=== PATIENT | female | born 1975 | race African-American/Black ===

== ENCOUNTER 2017-02-05 20:48 | Inpatient (IN) ==
[2017-02-05] MEDS ORDERED: ASPIRIN 325 MG TABLET PO STA (22:35)
[2017-02-05] MEDS ORDERED: FUROSEMIDE 100 MG/10 ML VIAL IV STA (22:35)
[2017-02-05] MEDS ORDERED: MORPHINE 2 MG/1 ML SYRINGE IV STA (22:35)
[2017-02-05] MEDS ORDERED: FUROSEMIDE 100 MG/10 ML VIAL ONE (22:40)
[2017-02-05] MEDS ORDERED: MORPHINE 2 MG/1 ML SYRINGE ONE (22:40)
[2017-02-05] MEDS ORDERED: ASPIRIN 325 MG TABLET ONE (22:40)
[2017-02-05 22:44] LABS: Basophils % 0.1 % (0.0-0.8); Eosinophils # 0.3 10*3/uL (0.0-0.87); Hematocrit 25.8 VOL% (35.7-47.0); Hemoglobin 8.4 GM/DL (12.0-16.0); Immature Granulocytes % 1.9 %; Immature Granulocytes Absolute 0.53 #; Lymphocytes # 1.1 10*3/uL (1.4-4.0); Lymphocytes % 4.1 % (21.3-54.2); Mean Corpuscular HGB Conc 32.6 GM/DL (32-36); Mean Corpuscular Hemoglobin 29 PG (27-34); Mean Corpuscular Volume 89.3 FL (87-102); Mean Platelet Volume 9.6 FL (9.6-12.0); Monocytes # 0.9 10*3/uL (0.11-0.8); Monocytes % 3.2 % (1.7-12.7); Neutrophils % 89.7 % (38.7-73.9); Platelet Count 296 T/CUMM (130-400); Red Blood Count 2.89 MC/CUMM (3.8-5.5); Red Cell Distribution Width 14.4 % (9.3-17.3); White Blood Count 27.9 T/CUMM (4-12)
[2017-02-05] MEDS ORDERED: VANCOMYCIN INJ 1,000 MG in SODIUM CHLORIDE 0.9% 250 ML IV STA (22:57)
--- NOTE | 2017-02-05 22:57 | Emergency Department Note ---
IKallie Gwan, am scribing for, and in the presence of, Sajan Duke MD 22 :35. Srikanth Ruiz Charles R, MD, personally performed the services described in this documentation, ascribed by Karishma Arreguin in my presence, and it is both accurate and complete . Arrival - Arrival Chief Complaint: Extremity Problem Stated Complaint: lower extremity problem ED Nursing Triage Note: TO ER PER WHEELCHAIR WITH COMPLAINT OF PAIN TO BLE, MOTHER STATES PATIENT HAS KNOTS TO THE BACK OF THIGHS AND LEGS AND HAS EDEMA TO BLE THAT IS GETTING WORSE. REPORTS IS A DIALYSIS PATIENT AND WAS IN ED LAST WEEK DUE TO BLOOD SUGAR DROPPING BELOW 30. CBG IN TRIAGE 394. Mode of Arrival: Wheelchair Limitations: No Limitations Source: Patient, Family, Old Records Reviewed, RN Notes Reviewed Time Seen by Provider: 02/05/17 21:49 - History of Present Illness HPI Narrative: Patient is a 41 y/o female, with a hx of renal failure and peritoneal dialysis, who presents to the ED with a c/o pain and edema to bilateral lower extremities with an onset 2 weeks ago. Patient is accompanied by family. Family stated that patient became immobile 2 weeks ago due to edema in bilateral LE. Since then, patients sxs have worsened and now includes several "knots" to inner thighs and lower legs. Patient confirmed that she has been on dialysis since 03/2017, that she does make some urine daily and that she has been stationary in a chair for long periods of time. During exam, patient displayed signs of distress and discomfort when transferring patient to bed and during physical exam. Onset (ago): week(s) Consistency: constant Severity: moderate Date of Last Menstrual Period: HYST Allergies/Adverse Reactions: Allergies Allergy/AdvReac Type Severity Reaction Status Date / Time iron dextran complex Allergy Intermediate Chest Pain Verified 02/05/17 21:12 [From Infed] Penicillins Allergy Intermediate Rash/Vomiti Verified 02/05/17 21:12 ng nitroglycerin AdvReac Blood Verified 02/05/17 21:12 Pressure Drops too Low/Headache/Vomiting Shrimp AdvReac Nausea/Vomi Verified 02/05/17 21:12 ting Home Medications: Home Medications Medication Instructions Recorded Confirmed Type Amlodipine Besylate 10 mg PO QPM 08/03/15 01/31/17 History Labetalol HCl 200 mg PO BID 08/03/15 01/31/17 History glipiZIDE [Glipizide Xl] 10 mg PO BID 08/03/15 01/31/17 History Cyanocobalamin Inj [Vitamin B12 1,000 mcg IM Q30D 09/19/15 01/31/17 History Inj] Calcitriol 0.5 mcg PO BID 01/31/17 01/31/17 History Cinacalcet HCl [Sensipar] 180 mg PO DAILY W/LUNCH 01/31/17 01/31/17 History Gabapentin [Gabapentin] 100 mg PO QPM 01/31/17 01/31/17 History Sodium Bicarb Tab 1,300 mg PO BID 01/31/17 01/31/17 History sitaGLIPtin [Januvia] 100 mg PO QAM 01/31/17 01/31/17 History Review of System - Review of System 12 point system: reviewed and no additional remarkable complaints except as stated - Review of System Constitutional: Absent: chills, fever Eyes: Absent: discharge, pain Cardiovascular: Absent: chest pain, palpitations Gastrointestinal: Absent: abdominal pain, nausea, vomiting, diarrhea Musculoskeletal: Present: as per HPI, leg pain (both legs hurt and have "knots" on them ). Absent: arm pain, back pain, lower back pain Medical,Surgical,& Family Hx - Medical History Cardio: History of: Hypertension Neurology: No history of: Seizures HEENT: History of: Eye Problem (Glasses), HEENT Problems (sinus) No history of: Ear Problem Endocrine: History of: Diabetes Mellitus (NIDDM) No history of: Diabetes Mellitus (IDDM) Respiratory: No history of: Pneumonia (Pneum Vac 2012), Respiratory Problems (Flu Vac Current [id number]) Renal: History of: Dialysis (MARITZA PERITONEAL), Renal Failure, Renal Problems Gastrointestinal: History of: GERD No history of: Polyps Musculoskeletal: No history of: Amputation Hematology: History of: Anemia, Bleeding Problems (Hx Transfusions) No history of: Blood Transfusion Reaction Other: No history of: Anesthesia Reactions, Cancer - Surgical History Cardiac Surgeries: Sugical HX of: Vascular Access Devices (11/14/15 Sched for Rt AV Fistula & Dialysis Cath Exchange) Abdominal Surgeries: Surgical HX of: Cholecystectomy, Colonoscopy, EGD Reproductive Surgeries: Surgical HX of;: Hysterectomy (Partial) - Family History Family History: Reports;: Family Diabetes (mother), Family Hypertension (mother) Denies;: Family Anesthesia Reaction, Family Cancer, Family Heart Disease, Family Psychiatric Problems, Family Stroke - Social History Smoking Status: Never smoker Frequency of Alcohol Use: None Type of Drug Use: None Exam Vital Signs: Vital Signs Temperature 98.4 F 02/05/17 21:02 Pulse Rate 104 H 02/05/17 21:02 Respiratory Rate 20 02/05/17 21:02 Blood Pressure 182/97 02/05/17 21:02 O2 Sat by Pulse Oximetry 100 02/05/17 22:37 - General General appearance: alert, in distress, obese - Head Head exam: Present: atraumatic, normocephalic - Eye Eye exam: Present: PERRL, EOMI - ENT ENT exam: Present: normal oropharynx, mucous membranes moist, TM's normal bilaterally, normal external ear exam - Neck Neck exam: Present: full ROM, trachea midline. Absent: tenderness - Chest Chest inspection: Present: symmetric chest wall rise. Absent: tenderness - Respiratory Respiratory exam: Present: rales (bilateral ) - Cardiovascular Cardiovascular exam: Present: regular rate, normal rhythm - Abdominal Exam Abdominal exam: Present: distention (protuberant belly ), ascites - Extremities Exam Extremities exam: Present: tenderness, normal capillary refill, calf tenderness , other (Patient has obvious signs of peau d'orange to bilaterla LE; painful pitting +3 or more edema bilaterally; Patient has venous cord behind popliteal of bilateral LE, neurovascularly intact). Absent: full ROM - Back Exam Back exam: Present: full ROM. Absent: tenderness - Neurological Exam Neurological exam: Present: alert, oriented X3, CN II-XII intact. Absent: motor sensory deficit - Skin Skin exam: Present: other (Patient has obvious signs of peau d'orange to bilaterla LE; painful pitting +3 or more edema bilaterally; Patient has venous cord behind popliteal of bilateral LE) Course - Consultations Consultation #1: Hospitalist will admit patient Time: 23:55 Results - Labs CBC & BMP: 02/05/17 22:10 02/05/17 22:10 Lab Results: I have reviewed the patients labs Labs: Laboratory Tests 02/05/17 21:07 POC Glucose 394 H Laboratory Tests 02/05/17 02/05/17 02/05/17 22:10 22:10 22:10 WBC 27.9 H RBC 2.89 L Hgb 8.4 L Hct 25.8 L Plt Count 296 Neut % (Auto) 89.7 H Lymph % (Auto) 4.1 L Neut # (Auto) 25.0 H Lymph # (Auto) 1.1 L Ida # (Auto) 0.9 H INR 1.0 PT Patient/Control Mix 11.0 Sodium 126 L Potassium 5.2 H Chloride 95 L Carbon Dioxide 11 L Anion Gap 25.2 H BUN 149 H Creatinine 17.60 H Glucose 387 H Calculated Osmolality 317.4 H Calcium 8.1 L Alkaline Phosphatase 157 H Total Protein 6.1 L Albumin 2.6 L Albumin/Globulin Ratio 0.7 L Laboratory Tests 02/05/17 22:10 B-Natriuretic Peptide 129 H - Diagnostic Findings Procedure: Ultrasound: image reviewed by me, report reviewed by me (Negative DVT bilateral lower extremity) Critical Care Time Critical Care Time: Yes Total Critical Care Time: 60 Disposition Clinical Impression: Chronic kidney disease, CKD stage 5 secondary to hypertension, Obesity, Peritoneal dialysis catheter in place, Anasarca associated with disorder of kidney, Leukocytosis, Sepsis affecting skin, Metabolic acidosis, Hyponatremia, Hyperkalemia Case discussed with: patient, patient's family Disposition: Still a Patient Condition: Guarded Time of Disposition: 00:00
[2017-02-05 23:00] LABS: Albumin 2.6 G/DL (3.4-5.0); Bilirubin,Total 0.5 MG/DL (0.2-1.0); Calcium 8.1 MG/DL (8.5-10.1); Magnesium 1.9 MG/DL (1.8-2.4); Osmolality,Calculated 317.4 MOS/KG (273-304); Potassium 5.2 MMOL/L (3.5-5.1); Total Protein 6.1 G/DL (6.4-8.3); Troponin I Only 0.022 NG/ML (0.00-0.045)
[2017-02-05] MEDS ORDERED: VANCOMYCIN 1,000 MG VIAL ONE (23:16)
[2017-02-05] MEDS ORDERED: SODIUM CHLORIDE 0.9% 250 ML IV ONE (23:16)
[2017-02-06] MEDS ORDERED: SODIUM BICARBONATE 50 MEQ/50 ML VIAL IV STA (00:23)
[2017-02-06] MEDS ORDERED: SODIUM BICARBONATE 50 MEQ/50 ML SYRINGE IV ONE (00:51)
[2017-02-06] MEDS ORDERED: INSULIN REGULAR 100 UNIT/ML IV STA (01:06)
[2017-02-06] MEDS ORDERED: INSULIN REGULAR 100 UNIT/ML ONE ×2 (01:15→06:56)
--- NOTE | 2017-02-06 01:24 | Hospitalist History & Physical ---
Assessment and Plan (1) Disorder of acid-base balance Status: Acute Current Visit: Yes (2) Hyponatremia Status: Acute Current Visit: Yes (3) End stage renal disease Status: Chronic Current Visit: No (4) Hypertension Status: Chronic Current Visit: No Qualifiers: Hypertension type: essential hypertension Qualified Code(s): I10 - Essential (primary) hypertension (5) Diabetes Status: Chronic Current Visit: No Qualifiers: Diabetes mellitus type: type 2 Diabetes mellitus complication status: with kidney complications Diabetes mellitus complication detail: with chronic kidney disease Chronic kidney disease stage: on chronic dialysis (6) Leukocytosis Status: Acute Current Visit: Yes (7) Sepsis Status: Acute Current Visit: Yes (8) Cellulitis Status: Acute Assessment and plan: 1. Sepsis/Cellulitis/Leukocytosis.NEHA lower extermety edema. Admit to ICU for critical care monitoring. Sepsis related to Cellulitis in bilateral lower extremeties, Continue Vancomycin, consult pharmacy to manage vancomycin. Gently IV hydration, elevate lower extremities, negative for DVT. Heparin for DVT px. Lactate is not elevated. Patient states peritoneal fluid is clear. PRN pain medication. 2. Acid base disturbance Secondary to ESRD, uncontrolled diabetes, and Sepsis. Resume po bicarbonate. Continue antibiotics, Insulin sliding scale for improved glucose control. Continue peritoneal HD. 3. ESRD: Acidotic and uremic on labs. Consult nephrology. Peritoneal dialysis q 6 hours. Repeat labs in am. Continue Sodium bicarbonate. 4. HTN: Resume antihypertensives. Monitor vital signs q 1 hours. Will add vasopressor support if the patient becomes hypotensive however she remains hypertensive. Improves with pain medication. 5. Hyponatremia NS, reassess labs in am. 6. GERD: Protonix 6. DM type II: Accu cks and Insulin sliding scale. Resume po antidiabetic medication. Current Visit: Yes History of Present Illness History of present illness: Ms. Quinn is a 41 year old female with PMH significant for morbid obesity, ESRD on peritoneal dialysis, hypertension, GERD, anemia, that presented to the ED today complaining of bilateral leg pain and edema. Patient states the onset of her leg pain and swelling started approximately 2-3 weeks ago but over the last 3 days has progressively gotten worse to the point where she cannot ambulate more than 5-10 feet without excruciating pain. Pain rating 10 out of 10 with barely touching her legs. Associated symptoms included nausea, pain, polyuria, on nocturia. She denies fever, chills, vomiting, injury to legs, and cough. There are no modifying factors. PCP is Dr. Maged Garduno and Him Specialist is Dr. Bazzi. She lives by herself and performs peritoneal dialysis herself. Upon presentation to the ER she was hypertensive with SBP greater than 170/107, and tachycardic with HR [address] noted on hospital monitor. Bedside venous doppler studies completed and were reported negative. Labs revealed hyperglycemia, hyponatremia, elevated ANION gap of 25, Stable anemia, leukocytosis of 27.9 with neutrophils of 25. Labs EKG revealed hyperglycemia and in the 300s with a high ion gap of 25, mildly elevated ALK phos of 151, bicarb of 11, BNP of 129 with a negative troponin. Chest xray with no indication of infiltrates, positive for cardiomegaly, no acute CHF exacerbation. Patient was recently in the ED with Hypoglycemia on January 31. She states she is compliant with her medications and peritoneal dialysis however she was hypertensive upon her last admission. She meets sepsis criteria based on her HR, RR, Leukocytosis and Cellulites of bilateral lower extremities. She will be admitted to ICU for critical care management and Sepsis to the Hospitalist service. Home Medications Medication Instructions Recorded Confirmed Type Amlodipine Besylate 10 mg PO QPM 08/03/15 01/31/17 History Labetalol HCl 200 mg PO BID 08/03/15 01/31/17 History glipiZIDE [Glipizide Xl] 10 mg PO BID 08/03/15 01/31/17 History Cyanocobalamin Inj [Vitamin B12 1,000 mcg IM Q30D 09/19/15 01/31/17 History Inj] Calcitriol 0.5 mcg PO BID 01/31/17 01/31/17 History Cinacalcet HCl [Sensipar] 180 mg PO DAILY W/LUNCH 01/31/17 01/31/17 History Gabapentin [Gabapentin] 100 mg PO QPM 01/31/17 01/31/17 History Sodium Bicarb Tab 1,300 mg PO BID 01/31/17 01/31/17 History sitaGLIPtin [Januvia] 100 mg PO QAM 01/31/17 01/31/17 History Allergies Allergy/AdvReac Type Severity Reaction Status Date / Time iron dextran complex Allergy Intermediate Chest Pain Verified 02/05/17 21:12 [From Infed] Penicillins Allergy Intermediate Rash/Vomiti Verified 02/05/17 21:12 ng nitroglycerin AdvReac Blood Verified 02/05/17 21:12 Pressure Drops too Low/Headache/Vomiting Shrimp AdvReac Nausea/Vomi Verified 02/05/17 21:12 ting Medical,Surgical,& Family Hx - Medical History Medical History: noncontributory Cardio: History of: Hypertension Neurology: No history of: Seizures HEENT: History of: Eye Problem (Glasses), HEENT Problems (sinus) No history of: Ear Problem Endocrine: History of: Diabetes Mellitus (NIDDM) No history of: Diabetes Mellitus (IDDM) Respiratory: No history of: Pneumonia (Pneum Vac 2012), Respiratory Problems (Flu Vac Current [id number]) Renal: History of: Dialysis (MARITZA PERITONEAL), Renal Failure, Renal Problems Gastrointestinal: History of: GERD No history of: Polyps Musculoskeletal: History of: Musculoskeletal Problems (Difficulty ambulating. ) No history of: Amputation Hematology: History of: Anemia, Bleeding Problems (Hx Transfusions) No history of: Blood Transfusion Reaction Other: No history of: Anesthesia Reactions, Cancer - Surgical History Cardiac Surgeries: Sugical HX of: Vascular Access Devices (previous AV fistula 2016) Abdominal Surgeries: Surgical HX of: Abdominal Surgery (Periotineal catheter ), Cholecystectomy, Colonoscopy, EGD Reproductive Surgeries: Surgical HX of;: Hysterectomy (Partial) - Family History Family History: Reports;: Family Diabetes (mother), Family Hypertension (mother) Denies;: Family Anesthesia Reaction, Family Cancer, Family Heart Disease, Family Psychiatric Problems, Family Stroke - Social History Smoking Status: Never smoker Have you smoked in the last 12 months: No Frequency of Alcohol Use: None Type of Drug Use: None Marital Status: Single Lives With:: Alone Functional capacity: independent ambulation (normally no problem ambulating but can only walk approximately 10 feet due to severe bilateral leg pain and edema.) - Constitutional Constitutional: Present: fatigue, weakness, other - EENT Eyes: Present: as per HPI. Absent: blurry vision, diplopia, loss of vision Ears: Absent: decreased hearing, ear discharge Nose, mouth and throat: Absent: dysphagia, headache(s), hoarseness, lip swelling , nasal congestion, neck pain, throat swelling, tongue swelling - Cardiovascular Cardiovascular: Present: dyspnea. Absent: chest pain at rest, chest pain with activity, diaphoresis, orthopnea, palpitations - Respiratory Respiratory: Present: dyspnea, dyspnea on exertion. Absent: cough, hemoptysis - Gastrointestinal Gastrointestinal: Present: heartburn. Absent: constipation, diarrhea, fecal incontinence, loose stools - Genitourinary Genitourinary: Present: other (voids an aveerage of 8 times in a 24 hour period. ). Absent: abnormal vaginal bleeding, difficulty urinating, dysuria - Musculoskeletal Musculoskeletal: Present: other (bilateral leg pain and edema) - Neurological Neurological: Present: dizziness, frequent falls, numbness, syncope. Absent: confusion - Psychiatric Psychiatric: Absent: auditory hallucinations, confusion, depression, homicidal ideation, panic attacks, suicidal ideation, visual hallucinations - Endocrine Endocrine: Present: fatigue, polyuria - Hematologic/Lymphatic Hematologic/Lymphatic: Present: other (hx of anemia and blood transfusion. Allergy to INFED. ) Exam - Constitutional Vitals: Period Temp Pulse Resp BP Sys/Moura Pulse Ox Last 24 Hr 98.4 F-98.4 F 104-104 20-20 182-182/97-97 100-100 General appearance: mild distress, morbidly obese - Head Head exam: Present: normal inspection, normocephalic, atraumatic - Eye Eye exam: Present: EOMI Pupils: Present: EMERITA - ENT ENT exam: Present: normal exam, normal oropharynx - Neck Neck exam: Present: normal inspection - Respiratory Respiratory exam: Present: clear to auscultation bilaterally - Cardiovascular Cardiovascular exam: Present: tachycardia, other (ST on monitor no ectopy. ) - GI/Abdominal GI/Abdominal exam: Present: normal bowel sounds, other (peritoneal catheter no redness, no tenderness, no drainage. softobese) - Extremities Exam Extremities exam: Present: normal capillary refill, edema, other (erythema in bilateral lower extremeties with 3+ pitting edema. calf tenderness and tibial tenderness, orange peel skin) Results - Labs CBC & BMP: 02/05/17 22:10 02/05/17 22:10 - EKG EKG shows: tachycardia (Sinus tachycardia) - Diagnostic Findings Procedure: Chest x-ray: image reviewed by me, Ultrasound: image reviewed by me ( negative venous doppler studies)
[2017-02-06] MEDS ORDERED: GLUCAGON 1 MG VIAL IM PRN (01:31)
[2017-02-06] MEDS ORDERED: ALBUTEROL 2.5 MG/3 ML NEB RESP TX PRN (01:31)
[2017-02-06] MEDS ORDERED: DEXTROSE 50% 25 GM/50 ML VIAL IV PRN ×2 (01:31)
[2017-02-06] MEDS ORDERED: SODIUM CHLORIDE 0.9% 1,000 ML IV SCH (02:00)
[2017-02-06] MEDS ORDERED: ENOXAPARIN 30 MG/0.3 ML SYRINGE SUBCUT SCH (02:00)
[2017-02-06 02:37] LABS: Band Neutrophils 1 % (0-10); Eosinophils 2 % (0-10); Lymphocytes 5 % (20-55); Segmented Neutrophils 91 % (50-85)
[2017-02-06 02:38] LABS: Platelet Estimate Normal; Total Cells Counted 100
[2017-02-06] MEDS ORDERED: ENOXAPARIN 30 MG/0.3 ML SYRINGE ONE (03:57)
[2017-02-06 04:00] LABS: Apearance,Urine Clear (Clear); Bacteria,Urine Moderate /HPF (Few); Bilirubin,Urine Negative (Negative); Blood, Urine Trace mg/dL (Negative); Glucose,Urine (UA) 50 mg/dL (Negative); Ketones,Urine Negative (Negative); Nitrite,Urine Negative (Negative); Protein,Urine >=500 MG/DL; RBC,Urine 14 /HPF (0-4); Squamous Epithelial Cell,Urine Occasional /HPF (0-10); Urine Color Yellow (Yellow); Urine Specific Gravity 1.005 (1.001-1.035); Urine Urobilinogen < 2.0 EU/DL (0.2-1.0)
[2017-02-06] MEDS: HEPARIN 5,000 UNIT/1 ML VIAL SUBCUT SCH ×2 (04:00→11:12)
--- NOTE | 2017-02-06 06:26 | Ultrasound Report ---
Exam: Bilateral lower extremity venous Doppler ultrasound Comparison: None Clinical history: Bilateral leg swelling Technique: Duplex scan of the lower extremity veins using B-mode/grayscale scaled imaging and Doppler spectral analysis and color flow. Findings: Major venous structures of the lower extremities demonstrate a normal course and caliber. Normal color-flow study and spectral analysis. There is normal compression and augmentation of bilateral common femoral, superficial femoral and popliteal veins. The proximal bilateral greater saphenous veins appear to be patent. Impression: No evidence to suggest deep venous thrombosis within either lower extremity. Ultrasound images were captured and stored. PROCEDURE INTERPRETED AT [facility] [place] DEPARTMENT OF RADIOLOGY Final Report Signed by: Dr. Christine Wise
[2017-02-06] MEDS: INSULIN REGULAR 100 UNIT/ML SUBCUT SCH ×3 (06:55→12:54)
--- NOTE | 2017-02-06 07:05 | XRay Report ---
Portable chest Date: 02/05/2017 Clinical history: Shortness of breath Comparison: 11/21/2015 Technique: Portable AP sitting chest Findings: Persistent cardiomegaly with interval removal of the left IJ venous dialysis catheter. Minimal chronic scarring in the lungs with no acute findings in the mediastinum or osseous structures. Impression: No acute cardiopulmonary pathology identified. PROCEDURE INTERPRETED AT [facility] DEPARTMENT OF RADIOLOGY Final Report Signed by: Dr. Christine Wise
[2017-02-06 08:23] LABS: Basophils % 0.1 % (0.0-0.8); Eosinophils # 0.4 10*3/uL (0.0-0.87); Eosinophils % 1.3 % (0.00-10.9); Hematocrit 22.8 VOL% (35.7-47.0); Hemoglobin 7.5 GM/DL (12.0-16.0); Immature Granulocytes Absolute 0.27 #; Lymphocytes # 1.7 10*3/uL (1.4-4.0); Lymphocytes % 6.3 % (21.3-54.2); Mean Corpuscular HGB Conc 32.9 GM/DL (32-36); Mean Corpuscular Hemoglobin 29 PG (27-34); Mean Corpuscular Volume 89.4 FL (87-102); Mean Platelet Volume 9.5 FL (9.6-12.0); Monocytes % 3.6 % (1.7-12.7); Neutrophils # 23.1 10*3/uL (1.4-7.4); Neutrophils % 87.7 % (38.7-73.9); Platelet Count 251 T/CUMM (130-400); Red Blood Count 2.55 MC/CUMM (3.8-5.5); Red Cell Distribution Width 14.5 % (9.3-17.3); White Blood Count 26.4 T/CUMM (4-12)
[2017-02-06 08:38] LABS: Calcium 7.8 MG/DL (8.5-10.1); Osmolality,Calculated 315.8 MOS/KG (273-304); Potassium 4.6 MMOL/L (3.5-5.1)
[2017-02-06 08:48] LABS: Lymphocytes 7 % (20-55); Segmented Neutrophils 88 % (50-85); Total Cells Counted 100
[2017-02-06 08:49] LABS: Hypochromasia 1+; Microcytosis 1+; Platelet Estimate Normal
[2017-02-06] MEDS ORDERED: SODIUM CHLORIDE 0.9% 250 ML IV PRN (08:53)
[2017-02-06] MEDS ORDERED: SODIUM CHLORIDE 0.9% 500 ML IV ONE (09:03)
--- NOTE | 2017-02-06 09:03 | Hospitalist Progress Note ---
Assessment and Plan (1) Sepsis Status: Acute Assessment and plan: Most likely due to bilateral lower extremity cellulitis., Blood cultures pending, will send fluid from peritoneal down for culture and cell count. Continue vancomycin dosing per pharmacy. consulted Dr. Arreguin Current Visit: Yes (2) Cellulitis Status: Acute Assessment and plan: Bilateral lower extremity cellulitis. Continue vancomycin. Current Visit: Yes (3) CHIDI (obstructive sleep apnea) Status: Acute Assessment and plan: consult dr Payan, abg Current Visit: Yes (4) Anemia Status: Acute Assessment and plan: probably due to renal failure, 2 units of PRBC Current Visit: Yes (5) Diabetes Status: Chronic Assessment and plan: hgb a1c, ISC. Current Visit: No Qualifiers: Diabetes mellitus type: type 2 Diabetes mellitus complication status: with kidney complications Diabetes mellitus complication detail: with chronic kidney disease Chronic kidney disease stage: on chronic dialysis (6) Hypertension Status: Chronic Assessment and plan: cont to monitor for now Current Visit: No Qualifiers: Hypertension type: essential hypertension Qualified Code(s): I10 - Essential (primary) hypertension (7) End stage renal disease Status: Chronic Assessment and plan: peritoneal dialysis last session on friday, consult Dr Bazzi Current Visit: No (8) Obesity Status: Chronic Current Visit: Yes Qualifiers: Obesity type: due to excess calories (9) Metabolic acidosis Status: Acute Assessment and plan: due to renal failure but will check abg suspect resp acidosis. Current Visit: Yes (10) Hyponatremia Status: Acute Assessment and plan: NS bolus and IVF gentle, Dr Bazzi to manage. Current Visit: Yes Hospitalist: Subjective Interval history: I agree with Dr. Martin for evaluation of sepsis. She seems relatively stable and does not require ICU care at this time. She is a peritoneal dialysis patient and she has not dialyzed since Friday. She is apparently very noncompliant. She also seems rather lethargic and probably has an elevated CO2. She looks at high risk for sleep apnea. Exam - Constitutional Vitals: Period Temp Pulse Resp BP Sys/Moura Pulse Ox Last 24 Hr 98.4 F-98.4 F 104-104 20-20 182-182/97-97 100-100 Exam: Heart Rate-[tachy] Lungs-[CTAB] GI-[+bs soft, NT] Ext-[bilateral LE edema and erythema] Neuro [Motor 4/5], [alert and oriented times 2, lethargic] psych [depressed mood and flat affect] General [no acute distress] Results - Labs CBC & BMP: 02/06/17 07:50 02/06/17 07:50 Lab Results: I have reviewed the past 24 hour labs Labs: Blood cultures pending - Diagnostic Findings Procedure: Chest x-ray: report reviewed by me (No evidence of infiltrate.), Ultrasound: report reviewed by me (No evidence of DVT)
[2017-02-06] MEDS: SODIUM BICARBONATE 650 MG TABLET PO SCH ×4 (09:38→22:33)
[2017-02-06 09:41] LABS: Allen Test Positive
[2017-02-06 09:42] LABS: ABG Base Excess -15.8 MMOL/L (-2.5-2.5); ABG HCO3 12.2 MMOL/L (20-26); ABG Oxygen Saturation 98.3 % (95-100); ABG PCO2 22.6 MM HG (35-48); ABG PH 7.261 (7.35-7.45); ABG TCO2 9.7 MMOL/L (23-27)
[2017-02-06] MEDS: SODIUM BICARB INJ 100 MEQ in DEXTROSE 5% 1,000 ML IV SCH (10:22)
[2017-02-06] MEDS ORDERED: HEPARIN 5,000 UNIT/1 ML VIAL ONE (11:06)
[2017-02-06] MEDS ORDERED: ACETAMINOPHEN 325 MG TABLET PO PRN (12:35)
--- NOTE | 2017-02-06 12:42 | Nephrology Consult Note ---
History of Present Illness Chief complaint: End-stage renal disease History of present illness: Ms. Quinn is a 41 year old femalelady with history of end-stage renal disease due to hypertension and diabetes is followed by me in my end-stage renal disease clinic. She performs peritoneal dialysis daily. She presented with a 1 -2 week history of increased lower extremity pain and swelling and has been admitted for cellulitis. According to the patient, she had symptoms that dates back a couple months ago that resolved on its own on the lower extremities. However, in the last week the symptoms comes swelling and lower extremity pain have increased. She mentions that over the last 2 weeks the pain is been so severe that she has not been able to walk. Patient found to have an elevated white blood cell count. Lower extremity Dopplers have been negative. Nephrology is been consulted for renal issues. Patient continues to do her dialysis as prescribed. No shortness of breath or chest pain. Home Medications Medication Instructions Recorded Confirmed Type Amlodipine Besylate 10 mg PO QPM 08/03/15 01/31/17 History Labetalol HCl 200 mg PO BID 08/03/15 01/31/17 History glipiZIDE [Glipizide Xl] 10 mg PO BID 08/03/15 01/31/17 History Cyanocobalamin Inj [Vitamin B12 1,000 mcg IM Q30D 09/19/15 01/31/17 History Inj] Calcitriol 0.5 mcg PO BID 01/31/17 01/31/17 History Cinacalcet HCl [Sensipar] 180 mg PO DAILY W/LUNCH 01/31/17 01/31/17 History Gabapentin [Gabapentin] 100 mg PO QPM 01/31/17 01/31/17 History Sodium Bicarb Tab 1,300 mg PO BID 01/31/17 01/31/17 History sitaGLIPtin [Januvia] 100 mg PO QAM 01/31/17 01/31/17 History Allergies Allergy/AdvReac Type Severity Reaction Status Date / Time iron dextran complex Allergy Intermediate Chest Pain Verified 02/05/17 21:12 [From Infed] Penicillins Allergy Intermediate Rash/Vomiti Verified 02/05/17 21:12 ng nitroglycerin AdvReac Blood Verified 02/05/17 21:12 Pressure Drops too Low/Headache/Vomiting Shrimp AdvReac Nausea/Vomi Verified 02/05/17 21:12 ting Medical,Surgical,& Family Hx - Medical History Cardio: History of: Hypertension Neurology: No history of: Seizures HEENT: History of: Eye Problem (Glasses), HEENT Problems (sinus) No history of: Ear Problem Endocrine: History of: Diabetes Mellitus (NIDDM) No history of: Diabetes Mellitus (IDDM) Respiratory: No history of: Pneumonia (Pneum Vac 2012), Respiratory Problems (Flu Vac Current [id number]) Renal: History of: Dialysis (MARITZA PERITONEAL), Renal Failure, Renal Problems Gastrointestinal: History of: GERD No history of: Polyps Musculoskeletal: History of: Musculoskeletal Problems (Difficulty ambulating. ) No history of: Amputation Hematology: History of: Anemia, Bleeding Problems (Hx Transfusions) No history of: Blood Transfusion Reaction Other: No history of: Anesthesia Reactions, Cancer - Surgical History Cardiac Surgeries: Sugical HX of: Vascular Access Devices (previous AV fistula 2015) Abdominal Surgeries: Surgical HX of: Abdominal Surgery (Periotineal catheter ), Cholecystectomy, Colonoscopy, EGD Reproductive Surgeries: Surgical HX of;: Hysterectomy (Partial) - Family History Family History: Reports;: Family Diabetes (mother), Family Hypertension (mother) Denies;: Family Anesthesia Reaction, Family Cancer, Family Heart Disease, Family Psychiatric Problems, Family Stroke - Social History Smoking Status: Never smoker Frequency of Alcohol Use: None Type of Drug Use: None Review of Systems Constitutional: fatigue, lethargy Cardiovascular: dyspnea Gastrointestinal: no abdominal pain Genitourinary: no dysuria Exam - Vital Signs Vital signs: Period Temp Pulse Resp BP Sys/[place] Pulse Ox Last 24 Hr 98.4 F-98.4 F 104-104 20-20 182-182/97-97 100-100 - General Appearance General appearance: well-developed, well-nourished EENT: ATNC Neck: supple Respiratory: clear Cardiology: edema, regular rate, regular rhythm Gastrointestinal: normoactive bowel sounds Integumentary: rash (Cellulitis noted bilateral lower extremity, tenderness to touch lower extremity) Neurologic: alert and oriented x3, CN 3-12 intact Musculoskeletal: no clubbing Psychiatric: mood/affect appropriate, cooperative Results - Labs CBC & BMP: 02/06/17 07:50 02/06/17 07:50 Assessment and Plan (1) End stage renal disease Status: Chronic Assessment and plan: Continue with scheduled PD exchanges Current Visit: Yes (2) Anemia Status: Chronic Current Visit: No Qualifiers: Other causes of anemia: chronic disease, kidney (3) Hypertension Status: Chronic Current Visit: No Qualifiers: Hypertension type: essential hypertension Qualified Code(s): I10 - Essential (primary) hypertension (4) Obesity Status: Chronic Current Visit: Yes Qualifiers: Obesity type: due to excess calories (5) Sepsis Status: Acute Current Visit: Yes (6) Cellulitis Status: Acute Current Visit: Yes (7) Diabetes Status: Chronic Current Visit: No Qualifiers: Diabetes mellitus type: type 2 Diabetes mellitus complication status: with kidney complications Diabetes mellitus complication detail: with chronic kidney disease Chronic kidney disease stage: on chronic dialysis
[2017-02-06] MEDS ORDERED: VANCOMYCIN INJ 1,500 MG in SODIUM CHLORIDE 0.9% 500 ML IV PRN (13:01)
[2017-02-06] MEDS ORDERED: INSULIN REGULAR 100 UNIT/ML SUBCUT SCH (16:00)
--- NOTE | 2017-02-06 16:48 | Infectious Disease Consult ---
Assessment and Plan (1) Cellulitis Status: Acute Assessment and plan: Cellulitis of both lower extremities. Possibly staph versus strep. This is only obvious cause of sepsis. Recommendations: Agree with empiric vancomycin. Goal trough level around 15-20. Thank you very much for the consult. Will follow. Current Visit: Yes (2) End stage renal disease Status: Acute Current Visit: Yes (3) Leukocytosis Status: Acute Assessment and plan: Most likely due to cellulitis. Need to make sure there is no associated bloodstream infection. Blood cultures pending. Continue to monitor. Current Visit: Yes (4) Peritoneal dialysis catheter in place Status: Acute Assessment and plan: Peritoneal fluid cell count negative for infection. Current Visit: Yes (5) Obesity Status: Chronic Current Visit: Yes Qualifiers: Obesity type: due to excess calories (6) Diabetes Status: Chronic Assessment and plan: Controlled with A1c less than 6%. Current Visit: No Qualifiers: Diabetes mellitus type: type 2 Diabetes mellitus complication status: with kidney complications Diabetes mellitus complication detail: with chronic kidney disease Chronic kidney disease stage: on chronic dialysis (7) Hypertension Status: Chronic Current Visit: No Qualifiers: Hypertension type: essential hypertension Qualified Code(s): I10 - Essential (primary) hypertension History of Present Illness Chief complaint: Sepsis History of present illness: Patient was extremely drowsy and therefore not able to give reliable history. She kept falling asleep while trying to talk to me. Ms. Quinn is a 41 year old female with multiple comorbidities including diabetes and end-stage renal disease on peritoneal dialysis. She came to the hospital yesterday because of new onset pain and swelling of both legs. When she came in she had severe leukocytosis. She has not had fever. Redness noted of both legs and she was started on vancomycin. I am asked to assist with management. Home Medications Medication Instructions Recorded Confirmed Type Amlodipine Besylate 10 mg PO QPM 08/03/15 01/31/17 History Labetalol HCl 200 mg PO BID 08/03/15 01/31/17 History glipiZIDE [Glipizide Xl] 10 mg PO BID 08/03/15 01/31/17 History Cyanocobalamin Inj [Vitamin B12 1,000 mcg IM Q30D 09/19/15 01/31/17 History Inj] Calcitriol 0.5 mcg PO BID 01/31/17 01/31/17 History Cinacalcet HCl [Sensipar] 180 mg PO DAILY W/LUNCH 01/31/17 01/31/17 History Gabapentin [Gabapentin] 100 mg PO QPM 01/31/17 01/31/17 History Sodium Bicarb Tab 1,300 mg PO BID 01/31/17 01/31/17 History sitaGLIPtin [Januvia] 100 mg PO QAM 01/31/17 01/31/17 History Allergies Allergy/AdvReac Type Severity Reaction Status Date / Time iron dextran complex Allergy Intermediate Chest Pain Verified 02/05/17 21:12 [From Infed] Penicillins Allergy Intermediate Rash/Vomiti Verified 02/05/17 21:12 ng nitroglycerin AdvReac Blood Verified 02/05/17 21:12 Pressure Drops too Low/Headache/Vomiting Shrimp AdvReac Nausea/Vomi Verified 02/05/17 21:12 ting ROS unobtainable: due to mental status (To drowsy to reliably give history) Medical,Surgical,& Family Hx - Medical History Cardio: History of: Hypertension Neurology: No history of: Seizures HEENT: History of: Eye Problem (Glasses), HEENT Problems (sinus) No history of: Ear Problem Endocrine: History of: Diabetes Mellitus (NIDDM) No history of: Diabetes Mellitus (IDDM) Respiratory: No history of: Pneumonia, Respiratory Problems Renal: History of: Dialysis (MARITZA PERITONEAL), Renal Failure, Renal Problems Gastrointestinal: History of: GERD No history of: Polyps Musculoskeletal: History of: Musculoskeletal Problems (Difficulty ambulating. ) No history of: Amputation Hematology: History of: Anemia, Bleeding Problems (Hx Transfusions) No history of: Blood Transfusion Reaction Other: No history of: Anesthesia Reactions, Cancer - Surgical History Cardiac Surgeries: Sugical HX of: Vascular Access Devices (previous AV fistula 2016) Abdominal Surgeries: Surgical HX of: Abdominal Surgery (Periotineal catheter ), Cholecystectomy, Colonoscopy, EGD Reproductive Surgeries: Surgical HX of;: Hysterectomy (Partial) - Family History Family History: Reports;: Family Diabetes (mother), Family Hypertension (mother) Denies;: Family Anesthesia Reaction, Family Cancer, Family Heart Disease, Family Psychiatric Problems, Family Stroke - Social History Smoking Status: Never smoker Frequency of Alcohol Use: None Type of Drug Use: None Infectious Disease Exam H&P - Constitutional Vitals: Vital Signs Temp Pulse Resp BP Pulse Ox 98.9 F 110 H 20 160/85 100 02/06/17 13:55 02/06/17 13:55 02/06/17 13:55 02/06/17 13:55 02/06/17 13:55 Intake and Output 02/06/17 02/06/17 02/06/17 07:59 15:59 23:59 Intake Total 1500 / 1500 Balance 1500 / 1500 Intake: IV 1500 / 1500 Ns 1,000 ml @ 50 mls/hr 1500 / 1500 IV .Q20H RONY Rx#: [id number] Other: # Voids 0 Weight 94.801 kg Patient Weight 02/06/17 23:59 Weight 94.801 kg Exam: General: Patient chronically ill looking, very drowsy, cushingoid facies HEENT: Mucous membranes pink and moist, anicteric acyanotic, EMERITA, no oral exudates Neck: Supple, no thyroid gland enlargement Respiratory system: Breath sounds vesicular, no crepitations or wheezes Cardiovascular: Normal S1 and S2, no murmurs appreciated Abdomen: PD catheter noted to right lower quadrant without drainage or surrounding induration, normal bowel sounds, soft nontender throughout, no organomegaly or mass appreciated Genitourinary: No suprapubic pain or bladder distention, significant amount of clear urine from [place] catheter Extremities: Moderate bilateral lower extremity edema, very tender to touch with mild to moderate erythema and hyperemia. No open wounds to feet or legs. Of note the erythema extends to posterior medial aspect of both thighs, right more than left Skin: No rash Reports - Labs CBC & BMP: 02/06/17 07:50 02/06/17 07:50 Labs: Laboratory Results - last 24 hr 02/05/17 02/05/17 02/05/17 00:39 21:07 22:10 WBC 27.9 H RBC 2.89 L Hgb 8.4 L Hct 25.8 L MCV 89.3 MCH 29 MCHC 32.6 RDW 14.4 Plt Count 296 MPV 9.6 Neut % (Auto) 89.7 H Lymph % (Auto) 4.1 L [place] % (Auto) 3.2 Eos % (Auto) 1.0 Baso % (Auto) 0.1 Neut # (Auto) 25.0 H Lymph # (Auto) 1.1 L [place] # (Auto) 0.9 H Eos # (Auto) 0.3 Baso # (Auto) 0.0 Total Counted 100 Immature Gran % 1.9 Nucleated RBC % 0.0 Immature Gran # 0.53 Segmented Neutrophils 91 H Band Neutrophils 1 Lymphocytes 5 L Monocytes 1 L Eosinophils 2 Nucleated RBCs # 0.00 Platelet Estimate Normal Immature Plt Fraction 0.0 Hypochromasia Microcytosis INR PT Patient/Control Mix ABG pH ABG pCO2 ABG pO2 ABG HCO3 ABG Total CO2 ABG O2 Saturation ABG Base Excess FiO2 Sodium Potassium Chloride Carbon Dioxide Anion Gap BUN Creatinine GFR Calculation BUN/Creatinine Ratio Glucose POC Glucose 394 H Hemoglobin A1c Calculated Osmolality Lactic Acid Calcium Magnesium Total Bilirubin AST ALT Alkaline Phosphatase Troponin I B-Natriuretic Peptide Total Protein Albumin Globulin Albumin/Globulin Ratio b-Hydroxybutyric mmol/L 0.1 Urine Color Urine Appearance Urine pH Ur Specific [place] Urine Protein Urine Glucose (UA) Urine Ketones Urine Blood Urine Nitrate Urine Bilirubin Urine Urobilinogen Urine Leukocytes Urine RBC Ur Squamous Epith Cells Urine Bacteria Ur Culture Indicated? Fluid Tot Cell Count Fluid Lymphocytes Dialysate WBC Dialysate RBC Blood Type Antibody Screen Antibody Identification Crossmatch 02/05/17 02/05/17 02/05/17 22:10 22:10 22:10 WBC RBC Hgb Hct MCV MCH MCHC RDW Plt Count MPV Neut % (Auto) Lymph % (Auto) [place] % (Auto) Eos % (Auto) Baso % (Auto) Neut # (Auto) Lymph # (Auto) [place] # (Auto) Eos # (Auto) Baso # (Auto) Total Counted Immature Gran % Nucleated RBC % Immature Gran # Segmented Neutrophils Band Neutrophils Lymphocytes Monocytes Eosinophils Nucleated RBCs # Platelet Estimate Immature Plt Fraction Hypochromasia Microcytosis INR 1.0 PT Patient/Control Mix 11.0 ABG pH ABG pCO2 ABG pO2 ABG HCO3 ABG Total CO2 ABG O2 Saturation ABG Base Excess FiO2 Sodium 126 L Potassium 5.2 H Chloride 95 L Carbon Dioxide 11 L Anion Gap 25.2 H BUN 149 H Creatinine 17.60 H GFR Calculation 3 BUN/Creatinine Ratio 8.00 Glucose 387 H POC Glucose Hemoglobin A1c Calculated Osmolality 317.4 H Lactic Acid Calcium 8.1 L Magnesium 1.9 Total Bilirubin 0.50 AST 7 ALT 13 Alkaline Phosphatase 157 H Troponin I 0.022 B-Natriuretic Peptide 129 H Total Protein 6.1 L Albumin 2.6 L Globulin 3.5 Albumin/Globulin Ratio 0.7 L b-Hydroxybutyric mmol/L Urine Color Urine Appearance Urine pH Ur Specific [place] Urine Protein Urine Glucose (UA) Urine Ketones Urine Blood Urine Nitrate Urine Bilirubin Urine Urobilinogen Urine Leukocytes Urine RBC Ur Squamous Epith Cells Urine Bacteria Ur Culture Indicated? Fluid Tot Cell Count Fluid Lymphocytes Dialysate WBC Dialysate RBC Blood Type Antibody Screen Antibody Identification Crossmatch 02/05/17 02/06/17 02/06/17 22:10 00:00 02:21 WBC RBC Hgb Hct MCV MCH MCHC RDW Plt Count MPV Neut % (Auto) Lymph % (Auto) [place] % (Auto) Eos % (Auto) Baso % (Auto) Neut # (Auto) Lymph # (Auto) [place] # (Auto) Eos # (Auto) Baso # (Auto) Total Counted Immature Gran % Nucleated RBC % Immature Gran # Segmented Neutrophils Band Neutrophils Lymphocytes Monocytes Eosinophils Nucleated RBCs # Platelet Estimate Immature Plt Fraction Hypochromasia Microcytosis INR PT Patient/Control Mix ABG pH ABG pCO2 ABG pO2 ABG HCO3 ABG Total CO2 ABG O2 Saturation ABG Base Excess FiO2 Sodium Potassium Chloride Carbon Dioxide Anion Gap BUN Creatinine GFR Calculation BUN/Creatinine Ratio Glucose POC Glucose 224 H Hemoglobin A1c Calculated Osmolality Lactic Acid 1.0 Calcium Magnesium Total Bilirubin AST ALT Alkaline Phosphatase Troponin I B-Natriuretic Peptide Total Protein Albumin Globulin Albumin/Globulin Ratio b-Hydroxybutyric mmol/L Urine Color Yellow Urine Appearance Clear Urine pH 6.0 Ur Specific [place] 1.005 Urine Protein >=500 Urine Glucose (UA) 50 Urine Ketones Negative Urine Blood Trace Urine Nitrate Negative Urine Bilirubin Negative Urine Urobilinogen < 2.0 H Urine Leukocytes Negative Urine RBC 14 Ur Squamous Epith Cells Occasional Urine Bacteria Moderate Ur Culture Indicated? Not indicated Fluid Tot Cell Count Fluid Lymphocytes Dialysate WBC Dialysate RBC Blood Type Antibody Screen Antibody Identification Crossmatch 02/06/17 02/06/17 02/06/17 06:54 07:50 07:50 WBC 26.4 H RBC 2.55 L Hgb 7.5 L Hct 22.8 L MCV 89.4 MCH 29 MCHC 32.9 RDW 14.5 Plt Count 251 MPV 9.5 L Neut % (Auto) 87.7 H Lymph % (Auto) 6.3 L [place] % (Auto) 3.6 Eos % (Auto) 1.3 Baso % (Auto) 0.1 Neut # (Auto) 23.1 H Lymph # (Auto) 1.7 [place] # (Auto) 1.0 H Eos # (Auto) 0.4 Baso # (Auto) 0.0 Total Counted 100 Immature Gran % 1.0 Nucleated RBC % 0.0 Immature Gran # 0.27 Segmented Neutrophils 88 H Band Neutrophils Lymphocytes 7 L Monocytes 5 Eosinophils Nucleated RBCs # 0.00 Platelet Estimate Normal Immature Plt Fraction 0.0 Hypochromasia 1+ Microcytosis 1+ INR PT Patient/Control Mix ABG pH ABG pCO2 ABG pO2 ABG HCO3 ABG Total CO2 ABG O2 Saturation ABG Base Excess FiO2 Sodium 130 L Potassium 4.6 Chloride 99 Carbon Dioxide 11 L Anion Gap 24.6 H BUN 149 H Creatinine 17.40 H GFR Calculation 3 BUN/Creatinine Ratio 8.00 Glucose 230 H POC Glucose 242 H Hemoglobin A1c Calculated Osmolality 315.8 H Lactic Acid Calcium 7.8 L Magnesium Total Bilirubin AST ALT Alkaline Phosphatase Troponin I B-Natriuretic Peptide Total Protein Albumin Globulin Albumin/Globulin Ratio b-Hydroxybutyric mmol/L Urine Color Urine Appearance Urine pH Ur Specific [place] Urine Protein Urine Glucose (UA) Urine Ketones Urine Blood Urine Nitrate Urine Bilirubin Urine Urobilinogen Urine Leukocytes Urine RBC Ur Squamous Epith Cells Urine Bacteria Ur Culture Indicated? Fluid Tot Cell Count Fluid Lymphocytes Dialysate WBC Dialysate RBC Blood Type Antibody Screen Antibody Identification Crossmatch 02/06/17 02/06/17 02/06/17 07:50 07:50 09:19 WBC RBC Hgb Hct MCV MCH MCHC RDW Plt Count MPV Neut % (Auto) Lymph % (Auto) [place] % (Auto) Eos % (Auto) Baso % (Auto) Neut # (Auto) Lymph # (Auto) [place] # (Auto) Eos # (Auto) Baso # (Auto) Total Counted Immature Gran % Nucleated RBC % Immature Gran # Segmented Neutrophils Band Neutrophils Lymphocytes Monocytes Eosinophils Nucleated RBCs # Platelet Estimate Immature Plt Fraction Hypochromasia Microcytosis INR PT Patient/Control Mix ABG pH ABG pCO2 ABG pO2 ABG HCO3 ABG Total CO2 ABG O2 Saturation ABG Base Excess FiO2 Sodium Potassium Chloride Carbon Dioxide Anion Gap BUN Creatinine GFR Calculation BUN/Creatinine Ratio Glucose POC Glucose Hemoglobin A1c 5.5 Calculated Osmolality Lactic Acid Calcium Magnesium Total Bilirubin AST ALT Alkaline Phosphatase Troponin I B-Natriuretic Peptide Total Protein Albumin Globulin Albumin/Globulin Ratio b-Hydroxybutyric mmol/L Urine Color Urine Appearance Urine pH Ur Specific [place] Urine Protein Urine Glucose (UA) Urine Ketones Urine Blood Urine Nitrate Urine Bilirubin Urine Urobilinogen Urine Leukocytes Urine RBC Ur Squamous Epith Cells Urine Bacteria Ur Culture Indicated? Fluid Tot Cell Count 1 Fluid Lymphocytes 100 Dialysate WBC < 1 Dialysate RBC < 1 Blood Type O POSITIVE Antibody Screen Positive Antibody Identification Anti-E Crossmatch See Detail 02/06/17 02/06/17 09:33 09:41 WBC RBC Hgb Hct MCV MCH MCHC RDW Plt Count MPV Neut % (Auto) Lymph % (Auto) [place] % (Auto) Eos % (Auto) Baso % (Auto) Neut # (Auto) Lymph # (Auto) [place] # (Auto) Eos # (Auto) Baso # (Auto) Total Counted Immature Gran % Nucleated RBC % Immature Gran # Segmented Neutrophils Band Neutrophils Lymphocytes Monocytes Eosinophils Nucleated RBCs # Platelet Estimate Immature Plt Fraction Hypochromasia Microcytosis INR PT Patient/Control Mix ABG pH 7.261 L ABG pCO2 22.6 L ABG pO2 121.0 H ABG HCO3 12.2 L ABG Total CO2 9.7 L ABG O2 Saturation 98.3 ABG Base Excess -15.8 L FiO2 28.00 Sodium Potassium Chloride Carbon Dioxide Anion Gap BUN Creatinine GFR Calculation BUN/Creatinine Ratio Glucose POC Glucose 228 H Hemoglobin A1c Calculated Osmolality Lactic Acid Calcium Magnesium Total Bilirubin AST ALT Alkaline Phosphatase Troponin I B-Natriuretic Peptide Total Protein Albumin Globulin Albumin/Globulin Ratio b-Hydroxybutyric mmol/L Urine Color Urine Appearance Urine pH Ur Specific [place] Urine Protein Urine Glucose (UA) Urine Ketones Urine Blood Urine Nitrate Urine Bilirubin Urine Urobilinogen Urine Leukocytes Urine RBC Ur Squamous Epith Cells Urine Bacteria Ur Culture Indicated? Fluid Tot Cell Count Fluid Lymphocytes Dialysate WBC Dialysate RBC Blood Type Antibody Screen Antibody Identification Crossmatch - Reports Microbiology: Microbiology 02/06/17 09:19 Gram Stain - Final Peritoneal Fluid - Drainage No organisms seen - Diagnostic Findings Procedure: Chest x-ray: image reviewed by me, report reviewed by me (No infiltrate or effusions)
--- NOTE | 2017-02-06 17:52 | Sleep Medicine Consult ---
Assessment and Plan (1) CHIDI (obstructive sleep apnea) Status: Acute Assessment and plan: Her upper airway features certainly would predispose her to a very likely having significant sleep apnea. We will go ahead and do home sleep testing on her tonight since she is on room air. We will follow-up these results in the morning. Thank you for this consult. Current Visit: Yes (2) Hypertension Status: Chronic Assessment and plan: The prevalence rate for obstructive sleep apnea patients with hypertension is 35 %. That rate can be as high as 80% in patients who require 4 or more medications for blood pressure control. Current Visit: No Qualifiers: Hypertension type: essential hypertension Qualified Code(s): I10 - Essential (primary) hypertension (3) Diabetes Status: Chronic Assessment and plan: The prevalence rate for obstructive sleep apnea in patients with type 2 diabetes can be as high as 86%. Those patients with moderate to severe obstructive sleep apnea are at a greater risk for diabetic nephropathy and neuropathy. Compliance with CPAP therapy for these patients can lead to improvement in glycemic control and improvement in insulin sensitivity. Current Visit: No Qualifiers: Diabetes mellitus type: type 2 Diabetes mellitus complication status: with kidney complications Diabetes mellitus complication detail: with chronic kidney disease Chronic kidney disease stage: on chronic dialysis History of Present Illness Chief complaint: Sleep apnea History of present illness: Ms. Quinn is a 41 year old female who has end-stage renal disease and is on peritoneal dialysis. She is followed by Dr. Mcnamara. She developed lower extremity pain, swelling, and redness. She has been diagnosed with sepsis from cellulitis. She has been noted to be somnolent and sleep medicine was consulted. She is somnolent but arousable and will answer questions with prodding. She does have a history of snoring and awakening from sleep short of breath. She has no history of prior sleep evaluation and is never been told that she stops breathing during her sleep. Home Medications Medication Instructions Recorded Confirmed Type Amlodipine Besylate 10 mg PO QPM 08/03/15 01/31/17 History Labetalol HCl 200 mg PO BID 08/03/15 01/31/17 History glipiZIDE [Glipizide Xl] 10 mg PO BID 08/03/15 01/31/17 History Cyanocobalamin Inj [Vitamin B12 1,000 mcg IM Q30D 09/19/15 01/31/17 History Inj] Calcitriol 0.5 mcg PO BID 01/31/17 01/31/17 History Cinacalcet HCl [Sensipar] 180 mg PO DAILY W/LUNCH 01/31/17 01/31/17 History Gabapentin [Gabapentin] 100 mg PO QPM 01/31/17 01/31/17 History Sodium Bicarb Tab 1,300 mg PO BID 01/31/17 01/31/17 History sitaGLIPtin [Januvia] 100 mg PO QAM 01/31/17 01/31/17 History Allergies Allergy/AdvReac Type Severity Reaction Status Date / Time iron dextran complex Allergy Intermediate Chest Pain Verified 02/05/17 21:12 [From Infed] Penicillins Allergy Intermediate Rash/Vomiti Verified 02/05/17 21:12 ng nitroglycerin AdvReac Blood Verified 02/05/17 21:12 Pressure Drops too Low/Headache/Vomiting Shrimp AdvReac Nausea/Vomi Verified 02/05/17 21:12 ting Review of systems: Difficult to obtain due to her current condition. Exam (Pulmonay) H&P - Constitutional Vitals: Period Temp Pulse Resp BP Sys/Moura Pulse Ox Last 24 Hr 98.4 F-98.9 F 99-110 20-20 160-191/84-97 98-100 Exam: She is alert and responsive in no acute distress. Pupils equal round reactive to light and accommodation. Extraocular movements intact. Oropharynx with a class IV Mallampati exam with micrognathia. Her neck is supple without adenopathy or thyromegaly. No supraclavicular adenopathy is noted. Chest with symmetrical breath sounds without focal wheeze, rhonchi, or rales. Cardiac exam reveals a regular rhythm without murmur or gallop. Abdomen soft nontender without palpable hepatosplenomegaly or mass. Extremities reveal tight calves bilaterally with redness and tenderness. Neurologically, she is lethargic but arousable and will follow commands. Medical,Surgical,& Family Hx - Medical History Cardio: History of: Hypertension Neurology: No history of: Seizures HEENT: History of: Eye Problem (Glasses), HEENT Problems (sinus) No history of: Ear Problem Endocrine: History of: Diabetes Mellitus (NIDDM) No history of: Diabetes Mellitus (IDDM) Respiratory: No history of: Pneumonia, Respiratory Problems Renal: History of: Dialysis (MARITZA PERITONEAL), Renal Failure, Renal Problems Gastrointestinal: History of: GERD No history of: Polyps Musculoskeletal: History of: Musculoskeletal Problems (Difficulty ambulating. ) No history of: Amputation Hematology: History of: Anemia, Bleeding Problems (Hx Transfusions) No history of: Blood Transfusion Reaction Other: No history of: Anesthesia Reactions, Cancer - Surgical History Cardiac Surgeries: Sugical HX of: Vascular Access Devices (previous AV fistula 2016) Abdominal Surgeries: Surgical HX of: Abdominal Surgery (Periotineal catheter ), Cholecystectomy, Colonoscopy, EGD Reproductive Surgeries: Surgical HX of;: Hysterectomy (Partial) - Family History Family History: Reports;: Family Diabetes (mother), Family Hypertension (mother) Denies;: Family Anesthesia Reaction, Family Cancer, Family Heart Disease, Family Psychiatric Problems, Family Stroke - Social History Smoking Status: Never smoker Frequency of Alcohol Use: None Type of Drug Use: None Results - Labs CBC & BMP: 02/06/17 07:50 02/06/17 07:50 Lab Results: I have reviewed the past 24 hour labs Labs: ABG showed metabolic acidosis with no CO2 retention. She does have a very elevated BUN and creatinine. This may be accounting for some of her hypersomnolence if she has not been doing peritoneal dialysis in the last few days. Of course sepsis could also be contributing to this. Quality Measures - Stroke Symptom Onset Unknown: No
[2017-02-06] MEDS: ENOXAPARIN 30 MG/0.3 ML SYRINGE SUBCUT SCH (22:31)
[2017-02-06] MEDS: amLODIPine 10 MG TABLET PO SCH (22:31)
[2017-02-06] MEDS: CARVEDILOL 6.25 MG TABLET PO SCH (22:32)
[2017-02-06] MEDS: GABAPENTIN 100 MG CAPSULE PO SCH (22:32)
[2017-02-06] MEDS: CALCITRIOL 0.5 MCG CAPSULE PO SCH (22:32)
[2017-02-07] MEDS: LABETALOL 20 MG/4 ML SYRINGE IV PRN ×3 (00:38→16:34)
[2017-02-07 05:19] LABS: Basophils % 0.2 % (0.0-0.8); Eosinophils # 0.5 10*3/uL (0.0-0.87); Eosinophils % 2.2 % (0.00-10.9); Hematocrit 24.4 VOL% (35.7-47.0); Hemoglobin 8.1 GM/DL (12.0-16.0); Immature Granulocytes % 1.1 %; Immature Granulocytes Absolute 0.22 #; Lymphocytes # 1.5 10*3/uL (1.4-4.0); Lymphocytes % 7.1 % (21.3-54.2); Mean Corpuscular HGB Conc 33.2 GM/DL (32-36); Mean Corpuscular Hemoglobin 29 PG (27-34); Mean Corpuscular Volume 86.2 FL (87-102); Mean Platelet Volume 9.8 FL (9.6-12.0); Monocytes # 0.9 10*3/uL (0.11-0.8); Monocytes % 4.4 % (1.7-12.7); Neutrophils # 17.5 10*3/uL (1.4-7.4); Platelet Count 261 T/CUMM (130-400); Red Blood Count 2.83 MC/CUMM (3.8-5.5); Red Cell Distribution Width 14.6 % (9.3-17.3); White Blood Count 20.6 T/CUMM (4-12)
[2017-02-07 05:42] LABS: Calcium 7.4 MG/DL (8.5-10.1); Osmolality,Calculated 311.5 MOS/KG (273-304); Potassium 3.7 MMOL/L (3.5-5.1)
[2017-02-07 05:47] LABS: Burr Cells Slight; Eosinophils 1 % (0-10); Giant Platelets Few; Hypochromasia Slight; Lymphocytes 4 % (20-55); Platelet Estimate Adequate; Segmented Neutrophils 89 % (50-85); Total Cells Counted 100
[2017-02-07 05:48] LABS: Microcytosis Slight
[2017-02-07] MEDS ORDERED: hydrALAZINE 20 MG/1 ML VIAL IV ONE (05:56)
[2017-02-07] MEDS: SODIUM BICARB INJ 100 MEQ in DEXTROSE 5% 1,000 ML IV SCH (06:36)
[2017-02-07] MEDS: LABETALOL 200 MG TABLET PO SCH ×2 (08:31→20:59)
[2017-02-07] MEDS: CARVEDILOL 6.25 MG TABLET PO SCH ×2 (08:31→16:34)
[2017-02-07] MEDS: CALCITRIOL 0.5 MCG CAPSULE PO SCH ×2 (08:31→20:59)
[2017-02-07] MEDS: SODIUM BICARBONATE 650 MG TABLET PO SCH ×5 (08:31→20:59)
[2017-02-07] MEDS: sitaGLIPtin 100 MG TABLET PO SCH (08:31)
--- NOTE | 2017-02-07 11:07 | Infectious Disease Progress ---
Assessment and Plan (1) Cellulitis Status: Acute Assessment and plan: Cellulitis of both lower extremities. Possibly staph versus strep. Improved today with resolved erythema although there is still edema and tenderness on palpation. Recommendations: Continue vancomycin and follow-up finalized cultures. I will check back on the patient next Friday. Call if there are any questions before then. Current Visit: Yes (2) End stage renal disease Status: Chronic Current Visit: Yes (3) Leukocytosis Status: Acute Assessment and plan: Most likely due to cellulitis, improved today. Current Visit: Yes (4) Peritoneal dialysis catheter in place Status: Acute Assessment and plan: Peritoneal fluid cell count negative for infection; cultures negative to date. Current Visit: Yes (5) Obesity Status: Chronic Current Visit: Yes Qualifiers: Obesity type: due to excess calories (6) Diabetes Status: Chronic Assessment and plan: Controlled with A1c less than 6%. Current Visit: No Qualifiers: Diabetes mellitus type: type 2 Diabetes mellitus complication status: with kidney complications Diabetes mellitus complication detail: with chronic kidney disease Chronic kidney disease stage: on chronic dialysis (7) Hypertension Status: Chronic Current Visit: No Qualifiers: Hypertension type: essential hypertension Qualified Code(s): I10 - Essential (primary) hypertension Infectious Disease - PN: Subj Interval history: Patient has not had any fever since admission. Today she feels a little better but says she is still having severe pains to both legs. No nausea vomiting or diarrhea. No cough shortness of breath. Infectious Disease Exam (PN) - Constitutional Vitals: Temp Pulse Resp BP Pulse Ox 97.1 F L 90 18 168/93 99 02/07/17 08:00 02/07/17 08:00 02/07/17 08:00 02/07/17 08:00 02/07/17 08:00 General appearance: mild distress, morbidly obese Exam: General appearance: More alert and interactive today - Eye Eye exam: Present: EOMI. no icterus Pupils: Present: EMERITA - ENT ENT exam: no oral exudates - Respiratory Respiratory exam: vesicular BS, no crepitations or wheezes - Cardiovascular Cardiovascular exam: regular rate and rhythm, no murmurs - GI/Abdominal GI/Abdominal exam: normal bowel sounds, soft, non-tender, no organomegaly or mass - Extremities Exam Extremities exam: Still significant edema both legs extending to posterior aspect of thighs however today the erythema that was present yesterday is almost completely resolved. Still severe tenderness on very light touch to both legs, out of keeping with the clinical findings. - Skin Skin exam: no rash Results - Labs CBC & BMP: 02/07/17 04:49 02/07/17 04:49 Lab Results: I have reviewed the past 24 hour labs Quality Measures - Stroke Symptom Onset Unknown: No
--- NOTE | 2017-02-07 12:13 | Sleep Medicine Progress Note ---
Assessment and Plan (1) CHIDI (obstructive sleep apnea) Status: Acute Assessment and plan: Home sleep testing was technically insufficient. We will need to reevaluate her next week or as an outpatient with polysomnography. Current Visit: Yes (2) Hypertension Status: Chronic Current Visit: No Qualifiers: Hypertension type: essential hypertension Qualified Code(s): I10 - Essential (primary) hypertension (3) Diabetes Status: Chronic Current Visit: No Qualifiers: Diabetes mellitus type: type 2 Diabetes mellitus complication status: with kidney complications Diabetes mellitus complication detail: with chronic kidney disease Chronic kidney disease stage: on chronic dialysis Sleep Medicine Subjective Interval history: Patient does look better today. She did not have a good result with HST evaluation. She had difficulty tolerating it and the straps had to be loosened for her comfort and we just technically did not get a good reading on it. This was therefore an invalid study and will have to be repeated. Given the weekend is here, we will wait till next week when she has improved clinically prior to initiating testing. If she is discharged, she will be set up for outpatient polysomnography. Exam (Progress Note) - Constitutional Vitals: Period Temp Pulse Resp BP Sys/Moura Pulse Ox Last 24 Hr 97.1 F-98.9 F 90-116 18-20 160-191/84-104 97-100 Exam: She certainly is less lethargic today. She is much more alert and looks better. HEENT still notable for class IV Mallampati exam with micrognathia. Chest with symmetrical breath sounds without wheeze or rhonchi. Cardiac exam reveals a regular rhythm without murmur or gallop. Abdomen soft nontender without palpable hepatosplenomegaly or mass. Extremities are process tank tender below the knees and still tight. However her legs look less erythematous. Neurologically, she is more alert. Results - Labs CBC & BMP: 02/07/17 04:49 02/07/17 04:49 Lab Results: I have reviewed the past 24 hour labs
[2017-02-07] MEDS ORDERED: VANCOMYCIN INJ 1,500 MG in SODIUM CHLORIDE 0.9% 500 ML IV ONE (14:00)
--- NOTE | 2017-02-07 14:23 | Nephrology Progress Note ---
Nephrology - PN: Subj Interval history: The patient mentions still some lower leg pain. No fevers or chills. PD exchanges are going well. Exam (PN)-Nephrology - Vital Signs Vital signs: Period Temp Pulse Resp BP Sys/Moura Pulse Ox Last 24 Hr 97.1 F-98.8 F 90-116 18-20 162-191/84-104 97-100 - General Appearance General appearance: well-developed, well-nourished EENT: ATNC Neck: supple Respiratory: clear Cardiology: no edema, regular rate, regular rhythm Gastrointestinal: normoactive bowel sounds, no tenderness Integumentary: no rash Neurologic: alert and oriented x3 Musculoskeletal: no clubbing Psychiatric: mood/affect appropriate, cooperative - Lab 02/07/17 04:49 02/07/17 04:49 Most recent lab results ABG pH 7.261 (7.35-7.45) L 02/06/17 09:33 ABG pCO2 22.6 MM HG (35-48) L 02/06/17 09:33 ABG pO2 121.0 MM HG (80-95) H 02/06/17 09:33 ABG HCO3 12.2 MMOL/L (20-26) L 02/06/17 09:33 ABG O2 Saturation 98.3 % (95-100) 02/06/17 09:33 Calcium 7.4 MG/DL (8.5-10.1) L 02/07/17 04:49 Magnesium 1.9 MG/DL (1.8-2.4) 02/05/17 22:10 Assessment and Plan (1) End stage renal disease Status: Chronic Assessment and plan: Continue with scheduled PD exchanges Current Visit: Yes (2) Anemia Status: Chronic Current Visit: No Qualifiers: Other causes of anemia: chronic disease, kidney (3) Hypertension Status: Chronic Current Visit: No Qualifiers: Hypertension type: essential hypertension Qualified Code(s): I10 - Essential (primary) hypertension (4) Obesity Status: Chronic Current Visit: Yes Qualifiers: Obesity type: due to excess calories (5) Sepsis Status: Acute Current Visit: Yes (6) Cellulitis Status: Acute Current Visit: Yes (7) Diabetes Status: Chronic Current Visit: No Qualifiers: Diabetes mellitus type: type 2 Diabetes mellitus complication status: with kidney complications Diabetes mellitus complication detail: with chronic kidney disease Chronic kidney disease stage: on chronic dialysis
--- NOTE | 2017-02-07 15:09 | Hospitalist Progress Note ---
Hospitalist: Subjective Interval history: 41-year-old -Irish female with history of essential renal disease on dialysis and lower extremity cellulitis. Patient complaining of lower extremity pain Exam - Constitutional Vitals: Period Temp Pulse Resp BP Sys/Moura Pulse Ox Last 24 Hr 97.1 F-98.8 F 90-116 18-20 162-191/84-104 97-100 Exam: General: [No Acute Distress] HEENT: [Normocephalic, atraumatic, Extra ocular movements intact] Neck: [Supple, No JVD] Chest: [Clear to auscultation B/L] CV: [S1 + S2 audible without murmur, gallop or rub] Abd: [soft, NT, Non-distended, BS +] Ext: [+ edema] Skin: [No purpura, bruising or rash] Rheumatologic: [No Joint deformities] Neurologic: [Strength 5/5 all extremities, no gross sensory deficits] Results - Labs CBC & BMP: 02/07/17 04:49 02/07/17 04:49 - Impressions Assessment and Plan: Cellulitis/sepsis Status: Acute Assessment and plan: Bilateral lower extremity cellulitis. Continue vancomycin. Leukocytosis continues to improve Current Visit: Yes CHIDI (obstructive sleep apnea) Status: Acute Assessment and plan: Dr. Payan following Current Visit: Yes Anemia of chronic renal disease Status: Acute Assessment and plan: Transfuse as needed Current Visit: Yes Diabetes Status: Chronic Assessment and plan: Controlled Current Visit: No Essential hypertension Status: Chronic Assessment and plan: cont to monitor for now Current Visit: No End stage renal disease on PD Status: Chronic Assessment and plan: Continue scheduled peritoneal exchanges Current Visit: No Obesity Status: Chronic Current Visit: Yes Qualifiers: Obesity type: due to excess calories Hyponatremia Status: Acute Assessment and plan: This is improving Current Visit: Yes Quality Measures - Stroke Symptom Onset Unknown: No
[2017-02-07] MEDS: ONDANSETRON 4 MG/2 ML VIAL IV PRN ×2 (16:42→20:55)
[2017-02-07] MEDS: ENOXAPARIN 30 MG/0.3 ML SYRINGE SUBCUT SCH (20:58)
[2017-02-07] MEDS: GABAPENTIN 100 MG CAPSULE PO SCH (20:59)
[2017-02-07] MEDS: amLODIPine 10 MG TABLET PO SCH (20:59)
[2017-02-07] MEDS: DOCUSATE SODIUM 100 MG CAPSULE PO SCH (20:59)
[2017-02-08 04:43] LABS: Basophils % 0.2 % (0.0-0.8); Eosinophils # 0.4 10*3/uL (0.0-0.87); Eosinophils % 2.3 % (0.00-10.9); Hematocrit 23.8 VOL% (35.7-47.0); Hemoglobin 8.1 GM/DL (12.0-16.0); Immature Granulocytes % 1.1 %; Immature Granulocytes Absolute 0.22 #; Lymphocytes # 1.4 10*3/uL (1.4-4.0); Lymphocytes % 7.3 % (21.3-54.2); Mean Corpuscular Hemoglobin 29 PG (27-34); Mean Platelet Volume 9.8 FL (9.6-12.0); Monocytes # 0.9 10*3/uL (0.11-0.8); Monocytes % 4.6 % (1.7-12.7); Neutrophils # 16.3 10*3/uL (1.4-7.4); Neutrophils % 84.5 % (38.7-73.9); Platelet Count 300 T/CUMM (130-400); Red Cell Distribution Width 14.9 % (9.3-17.3); White Blood Count 19.3 T/CUMM (4-12)
[2017-02-08] MEDS: DEXTROSE 50% 25 GM/50 ML SYRINGE IV PRN ×3 (05:08→23:52)
[2017-02-08 05:13] LABS: Calcium 7.7 MG/DL (8.5-10.1); Osmolality,Calculated 303.2 MOS/KG (273-304); Potassium 3.7 MMOL/L (3.5-5.1)
[2017-02-08] MEDS: DOCUSATE SODIUM 100 MG CAPSULE PO SCH ×2 (09:02→20:17)
[2017-02-08] MEDS: CALCITRIOL 0.5 MCG CAPSULE PO SCH ×2 (09:02→20:16)
[2017-02-08] MEDS: LABETALOL 200 MG TABLET PO SCH ×2 (09:02→20:16)
[2017-02-08] MEDS: SODIUM BICARBONATE 650 MG TABLET PO SCH ×5 (09:02→20:16)
[2017-02-08] MEDS: CARVEDILOL 6.25 MG TABLET PO SCH ×2 (09:02→17:05)
[2017-02-08] MEDS: BISACODYL 5 MG TABLET PO PRN (09:02)
[2017-02-08] MEDS: sitaGLIPtin 100 MG TABLET PO SCH (09:02)
[2017-02-08] MEDS: LABETALOL 20 MG/4 ML SYRINGE IV PRN (10:43)
--- NOTE | 2017-02-08 12:21 | EKG Report ---
Stationary ECG Study [facility] Test Date: 02/08/2017 12:21:51 PM Pat Name: EDUAR WADSWORTH Department: Room: 528 Gender: F Supervisor Pumping: : 1975 Requested by: Rhonda Yancey Order Number: [id number] Reading MD: JOSELIN MARY Intervals [place] Rate: 85 P: 67 [place]: 193 QRS: 69 QRSD: 94 T: 74 QT: 392 QTc: 434 Interpretive Statements SINUS RHYTHM Electronically Signed On 02-08-17 14:06:40 CDT by JOSELIN MARY [email or web address]
--- NOTE | 2017-02-08 12:31 | Nephrology Progress Note ---
Nephrology - PN: Subj Interval history: No shortness of breath. Intermittent abdominal pain. No vomiting or diarrhea. PD fluid remains clear Exam (PN)-Nephrology - Vital Signs Vital signs: Period Temp Pulse Resp BP Sys/Moura Pulse Ox Last 24 Hr 97.9 F-98.4 F 88-106 18-20 156-184/86-119 96-99 Exam: Gen.: Alert and oriented x3. ENT: Pupils equal round reactive to light. EOMs intact. Mucous membranes moist. Neck: Supple. No JVD or bruit. Cardiovascular: Regular rate and rhythm. No murmur rub or gallop Lungs: Clear Abdomen: Soft. Nontender. Positive bowel sounds. PD fluid is clear Extremities: 1+ edema - Lab 02/08/17 02:23 02/08/17 02:23 Most recent lab results ABG pH 7.261 (7.35-7.45) L 02/06/17 09:33 ABG pCO2 22.6 MM HG (35-48) L 02/06/17 09:33 ABG pO2 121.0 MM HG (80-95) H 02/06/17 09:33 ABG HCO3 12.2 MMOL/L (20-26) L 02/06/17 09:33 ABG O2 Saturation 98.3 % (95-100) 02/06/17 09:33 Calcium 7.7 MG/DL (8.5-10.1) L 02/08/17 02:23 Magnesium 1.9 MG/DL (1.8-2.4) 02/05/17 22:10 Assessment and Plan (1) End stage renal disease Status: Chronic Assessment and plan: 41-year-old woman with: * ESRD. Continue PD exchanges with 2.5% solution. Volume status acceptable. PD fluid clear on exam * Cellulitis, lower extremities. Continue vancomycin * Diabetes mellitus * Hypertension Current Visit: Yes (2) Cellulitis Status: Acute Current Visit: Yes (3) CHIDI (obstructive sleep apnea) Status: Acute Current Visit: Yes (4) Diabetes Status: Chronic Current Visit: No Qualifiers: Diabetes mellitus type: type 2 Diabetes mellitus complication status: with kidney complications Diabetes mellitus complication detail: with chronic kidney disease Chronic kidney disease stage: on chronic dialysis (5) Hypertension Status: Chronic Current Visit: No Qualifiers: Hypertension type: essential hypertension Qualified Code(s): I10 - Essential (primary) hypertension
--- NOTE | 2017-02-08 13:09 | Hospitalist Progress Note ---
Hospitalist: Subjective Interval history: 41-year-old -Marshallese female with history of essential renal disease on dialysis and lower extremity cellulitis. Patient complaining of lower extremity pain. Had some atypical chest discomfort today that resolved spontaneously and EKG was unremarkable. Exam - Constitutional Vitals: Period Temp Pulse Resp BP Sys/Moura Pulse Ox Last 24 Hr 97.9 F-98.4 F 88-106 18-20 156-184/86-119 96-99 Exam: General: [No Acute Distress] HEENT: [Normocephalic, atraumatic, Extra ocular movements intact] Neck: [Supple, No JVD] Chest: [Clear to auscultation B/L] CV: [S1 + S2 audible without murmur, gallop or rub] Abd: [soft, NT, Non-distended, BS +] Ext: [+ edema] Skin: [No purpura, bruising or rash] Rheumatologic: [No Joint deformities] Neurologic: [Strength 5/5 all extremities, no gross sensory deficits] Results - Labs CBC & BMP: 02/08/17 02:23 02/08/17 02:23 - Impressions Assessment and Plan: Cellulitis/sepsis Status: Acute Assessment and plan: Bilateral lower extremity cellulitis. Continue vancomycin. Leukocytosis continues to improve Current Visit: Yes CHIDI (obstructive sleep apnea) Status: Acute Assessment and plan: Dr. Payan following Current Visit: Yes Anemia of chronic renal disease Status: Acute Assessment and plan: Transfuse as needed Current Visit: Yes Diabetes Status: Chronic Assessment and plan: Controlled Current Visit: No Essential hypertension Status: Chronic Assessment and plan: Controlled Current Visit: No End stage renal disease on PD Status: Chronic Assessment and plan: Continue scheduled peritoneal exchanges Current Visit: No Obesity Status: Chronic Current Visit: Yes Qualifiers: Obesity type: due to excess calories Hyponatremia Status: Acute Assessment and plan: This is improving Current Visit: Yes Quality Measures - Stroke Symptom Onset Unknown: No
[2017-02-08] MEDS: GABAPENTIN 100 MG CAPSULE PO SCH (20:17)
[2017-02-08] MEDS: ENOXAPARIN 30 MG/0.3 ML SYRINGE SUBCUT SCH (20:17)
[2017-02-08] MEDS: amLODIPine 10 MG TABLET PO SCH (20:17)
[2017-02-09 04:25] LABS: Basophils % 0.2 % (0.0-0.8); Eosinophils # 0.4 10*3/uL (0.0-0.87); Eosinophils % 2.3 % (0.00-10.9); Hematocrit 23.2 VOL% (35.7-47.0); Immature Granulocytes % 1.3 %; Immature Granulocytes Absolute 0.21 #; Lymphocytes # 1.5 10*3/uL (1.4-4.0); Mean Corpuscular HGB Conc 34.5 GM/DL (32-36); Mean Corpuscular Hemoglobin 29 PG (27-34); Mean Corpuscular Volume 84.7 FL (87-102); Mean Platelet Volume 9.4 FL (9.6-12.0); Monocytes # 0.9 10*3/uL (0.11-0.8); Monocytes % 5.4 % (1.7-12.7); Neutrophils # 13.5 10*3/uL (1.4-7.4); Neutrophils % 81.8 % (38.7-73.9); Platelet Count 295 T/CUMM (130-400); Red Blood Count 2.74 MC/CUMM (3.8-5.5); Red Cell Distribution Width 14.8 % (9.3-17.3); White Blood Count 16.5 T/CUMM (4-12)
[2017-02-09 04:54] LABS: Osmolality,Calculated 289.8 MOS/KG (273-304); Potassium 3.4 MMOL/L (3.5-5.1)
[2017-02-09] MEDS: GLUCAGON 1 MG VIAL IM PRN ×2 (06:33→06:41)
[2017-02-09] MEDS: SODIUM BICARBONATE 650 MG TABLET PO SCH ×5 (09:01→20:35)
[2017-02-09] MEDS: DOCUSATE SODIUM 100 MG CAPSULE PO SCH ×2 (09:01→20:35)
[2017-02-09] MEDS: CARVEDILOL 6.25 MG TABLET PO SCH ×2 (09:01→16:23)
[2017-02-09] MEDS: CALCITRIOL 0.5 MCG CAPSULE PO SCH ×2 (09:01→20:35)
[2017-02-09] MEDS: LABETALOL 200 MG TABLET PO SCH ×2 (09:02→20:35)
[2017-02-09] MEDS: sitaGLIPtin 100 MG TABLET PO SCH (09:02)
--- NOTE | 2017-02-09 14:08 | Nephrology Progress Note ---
Nephrology - PN: Subj Interval history: No shortness of breath. She has had nausea. No abdominal pain Exam (PN)-Nephrology - Vital Signs Vital signs: Period Temp Pulse Resp BP Sys/Moura Pulse Ox Last 24 Hr 96.6 F-98.0 F 91-99 18-22 132-155/73-96 95-100 Exam: Gen.: Alert and oriented x3. ENT: Pupils equal round reactive to light. EOMs intact. Mucous membranes moist. Neck: Supple. No JVD or bruit. Cardiovascular: Regular rate and rhythm. No murmur rub or gallop Lungs: Clear Abdomen: Soft. Nontender. Positive bowel sounds. PD fluid is clear Extremities: 1+ edema - Lab 02/09/17 03:55 02/09/17 03:55 Most recent lab results ABG pH 7.261 (7.35-7.45) L 02/06/17 09:33 ABG pCO2 22.6 MM HG (35-48) L 02/06/17 09:33 ABG pO2 121.0 MM HG (80-95) H 02/06/17 09:33 ABG HCO3 12.2 MMOL/L (20-26) L 02/06/17 09:33 ABG O2 Saturation 98.3 % (95-100) 02/06/17 09:33 Calcium 7.0 MG/DL (8.5-10.1) L 02/09/17 03:55 Magnesium 1.9 MG/DL (1.8-2.4) 02/05/17 22:10 Assessment and Plan (1) End stage renal disease Status: Chronic Assessment and plan: 41-year-old woman with: * ESRD. Continue PD exchanges alternating 1.5 and 2.5% solution. PD fluid remains clear * Cellulitis, lower extremities. Continue vancomycin * Diabetes mellitus * Hypertension Current Visit: Yes (2) Cellulitis Status: Acute Current Visit: Yes (3) CHIDI (obstructive sleep apnea) Status: Acute Current Visit: Yes (4) Diabetes Status: Chronic Current Visit: No Qualifiers: Diabetes mellitus type: type 2 Diabetes mellitus complication status: with kidney complications Diabetes mellitus complication detail: with chronic kidney disease Chronic kidney disease stage: on chronic dialysis (5) Hypertension Status: Chronic Current Visit: No Qualifiers: Hypertension type: essential hypertension Qualified Code(s): I10 - Essential (primary) hypertension
--- NOTE | 2017-02-09 16:19 | Hospitalist Progress Note ---
Hospitalist: Subjective Interval history: 41-year-old -Russian female with history of essential renal disease on dialysis and lower extremity cellulitis. Patient complaining of lower extremity pain. She had some nausea and some dysphagia as well, not eating much , diabetes medications were held due to relatively low glucose Exam - Constitutional Vitals: Period Temp Pulse Resp BP Sys/Moura Pulse Ox Last 24 Hr 96.6 F-98.0 F 92-99 18-22 132-155/73-96 95-100 Exam: General: [No Acute Distress] HEENT: [Normocephalic, atraumatic, Extra ocular movements intact] Neck: [Supple, No JVD] Chest: [Clear to auscultation B/L] CV: [S1 + S2 audible without murmur, gallop or rub] Abd: [soft, NT, Non-distended, BS +] Ext: [+ edema] Skin: [No purpura, bruising or rash] Rheumatologic: [No Joint deformities] Neurologic: [Strength 5/5 all extremities, no gross sensory deficits] Results - Labs CBC & BMP: 02/09/17 03:55 02/09/17 03:55 - Impressions Assessment and Plan: Cellulitis/sepsis Status: Acute Assessment and plan: Bilateral lower extremity cellulitis. Continue vancomycin. Leukocytosis continues to improve Current Visit: Yes Dysphagia Status: Acute Assessment and plan: We will check an esophagogram and consult GI Current Visit: Yes CHIDI (obstructive sleep apnea) Status: Acute Assessment and plan: Dr. Payan following Current Visit: Yes Anemia of chronic renal disease Status: Acute Assessment and plan: Transfuse as needed Current Visit: Yes Diabetes Status: Chronic Assessment and plan: Holding diabetes medications Current Visit: No Essential hypertension Status: Chronic Assessment and plan: Controlled Current Visit: No End stage renal disease on PD Status: Chronic Assessment and plan: Continue scheduled peritoneal exchanges Current Visit: No Obesity Status: Chronic Current Visit: Yes Qualifiers: Obesity type: due to excess calories Hyponatremia Status: Acute Assessment and plan: This is improving Current Visit: Yes Quality Measures - Stroke Symptom Onset Unknown: No
--- NOTE | 2017-02-09 16:44 | Fluoroscopy Report ---
Indication: Difficulty swallowing Comparison: Not available Technique: A frontal channel marketing specialist view of the chest was obtained. Barium contrast was administered orally under fluoroscopic observation. Fluoroscopy time recorded 21.0 seconds. Findings: Frontal channel marketing specialist view of the chest demonstrates the cardiomediastinal silhouette to be within normal limits. The lungs demonstrate no focal consolidation, pleural effusion, or pneumothorax. The visualized osseous and soft tissue structures demonstrate no acute abnormality. Ingestion of barium contrast under fluoroscopic observation demonstrates primary peristaltic waves of the esophagus clearing the barium contrast into the stomach. Mucosal pattern and morphology of the esophagus is grossly unremarkable. No masses or filling defects are identified. No gastroesophageal reflux was elicited during the time of examination. IMPRESSION: Normal esophagram PROCEDURE INTERPRETED AT [facility] DEPARTMENT OF RADIOLOGY Final Report Signed by: Koffi Mcconnell
--- NOTE | 2017-02-09 17:48 | Gastrointestinal Consult Note ---
Assessment and Plan - Time spent with patient Time spent with patient: Greater than 30 minutes (1) Dysphagia Status: Acute Assessment and plan: PLEASE NOTE -- automatic citation of patient information is unavoidable in this electronic note. I have made a reasonable effort to review the information cited , but it is not a part of my evaluation, impression, or recommendation unless specifically discussed in the dictated text that follows. As well, voice recognition software was used in the creation of this clinical note. Reasonable effort was made to identify and correct gross errors. Despite proofreading, errors in sole seamer may be present, including nonsense verbiage at times. If you encounter such an error, please contact me at for discussion and correction. -- Dr. Benoit Chief complaint/Consult Question: Dysphagia to pills Consult requested by: Naye History of present illness: This is a new patient, a 41-year-old - [place] woman with end-stage renal disease on peritoneal dialysis admitted for lower extremity cellulitis. Patient noted to have difficulty swallowing pills, with regurgitation of pills, as well as emesis after taking pills on an empty stomach with gastric contents. Mother is present and helps provide history. Patient states that she has pill and solid food dysphagia, no dysphagia to liquids. She has had this for years, unchanged. No significant weight loss. Has never been evaluated by GI. Barium fluoroscopy study done today normal. Patient states that she has regular heartburn, does not take anything for this. GI review of systems included: regurgitation, early satiety, dysphagia, odynophagia, abdominal pain, nausea, vomiting, hematemesis, weight loss, weight gain, fever, chills, fatigue, decreased appetite, diarrhea, constipation, hematochezia, melena, bloating, malodorous flatus, anal pain, or NSAID use, and was negative except as noted above. REVIEW OF SYSTEMS: Complete other review of systems negative except as noted in the HPI: severe bl leg pain Outpatient medications: Personally reviewed Inpatient medications: Personally reviewed Tylenol, albuterol, amlodipine, Dulcolax, calcitriol, Coreg, Colace, Lovenox prophylaxis, Neurontin, glucagon, Torrey 7.5/325, labetalol, Zofran as needed, sodium bicarb, vancomycin Past Medical History: Personally reviewed Significant for chronic kidney disease secondary to hypertension on peritoneal dialysis, anemia, diabetes, hypertension, obstructive sleep apnea, prior acute admissions for acid-base disturbance and electrolyte disturbance allergies: reviewed PHYSICAL EXAMINATION: CONSTITUTIONAL: Vital signs reviewed as documented above. In no acute distress. Nontoxic-appearing. EYES: Anicteric conjunctiva. Extra-ocular movements are intact but asymmetric EARS: Able to hear speech at conversational volume level, no external trauma/ masses. MOUTH: No oral/mouth lesions or ulcers. NECK: No masses or crepitus. Thyroid is of normal size and symmetric. Short obese neck HEART: Regular rate, regular rhythm LUNGS:. No increased work of breathing or accessory muscle use. GI/ABDOMEN: Obese abdomen, soft, nontender to palpation, no rebound tenderness, nondistended, no rigidity. No palpable mass. No appreciable hepatosplenomegaly. SKIN: No rash on face, arms, or hands. No palpable lesions. Cellulitis on legs is minimal, significant pain to touch PSYCH: Slightly withdrawn affect. Alert and oriented to person, place, and time. Prior diagnosis of mild MR Laboratory: Personally reviewed CBCwhite blood cell count significantly improved over the last few days from 28 down to 16.5, neutrophilic predominant, hemoglobin stable at 8, platelets 295 INR 1.0 Chemistry sodium 130, potassium 3.4, chloride 94, bicarb 22, BUN 105, creatinine 12, glucose 53, glucose 108 since then, calcium 7.0 Liver associated enzymes AST 7, ALT 13, alk phos mildly elevated 157, total bilirubin 0.5 CK 364 Total protein 6.1, albumin 2.6 A1c 5.5 Radiology: Personally reviewed reports and images Cervical esophagram done 02/09/17 for difficulty swallowing Primary peristaltic waves of the esophagus clearing the barium contrast into the stomach. Mucosal pattern and morphology of the esophagus is grossly unremarkable. No masses or filling defects are identified. No gastroesophageal reflux was elicited during the time of examination. Impression : Normal esophagram Assessments: #Esophageal dysphagiato pills and solids. With normal cervical barium esophagram. Patient with significant associated heartburn and reflux symptoms, could indicate very mild esophagitis, secondary motility disorder, primary motility disorder that was not seen on barium esophagram as it is not sensitive for this. No other red flag features. #Other specified counseling -- The patient was seen for greater than 30 minutes. The patient was counseled for greater than 50% of this time regarding differential diagnosis, likely diagnosis, diagnostic and therapeutic alternatives, risks/benefits/alternatives of medications and procedures, and plan of care generally. The patient expressed understanding and wishes to proceed. Recommendations: -Start dissolvable Prevacid 30 mg daily, patient needs to take on an empty stomach and eat 30-60 minutes later for medication to be effective. Will likely require this long-term. -Recommend outpatient GI consult for consideration of outpatient EGD versus esophageal manometry -Primary team can consider speech evaluation to see if patient has additional oral pharyngeal dysphagia -Patient counseled on additional techniques to help improve the dysphagia to pills including modifying to liquids, crushing tablets, avoiding capsules. Recommend patient sit up very straight or stand when taking pills, take small amounts of liquid before pills to moisturize mouth and esophagus, take medicine , followed by large volume liquids. GI will sign off at this time. Please call with any further questions or issues. Bridgett Benoit MD, MPH STAFF [employer] Current Visit: Yes History of Present Illness History of present illness: Ms. Quinn is a 41 year old female Home Medications Medication Instructions Recorded Confirmed Type Amlodipine Besylate 10 mg PO QPM 08/03/15 02/07/17 History Labetalol HCl 200 mg PO BID 08/03/15 02/07/17 History glipiZIDE [Glipizide Xl] 10 mg PO BID 08/03/15 02/07/17 History Cyanocobalamin Inj [Vitamin B12 1,000 mcg IM Q30D 09/19/15 02/07/17 History Inj] Calcitriol 0.5 mcg PO BID 01/31/17 02/07/17 History Cinacalcet HCl [Sensipar] 180 mg PO DAILY W/LUNCH 01/31/17 02/07/17 History Gabapentin [Gabapentin] 100 mg PO QPM 01/31/17 02/07/17 History Sodium Bicarb Tab 1,300 mg PO BID 01/31/17 02/07/17 History sitaGLIPtin [Januvia] 100 mg PO QAM 01/31/17 02/07/17 History Allergies Allergy/AdvReac Type Severity Reaction Status Date / Time iron dextran complex Allergy Intermediate Chest Pain Verified 02/05/17 21:12 [From Infed] Penicillins Allergy Intermediate Rash/Vomiti Verified 02/05/17 21:12 ng nitroglycerin AdvReac Blood Verified 02/05/17 21:12 Pressure Drops too Low/Headache/Vomiting Shrimp AdvReac Nausea/Vomi Verified 02/05/17 21:12 ting Medical,Surgical,& Family Hx - Medical History Cardio: History of: Hypertension Neurology: No history of: Seizures HEENT: History of: Eye Problem (Glasses), HEENT Problems (sinus) No history of: Ear Problem Endocrine: History of: Diabetes Mellitus (NIDDM) No history of: Diabetes Mellitus (IDDM) Respiratory: No history of: Pneumonia (Pneum Vac 2012), Respiratory Problems (Flu Vac Current [id number]) Renal: History of: Dialysis (MARITZA PERITONEAL), Renal Failure, Renal Problems Gastrointestinal: History of: GERD No history of: Polyps Musculoskeletal: History of: Musculoskeletal Problems (Difficulty ambulating. ) No history of: Amputation Hematology: History of: Anemia, Bleeding Problems (Hx Transfusions) No history of: Blood Transfusion Reaction Other: No history of: Anesthesia Reactions, Cancer - Surgical History Cardiac Surgeries: Sugical HX of: Vascular Access Devices (previous AV fistula 2015) Abdominal Surgeries: Surgical HX of: Abdominal Surgery (Periotineal catheter ), Cholecystectomy, Colonoscopy, EGD Reproductive Surgeries: Surgical HX of;: Hysterectomy (Partial) - Family History Family History: Reports;: Family Diabetes (mother), Family Hypertension (mother) Denies;: Family Anesthesia Reaction, Family Cancer, Family Heart Disease, Family Psychiatric Problems, Family Stroke - Social History Smoking Status: Never smoker Frequency of Alcohol Use: None Type of Drug Use: None Exam - Constitutional Vitals: Period Temp Pulse Resp BP Sys/Moura Pulse Ox Last 24 Hr 96.6 F-98.0 F 92-99 18-22 132-155/73-96 95-100 Results - Labs CBC & BMP: 02/09/17 03:55 02/09/17 03:55 Quality Measures - Stroke Symptom Onset Unknown: No
[2017-02-09] MEDS: ENOXAPARIN 30 MG/0.3 ML SYRINGE SUBCUT SCH (20:35)
[2017-02-09] MEDS: GABAPENTIN 100 MG CAPSULE PO SCH (20:35)
[2017-02-09] MEDS: amLODIPine 10 MG TABLET PO SCH (20:45)
[2017-02-10 03:40] LABS: Basophils % 0.1 % (0.0-0.8); Eosinophils # 0.4 10*3/uL (0.0-0.87); Eosinophils % 2.6 % (0.00-10.9); Hematocrit 25.2 VOL% (35.7-47.0); Hemoglobin 8.5 GM/DL (12.0-16.0); Immature Granulocytes % 1.8 %; Lymphocytes # 1.8 10*3/uL (1.4-4.0); Lymphocytes % 10.7 % (21.3-54.2); Mean Corpuscular HGB Conc 33.7 GM/DL (32-36); Mean Corpuscular Hemoglobin 29 PG (27-34); Mean Corpuscular Volume 85.1 FL (87-102); Mean Platelet Volume 9.7 FL (9.6-12.0); Monocytes % 5.8 % (1.7-12.7); NRBC # 0.02 10*3/uL; Neutrophils # 13.3 10*3/uL (1.4-7.4); Platelet Count 333 T/CUMM (130-400); Red Blood Count 2.96 MC/CUMM (3.8-5.5); Red Cell Distribution Width 14.8 % (9.3-17.3); White Blood Count 16.9 T/CUMM (4-12)
[2017-02-10] MEDS: SODIUM BICARBONATE 650 MG TABLET PO SCH ×5 (09:37→22:27)
[2017-02-10] MEDS: DOCUSATE SODIUM 100 MG CAPSULE PO SCH ×2 (09:38→22:27)
[2017-02-10] MEDS: LANSOPRAZOLE ODT 30 MG TABLET PO SCH (09:38)
[2017-02-10] MEDS: CARVEDILOL 6.25 MG TABLET PO SCH ×2 (09:38→16:28)
[2017-02-10] MEDS: LABETALOL 200 MG TABLET PO SCH ×2 (09:38→22:26)
[2017-02-10] MEDS: CALCITRIOL 0.5 MCG CAPSULE PO SCH ×2 (09:38→22:26)
--- NOTE | 2017-02-10 15:14 | Nephrology Progress Note ---
Nephrology - PN: Subj Interval history: No shortness of breath. No abdominal pain. PD fluid remains clear Exam (PN)-Nephrology - Vital Signs Vital signs: Period Temp Pulse Resp BP Sys/Moura Pulse Ox Last 24 Hr 97.2 F-98.5 F 89-114 18-20 129-149/72-92 95-99 Exam: Gen.: Alert and oriented x3. ENT: Pupils equal round reactive to light. EOMs intact. Mucous membranes moist. Neck: Supple. No JVD or bruit. Cardiovascular: Regular rate and rhythm. No murmur rub or gallop Lungs: Clear Abdomen: Soft. Nontender. Positive bowel sounds. PD fluid is clear Extremities: Trace edema - Lab 02/10/17 02:31 02/09/17 03:55 Most recent lab results ABG pH 7.261 (7.35-7.45) L 02/06/17 09:33 ABG pCO2 22.6 MM HG (35-48) L 02/06/17 09:33 ABG pO2 121.0 MM HG (80-95) H 02/06/17 09:33 ABG HCO3 12.2 MMOL/L (20-26) L 02/06/17 09:33 ABG O2 Saturation 98.3 % (95-100) 02/06/17 09:33 Calcium 7.0 MG/DL (8.5-10.1) L 02/09/17 03:55 Magnesium 1.9 MG/DL (1.8-2.4) 02/05/17 22:10 Assessment and Plan (1) End stage renal disease Status: Chronic Assessment and plan: 41-year-old woman with: * ESRD. Continue PD exchanges alternating 1.5 and 2.5% solution. PD fluid remains clear * Cellulitis, lower extremities. Continue vancomycin * Diabetes mellitus * Hypertension Current Visit: Yes (2) Cellulitis Status: Acute Current Visit: Yes (3) CHIDI (obstructive sleep apnea) Status: Acute Current Visit: Yes (4) Diabetes Status: Chronic Current Visit: No Qualifiers: Diabetes mellitus type: type 2 Diabetes mellitus complication status: with kidney complications Diabetes mellitus complication detail: with chronic kidney disease Chronic kidney disease stage: on chronic dialysis (5) Hypertension Status: Chronic Current Visit: No Qualifiers: Hypertension type: essential hypertension Qualified Code(s): I10 - Essential (primary) hypertension
--- NOTE | 2017-02-10 16:21 | Hospitalist Progress Note ---
Hospitalist: Subjective Interval history: 41-year-old -[place] female with history of essential renal disease on dialysis and lower extremity cellulitis. She reports improved pain control and lower extremity, nausea is better, not eating much Exam - Constitutional Vitals: Period Temp Pulse Resp BP Sys/Moura Pulse Ox Last 24 Hr 97.8 F-98.5 F 95-114 18-20 129-149/72-92 95-99 Exam: General: [No Acute Distress] HEENT: [Normocephalic, atraumatic, Extra ocular movements intact] Neck: [Supple, No JVD] Chest: [Clear to auscultation B/L] CV: [S1 + S2 audible without murmur, gallop or rub] Abd: [soft, NT, Non-distended, BS +] Ext: [+ edema] Skin: [No purpura, bruising or rash] Rheumatologic: [No Joint deformities] Neurologic: [Strength 5/5 all extremities, no gross sensory deficits] Results - Labs CBC & BMP: 02/10/17 02:31 02/09/17 03:55 - Impressions Assessment and Plan: Cellulitis/sepsis Status: Acute Assessment and plan: Bilateral lower extremity cellulitis. Continue vancomycin. Leukocytosis continues to improve Current Visit: Yes Dysphagia Status: Acute Assessment and plan: Esophagogram was unremarkable. Continue Prevacid Solutab for GERD. Current Visit: Yes CHIDI (obstructive sleep apnea) Status: Acute Assessment and plan: Dr. Payan following Current Visit: Yes Anemia of chronic renal disease Status: Acute Assessment and plan: Transfuse as needed Current Visit: Yes Diabetes Status: Chronic Assessment and plan: Holding diabetes medications Current Visit: No Essential hypertension Status: Chronic Assessment and plan: Controlled Current Visit: No End stage renal disease on PD Status: Chronic Assessment and plan: Continue scheduled peritoneal exchanges Current Visit: No Obesity Status: Chronic Current Visit: Yes Qualifiers: Obesity type: due to excess calories Hyponatremia Status: Acute Assessment and plan: This is improving Current Visit: Yes Quality Measures - Stroke Symptom Onset Unknown: No
[2017-02-10] MEDS: GABAPENTIN 100 MG CAPSULE PO SCH (22:26)
[2017-02-10] MEDS: amLODIPine 10 MG TABLET PO SCH (22:26)
[2017-02-10] MEDS: ENOXAPARIN 30 MG/0.3 ML SYRINGE SUBCUT SCH (22:26)
[2017-02-11] MEDS: CALCITRIOL 0.5 MCG CAPSULE PO SCH ×2 (09:52→23:18)
[2017-02-11] MEDS: DOCUSATE SODIUM 100 MG CAPSULE PO SCH ×2 (09:52→23:18)
[2017-02-11] MEDS: SODIUM BICARBONATE 650 MG TABLET PO SCH ×5 (09:52→23:19)
[2017-02-11] MEDS: CARVEDILOL 6.25 MG TABLET PO SCH ×2 (09:52→16:01)
[2017-02-11] MEDS: LANSOPRAZOLE ODT 30 MG TABLET PO SCH (09:53)
[2017-02-11] MEDS: LABETALOL 200 MG TABLET PO SCH ×2 (09:53→23:18)
--- NOTE | 2017-02-11 10:09 | Hospitalist Progress Note ---
Assessment and Plan - Time spent with patient Time spent with patient: Less than 30 minutes (1) Chronic kidney disease Status: Chronic Assessment and plan: 41-year-old -[place] female with history of morbid obesity, end-stage renal disease on PD, hypertension, GERD, anemia who is admitted by the hospitalist service on 02/06/2017 with sepsis due to bilateral lower extremity cellulitis and acid-base disturbance. Sepsis/cellulitis/leukocytosis--today her cellulitis has completely resolved though she is sensitive to touch to bilateral lower extremities. There are no signs of any induration or area in need of surgical intervention. No labs were done this morning so stat labs were ordered and they are pending at this time. She has no recorded fevers. End-stage renal disease on PD--she is currently undergoing her peritoneal dialysis. Renal is following. Her last recorded creatinine was 12.3 which was down from her admission of 15.5. CHIDI--patient was evaluated by Dr. Payan and he felt her sleep testing was insufficient. He will need to reevaluate her as an outpatient. Diabetes--patient's home medicines have been restarted and she is under sliding scale. Her blood sugars are currently running between 200 and 300 Dysphagia--patient is currently undergoing swallow test by speech therapy. Diet recommendations to follow. GI did see the patient over the weekend and signed off. They recommended outpatient EGD versus esophageal manometry. I have discussed this with [facility] [employer] and she will talk with physician to see which route is the most appropriate. Current Visit: Yes Qualifiers: Chronic kidney disease stage: stage 5 Qualified Code(s): N18.5 - Chronic kidney disease, stage 5 (2) Diabetes Status: Chronic Current Visit: No Qualifiers: Diabetes mellitus type: type 2 Diabetes mellitus complication status: with kidney complications Diabetes mellitus complication detail: with chronic kidney disease Chronic kidney disease stage: on chronic dialysis (3) Hypertension Status: Chronic Current Visit: No Qualifiers: Hypertension type: essential hypertension Qualified Code(s): I10 - Essential (primary) hypertension (4) Obesity Status: Chronic Current Visit: Yes Qualifiers: Obesity type: due to excess calories (5) Peritoneal dialysis catheter in place Status: Acute Current Visit: Yes (6) Leukocytosis Status: Acute Current Visit: Yes (7) Sepsis Status: Acute Current Visit: Yes (8) Cellulitis Status: Acute Current Visit: Yes (9) Dysphagia Status: Acute Current Visit: Yes Hospitalist: Subjective Interval history: Ms. humphrey has no complaints this morning other than bilateral lower extremity sensitivity to touch. She is undergoing swallow study by speech therapy at this time. Exam - Constitutional Vitals: Period Temp Pulse Resp BP Sys/Moura Pulse Ox Last 24 Hr 97.8 F-98.7 F 88-101 18-20 136-168/73-84 95-99 Exam: Constitutional System: No distress. No tremulousness. Head: Normocephalic, atraumatic. Ears, Nose and Throat System: No evidence of Otitis or Mastoiditis. No epistaxis or discharge Eyes System: Pupils equal, round, and reactive. Extraocular muscles intact. Neck: Supple, without adenopathy, No jugular venous distention. No thyromegaly, neck mass, or prior surgery apparent. Respiratory System: Chest clear to auscultation. Cardiovascular System: Heart with regular rate and rhythm. No murmur. GI System: Abdomen soft, nontender. Normo active bowel sounds present. Musculoskeletal System: limbs with +2 pedal edema. No distal pulses. Feet are warm Neurological System: No discernable sensory deficit. No aphasia Psychiatric System: Conversation is rational Results - Labs CBC & BMP: 02/10/17 02:31 02/09/17 03:55 Lab Results: I have reviewed the past 24 hour labs Quality Measures - Stroke Symptom Onset Unknown: No
[2017-02-11 10:33] LABS: Basophils % 0.1 % (0.0-0.8); Eosinophils # 0.4 10*3/uL (0.0-0.87); Hematocrit 21.8 VOL% (35.7-47.0); Hemoglobin 7.4 GM/DL (12.0-16.0); Immature Granulocytes % 1.3 %; Immature Granulocytes Absolute 0.18 #; Lymphocytes # 1.5 10*3/uL (1.4-4.0); Lymphocytes % 11.1 % (21.3-54.2); Mean Corpuscular HGB Conc 33.9 GM/DL (32-36); Mean Corpuscular Hemoglobin 29 PG (27-34); Mean Corpuscular Volume 86.2 FL (87-102); Mean Platelet Volume 9.5 FL (9.6-12.0); Monocytes # 0.9 10*3/uL (0.11-0.8); Monocytes % 6.9 % (1.7-12.7); Neutrophils # 10.5 10*3/uL (1.4-7.4); Neutrophils % 77.6 % (38.7-73.9); Platelet Count 314 T/CUMM (130-400); Red Blood Count 2.53 MC/CUMM (3.8-5.5); Red Cell Distribution Width 14.3 % (9.3-17.3); White Blood Count 13.5 T/CUMM (4-12)
[2017-02-11 10:41] LABS: Magnesium 1.4 MG/DL (1.8-2.4); Osmolality,Calculated 283.2 MOS/KG (273-304); Potassium 3.2 MMOL/L (3.5-5.1)
[2017-02-11] MEDS ORDERED: VANCOMYCIN INJ 1,500 MG in SODIUM CHLORIDE 0.9% 500 ML IV ONE (12:00)
--- NOTE | 2017-02-11 16:44 | Infectious Disease Progress ---
Assessment and Plan (1) Cellulitis Status: Acute Assessment and plan: Cellulitis of both lower extremities, improved since last week. Possibly staph versus strep. She has chronic edema both legs likely related to fluid overload with her end-stage renal disease. Recommendations: Continue vancomycin while here. When discharge she can go on Bactrim double strength 1 tablet daily for 1 week. Current Visit: Yes (2) End stage renal disease Status: Chronic Current Visit: Yes (3) Leukocytosis Status: Acute Assessment and plan: Most likely due to cellulitis, improved since admission. Current Visit: Yes (4) Peritoneal dialysis catheter in place Status: Acute Assessment and plan: Peritoneal fluid cell count negative for infection; cultures negative. Current Visit: Yes (5) Obesity Status: Chronic Current Visit: Yes Qualifiers: Obesity type: due to excess calories (6) Diabetes Status: Chronic Assessment and plan: Controlled with A1c less than 6%. Current Visit: No Qualifiers: Diabetes mellitus type: type 2 Diabetes mellitus complication status: with kidney complications Diabetes mellitus complication detail: with chronic kidney disease Chronic kidney disease stage: on chronic dialysis (7) Hypertension Status: Chronic Current Visit: No Qualifiers: Hypertension type: essential hypertension Qualified Code(s): I10 - Essential (primary) hypertension Infectious Disease - PN: Subj Interval history: Patient had an uneventful weekend. She says she is feeling much better and is wondering if she can go home today. She has not had any fever at all. Infectious Disease Exam (PN) - Constitutional Vitals: Temp Pulse Resp BP Pulse Ox 97.7 F 88 20 140/74 99 02/11/17 12:45 02/11/17 12:45 02/11/17 12:45 02/11/17 12:45 02/11/17 12:45 General appearance: mild distress, morbidly obese Exam: General appearance: alert and interactive today - Eye Eye exam: Present: EOMI. no icterus Pupils: Present: EMERITA - ENT ENT exam: no oral exudates - Respiratory Respiratory exam: vesicular BS, no crepitations or wheezes - Cardiovascular Cardiovascular exam: regular rate and rhythm, no murmurs - GI/Abdominal GI/Abdominal exam: normal bowel sounds, soft, non-tender, no organomegaly or mass - Extremities Exam Extremities exam: Some decrease in edema to both legs since last week and the erythema has resolved. There is still quite significant tenderness on even light palpation of both legs and posterior thighs. - Skin Skin exam: no rash Results - Labs CBC & BMP: 02/11/17 08:23 02/11/17 08:23 Lab Results: I have reviewed the past 24 hour labs (Blood cultures negative) Quality Measures - Stroke Symptom Onset Unknown: No
--- NOTE | 2017-02-11 18:57 | Sleep Medicine Progress Note ---
Assessment and Plan (1) CHIDI (obstructive sleep apnea) Status: Acute Assessment and plan: Given her improvement, we will attempt reevaluation with HST tomorrow night. If discharge tomorrow, she will need to be set up for outpatient polysomnography. Current Visit: Yes (2) Hypertension Status: Chronic Current Visit: No Qualifiers: Hypertension type: essential hypertension Qualified Code(s): I10 - Essential (primary) hypertension (3) Diabetes Status: Chronic Current Visit: No Qualifiers: Diabetes mellitus type: type 2 Diabetes mellitus complication status: with kidney complications Diabetes mellitus complication detail: with chronic kidney disease Chronic kidney disease stage: on chronic dialysis Sleep Medicine Subjective Interval history: Patient does seem to be improved though she continues to complain of weakness and difficulty walking. She is continuing to receive IV antibiotics for cellulitis. We can attempt reevaluation with home sleep testing tomorrow night if she remains hospitalized. Exam (Progress Note) - Constitutional Vitals: Period Temp Pulse Resp BP Sys/Moura Pulse Ox Last 24 Hr 97.7 F-98.7 F 88-101 18-20 136-155/71-81 95-100 Exam: She certainly is less lethargic today. She is much more alert and looks better. HEENT still notable for class IV Mallampati exam with micrognathia. Chest with symmetrical breath sounds without wheeze or rhonchi. Cardiac exam reveals a regular rhythm without murmur or gallop. Abdomen soft nontender without palpable hepatosplenomegaly or mass. Extremities look less erythematous. Neurologically, she is more alert. Results - Labs CBC & BMP: 02/11/17 08:23 02/11/17 08:23 Lab Results: I have reviewed the past 24 hour labs
[2017-02-11] MEDS ORDERED: SODIUM CHLORIDE 0.9% 250 ML IV PRN (19:21)
--- NOTE | 2017-02-11 19:41 | Nephrology Progress Note ---
Nephrology - PN: Subj Interval history: The patient mentions still some lower leg pain. No fevers or chills. PD exchanges are going well. 02/11/2017. The patient's blood count was noted to be trending down. Hemoglobin noted be 7.4. She denies any shortness of breath. PD exchanges are going acceptable we will plan to transfuse 2 units packed red blood cells today. We will also supplement potassium today. And also will give a magnesium bolus. Exam (PN)-Nephrology - Vital Signs Vital signs: Period Temp Pulse Resp BP Sys/Moura Pulse Ox Last 24 Hr 97.7 F-98.7 F 88-101 18-20 136-155/71-81 95-100 - General Appearance General appearance: well-developed, well-nourished EENT: ATNC Neck: supple Respiratory: clear Cardiology: no edema, regular rate, regular rhythm Gastrointestinal: normoactive bowel sounds, no tenderness, no guarding Neurologic: alert and oriented x3 Musculoskeletal: no cyanosis, no clubbing Psychiatric: mood/affect appropriate, cooperative - Lab 02/11/17 08:23 02/11/17 08:23 Most recent lab results ABG pH 7.261 (7.35-7.45) L 02/06/17 09:33 ABG pCO2 22.6 MM HG (35-48) L 02/06/17 09:33 ABG pO2 121.0 MM HG (80-95) H 02/06/17 09:33 ABG HCO3 12.2 MMOL/L (20-26) L 02/06/17 09:33 ABG O2 Saturation 98.3 % (95-100) 02/06/17 09:33 Calcium 7.0 MG/DL (8.5-10.1) L 02/11/17 08:23 Magnesium 1.4 MG/DL (1.8-2.4) L 02/11/17 08:23 Assessment and Plan (1) End stage renal disease Status: Chronic Assessment and plan: Continue with scheduled PD exchanges Current Visit: Yes (2) Anemia Status: Chronic Assessment and plan: We will transfuse 2 units packed red blood cells. Current Visit: No Qualifiers: Other causes of anemia: chronic disease, kidney (3) Hypertension Status: Chronic Current Visit: No Qualifiers: Hypertension type: essential hypertension Qualified Code(s): I10 - Essential (primary) hypertension (4) Obesity Status: Chronic Current Visit: Yes Qualifiers: Obesity type: due to excess calories (5) Sepsis Status: Acute Current Visit: Yes (6) Cellulitis Status: Acute Current Visit: Yes (7) Diabetes Status: Chronic Current Visit: No Qualifiers: Diabetes mellitus type: type 2 Diabetes mellitus complication status: with kidney complications Diabetes mellitus complication detail: with chronic kidney disease Chronic kidney disease stage: on chronic dialysis
[2017-02-11] MEDS ORDERED: CALCIUM GLUCONATE 1,000 MG in SODIUM CHLORIDE 0.9% 100 ML IV ONE (21:00)
[2017-02-11] MEDS ORDERED: MAGNESIUM SULF RIDER 2 GM in PREMIX 1 EACH IV ONE (21:00)
[2017-02-11] MEDS: amLODIPine 10 MG TABLET PO SCH (23:18)
[2017-02-11] MEDS: POTASSIUM CHLORIDE 20 MEQ TABLET PO SCH (23:19)
[2017-02-11] MEDS: ENOXAPARIN 30 MG/0.3 ML SYRINGE SUBCUT SCH (23:21)
[2017-02-11] MEDS: GABAPENTIN 100 MG CAPSULE PO SCH (23:22)
[2017-02-12 06:14] LABS: Calcium 7.2 MG/DL (8.5-10.1); Magnesium 1.8 MG/DL (1.8-2.4); Osmolality,Calculated 281.1 MOS/KG (273-304); Potassium 3.5 MMOL/L (3.5-5.1)
[2017-02-12 07:35] LABS: Basophils % 0.2 % (0.0-0.8); Eosinophils # 0.3 10*3/uL (0.0-0.87); Eosinophils % 2.2 % (0.00-10.9); Hematocrit 21.8 VOL% (35.7-47.0); Hemoglobin 7.4 GM/DL (12.0-16.0); Immature Granulocytes % 1.3 %; Immature Granulocytes Absolute 0.17 #; Lymphocytes # 1.1 10*3/uL (1.4-4.0); Lymphocytes % 8.4 % (21.3-54.2); Mean Corpuscular HGB Conc 33.9 GM/DL (32-36); Mean Corpuscular Hemoglobin 29 PG (27-34); Mean Corpuscular Volume 85.5 FL (87-102); Mean Platelet Volume 9.8 FL (9.6-12.0); Monocytes # 0.8 10*3/uL (0.11-0.8); Monocytes % 5.7 % (1.7-12.7); Neutrophils # 10.9 10*3/uL (1.4-7.4); Neutrophils % 82.2 % (38.7-73.9); Platelet Count 335 T/CUMM (130-400); Red Blood Count 2.55 MC/CUMM (3.8-5.5); Red Cell Distribution Width 14.2 % (9.3-17.3); White Blood Count 13.3 T/CUMM (4-12)
[2017-02-12] MEDS: CALCITRIOL 0.5 MCG CAPSULE PO SCH (08:58)
[2017-02-12] MEDS: LANSOPRAZOLE ODT 30 MG TABLET PO SCH (08:58)
[2017-02-12] MEDS: BISACODYL 5 MG TABLET PO PRN (08:58)
[2017-02-12] MEDS: POTASSIUM CHLORIDE 20 MEQ TABLET PO SCH (08:58)
[2017-02-12] MEDS: SODIUM BICARBONATE 650 MG TABLET PO SCH ×2 (08:59→15:04)
[2017-02-12] MEDS: CARVEDILOL 6.25 MG TABLET PO SCH (08:59)
[2017-02-12] MEDS: LABETALOL 200 MG TABLET PO SCH (08:59)
[2017-02-12] MEDS: DOCUSATE SODIUM 100 MG CAPSULE PO SCH (08:59)
--- NOTE | 2017-02-12 09:38 | Discharge Summary ---
Hospital Course - Hospital Course Hospital Course: 41-year-old -Vietnamese female with history of morbid obesity, end-stage renal disease on PD, hypertension, GERD, anemia admitted by the hospitalist service on 02/06/2017 with sepsis due to bilateral lower extremity cellulitis and acid-base disturbances. Her cellulitis has completely resolved though she still has a little bit of edema and sensitivity to touch. Her white count is down to 13. There are no signs of any induration or area in need of surgical intervention. Dr. Iglesias from infectious diseases has been following and recommends Bactrim for 1 week on discharge. Patient is currently undergoing peritoneal dialysis and renal was following and her creatinine has decreased to 9.2 today. Patient also received 2 units of blood which should help with her overall state. GI did see the patient and she underwent a swallow test. They are recommending outpatient EGD versus esophageal manometry. Patient did not want to undergo any endoscopy at this time so she can follow-up with Dr. Simmons as needed. Dr. Payan also follow the patient and felt that her sleep testing was insufficient and he would like to evaluate her with outpatient polysomnography. Patient will be discharged home today after she receives her second unit of blood. She will get a prescription for Bactrim, [place], Prevacid Solutab and new blood pressure medication and she will need to follow-up with Dr. Garduno her family physician and Dr. Payan for sleep study. Complete discharge instructions were given. Care coordination , chart review, and completed discharge paperwork took approximately 44 minutes. - Time spent with patient Time with patient DS: Greater than 30 minutes Diagnosis - Discharge Diagnosis (1) Chronic kidney disease Status: Chronic (2) Diabetes Status: Chronic (3) Hypertension Status: Chronic (4) Obesity Status: Chronic (5) Peritoneal dialysis catheter in place Status: Chronic (6) Leukocytosis Status: Resolved (7) Sepsis Status: Resolved (8) Cellulitis Status: Resolved (9) Dysphagia Status: Chronic Specialty Discharge - Follow Up or Referrals Follow up with: Mercedes Payan MD [Physician] - Discharge Plan - Discharge Data Disposition: Disch To Home/Self Care Condition at Discharge: Stable Discharge Diet: heart healthy Activity: resume usual activities as tolerated Hygiene: may shower Contact your physician if you experience:: fever over 101, Redness or swelling - Discharge Medications New Carvedilol [Coreg] 6.25 mg PO BID W/MEALS #60 tablet Lansoprazole Odt Tab [Prevacid Solutab] 30 mg PO AC BREAKFAST #30 tablet Sulfameth/Trimeth 800-160 Tab [Bactrim DS Tab] 1 tablet PO BID #14 tablet HYDROcodone/ACETAMIN 7.5-325 [[place] 7.5-325] 1 tablet PO Q4H PRN #20 tablet PRN Reason: Pain Moderate (4-7) Continue glipiZIDE [Glipizide Xl] 10 mg PO BID Amlodipine Besylate 10 mg PO QPM Labetalol HCl 200 mg PO BID Cyanocobalamin Inj [Vitamin B12 Inj] 1,000 mcg IM Q30D Sodium Bicarb Tab 1,300 mg PO BID Cinacalcet HCl [Sensipar] 180 mg PO DAILY W/LUNCH sitaGLIPtin [Januvia] 100 mg PO QAM Calcitriol 0.5 mcg PO BID Gabapentin 100 mg PO QPM - Follow Up or Referral Follow Up: Mercedes Payan MD [Physician] - (for OP sleep study ) Maged Garduno MD [Physician] - 2 Weeks - Forms/Instructions Exam - Constitutional Vitals: Period Temp Pulse Resp BP Sys/M[place]ra Pulse Ox Last 24 Hr 97.6 F-98.9 F 88-96 18-20 130-149/70-88 93-100 Exam: 41-year-old -Vietnamese female, no acute distress, alert and oriented Chest clear CV regular rate and rhythm Abdomen obese, nontender Extremities with no cellulitis, mild pedal edema Discharge Results Procedures and tests throughout hospitalization: Pending Orders 02/06/17 07:50 Antibody Identification Stat Red Blood Cells Leuko Red Stat Type and Screen Stat 02/11/17 20:36 Antibody Identification Stat Red Blood Cells Leuko Red Stat Type and Screen Stat Labs on day of discharge: Labs from last 24 hours 02/12/17 02/12/17 02/12/17 05:53 05:14 05:14 WBC 13.3 H RBC 2.55 L Hgb 7.4 L Hct 21.8 L MCV 85.5 L MCH 29 MCHC 33.9 RDW 14.2 Plt Count 335 MPV 9.8 Neut % (Auto) 82.2 H Lymph % (Auto) 8.4 L [place] % (Auto) 5.7 Eos % (Auto) 2.2 Baso % (Auto) 0.2 Neut # (Auto) 10.9 H Lymph # (Auto) 1.1 L [place] # (Auto) 0.8 Eos # (Auto) 0.3 Baso # (Auto) 0.0 Immature Gran % 1.3 Nucleated RBC % 0.0 Immature Gran # 0.17 Nucleated RBCs # 0.00 Immature Plt Fraction 0.0 Sodium 128 L Potassium 3.5 Chloride 91 L Carbon Dioxide 24 Anion Gap 16.5 H BUN 67 H D Creatinine 9.20 H GFR Calculation 6 BUN/Creatinine Ratio 7.00 Glucose 199 H POC Glucose 216 H Calculated Osmolality 281.1 Calcium 7.2 L Magnesium 1.8 Blood Type Antibody Screen Antibody Identification Crossmatch Blood Bank Comment 02/12/17 02/11/17 02/11/17 01:27 23:01 20:36 WBC RBC Hgb Hct MCV MCH MCHC RDW Plt Count MPV Neut % (Auto) Lymph % (Auto) [place] % (Auto) Eos % (Auto) Baso % (Auto) Neut # (Auto) Lymph # (Auto) [place] # (Auto) Eos # (Auto) Baso # (Auto) Immature Gran % Nucleated RBC % Immature Gran # Nucleated RBCs # Immature Plt Fraction Sodium Potassium Chloride Carbon Dioxide Anion Gap BUN Creatinine GFR Calculation BUN/Creatinine Ratio Glucose POC Glucose 282 H 242 H Calculated Osmolality Calcium Magnesium Blood Type O POSITIVE Antibody Screen Positive Antibody Identification Anti-E Crossmatch See Detail Blood Bank Comment 02/11/17 02/11/17 02/11/17 19:26 16:25 11:30 WBC RBC Hgb Hct MCV MCH MCHC RDW Plt Count MPV Neut % (Auto) Lymph % (Auto) [place] % (Auto) Eos % (Auto) Baso % (Auto) Neut # (Auto) Lymph # (Auto) [place] # (Auto) Eos # (Auto) Baso # (Auto) Immature Gran % Nucleated RBC % Immature Gran # Nucleated RBCs # Immature Plt Fraction Sodium Potassium Chloride Carbon Dioxide Anion Gap BUN Creatinine GFR Calculation BUN/Creatinine Ratio Glucose POC Glucose 265 H 309 H 229 H Calculated Osmolality Calcium Magnesium Blood Type Antibody Screen Antibody Identification Crossmatch Blood Bank Comment 02/11/17 02/11/17 02/06/17 08:23 08:23 07:50 WBC 13.5 H RBC 2.53 L Hgb 7.4 L Hct 21.8 L MCV 86.2 L MCH 29 MCHC 33.9 RDW 14.3 Plt Count 314 MPV 9.5 L Neut % (Auto) 77.6 H Lymph % (Auto) 11.1 L [place] % (Auto) 6.9 Eos % (Auto) 3.0 Baso % (Auto) 0.1 Neut # (Auto) 10.5 H Lymph # (Auto) 1.5 [place] # (Auto) 0.9 H Eos # (Auto) 0.4 Baso # (Auto) 0.0 Immature Gran % 1.3 Nucleated RBC % 0.0 Immature Gran # 0.18 Nucleated RBCs # 0.00 Immature Plt Fraction 0.0 Sodium 127 L Potassium 3.2 L Chloride 90 L Carbon Dioxide 23 Anion Gap 17.2 H BUN 77 H Creatinine 9.60 H GFR Calculation 6 BUN/Creatinine Ratio 8.00 Glucose 211 H POC Glucose Calculated Osmolality 283.2 Calcium 7.0 L Magnesium 1.4 L Blood Type Antibody Screen Antibody Identification Crossmatch See Detail Blood Bank Comment DS: Provider Date of admission: 02/06/17 01:31 Primary care physician: . No PCP Attending physician on admission: Soham Thacker MD Consults: 02/06/17 01:36 Consult to Physician [CONS] Routine Comment: Consulting Provider: Consult to Specialist Group: Nephrology When should Consulting Provider be notified: In am Date Notified: 02/06/17 Time Notified: 13:58 Consult Notification Comment: left message to call me back 02/06/17 01:42 Consult to Pharmacy [CONS] Routine Reason for Pharmacy Consult: Dose/Manage Vancomycin 02/06/17 08:53 Consult to Physician [CONS] Routine Comment: dialysis Consulting Provider: Jason Bazzi Jr. When should Consulting Provider be notified: Mae Person Notified: MACY Date Notified: 02/06/17 Time Notified: 14:08 02/06/17 09:01 Consult to Sleep Center [CONS] Routine Reason for Sleep Center: Sleep Center Physician Consult Comment: sheridan 02/06/17 09:08 Consult to Physician [CONS] Routine Comment: sepsis Consulting Provider: Blaire Iglesias Person Notified: Anna Date Notified: 02/06/17 Time Notified: 14:05 02/09/17 11:14 Consult to Physician [CONS] Routine Comment: Please evaluate for trouble swallowing Consulting Provider: Bridgett Benoit When should Consulting Provider be notified: Now When should Consulting Provider be notified: Now Person Notified: md aware Date Notified: 02/09/17 02/11/17 07:56 Consult to Speech Therapy [CONS] Routine Reason for Speech Therapy: Bedside Swallow Eval Discharging clinician: VERONIKA Flores Expected date of discharge: 02/12/17
[2017-02-12] MEDS ORDERED: SENSIPAR 90 MG PO SCH (12:00)
--- NOTE | 2017-02-12 12:52 | Infectious Disease Progress ---
Assessment and Plan (1) Cellulitis Status: Resolved Assessment and plan: Cellulitis of both lower extremities, much improved. She has chronic edema both legs likely related to fluid overload with her end-stage renal disease. Recommendations: I am ok with her going home on Bactrim double strength 1 tablet daily for 1 week. Current Visit: Yes (2) End stage renal disease Status: Chronic Current Visit: Yes (3) Leukocytosis Status: Resolved Assessment and plan: Most likely due to cellulitis, improved since admission. Current Visit: Yes (4) Peritoneal dialysis catheter in place Status: Chronic Assessment and plan: Peritoneal fluid cell count negative for infection; cultures negative. Current Visit: Yes (5) Obesity Status: Chronic Current Visit: Yes Qualifiers: Obesity type: due to excess calories (6) Diabetes Status: Chronic Assessment and plan: Controlled with A1c less than 6%. Current Visit: No Qualifiers: Diabetes mellitus type: type 2 Diabetes mellitus complication status: with kidney complications Diabetes mellitus complication detail: with chronic kidney disease Chronic kidney disease stage: on chronic dialysis (7) Hypertension Status: Chronic Current Visit: No Qualifiers: Hypertension type: essential hypertension Qualified Code(s): I10 - Essential (primary) hypertension Infectious Disease - PN: Subj Interval history: Doing well, says she is ready to go home. No fever. Less leg pain but they are always swollen. Infectious Disease Exam (PN) - Constitutional Vitals: Temp Pulse Resp BP Pulse Ox 97.9 F 83 16 150/89 96 02/12/17 11:56 02/12/17 11:56 02/12/17 11:56 02/12/17 11:56 02/12/17 11:56 General appearance: mild distress, morbidly obese Exam: General appearance: comfortable - Eye Eye exam: Present: EOMI. no icterus Pupils: Present: EMERITA - ENT ENT exam: no oral exudates - Extremities Exam Extremities exam: Seemingly chronic edema to both legs with no more erythema. 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
[2017-02-12 14:25] VITALS: BP 156/81
== END 2017-02-12 17:00 | disposition home health service (06) | DRG 871 ==
LOC: N.ED 20:48 → N.EDINP 02-06 01:31 → SUATTDRO 02-06 01:31 → N.5E 02-06 12:54
PROVIDERS: ADMIT Internal Medicine; ATTEND Hospitalist

== ENCOUNTER 2017-02-23 17:14 | Inpatient (IN) ==
[2017-02-23] MEDS ORDERED: DEXTROSE 50% 25 GM/50 ML VIAL IV STA (17:52)
[2017-02-23] MEDS ORDERED: DEXTROSE 50% 25 GM/50 ML SYRINGE IV ONE (17:54)
--- NOTE | 2017-02-23 18:00 | Emergency Department Note ---
Arrival - Arrival Chief Complaint: Altered Mental Status Stated Complaint: HYPOGLYCEMIA ED Nursing Triage Note: PT TRANSFERRED FROM [facility] FOR EVALUATION OF DECREASED GLUCOSE AND INABILITY TO KEEP AT NORMAL LEVEL. PT FOUND UNRESPONSIVE THIS AM PER EMS WITH GLUCOSE OF 34MG/DL. AFTER MULTIPLE AMPS OF D50 AND A MEAL, GLUCOSE CONTINUED TO BOTTOM OUT. PT ON D5 INFUSION. LAST GLUCOSE PRIOR TO ARRIVAL 77MG/ DL PER EMS. PT IS AA0X3. PT HAS NOT HAD PERITONEAL DIALYSIS TODAY AT ALL. Mode of Arrival: Stretcher Time Seen by Provider: 02/23/17 17:54 - History of Present Illness HPI Narrative: This 41-year-old black female presents with a history of being found unresponsive late this morning with EMS finding her blood glucose to be 34 in the field She was given D50 in the field with some response and taken to [facility] where she received more D50 W as well as a meal. At that institution she continued to have hypoglycemia despite all efforts was transferred here for further evaluation. The patient is currently alert and oriented 3 but with an Accu-Chek of 46. The patient states that in recent weeks she has had problems with hypoglycemia since using Januvia and frequently runs below normal blood sugars. While at [facility] she was found to have an elevated white blood cell count and on chest x-ray an ambiguous reading for possibility of pneumonia. The patient denies any chills, fever, chest pain, or shortness of breath. The patient is on home peritoneal dialysis daily and has not dialyzed at all today because of circumstances. Laboratory at [facility] was notable in this regard for a creatinine of 15 and a BUN of 101 consistent with an efficient dialysis. Currently, although hypoglycemic she is in no acute medical distress. Onset (ago): hour(s) (Patient presents approximately 6 hours since incident) Allergies/Adverse Reactions: Allergies Allergy/AdvReac Type Severity Reaction Status Date / Time iron dextran complex Allergy Intermediate Chest Pain Verified 02/23/17 17:28 [From Infed] Penicillins Allergy Intermediate Rash/Vomiti Verified 02/23/17 17:28 ng nitroglycerin AdvReac Blood Verified 02/23/17 17:28 Pressure Drops too Low/Headache/Vomiting Shrimp AdvReac Nausea/Vomi Verified 02/23/17 17:28 ting Home Medications: Home Medications Medication Instructions Recorded Confirmed Type Amlodipine Besylate 10 mg PO BEDTIME 08/03/15 02/23/17 History Labetalol HCl 200 mg PO BID 08/03/15 02/23/17 History glipiZIDE [Glipizide Xl] 10 mg PO BID 08/03/15 02/23/17 History Cyanocobalamin Inj [Vitamin B12 1,000 mcg IM Q30D 09/19/15 02/23/17 History Inj] Calcitriol 0.5 mcg PO BID 01/31/17 02/23/17 History Cinacalcet HCl [Sensipar] 180 mg PO DAILY W/LUNCH 01/31/17 02/23/17 History Gabapentin 100 mg PO BEDTIME 01/31/17 02/23/17 History Sodium Bicarb Tab 1,300 mg PO BID 01/31/17 02/23/17 History sitaGLIPtin [Januvia] 100 mg PO QAM 01/31/17 02/23/17 History Carvedilol [Coreg] 6.25 mg PO BID W/MEALS #60 tablet 02/12/17 02/23/17 Rx HYDROcodone/ACETAMIN 7.5-325 1 tablet PO Q4H PRN #20 tablet 02/12/17 02/23/17 Rx [[place] 7.5-325] Review of System - Review of System 12 point system: reviewed and no additional remarkable complaints except as stated - Review of System Constitutional: Present: as per HPI Respiratory: Present: as per HPI Cardiovascular: Present: as per HPI Gastrointestinal: Present: as per HPI Genitourinary female: Present: as per HPI Neurological: Present: as per HPI Endocrine: Present: as per HPI Medical,Surgical,& Family Hx - Medical History Cardio: History of: Hypertension Neurology: No history of: Seizures HEENT: History of: Eye Problem (Glasses), HEENT Problems (sinus) No history of: Ear Problem Endocrine: History of: Diabetes Mellitus (NIDDM) No history of: Diabetes Mellitus (IDDM) Respiratory: Comment Only: Pneumonia (Pneum Vac 2012), Respiratory Problems (Flu Vac Current [id number]) Renal: History of: Dialysis (PERITONEAL), Renal Failure, Renal Problems Gastrointestinal: History of: GERD No history of: Polyps Musculoskeletal: History of: Musculoskeletal Problems (Difficulty ambulating. ) No history of: Amputation Hematology: History of: Anemia, Bleeding Problems (Hx Transfusions) No history of: Blood Transfusion Reaction Other: No history of: Anesthesia Reactions, Cancer - Surgical History Cardiac Surgeries: Sugical HX of: Vascular Access Devices (previous AV fistula 2016) Abdominal Surgeries: Surgical HX of: Abdominal Surgery (Periotineal catheter ), Cholecystectomy, Colonoscopy, EGD Reproductive Surgeries: Surgical HX of;: Hysterectomy (Partial) - Family History Family History: Reports;: Family Diabetes (mother), Family Hypertension (mother) Denies;: Family Anesthesia Reaction, Family Cancer, Family Heart Disease, Family Psychiatric Problems, Family Stroke - Social History Smoking Status: Never smoker Frequency of Alcohol Use: None Type of Drug Use: None Exam Physical Examination: GENERAL: Obese black female in no acute distress. HEENT: Normocephalic. No trauma. Moist mucous membranes. EOMI. PERRLA. ENT NML NECK: Supple. No adenopathy. CARDIAC: Regular. No murmurs. Heart rate 99 CHEST: Scattered occasional expiratory rhonchi and wheezes. No respiratory distress. O2 sat 97% ABDOMEN: Soft. Nontender. Active bowel sounds. Clean PD site EXTREMITIES: No trauma. Normal ROM. No pedal edema. SKIN: No diaphoresis. No rash. NEURO: Alert. Oriented 3. Motor, sensory, vibratory intact. No focal deficits. Vital Signs: Vital Signs Temperature 98.6 F 02/23/17 17:14 Pulse Rate 100 H 02/23/17 18:40 Respiratory Rate 20 02/23/17 18:40 Blood Pressure 200/104 02/23/17 17:14 O2 Sat by Pulse Oximetry 99 02/23/17 18:40 Course - Reevaluation(s) Reevaluation #1: Zenobia with family the need for hospitalization given her diffuse problems and the development of a pneumonia. - Consultations Consultation #1: Discussed with the hospitalist service who will admit for further evaluation treatment. Results - Labs Labs: Lab per Marry revealed a hematocrit 29, white blood cell count 13,000 potassium 4.4 creatinine 15 BUN 101 - Diagnostic Findings Procedure: Chest x-ray: image reviewed by me, report reviewed by me ( Cardiomegaly, right lower lobe infiltrate) Disposition Clinical Impression: Persistent hypoglycemia, Right lower lobe pneumonia, Insufficient dialysis Case discussed with: patient, patient's family Disposition: Still a Patient Condition: Guarded Time of Disposition: 18:43
--- NOTE | 2017-02-23 18:22 | XRay Report ---
Portable chest. Indication: Pneumonia. Comparison: Exam from earlier today. From an outside hospital. The heart is enlarged. The pulmonary vasculature is normal. Since the exam from earlier today, patchy infiltrate is developing in the right lung base. No pneumothorax. No pleural effusion. Impression: Stable cardiomegaly. Developing right basilar infiltrate. PROCEDURE INTERPRETED AT [facility] DEPARTMENT OF RADIOLOGY Final Report Signed by: Dr. Brittney Booker
[2017-02-23] MEDS ORDERED: methylPREDNISolone SOD SUC 125 MG/2 ML VIAL IV STA (18:28)
[2017-02-23] MEDS ORDERED: LEVOFLOXACIN INJ 750 MG in PREMIX 1 EACH IV STA (18:28)
[2017-02-23] MEDS ORDERED: ALBUTEROL/IPRATROPIUM 3 ML NEB RESP TX STA (18:28)
[2017-02-23 19:14] LABS: Basophils % 0.3 % (0.0-0.8); Eosinophils # 0.3 10*3/uL (0.0-0.87); Eosinophils % 2.6 % (0.00-10.9); Hematocrit 26.4 VOL% (35.7-47.0); Hemoglobin 8.8 GM/DL (12.0-16.0); Immature Granulocytes % 0.8 %; Lymphocytes # 1.1 10*3/uL (1.4-4.0); Lymphocytes % 8.8 % (21.3-54.2); Mean Corpuscular HGB Conc 33.3 GM/DL (32-36); Mean Corpuscular Hemoglobin 28 PG (27-34); Mean Corpuscular Volume 84.9 FL (87-102); Mean Platelet Volume 8.8 FL (9.6-12.0); Monocytes # 0.5 10*3/uL (0.11-0.8); Monocytes % 4.3 % (1.7-12.7); Neutrophils # 10.5 10*3/uL (1.4-7.4); Neutrophils % 83.2 % (38.7-73.9); Platelet Count 266 T/CUMM (130-400); Red Blood Count 3.11 MC/CUMM (3.8-5.5); Red Cell Distribution Width 14.6 % (9.3-17.3); White Blood Count 12.6 T/CUMM (4-12)
[2017-02-23] MEDS ORDERED: DEXT IV ONE (19:14)
[2017-02-23] MEDS ORDERED: KCL IV ONE (19:14)
[2017-02-23] MEDS ORDERED: methylPREDNISolone SOD SUC 125 MG/2 ML VIAL ONE (19:14)
[2017-02-23] MEDS ORDERED: NACL IV ONE (19:14)
[2017-02-23] MEDS ORDERED: LEVOFLOXACIN INJ 150 ML IV ONE (19:14)
[2017-02-23 19:51] LABS: Albumin 2.4 G/DL (3.4-5.0); Calcium 8.5 MG/DL (8.5-10.1); Osmolality,Calculated 299.2 MOS/KG (273-304); Potassium 4.2 MMOL/L (3.5-5.1); Total Protein 6.5 G/DL (6.4-8.3)
[2017-02-23] MEDS ORDERED: ACETAMINOPHEN 325 MG TABLET PO PRN (19:51)
[2017-02-23] MEDS ORDERED: ONDANSETRON 4 MG/2 ML VIAL IV PRN (19:51)
[2017-02-23] MEDS ORDERED: GLUCAGON 1 MG VIAL IM PRN (19:51)
[2017-02-23] MEDS ORDERED: DEXTROSE 50% 25 GM/50 ML SYRINGE IV PRN (19:51)
--- NOTE | 2017-02-23 20:36 | Hospitalist History & Physical ---
<Stephanie Mcarthur Ramón - Last Filed: 02/23/17 20:26> Assessment and Plan - Time spent with patient Time spent with patient: Greater than 30 minutes (1) Hypoglycemia Status: Acute Assessment and plan: BG in ED was 46. D5NS given in ED. Hold oral DM medications. Continue hydration with D5W. Accuchecks and SSI ACHS. Diabetic diet. Recheck CMP in am. Current Visit: Yes (2) Pneumonia Status: Acute Assessment and plan: CXR shows RLL infiltrate. Levaquin given in ED. Continue Levaquin, pharmacy to dose. Recheck CBC in am. Current Visit: Yes (3) Chronic kidney disease Status: Chronic Assessment and plan: Does home peritoneal dialysis. Renally dose antibiotics; pharmacy to dose. Continue related home medications. Consult Nephrology. Current Visit: No Qualifiers: Chronic kidney disease stage: stage 5 Qualified Code(s): N18.5 - Chronic kidney disease, stage 5 (4) Diabetes Status: Chronic Assessment and plan: As above for Hypoglycemia. Last recorded A1c done in January. Current Visit: No Qualifiers: Diabetes mellitus type: type 2 Diabetes mellitus complication status: with kidney complications Diabetes mellitus complication detail: with chronic kidney disease Chronic kidney disease stage: on chronic dialysis (5) Hypertension Status: Chronic Assessment and plan: Continue home medications. Monitor. Current Visit: Yes Qualifiers: Hypertension type: essential hypertension Qualified Code(s): I10 - Essential (primary) hypertension (6) Anemia Status: Chronic Assessment and plan: Chronic problem. Recheck CBC in am. Current Visit: Yes Qualifiers: Other causes of anemia: chronic disease, kidney (7) DVT prophylaxis Status: Acute Assessment and plan: Heparin 5000 units SQ BID. Current Visit: Yes History of Present Illness Chief complaint: Clammy, sweaty, Altered mental status History of present illness: Ms. Quinn is a 41 year old female with a past medical history of chronic renal failure with peritoneal dialysis, hypertension, [id number] diabetes mellitus, and anemia who presented to the emergency department tonight with complaints of clamminess, sweatiness, and altered mental status. Ms. Quinn's mother states that she spoke with the patient around 07:00 today, and she seemed confused and was saying strange things. When she checked on the patient, she called EMS who found Ms. Quinn's BG to be 37. She was taken to [facility] and then transfered to [facility]. ED work up here was significant for WBC 12.6, Hemoglobing 8.8, Hematocrit 26.4, Na 134, Creatinine 15.6, and bedside glucose of 46. Ms. Quinn reports that she last dialyzed yesterday. CXR showed stable cardiomegaly and a developing RLL infiltrate. Currently, Ms. Quinn's only complaints are low back pain, bilateral leg swelling and pain, and thirst. Hospitalist services were consulted, and the patient will be admitted for further evaluation and treatment. Home medications were reviewed and reconciled. This patient is a full code. Home Medications Medication Instructions Recorded Confirmed Type Amlodipine Besylate 10 mg PO BEDTIME 08/03/15 02/23/17 History Labetalol HCl 200 mg PO BID 08/03/15 02/23/17 History glipiZIDE [Glipizide Xl] 10 mg PO BID 08/03/15 02/23/17 History Cyanocobalamin Inj [Vitamin B12 1,000 mcg IM Q30D 09/19/15 02/23/17 History Inj] Calcitriol 0.5 mcg PO BID 01/31/17 02/23/17 History Cinacalcet HCl [Sensipar] 180 mg PO DAILY W/LUNCH 01/31/17 02/23/17 History Gabapentin 100 mg PO BEDTIME 01/31/17 02/23/17 History Sodium Bicarb Tab 1,300 mg PO BID 01/31/17 02/23/17 History sitaGLIPtin [Januvia] 100 mg PO QAM 01/31/17 02/23/17 History Carvedilol [Coreg] 6.25 mg PO BID W/MEALS #60 tablet 02/12/17 02/23/17 Rx HYDROcodone/ACETAMIN 7.5-325 1 tablet PO Q4H PRN #20 tablet 02/12/17 02/23/17 Rx [[place] 7.5-325] Allergies Allergy/AdvReac Type Severity Reaction Status Date / Time iron dextran complex Allergy Intermediate Chest Pain Verified 02/23/17 17:28 [From Infed] Penicillins Allergy Intermediate Rash/Vomiti Verified 02/23/17 17:28 ng nitroglycerin AdvReac Blood Verified 02/23/17 17:28 Pressure Drops too Low/Headache/Vomiting Shrimp AdvReac Nausea/Vomi Verified 02/23/17 17:28 ting Medical,Surgical,& Family Hx - Medical History Cardio: History of: Hypertension HEENT: History of: Eye Problem (Glasses), HEENT Problems (sinus) Endocrine: History of: Diabetes Mellitus (NIDDM) Respiratory: Comment Only: Pneumonia (Pneum Vac 2012), Respiratory Problems (Flu Vac Current [id number]) Renal: History of: Dialysis (PERITONEAL), Renal Failure, Renal Problems Gastrointestinal: History of: GERD Musculoskeletal: History of: Musculoskeletal Problems (Difficulty ambulating. ) Hematology: History of: Anemia, Bleeding Problems (Hx Transfusions) - Surgical History Cardiac Surgeries: Sugical HX of: Vascular Access Devices (previous AV fistula 2016) Abdominal Surgeries: Surgical HX of: Abdominal Surgery (Periotineal catheter ), Cholecystectomy, Colonoscopy, EGD Reproductive Surgeries: Surgical HX of;: Hysterectomy (Partial) - Family History Family History: Reports;: Family Diabetes (mother), Family Hypertension (mother) , Family Stroke - Social History Smoking Status: Never smoker Have you smoked in the last 12 months: No Frequency of Alcohol Use: None Type of Drug Use: None Marital Status: Single Lives With:: Alone Functional capacity: independent ambulation 12 point system: reviewed and no additional remarkable complaints except as stated - Constitutional Constitutional: Present: weakness. Absent: chills, fever(s) - EENT Eyes: Absent: blurry vision, diplopia, loss of vision Ears: Absent: decreased hearing, ear discharge, ear pain Nose, mouth and throat: Absent: headache(s), nasal congestion, sore throat - Cardiovascular Cardiovascular: Present: edema. Absent: chest pain at rest, dyspnea, orthopnea , palpitations - Respiratory Respiratory: Absent: cough, dyspnea, wheezing - Gastrointestinal Gastrointestinal: Absent: abdominal pain, diarrhea, nausea, vomiting - Genitourinary Genitourinary: Absent: dysuria, flank pain - Musculoskeletal Musculoskeletal: Present: back pain. Absent: muscle weakness, myalgias - Neurological Neurological: Present: confusion. Absent: numbness, paresthesias, syncope - Psychiatric Psychiatric: Absent: anxiety, depression - Endocrine Endocrine: Present: polydipsia. Absent: cold intolerance, polyphagia, polyuria - Hematologic/Lymphatic Hematologic/Lymphatic: Absent: easy bleeding, easy bruising Exam - Constitutional Vitals: Period Temp Pulse Resp BP Sys/Moura Pulse Ox Last 24 Hr 98.6 F-98.6 F 93-101 18-20 200-200/104-104 97-99 Exam: Constitutional System: Afebrile. Awake, alert and oriented x 3. Mild distress. No tremulousness. Head: Normocephalic, atraumatic. Ears, Nose and Throat System: No pain or tenderness. No epistaxis or discharge Eyes System: Pupils equal, round, and reactive. Extraocular muscles intact. Neck: Supple, without adenopathy, No jugular venous distention. No thyromegaly, neck mass, or prior surgery apparent. Respiratory System: Chest clear to auscultation. Cardiovascular System: Heart with regular rate and rhythm. No murmur. GI System: Abdomen soft, nontender. Normo active bowel sounds present. Musculoskeletal System: Limbs with 4+ pedal edema and tenderness. Full distal pulses. Normal capillary refill. Neurological System: No discernable sensory deficit. No aphasia Psychiatric System: Conversation is rational Results - Labs CBC & BMP: 02/23/17 18:58 02/23/17 18:58 Lab Results: I have reviewed the past 24 hour labs - Diagnostic Findings Procedure: Chest x-ray: report reviewed by me (Report reviewed by me. ) <Young Tavarez - Last Filed: 02/23/17 21:22> History of Present Illness History of present illness: Ms. Quinn is a 41 year old female who is being admitted to the hospital with hypoglycemia, probably secondary to Januvia, AMS, pneumonia, and ESRD on PD. I have interviewed and examined the npatient and reviewed all available laboratory and radiographic test results. I agree with the assessment and plans of Stephanie Mcarthur NP. She has been begun on Levaquin and D5W IV infusion and SSI coverage. Her PD will be self continued. Exam - Constitutional Vitals: Period Temp Pulse Resp BP Sys/Moura Pulse Ox Last 24 Hr 98.6 F-98.6 F 93-101 18-20 200-200/104-104 97-99 Results - Labs CBC & BMP: 02/23/17 18:58 02/23/17 18:58
[2017-02-23] MEDS: DEXTROSE 5% 1,000 ML IV SCH (21:15)
[2017-02-23] MEDS: DEXT 5% NACL 0.45% KCL 20 MEQ 20 MEQ/1,000 ML BAG IV SCH (21:24)
[2017-02-23] MEDS: SODIUM BICARBONATE 650 MG TABLET PO SCH (22:41)
[2017-02-23] MEDS: amLODIPine 10 MG TABLET PO SCH (22:41)
[2017-02-23] MEDS: CALCITRIOL 0.5 MCG CAPSULE PO SCH (22:41)
[2017-02-23] MEDS: LABETALOL 200 MG TABLET PO SCH (22:42)
[2017-02-23] MEDS: GABAPENTIN 100 MG CAPSULE PO SCH (22:42)
[2017-02-23] MEDS: HEPARIN 5,000 UNIT/1 ML VIAL SUBCUT SCH (22:42)
[2017-02-23] MEDS: INSULIN LISPRO 100 UNIT/ML SUBCUT SCH (22:42)
[2017-02-23] MEDS: ALBUTEROL/IPRATROPIUM 3 ML NEB RESP TX SCH (23:50)
[2017-02-24] MEDS: DEXT 5% NACL 0.45% KCL 20 MEQ 20 MEQ/1,000 ML BAG IV SCH (02:28)
[2017-02-24] MEDS: ALBUTEROL/IPRATROPIUM 3 ML NEB RESP TX SCH ×6 (03:09→22:58)
[2017-02-24] MEDS ORDERED: LORazepam 2 MG/1 ML VIAL IV ONE (04:26)
[2017-02-24 06:36] LABS: Basophils % 0.1 % (0.0-0.8); Eosinophils % 0.1 % (0.00-10.9); Hematocrit 26.9 VOL% (35.7-47.0); Hemoglobin 8.9 GM/DL (12.0-16.0); Immature Granulocytes % 2.2 %; Immature Granulocytes Absolute 0.25 #; Lymphocytes # 0.4 10*3/uL (1.4-4.0); Lymphocytes % 3.7 % (21.3-54.2); Mean Corpuscular HGB Conc 33.1 GM/DL (32-36); Mean Corpuscular Hemoglobin 28 PG (27-34); Mean Corpuscular Volume 85.7 FL (87-102); Mean Platelet Volume 9.8 FL (9.6-12.0); Monocytes # 0.1 10*3/uL (0.11-0.8); Monocytes % 0.4 % (1.7-12.7); Neutrophils # 10.5 10*3/uL (1.4-7.4); Neutrophils % 93.5 % (38.7-73.9); Platelet Count 253 T/CUMM (130-400); Red Blood Count 3.14 MC/CUMM (3.8-5.5); White Blood Count 11.2 T/CUMM (4-12)
[2017-02-24 07:04] LABS: Band Neutrophils 2 % (0-10); Burr Cells Slight; Eosinophils 1 % (0-10); Giant Platelets Few; Hypochromasia Slight; Lymphocytes 3 % (20-55); Platelet Estimate Adequate; Segmented Neutrophils 93 % (50-85); Total Cells Counted 100
[2017-02-24 07:53] LABS: Albumin 2.6 G/DL (3.4-5.0); Bilirubin,Total 0.4 MG/DL (0.2-1.0); Calcium 8.1 MG/DL (8.5-10.1); Osmolality,Calculated 302.9 MOS/KG (273-304); Total Protein 6.2 G/DL (6.4-8.3)
[2017-02-24 08:00] LABS: Potassium 6.2 MMOL/L (3.5-5.1)
[2017-02-24] MEDS: INSULIN LISPRO 100 UNIT/ML SUBCUT SCH ×4 (08:03→22:19)
[2017-02-24] MEDS: LABETALOL 200 MG TABLET PO SCH ×2 (08:05→20:45)
[2017-02-24] MEDS: SODIUM BICARBONATE 650 MG TABLET PO SCH ×2 (08:12→20:45)
--- NOTE | 2017-02-24 08:12 | EKG Report ---
Stationary ECG Study [facility] ER Test Date: 02/23/2017 6:51:51 PM Pat Name: EDUAR WADSWORTH Department: Room: 244 Gender: F Motor Electrician: : 1975 Requested by: Ra Mcmanus Order Number: [id number] Reading MD: JUS CORTES Intervals [place] Rate: 100 P: 41 IA: 177 QRS: 33 QRSD: 89 T: 61 QT: 365 QTc: 422 Interpretive Statements SINUS TACHYCARDIA OTHERWISE NORMAL TRACING Electronically Signed On 02-24-17 08:15:18 CDT by JUS CORTES [email or web address]
[2017-02-24] MEDS: CALCITRIOL 0.5 MCG CAPSULE PO SCH ×2 (09:43→20:45)
[2017-02-24] MEDS: HEPARIN 5,000 UNIT/1 ML VIAL SUBCUT SCH ×2 (09:43→20:45)
--- NOTE | 2017-02-24 11:23 | Hospitalist Progress Note ---
Assessment and Plan (1) Hypoglycemia Status: Acute Assessment and plan: At the time of ED presentation, the patient was grossly hypoglycemic with a glucose level noted at 46. This was largely attributed to the multiple anti- diabetic agents that the patient was alone at home. The patient remains on dextrose 5% intravenously at 75 mL an hour. Despite the use of this agent, the patient has recorded one episode of hypoglycemia in which the patient's blood sugar was noted at 46 and one episode of stable glucose at 99. In addition, the remaining blood sugars have remained elevated at greater than 200. We will decrease the dextrose 5% to 25 mL an hour. We will continue Accu-Cheks with sliding scale coverage if needed and hold all oral glycemic agents. Current Visit: Yes (2) Pneumonia Status: Acute Assessment and plan: Chest x-ray at the time of ED presentation was significant for right lower lobe infiltrate. We will continue empiric antibiotic coverage as previously ordered. Current Visit: Yes (3) Anemia Status: Chronic Assessment and plan: Hemoglobin/hematocrit noted at 8.9/26.9; a slight improvement from 8.8 and 26.4 yesterday. We will monitor hemoglobin and hematocrit for changes. Current Visit: Yes Qualifiers: Other causes of anemia: chronic disease, kidney (4) Anasarca associated with disorder of kidney Status: Acute Assessment and plan: +4 edema was noted to the patient's bilateral lower extremities. Upon examination, the patient verbalize pain upon gentle touch. Although the patient 's lower extremity edema is chronic in nature, we will obtain bilateral venous Doppler studies for good measures. Current Visit: No Hospitalist: Subjective Interval history: Patient seen and examined; chart reviewed. No significant overnight events reported per staff. Awaiting nephrology consultation for further recommendations regarding reinitiation of peritoneal hemodialysis. Exam - Constitutional Vitals: Period Temp Pulse Resp BP Sys/Moura Pulse Ox Last 24 Hr 97.5 F-98.6 F 89-112 18-32 124-200/64-111 90-100 General appearance: no acute distress, over weight - Head Head exam: Present: normal inspection, normocephalic, atraumatic - Eye Eye exam: Present: EOMI Pupils: Present: EMERITA, normal accommodation - ENT ENT exam: Present: normal exam, normal external ear exam, normal oropharynx - Neck Neck exam: Present: normal inspection. Absent: lymphadenopathy, meningismus, tenderness, thyromegaly - Respiratory Respiratory exam: Present: clear to auscultation bilaterally. Absent: rales, rhonchi, stridor, wheezes - Cardiovascular Cardiovascular exam: Present: regular rate and rhythm. Absent: carotid bruit, diastolic murmur, gallop, irregular rhythm, JVD, rubs, systolic murmur - GI/Abdominal GI/Abdominal exam: Present: normal bowel sounds, soft - Extremities Exam Extremities exam: Present: normal inspection, normal capillary refill, edema (+ 4 pitting edema noted to bilateral lower extremities), other (Close tenderness noted upon gentle palpation) - Back Exam Back exam: Present: normal inspection - Neurological Exam Neurological exam: Present: alert, oriented X3, abnormal gait, CN II-XII intact - Psychiatric Psychiatric exam: Present: normal affect, normal mood - Skin Skin exam: Present: normal color, warm, dry Results - Labs CBC & BMP: 02/24/17 05:23 02/24/17 08:22 Lab Results: I have reviewed the past 24 hour labs
--- NOTE | 2017-02-24 13:29 | Nephrology Consult Note ---
History of Present Illness Chief complaint: End-stage renal disease History of present illness: Ms. Quinn is a 41 year old female history of end-stage renal disease due to hypertension diabetes currently does peritoneal dialysis. She was recently hospitalized a few weeks ago for cellulitis of the lower extremity. She has continued to recover from that pain. She was admitted due to low blood glucose levels all last night. Of note, patient mentioned that she had not been doing her dialysis but on a daily basis but every other day. Her glucoses have been above 400 in the last 12 hours. She denies any shortness of breath or chest pain. There was some developing left lower infiltrates noted on chest x-ray. Moreover, patient's serum potassium was noted to be 6.2 today. Nephrology is been consulted for renal issues. Home Medications Medication Instructions Recorded Confirmed Type Amlodipine Besylate 10 mg PO BEDTIME 08/03/15 02/23/17 History Labetalol HCl 200 mg PO BID 08/03/15 02/23/17 History glipiZIDE [Glipizide Xl] 10 mg PO BID 08/03/15 02/23/17 History Cyanocobalamin Inj [Vitamin B12 1,000 mcg IM Q30D 09/19/15 02/23/17 History Inj] Calcitriol 0.5 mcg PO BID 01/31/17 02/23/17 History Cinacalcet HCl [Sensipar] 180 mg PO DAILY W/LUNCH 01/31/17 02/23/17 History Gabapentin 100 mg PO BEDTIME 01/31/17 02/23/17 History Sodium Bicarb Tab 1,300 mg PO BID 01/31/17 02/23/17 History sitaGLIPtin [Januvia] 100 mg PO QAM 01/31/17 02/23/17 History Carvedilol [Coreg] 6.25 mg PO BID W/MEALS #60 tablet 02/12/17 02/23/17 Rx HYDROcodone/ACETAMIN 7.5-325 1 tablet PO Q4H PRN #20 tablet 02/12/17 02/23/17 Rx [[place] 7.5-325] Allergies Allergy/AdvReac Type Severity Reaction Status Date / Time iron dextran complex Allergy Intermediate Chest Pain Verified 02/23/17 17:28 [From Infed] Penicillins Allergy Intermediate Rash/Vomiti Verified 02/23/17 17:28 ng nitroglycerin AdvReac Blood Verified 02/23/17 17:28 Pressure Drops too Low/Headache/Vomiting Shrimp AdvReac Nausea/Vomi Verified 02/23/17 17:28 ting Medical,Surgical,& Family Hx - Medical History Cardio: History of: Hypertension Neurology: No history of: Seizures HEENT: History of: Eye Problem (Glasses), HEENT Problems (sinus) No history of: Ear Problem Endocrine: History of: Diabetes Mellitus (NIDDM) No history of: Diabetes Mellitus (IDDM) Respiratory: Comment Only: Pneumonia (Pneum Vac 2012), Respiratory Problems (Flu Vac Current [id number]) Renal: History of: Dialysis (PERITONEAL), Renal Failure, Renal Problems Gastrointestinal: History of: GERD No history of: Polyps Musculoskeletal: History of: Musculoskeletal Problems (Difficulty ambulating. leg pain) No history of: Amputation Hematology: History of: Anemia, Bleeding Problems (Hx Transfusions) No history of: Blood Transfusion Reaction Other: No history of: Anesthesia Reactions, Anaphylaxis, Cancer - Surgical History Cardiac Surgeries: Sugical HX of: Vascular Access Devices (previous AV fistula 2015) Abdominal Surgeries: Surgical HX of: Abdominal Surgery (Periotineal catheter ), Cholecystectomy, Colonoscopy, EGD Reproductive Surgeries: Surgical HX of;: Hysterectomy (Partial) - Family History Family History: Reports;: Family Diabetes (mother), Family Hypertension (mother) , Family Stroke Denies;: Family Anesthesia Reaction, Family Cancer, Family Heart Disease, Family Psychiatric Problems - Social History Smoking Status: Never smoker Frequency of Alcohol Use: None Type of Drug Use: None Review of Systems Constitutional: lethargy, malaise Neurological: no confusion Exam - Vital Signs Vital signs: Period Temp Pulse Resp BP Sys/Moura Pulse Ox Last 24 Hr 97.5 F-98.6 F 89-112 18-32 124-200/64-111 90-100 - General Appearance General appearance: well-developed Neck: supple Respiratory: clear Cardiology: regular rate, regular rhythm Gastrointestinal: normoactive bowel sounds, no tenderness Integumentary: no rash Neurologic: no focal deficit, CN 3-12 intact Musculoskeletal: no deformities Psychiatric: agitated Results - Labs CBC & BMP: 02/24/17 05:23 02/24/17 08:22 Assessment and Plan (1) Chronic kidney disease Status: Chronic Assessment and plan: Question about patient's compliant with dialysis at this time. BUN is greater than 100 potassium is noted to be greater than 6. We will do scheduled peritoneal dialysis exchanges every 4 hours. We will do a rapid exchange for the first 2 cycles with 2 hour dwells. Current Visit: No Qualifiers: Chronic kidney disease stage: on chronic dialysis Qualified Code(s): N18.6 - End stage renal disease; Z99.2 - Dependence on renal dialysis (2) Anemia Status: Chronic Current Visit: Yes Qualifiers: Other causes of anemia: chronic disease, kidney (3) Diabetes Status: Chronic Assessment and plan: Glucoses have been very labile. Patient started on Lantus therapy. Will add 10 units of Humalog insulin to each peritoneal dialysis bags for the next 3 exchanges. Current Visit: No Qualifiers: Diabetes mellitus type: type 2 Diabetes mellitus complication status: with kidney complications Diabetes mellitus complication detail: with chronic kidney disease Chronic kidney disease stage: on chronic dialysis (4) Metabolic acidosis Status: Chronic Current Visit: No (5) End stage renal disease Status: Chronic Assessment and plan: Continue with scheduled PD exchanges. Current Visit: No (6) Obesity Status: Chronic Current Visit: No Qualifiers: Obesity type: due to excess calories (7) Hyponatremia Status: Acute Current Visit: No (8) Hyperkalemia Status: Acute Current Visit: No (9) Cellulitis Status: Resolved Current Visit: No (10) CHIDI (obstructive sleep apnea) Status: Chronic Current Visit: No
--- NOTE | 2017-02-24 14:25 | Ultrasound Report ---
US venous doppler LE BI Indication: Lower extremity edema and pain. Comparison: No relevant comparison.. Technique: Grayscale, spectral, and color Doppler interrogation of the bilateral lower extremity veins was performed. Augmentation and compression was performed. Findings: Grayscale, color Doppler, and pulsed Doppler evaluation of the veins of the bilateral lower extremity demonstrates no evidence of deep venous thrombosis. IMPRESSION: No evidence of deep venous thrombosis in either lower extremity. PROCEDURE INTERPRETED AT [facility] DEPARTMENT OF RADIOLOGY Final Report Signed by: Dr Sergey Meyer
[2017-02-24] MEDS: INSULIN REGULAR 100 UNIT/ML SUBCUT SCH ×3 (14:30→18:51)
[2017-02-24] MEDS: CINACALCET 30 MG TABLET PO SCH ×2 (15:32→15:41)
[2017-02-24] MEDS: DEXTROSE 5% 1,000 ML IV SCH (15:35)
[2017-02-24] MEDS: amLODIPine 10 MG TABLET PO SCH (20:45)
[2017-02-24] MEDS: GABAPENTIN 100 MG CAPSULE PO SCH (20:45)
[2017-02-25] MEDS: ALBUTEROL/IPRATROPIUM 3 ML NEB RESP TX SCH ×6 (02:48→23:20)
[2017-02-25] MEDS: INSULIN LISPRO 100 UNIT/ML SUBCUT SCH ×4 (08:47→21:08)
[2017-02-25] MEDS: CALCITRIOL 0.5 MCG CAPSULE PO SCH ×3 (09:47→21:08)
[2017-02-25] MEDS: LABETALOL 200 MG TABLET PO SCH ×3 (09:48→21:30)
[2017-02-25] MEDS: SODIUM BICARBONATE 650 MG TABLET PO SCH ×3 (09:48→21:08)
[2017-02-25] MEDS: HEPARIN 5,000 UNIT/1 ML VIAL SUBCUT SCH ×3 (09:48→21:07)
[2017-02-25] MEDS: sitaGLIPtin 25 MG TABLET PO SCH (09:49)
[2017-02-25 10:11] LABS: Hematocrit 24.1 VOL% (35.7-47.0); Immature Granulocytes % 2.3 %; Immature Granulocytes Absolute 0.24 #; Lymphocytes # 1.1 10*3/uL (1.4-4.0); Lymphocytes % 10.1 % (21.3-54.2); Mean Corpuscular HGB Conc 33.2 GM/DL (32-36); Mean Corpuscular Hemoglobin 28 PG (27-34); Mean Corpuscular Volume 84.6 FL (87-102); Mean Platelet Volume 9.1 FL (9.6-12.0); Monocytes # 0.5 10*3/uL (0.11-0.8); Monocytes % 4.4 % (1.7-12.7); Neutrophils # 8.8 10*3/uL (1.4-7.4); Neutrophils % 83.2 % (38.7-73.9); Platelet Count 282 T/CUMM (130-400); Red Blood Count 2.85 MC/CUMM (3.8-5.5); Red Cell Distribution Width 14.8 % (9.3-17.3); White Blood Count 10.6 T/CUMM (4-12)
[2017-02-25 10:31] LABS: Calcium 7.9 MG/DL (8.5-10.1); Osmolality,Calculated 306.2 MOS/KG (273-304); Potassium 4.4 MMOL/L (3.5-5.1)
[2017-02-25] MEDS: CINACALCET 30 MG TABLET PO SCH (11:09)
--- NOTE | 2017-02-25 13:09 | Hospitalist Progress Note ---
Assessment and Plan - Time spent with patient Time spent with patient: Less than 30 minutes (1) Hypoglycemia Status: Acute Assessment and plan: 02/25/17 hypoglycemia - Resolved. Hyperglycemia: Started Glucotrol and Januvia , will continue to monitor closely for improvements. Continue sliding scale and accu checks. Current Visit: Yes (2) Anemia Status: Chronic Assessment and plan: 02/25/17 stable. will continue to monitor. Current Visit: Yes Qualifiers: Other causes of anemia: chronic disease, kidney (3) CKD stage 5 secondary to hypertension Problem details: Mild uremic symptoms manifested by short term memory issues and mild confusion. All lab manifestations appear to reveal a chronic process which very little reversal is likely. Status: Acute Assessment and plan: 02/25/17 continue peritoneal dialysis at scheduled. Nephrology is following and greatly appreciate assistance with care. Current Visit: No (4) Diabetes Status: Chronic Current Visit: No Qualifiers: Diabetes mellitus type: type 2 Diabetes mellitus complication status: with kidney complications Diabetes mellitus complication detail: with chronic kidney disease Chronic kidney disease stage: on chronic dialysis Hospitalist: Subjective Interval history: Ms Quinn seen and chart reviewed. She reports feeling a little better today. She reports still having pain in bilateral legs that has been going on for several weeks, venous doppler was negative for DVT. She denies any nausea, vomiting, chest pain, or shortness of breath. Patient blood glucose continues to be high, started on glipizide and januvia and will continue to monitor accu checks closely. Exam - Constitutional Vitals: Period Temp Pulse Resp BP Sys/Moura Pulse Ox Last 24 Hr 97.3 F-98.3 F 64-92 16-20 129-170/65-92 95-100 General appearance: normal weight, no acute distress - Head Head exam: Present: normal inspection - Eye Eye exam: Present: EOMI Pupils: Present: EMERITA - ENT ENT exam: Present: normal exam - Neck Neck exam: Present: normal inspection. Absent: thyromegaly - Respiratory Respiratory exam: Present: clear to auscultation bilaterally - Cardiovascular Cardiovascular exam: Present: regular rate and rhythm - GI/Abdominal GI/Abdominal exam: Present: normal bowel sounds, soft. Absent: tenderness, rebound - Extremities Exam Extremities exam: Present: full ROM, edema (3+) - Neurological Exam Neurological exam: Present: alert, oriented X3 - Psychiatric Psychiatric exam: Present: normal affect, normal mood. Absent: agitated, anxious - Skin Skin exam: Present: normal color, warm, dry Results - Labs CBC & BMP: 02/25/17 09:56 02/25/17 09:56 Lab Results: I have reviewed the past 24 hour labs - Diagnostic Findings Procedure: Ultrasound: report reviewed by me (Doppler negative for DVT)
[2017-02-25] MEDS: glipiZIDE 5 MG TABLET PO SCH (15:36)
--- NOTE | 2017-02-25 17:51 | Nephrology Progress Note ---
Nephrology - PN: Subj Interval history: Patient is resting comfortably. She is much more coherent today. She has been able to tolerate her PD exchanges without difficulty today. Serum glucoses have continued to improve. She has been able to ambulate in the room and around the halls today. She is eager to go home. Exam (PN)-Nephrology - Vital Signs Vital signs: Period Temp Pulse Resp BP Sys/Moura Pulse Ox Last 24 Hr 97.3 F-98.3 F 64-98 16-20 129-149/65-91 95-100 - General Appearance General appearance: well-developed, fatigue Neck: no JVD, supple Respiratory: clear Cardiology: no edema, regular rate, regular rhythm Gastrointestinal: normoactive bowel sounds, no tenderness Integumentary: no rash Neurologic: alert and oriented x3, CN 3-12 intact Musculoskeletal: no clubbing Psychiatric: mood/affect appropriate, cooperative - Lab 02/25/17 09:56 02/25/17 09:56 Most recent lab results Calcium 7.9 MG/DL (8.5-10.1) L 02/25/17 09:56 Magnesium 2.0 MG/DL (1.8-2.4) 02/24/17 05:23 Assessment and Plan (1) Chronic kidney disease Status: Chronic Assessment and plan: Continue with scheduled peritoneal dialysis exchanges today. 4 exchanges with 4 hour dwells 2.5% dextrose.. Current Visit: No Qualifiers: Chronic kidney disease stage: on chronic dialysis Qualified Code(s): N18.6 - End stage renal disease; Z99.2 - Dependence on renal dialysis (2) Anemia Status: Chronic Current Visit: Yes Qualifiers: Other causes of anemia: chronic disease, kidney (3) Diabetes Status: Chronic Assessment and plan: Glucoses have improved.. Current Visit: No Qualifiers: Diabetes mellitus type: type 2 Diabetes mellitus complication status: with kidney complications Diabetes mellitus complication detail: with chronic kidney disease Chronic kidney disease stage: on chronic dialysis (4) Metabolic acidosis Status: Chronic Current Visit: No (5) End stage renal disease Status: Chronic Assessment and plan: Continue with scheduled PD exchanges. Current Visit: No (6) Obesity Status: Chronic Current Visit: No Qualifiers: Obesity type: due to excess calories (7) Hyponatremia Status: Acute Current Visit: No (8) Hyperkalemia Status: Acute Current Visit: No (9) CHIDI (obstructive sleep apnea) Status: Chronic Current Visit: No
[2017-02-25] MEDS ORDERED: LEVOFLOXACIN INJ 500 MG in PREMIX 1 EACH IV SCH (20:30)
[2017-02-25] MEDS: amLODIPine 10 MG TABLET PO SCH ×2 (21:07→21:30)
[2017-02-25] MEDS: LEVOFLOXACIN INJ 500 MG in PREMIX 1 EACH IV SCH (21:07)
[2017-02-25] MEDS: GABAPENTIN 100 MG CAPSULE PO SCH (21:08)
[2017-02-25] MEDS: LEVOFLOXACIN 500 MG TABLET PO SCH (22:55)
[2017-02-26] MEDS: ALBUTEROL/IPRATROPIUM 3 ML NEB RESP TX SCH ×3 (02:36→10:41)
[2017-02-26] MEDS: LEVOFLOXACIN INJ 500 MG in PREMIX 1 EACH IV SCH (03:40)
[2017-02-26] MEDS: INSULIN LISPRO 100 UNIT/ML SUBCUT SCH ×4 (07:52→21:23)
[2017-02-26 08:08] LABS: Basophils % 0.2 % (0.0-0.8); Eosinophils # 0.2 10*3/uL (0.0-0.87); Eosinophils % 1.6 % (0.00-10.9); Hematocrit 26.6 VOL% (35.7-47.0); Hemoglobin 8.7 GM/DL (12.0-16.0); Immature Granulocytes % 2.8 %; Lymphocytes # 2.8 10*3/uL (1.4-4.0); Lymphocytes % 19.2 % (21.3-54.2); Mean Corpuscular HGB Conc 32.7 GM/DL (32-36); Mean Corpuscular Hemoglobin 28 PG (27-34); Mean Corpuscular Volume 85.8 FL (87-102); Mean Platelet Volume 9.3 FL (9.6-12.0); Monocytes # 0.9 10*3/uL (0.11-0.8); Monocytes % 5.9 % (1.7-12.7); Neutrophils # 10.2 10*3/uL (1.4-7.4); Neutrophils % 70.3 % (38.7-73.9); Platelet Count 341 T/CUMM (130-400); Red Cell Distribution Width 14.9 % (9.3-17.3); White Blood Count 14.5 T/CUMM (4-12)
[2017-02-26 08:37] LABS: Magnesium 1.8 MG/DL (1.8-2.4); Osmolality,Calculated 291.5 MOS/KG (273-304); Potassium 4.1 MMOL/L (3.5-5.1)
[2017-02-26] MEDS: CALCITRIOL 0.5 MCG CAPSULE PO SCH ×2 (09:44→21:24)
[2017-02-26] MEDS: SODIUM BICARBONATE 650 MG TABLET PO SCH ×2 (09:44→21:24)
[2017-02-26] MEDS: glipiZIDE 5 MG TABLET PO SCH ×2 (09:45→16:54)
[2017-02-26] MEDS: LEVOFLOXACIN 500 MG TABLET PO SCH (09:45)
[2017-02-26] MEDS: LABETALOL 200 MG TABLET PO SCH ×2 (09:45→21:23)
[2017-02-26] MEDS: sitaGLIPtin 25 MG TABLET PO SCH (09:45)
[2017-02-26] MEDS: HEPARIN 5,000 UNIT/1 ML VIAL SUBCUT SCH ×2 (09:46→21:23)
--- NOTE | 2017-02-26 11:31 | Hospitalist Progress Note ---
Assessment and Plan - Time spent with patient Time spent with patient: Less than 30 minutes (1) Hypoglycemia Status: Acute Assessment and plan: 02/25/17 hypoglycemia - Resolved. Hyperglycemia: Started Glucotrol and Januvia , will continue to monitor closely for improvements. Continue sliding scale and accu checks. 02/26/17 blood glucose better controlled this morning. Will continue current diabetic control and monitoring. Repeat a.m. labs. Current Visit: Yes (2) Anemia Status: Chronic Assessment and plan: 02/25/17 stable. will continue to monitor. 02/26/17 chronic renal failure. Stable H&H 8.7 and 26.6. Repeat a.m. labs Current Visit: Yes Qualifiers: Other causes of anemia: chronic disease, kidney (3) CKD stage 5 secondary to hypertension Problem details: Mild uremic symptoms manifested by short term memory issues and mild confusion. All lab manifestations appear to reveal a chronic process which very little reversal is likely. Status: Acute Assessment and plan: 02/25/17 continue peritoneal dialysis at scheduled. Nephrology is following and greatly appreciate assistance with care. 02/26/17 continued with scheduled peritoneal dialysis. Nephrology continues to follow and greatly appreciate assistance with care. Current Visit: No (4) Diabetes Status: Chronic Current Visit: No Qualifiers: Diabetes mellitus type: type 2 Diabetes mellitus complication status: with kidney complications Diabetes mellitus complication detail: with chronic kidney disease Chronic kidney disease stage: on chronic dialysis Hospitalist: Subjective Interval history: Ms Quinn seen and chart reviewed. She verbalized feeling a little better this morning. She denies SOB or chest pain. She continues to have some tenderness in bilateral legs. Physical therapy in room to work with her. Exam - Constitutional Vitals: Period Temp Pulse Resp BP Sys/Omura Pulse Ox Last 24 Hr 97.0 F-98.3 F 87-98 20-20 133-152/69-83 97-99 General appearance: normal weight, no acute distress - Head Head exam: Present: normal inspection - Eye Eye exam: Present: EOMI - Neck Neck exam: Present: normal inspection. Absent: thyromegaly - Respiratory Respiratory exam: Absent: wheezes - GI/Abdominal GI/Abdominal exam: Present: soft. Absent: tenderness - Extremities Exam Extremities exam: Present: full ROM. Absent: edema - Neurological Exam Neurological exam: Present: alert, oriented X3 - Psychiatric Psychiatric exam: Present: normal affect, normal mood. Absent: agitated, anxious - Skin Skin exam: Present: normal color, warm, dry Results - Labs CBC & BMP: 02/26/17 07:24 02/26/17 07:24 Lab Results: I have reviewed the past 24 hour labs
[2017-02-26] MEDS: CINACALCET 30 MG TABLET PO SCH (12:55)
--- NOTE | 2017-02-26 18:33 | Nephrology Progress Note ---
Nephrology - PN: Subj Interval history: Patient is resting comfortably. She is much more coherent today. She has been able to tolerate her PD exchanges without difficulty today. Serum glucoses have continued to improve. She has been able to ambulate in the room and around the halls today. She is eager to go home. 02/26/2017. The patient is handling the buck with a walker. She is much more comfortable today. PD exchange has been going well. No shortness of breath or chest pain. Again patient is eager to go home. Patient continue with PD exchanges. Exam (PN)-Nephrology - Vital Signs Vital signs: Period Temp Pulse Resp BP Sys/Moura Pulse Ox Last 24 Hr 97.0 F-98.2 F 87-94 18-20 133-152/78-88 97-99 - General Appearance General appearance: well-developed, well-nourished EENT: ATNC Neck: supple Respiratory: clear Cardiology: no edema, regular rate, regular rhythm Gastrointestinal: normoactive bowel sounds, no tenderness, no guarding Neurologic: alert and oriented x3 Musculoskeletal: no clubbing Psychiatric: mood/affect appropriate, cooperative - Lab 02/26/17 07:24 02/26/17 07:24 Most recent lab results Calcium 8.0 MG/DL (8.5-10.1) L 02/26/17 07:24 Magnesium 1.8 MG/DL (1.8-2.4) 02/26/17 07:24 Assessment and Plan (1) Chronic kidney disease Status: Chronic Assessment and plan: Continue with scheduled peritoneal dialysis exchanges today. 4 exchanges with 4 hour dwells 2.5% dextrose.. Current Visit: No Qualifiers: Chronic kidney disease stage: on chronic dialysis Qualified Code(s): N18.6 - End stage renal disease; Z99.2 - Dependence on renal dialysis (2) Anemia Status: Chronic Current Visit: Yes Qualifiers: Other causes of anemia: chronic disease, kidney (3) Diabetes Status: Chronic Assessment and plan: Glucoses have improved.. Current Visit: No Qualifiers: Diabetes mellitus type: type 2 Diabetes mellitus complication status: with kidney complications Diabetes mellitus complication detail: with chronic kidney disease Chronic kidney disease stage: on chronic dialysis (4) Metabolic acidosis Status: Chronic Current Visit: No (5) End stage renal disease Status: Chronic Assessment and plan: Continue with scheduled PD exchanges. Current Visit: No (6) Obesity Status: Chronic Current Visit: No Qualifiers: Obesity type: due to excess calories (7) Hyponatremia Status: Acute Current Visit: No (8) Hyperkalemia Status: Acute Current Visit: No (9) CHIDI (obstructive sleep apnea) Status: Chronic Current Visit: No
[2017-02-26] MEDS: amLODIPine 10 MG TABLET PO SCH (21:22)
[2017-02-26] MEDS: GABAPENTIN 100 MG CAPSULE PO SCH (21:24)
[2017-02-27 06:10] LABS: Basophils # 0.1 10*3/uL (0.0-0.2); Basophils % 0.3 % (0.0-0.8); Eosinophils # 0.3 10*3/uL (0.0-0.87); Eosinophils % 2.2 % (0.00-10.9); Hematocrit 27.7 VOL% (35.7-47.0); Hemoglobin 9.1 GM/DL (12.0-16.0); Immature Granulocytes % 3.7 %; Immature Granulocytes Absolute 0.57 #; Lymphocytes # 2.4 10*3/uL (1.4-4.0); Lymphocytes % 15.7 % (21.3-54.2); Mean Corpuscular HGB Conc 32.9 GM/DL (32-36); Mean Corpuscular Hemoglobin 28 PG (27-34); Mean Platelet Volume 8.5 FL (9.6-12.0); Monocytes # 0.9 10*3/uL (0.11-0.8); Monocytes % 5.5 % (1.7-12.7); Neutrophils # 11.3 10*3/uL (1.4-7.4); Neutrophils % 72.6 % (38.7-73.9); Platelet Count 307 T/CUMM (130-400); Red Blood Count 3.22 MC/CUMM (3.8-5.5); Red Cell Distribution Width 15.1 % (9.3-17.3); White Blood Count 15.5 T/CUMM (4-12)
[2017-02-27 06:53] LABS: Calcium 8.7 MG/DL (8.5-10.1); Magnesium 1.6 MG/DL (1.8-2.4); Osmolality,Calculated 289.5 MOS/KG (273-304); Potassium 4.1 MMOL/L (3.5-5.1)
[2017-02-27 07:33] LABS: Band Neutrophils 2 % (0-10); Eosinophils 2 % (0-10); Lymphocytes 20 % (20-55); Segmented Neutrophils 69 % (50-85); Total Cells Counted 100
[2017-02-27 07:34] LABS: Hypochromasia 1+; Microcytosis Slight; Platelet Estimate Adequate
[2017-02-27] MEDS: HEPARIN 5,000 UNIT/1 ML VIAL SUBCUT SCH ×2 (09:06→20:35)
[2017-02-27] MEDS: CALCITRIOL 0.5 MCG CAPSULE PO SCH ×2 (09:06→21:32)
[2017-02-27] MEDS: SODIUM BICARBONATE 650 MG TABLET PO SCH ×2 (09:06→20:40)
[2017-02-27] MEDS: glipiZIDE 5 MG TABLET PO SCH ×2 (09:07→17:26)
[2017-02-27] MEDS: LABETALOL 200 MG TABLET PO SCH ×2 (09:07→20:36)
[2017-02-27] MEDS: INSULIN LISPRO 100 UNIT/ML SUBCUT SCH ×4 (09:07→20:39)
[2017-02-27] MEDS: sitaGLIPtin 25 MG TABLET PO SCH (09:07)
--- NOTE | 2017-02-27 15:09 | Discharge Summary ---
Hospital Course - Hospital Course Hospital Course: 41 year old female with a past medical history of chronic renal failure with peritoneal dialysis, hypertension, [id number] diabetes mellitus, and anemia who presented to the emergency department with complaints of clamminess, sweatiness, and altered mental status due to a hypoglycemic episode, with a sugar of 37 Ms. She was taken to [facility] and then transfered to [facility]. She was admitted to the hospital service. At home she was on Januvia as well as glipizide for her diabetes which would not resume. Initially she was on dextrose infusion, and when her blood glucoses stabilized, she was started on lower dose of Januvia and a lower dose of glipizide as well. With this change her blood sugars remained improved and stable. She is tolerating diet. Stools infusion was stopped couple days ago. She also had a right lower lobe pneumonia that was present on admission, is getting better with Levaquin. Peritoneal dialysis was continued in the hospital and Dr. Bazzi was following. She was quite deconditioned and received physical therapy. child abuse worker was consulted for swing bed placement and today she has a bed offer. She is being discharged to swing bed in improved and stable condition. Total discharge time 40 minutes. - Time spent with patient Time with patient DS: Greater than 30 minutes Diagnosis - Discharge Diagnosis (1) Pneumonia Status: Resolved Discharge Plan - Discharge Data Disposition: Swing Bed, Hos Based, [facility] Condition at Discharge: Stable Discharge Diet: diabetic diet Activity: resume usual activities as tolerated, as per physical therapy Hygiene: no restrictions Weight Bearing at Discharge: full weight bearing Driving: no restrictions - Discharge Medications New glipiZIDE [Glucotrol] 5 mg PO BIDAC #60 tablet Insulin Lispro [HumaLOG] See Protocol SUBCUT ACHS unit Levofloxacin Tab [Levaquin Tab] 500 mg PO Q48H #5 tablet sitaGLIPtin [Januvia] 25 mg PO DAILY #30 tablet Continue Amlodipine Besylate 10 mg PO BEDTIME Labetalol HCl 200 mg PO BID Cyanocobalamin Inj [Vitamin B12 Inj] 1,000 mcg IM Q30D Sodium Bicarb Tab 1,300 mg PO BID Cinacalcet HCl [Sensipar] 180 mg PO DAILY W/LUNCH Calcitriol 0.5 mcg PO BID Carvedilol [Coreg] 6.25 mg PO BID W/MEALS #60 tablet HYDROcodone/ACETAMIN 7.5-325 [Salkum 7.5-325] 1 tablet PO Q4H PRN #20 tablet PRN Reason: Pain Moderate (4-7) Gabapentin 100 mg PO BEDTIME Discontinued glipiZIDE [Glipizide Xl] 10 mg PO BID sitaGLIPtin [Januvia] 100 mg PO QAM - Follow Up or Referral Follow Up: No PCP,. [Primary Care Provider] - 2 Weeks - Forms/Instructions Exam - Constitutional Vitals: Period Temp Pulse Resp BP Sys/Moura Pulse Ox Last 24 Hr 97.2 F-99.1 F 68-94 18-20 133-165/69-98 96-99 Exam: General: No Acute Distress HEENT: Normocephalic, atraumatic, Extra ocular movements intact Neck: Supple, No JVD Chest: Clear to auscultation B/L CV: S1 + S2 audible without murmur, gallop or rub Abd: soft, NT, Non-distended, BS + Ext: Edema 1+ B/L Skin: No purpura, bruising or rash Rheumatologic: No Joint deformities Neurologic: Strength 5/5 all extremities, no gross sensory deficits Discharge Results Procedures and tests throughout hospitalization: Pending Orders 02/23/17 18:58 Blood Culture Stat Labs on day of discharge: Labs from last 24 hours 02/27/17 02/27/17 02/27/17 11:07 07:31 06:04 WBC RBC Hgb Hct MCV MCH MCHC RDW Plt Count MPV Neut % (Auto) Lymph % (Auto) Gallia % (Auto) Eos % (Auto) Baso % (Auto) Neut # (Auto) Lymph # (Auto) Gallia # (Auto) Eos # (Auto) Baso # (Auto) Total Counted Immature Gran % Nucleated RBC % Immature Gran # Segmented Neutrophils Band Neutrophils Lymphocytes Monocytes Eosinophils Nucleated RBCs # Platelet Estimate Immature Plt Fraction Hypochromasia Microcytosis Sodium 132 L Potassium 4.1 Chloride 95 L Carbon Dioxide 22 Anion Gap 19.1 H BUN 82 H Creatinine 11.10 H GFR Calculation 5 BUN/Creatinine Ratio 7.00 Glucose 118 H POC Glucose 132 H 151 H Calculated Osmolality 289.5 Calcium 8.7 Magnesium 1.6 L 02/27/17 02/26/17 02/26/17 06:04 19:44 14:55 WBC 15.5 H RBC 3.22 L Hgb 9.1 L Hct 27.7 L MCV 86.0 L MCH 28 MCHC 32.9 RDW 15.1 Plt Count 307 MPV 8.5 L Neut % (Auto) 72.6 Lymph % (Auto) 15.7 L Gallia % (Auto) 5.5 Eos % (Auto) 2.2 Baso % (Auto) 0.3 Neut # (Auto) 11.3 H Lymph # (Auto) 2.4 Gallia # (Auto) 0.9 H Eos # (Auto) 0.3 Baso # (Auto) 0.1 Total Counted 100 Immature Gran % 3.7 Nucleated RBC % 0.0 Immature Gran # 0.57 Segmented Neutrophils 69 Band Neutrophils 2 Lymphocytes 20 Monocytes 7 Eosinophils 2 Nucleated RBCs # 0.00 Platelet Estimate Adequate Immature Plt Fraction 0.0 Hypochromasia 1+ Microcytosis Slight Sodium Potassium Chloride Carbon Dioxide Anion Gap BUN Creatinine GFR Calculation BUN/Creatinine Ratio Glucose POC Glucose 253 H 165 H Calculated Osmolality Calcium Magnesium Preliminary micro results at discharge 02/23/17 18:58 Blood Culture - Preliminary Blood No growth at 3 days 02/23/17 18:58 Blood Culture - Preliminary Blood No growth at 3 days DS: Provider Date of admission: 02/23/17 19:24 Primary care physician: . No PCP Attending physician on admission: Basil Stone MD Consults: 02/23/17 19:51 Consult to Physician [CONS] Routine Comment: CRF; Peritoneal dialysis Consulting Provider: Jason Bazzi Jr. Person Notified: KATIE Date Notified: 02/24/17 Time Notified: 07:58 02/23/17 20:51 Consult to Pharmacy [CONS] Routine Reason for Pharmacy Consult: Adjust Meds Renal Funct Comment: For continued Levaquin dosing. 02/26/17 09:13 Consult to Physical Therapy [CONS] Routine Reason for Physical Therapy: Evaluate and Treat 02/26/17 17:36 Consult to Case Mgmt/Social Srvs [CONS] Routine Reason for Case Mgmt/Social Srvs: Rehab Consult Comment: Please evaluate for swing bed or rehab placement Discharging clinician: Rhonda Yancey MD
--- NOTE | 2017-02-27 16:22 | Nephrology Progress Note ---
Nephrology - PN: Subj Interval history: Patient is resting comfortably. She is much more coherent today. She has been able to tolerate her PD exchanges without difficulty today. Serum glucoses have continued to improve. She has been able to ambulate in the room and around the halls today. She is eager to go home. 02/26/2017. The patient is handling the buck with a walker. She is much more comfortable today. PD exchange has been going well. No shortness of breath or chest pain. Again patient is eager to go home. Patient continue with PD exchanges. 02/27/2017. The patient is resting comfortably. She is scheduled to be discharged to swing bed facility. PD exchanges are going well. No shortness of breath or chest pain. Exam (PN)-Nephrology - Vital Signs Vital signs: Period Temp Pulse Resp BP Sys/Moura Pulse Ox Last 24 Hr 97.2 F-99.1 F 68-110 18-20 133-165/69-98 96-99 - General Appearance General appearance: well-developed, well-nourished, obese EENT: ATNC Neck: supple Respiratory: clear Cardiology: no edema, regular rate, regular rhythm Gastrointestinal: normoactive bowel sounds, no tenderness Neurologic: alert and oriented x3 Musculoskeletal: no clubbing Psychiatric: mood/affect appropriate, cooperative - Lab 02/27/17 06:04 02/27/17 06:04 Most recent lab results Calcium 8.7 MG/DL (8.5-10.1) 02/27/17 06:04 Magnesium 1.6 MG/DL (1.8-2.4) L 02/27/17 06:04 Assessment and Plan (1) Chronic kidney disease Status: Chronic Assessment and plan: Continue with scheduled peritoneal dialysis exchanges today. 4 exchanges with 4 hour dwells 2.5% dextrose.. Current Visit: No Qualifiers: Chronic kidney disease stage: on chronic dialysis Qualified Code(s): N18.6 - End stage renal disease; Z99.2 - Dependence on renal dialysis (2) Anemia Status: Chronic Current Visit: Yes Qualifiers: Other causes of anemia: chronic disease, kidney (3) Diabetes Status: Chronic Assessment and plan: Glucoses have improved. Current Visit: No Qualifiers: Diabetes mellitus type: type 2 Diabetes mellitus complication status: with kidney complications Diabetes mellitus complication detail: with chronic kidney disease Chronic kidney disease stage: on chronic dialysis (4) Metabolic acidosis Status: Chronic Current Visit: No (5) End stage renal disease Status: Chronic Assessment and plan: Continue with scheduled PD exchanges. Current Visit: No (6) Obesity Status: Chronic Current Visit: No Qualifiers: Obesity type: due to excess calories (7) Hyponatremia Status: Acute Current Visit: No (8) Hyperkalemia Status: Acute Current Visit: No (9) CHIDI (obstructive sleep apnea) Status: Chronic Current Visit: No Specialty Discharge - Follow Up or Referrals Follow up with: No PCP,. [Primary Care Provider] - 2 Weeks
[2017-02-27] MEDS: CINACALCET 30 MG TABLET PO SCH (16:37)
[2017-02-27] MEDS: GABAPENTIN 100 MG CAPSULE PO SCH (20:37)
[2017-02-27] MEDS: amLODIPine 10 MG TABLET PO SCH (20:38)
[2017-02-27] MEDS ORDERED: ONDANSETRON 4 MG TABLET PO PRN (21:53)
[2017-02-28 08:00] VITALS: BP 134/73
[2017-02-28] MEDS: LEVOFLOXACIN 500 MG TABLET PO SCH (09:04)
[2017-02-28] MEDS: INSULIN LISPRO 100 UNIT/ML SUBCUT SCH (09:04)
[2017-02-28] MEDS: CALCITRIOL 0.5 MCG CAPSULE PO SCH (09:04)
[2017-02-28] MEDS: SODIUM BICARBONATE 650 MG TABLET PO SCH (09:05)
[2017-02-28] MEDS: LABETALOL 200 MG TABLET PO SCH (09:05)
[2017-02-28] MEDS: sitaGLIPtin 25 MG TABLET PO SCH (09:05)
[2017-02-28] MEDS: HEPARIN 5,000 UNIT/1 ML VIAL SUBCUT SCH (09:05)
[2017-02-28] MEDS: glipiZIDE 5 MG TABLET PO SCH (09:05)
[2017-02-28] MEDS ORDERED: MAGNESIUM CHLORIDE 64 MG TABLET PO SCH (09:30)
== END 2017-02-28 10:49 | DRG 637 ==
LOC: EDUNIT# → N.ED 17:14 → SUATTDRO 19:24 → N.EDINP 19:24 → N.2E 21:19
PROVIDERS: ADMIT Hospitalist; ATTEND Hospitalist

== ENCOUNTER 2017-03-13 19:24 | Inpatient (IN) ==
[2017-03-13] MEDS ORDERED: ONDANSETRON 4 MG/2 ML VIAL IV PRN (21:18)
[2017-03-13] MEDS ORDERED: DEXTROSE 50% 25 GM/50 ML VIAL IV PRN (21:18)
--- NOTE | 2017-03-13 21:42 | Hospitalist History & Physical ---
History of Present Illness Chief complaint: hypoglycemia History of present illness: Ms. Quinn is a 41 year old female with a PMH significant for ESRD on PD, HTN, DM (hba1c: 6.2, 02/23), chronic anemia, b12 deficiency, and unspecified sleep apnea. She was transferred from [facility] for hypoglycemia. Patient was seen today by [facility] and sugar was 33. She was taken to the ER, and her sugar was 53. It was reported that when her sugars are near 30, her speech is slurred and she becomes confused. While at [facility], she was given at least 8 amps of d50 and sugar remained low. She was started on D10 infusion and was transferred to [place]. Patient states that last night, her sugar was 304. She takes januvia 25mg in the am and glipizide 5mg, two tablets at night. She states that she took both of her diabetic medications last night. Currently, she has no complaints. She denies any CP/SOB/cough/n,v/abdominal pain/diarrhea/fevers/chills/decreased oral intake. Current sugar is 82. She has end stage renal disease and undergoes peritoneal dialysis. She was recently hospitalized here from 02/23-02/28 for hypoglycemia and RLL pneumonia. She was transferred to rehab where she was discharged on 03/04. According to the notes, she did not participate with PT. She was also seen by nephrology and according to the notes, she is to undergo 4 PD exchanges. She states that she has been undergoing daily PD exchanges since discharged from rehab. Home Medications Medication Instructions Recorded Confirmed Type Amlodipine Besylate 10 mg PO BEDTIME 08/03/15 02/28/17 History Labetalol HCl 200 mg PO BID 08/03/15 02/28/17 History Cyanocobalamin Inj [Vitamin B12 1,000 mcg IM Q30D 09/19/15 02/28/17 History Inj] Calcitriol 0.5 mcg PO BID 01/31/17 02/28/17 History Cinacalcet HCl [Sensipar] 180 mg PO DAILY W/LUNCH 01/31/17 02/28/17 History Gabapentin 100 mg PO BEDTIME 01/31/17 02/28/17 History Sodium Bicarb Tab 1,300 mg PO BID 01/31/17 02/28/17 History Carvedilol [Coreg] 6.25 mg PO BID W/MEALS #60 tablet 02/12/17 02/28/17 Rx Levofloxacin Tab [Levaquin Tab] 500 mg PO Q48H #5 tablet 02/27/17 02/28/17 Rx glipiZIDE [Glucotrol] 5 mg PO BIDAC #60 tablet 02/27/17 02/28/17 Rx sitaGLIPtin [Januvia] 25 mg PO DAILY #30 tablet 02/27/17 02/28/17 Rx Aspirin Chew Tab 81 mg PO DAILY tablet 03/03/17 Rx Allergies Allergy/AdvReac Type Severity Reaction Status Date / Time iron dextran complex Allergy Intermediate Chest Pain Verified 02/23/17 17:28 [From Infed] Penicillins Allergy Intermediate Rash/Vomiti Verified 02/23/17 17:28 ng nitroglycerin AdvReac Blood Verified 02/23/17 17:28 Pressure Drops too Low/Headache/Vomiting Shrimp AdvReac Nausea/Vomi Verified 02/23/17 17:28 ting Medical,Surgical,& Family Hx - Medical History Cardio: History of: Hypertension Neurology: No history of: Seizures HEENT: History of: Eye Problem (Glasses), HEENT Problems (sinus) No history of: Ear Problem Endocrine: History of: Diabetes Mellitus (NIDDM) No history of: Diabetes Mellitus (IDDM) Respiratory: No history of: Pneumonia (Pneum Vac 2012), Respiratory Problems (Flu Vac Current [id number]) Renal: History of: Dialysis (PD), Renal Failure, Renal Problems Gastrointestinal: History of: GERD No history of: Polyps Musculoskeletal: History of: Musculoskeletal Problems (Difficulty ambulating. leg pain) No history of: Amputation Hematology: History of: Anemia, Bleeding Problems (Hx Transfusions) No history of: Blood Transfusion Reaction Other: No history of: Anesthesia Reactions, Anaphylaxis, Cancer - Surgical History Cardiac Surgeries: Sugical HX of: Vascular Access Devices (previous AV fistula 2016) Abdominal Surgeries: Surgical HX of: Abdominal Surgery (Periotineal catheter since 2016), Cholecystectomy, Colonoscopy, EGD Reproductive Surgeries: Surgical HX of;: Gynecologic Surgery, Hysterectomy ( Partial) - Family History Family History: Reports;: Family Diabetes (mother), Family Hypertension (mother) , Family Stroke Denies;: Family Anesthesia Reaction, Family Cancer, Family Heart Disease, Family Psychiatric Problems - Social History Smoking Status: Never smoker - Constitutional Constitutional: Present: as per HPI - EENT Eyes: Absent: blurry vision Nose, mouth and throat: Absent: dysphagia - Cardiovascular Cardiovascular: Absent: chest pain at rest, orthopnea, palpitations - Respiratory Respiratory: Absent: cough, dyspnea - Gastrointestinal Gastrointestinal: Absent: abdominal pain, bloating, cramping, diarrhea - Psychiatric Psychiatric: Absent: anxiety, depression - Hematologic/Lymphatic Hematologic/Lymphatic: Absent: easy bruising Exam - Constitutional General appearance: no acute distress, morbidly obese - Head Head exam: Present: normal inspection, normocephalic - Eye Eye exam: Present: EOMI. Absent: conjunctival injection Pupils: Present: EMERITA - ENT ENT exam: Present: normal exam - Respiratory Respiratory exam: Present: clear to auscultation bilaterally. Absent: rales, rhonchi, wheezes - Cardiovascular Cardiovascular exam: Present: regular rate and rhythm. Absent: diastolic murmur , systolic murmur - GI/Abdominal GI/Abdominal exam: Present: normal bowel sounds, soft, other (PD catheter in place without any discharge/tenderness/erythema). Absent: tenderness - Extremities Exam Extremities exam: Present: edema - Neurological Exam Neurological exam: Present: oriented X3 - Psychiatric Psychiatric exam: Present: normal affect, normal mood - Skin Skin exam: Present: normal color, warm Results - Labs CBC & BMP: 03/13/17 21:47 Labs: Labs from [facility] 8.1 9.96>---------<252 26.3 140 105 88 < 42 5.1 16 17 - Impressions Patient is a 41 yo female with DM and ESRD on PD admitted for hypoglycemia. Active Issues: 1. Hypoglycemia: likely 2nd to adverse and prolonged effects of januvia and glipizide in the setting of poor renal excretion and ineffective peritoneal exchanges. She is non compliant with her exchanges. Continue dextrose infusion and serial glucose checks. 2. Recent pneumonia: asymptomatic; f/u chest x-ray 3. h/o ESRD on PD: will consult nephrology; continue current renal medications 4. h/o HTN: continue home medications 5. Chronic anemia: HCT at baseline of 26-28. Monitor 6. h/o DM: Hba1c of 6.2 on 02/25. Hold oral hypoglycemic regimen for now. Plan: As noted above. Medications reconciled. Basic labs. DVT prophylaxis. CODE: FULL The plan of care may be modified as more information becomes available.
[2017-03-13 22:04] LABS: Basophils % 0.3 % (0.0-0.8); Eosinophils # 0.3 10*3/uL (0.0-0.87); Hematocrit 22.7 VOL% (35.7-47.0); Hemoglobin 7.4 GM/DL (12.0-16.0); Immature Granulocytes % 0.5 %; Immature Granulocytes Absolute 0.04 #; Lymphocytes # 1.1 10*3/uL (1.4-4.0); Lymphocytes % 12.7 % (21.3-54.2); Mean Corpuscular HGB Conc 32.6 GM/DL (32-36); Mean Corpuscular Hemoglobin 29 PG (27-34); Mean Platelet Volume 8.9 FL (9.6-12.0); Monocytes # 0.5 10*3/uL (0.11-0.8); Monocytes % 5.4 % (1.7-12.7); Neutrophils # 6.9 10*3/uL (1.4-7.4); Neutrophils % 78.1 % (38.7-73.9); Platelet Count 202 T/CUMM (130-400); Red Blood Count 2.58 MC/CUMM (3.8-5.5); Red Cell Distribution Width 14.5 % (9.3-17.3); White Blood Count 8.8 T/CUMM (4-12)
[2017-03-13] MEDS: GLUCAGON 1 MG VIAL IM PRN (22:14)
[2017-03-13 22:41] LABS: Alanine Aminotransferase 9 U/L (13-56); Albumin 2.8 G/DL (3.4-5.0); Alkaline Phosphatase 117 U/L (45-117); Aspartate Amino Transferase 6 U/L (0-37); Bilirubin,Total < 0.39 MG/DL (0.2-1.0); Blood Urea Nitrogen 93 MG/DL (7-18); Calcium 7.2 MG/DL (8.5-10.1); Magnesium 1.9 MG/DL (1.8-2.4); Osmolality,Calculated 297.8 MOS/KG (273-304); Potassium 4.4 MMOL/L (3.5-5.1); Sodium 137 MMOL/L (136-145); Total Protein 5.8 G/DL (6.4-8.3)
[2017-03-13 22:42] LABS: Glucose 31 MG/DL (74-106)
[2017-03-13] MEDS: CYANOCOBALAMIN 1000 MCG/1 ML VIAL IM SCH (23:19)
[2017-03-13] MEDS: HEPARIN 5,000 UNIT/1 ML VIAL SUBCUT SCH (23:19)
[2017-03-13] MEDS ORDERED: ONDANSETRON ODT 4 MG TABLET PO ONE (23:45)
[2017-03-14] MEDS: DEXTROSE 10% 1,000 ML IV SCH ×2 (00:20→15:00)
[2017-03-14] MEDS ORDERED: ONDANSETRON ODT 4 MG TABLET PO PRN (00:54)
[2017-03-14] MEDS: GLUCAGON 1 MG VIAL IM PRN ×6 (02:40→10:10)
[2017-03-14] MEDS: HEPARIN 5,000 UNIT/1 ML VIAL SUBCUT SCH ×4 (06:33→21:15)
[2017-03-14] MEDS: CYANOCOBALAMIN 1000 MCG/1 ML VIAL IM SCH (07:09)
--- NOTE | 2017-03-14 08:37 | XRay Report ---
History: Shortness of breath Date: 03/13/2017 Study: Chest x-ray AP portable Comparison exam: February 23, 2017 There is mild cardiomegaly. The mediastinal contours are stable. The pulmonary vasculature is not engorged. The lungs and pleural spaces are generally clear. Osseous structures are unchanged. There is some thoracolumbar scoliosis. Impression: No acute cardiopulmonary process compared to the previous study PROCEDURE INTERPRETED AT [facility] Final Report Signed by: Dr. Leidy Simmons
[2017-03-14] MEDS: ASPIRIN CHEW 81 MG TABLET PO SCH (08:45)
[2017-03-14] MEDS: CARVEDILOL 6.25 MG TABLET PO SCH ×2 (08:45→17:00)
[2017-03-14] MEDS: PANTOPRAZOLE 40 MG VIAL IV SCH ×2 (09:00→15:05)
[2017-03-14] MEDS: SODIUM BICARBONATE 650 MG TABLET PO SCH ×2 (09:00→21:16)
[2017-03-14] MEDS: CALCITRIOL 0.25 MCG CAPSULE PO SCH ×2 (09:00→21:15)
[2017-03-14] MEDS ORDERED: GLUCOSE GEL 15 GM TUBE PO PRN (10:20)
--- NOTE | 2017-03-14 10:24 | Hospitalist Progress Note ---
Hospitalist: Subjective Interval history: For your -[place] female with history of ESRD on Ch PD, diabetes on oral agents, with hypoglycemic episode. Dextrose 10 infusion was ordered, but she lost her IV line, nursing unable to place IV, for infection cardiology has been consulted. Meanwhile she received glucagon IM, orange juice, and she ate her breakfast this morning. Glucose oral gel has been also been ordered. She reports that her appetite has been about the same during the last week. She has previous admissions for hypoglycemic episodes. She is otherwise awake alert coherent and comfortable. Exam - Constitutional Vitals: Period Temp Pulse Resp BP Sys/Moura Pulse Ox Last 24 Hr 98.1 F-100.2 F 82-109 18-24 144-196/68-93 97-100 Exam: General: No Acute Distress HEENT: Normocephalic, atraumatic, Extra ocular movements intact Neck: Supple, No JVD Chest: Clear to auscultation B/L CV: S1 + S2 audible without murmur, gallop or rub Abd: soft, NT, Non-distended, BS + Ext: Edema + Skin: No purpura, bruising or rash Rheumatologic: No Joint deformities Neurologic: Awake and alert Results - Labs CBC & BMP: 03/13/17 21:47 03/14/17 09:17 - Impressions Assessment and Plan: Hypoglycemia Status: Acute Assessment and plan: Her oral hypoglycemic agents are on hold. She lost her IV, and she is a hard stick and therefore we requested IR to put a central line urgently. Meanwhile she is on as needed glucagon, glucose oral gel prn. Once she has a line dextrose infusion will be continued. To note that during the last admission he also had hypoglycemia, and at that time her Januvia was decreased from 100 mg or 25 mg, and also Glucotrol was decreased to 5 mg twice daily, from 10 mg twice daily. Last hemoglobin A1c 6.2 on 02/25/2017. Once hypoglycemia resolves , she will need to go on if further lower dose of oral agents, or even consideration for insulin, if she agrees, and as insulin carries lower risk of hypoglycemia compared to oral agents. Home health for monitoring of glucose at home can also be helpful. Current Visit: Yes Hypertensive urgency Status: Acute Assessment and plan: Cont home meds, labetalol IV as needed ordered, monitor BP Current Visit: Yes ESRD on PD Status: Acute Assessment and plan: Continue PD exchanges as per nephrology Current Visit: Yes Quality Measures - Stroke Symptom Onset Unknown: No
[2017-03-14] MEDS ORDERED: CINACALCET HCL PO SCH (12:00)
--- NOTE | 2017-03-14 13:49 | Nephrology Consult Note ---
History of Present Illness Chief complaint: Admitted for hypoglycemia, referred for ESRD on PD History of present illness: Ms. 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 She was admitted a couple weeks ago for same. Discharged from [facility] . She reportedly did not participate in rehab. Since discharge she states she has only done approx 1 or two PD exchanges because "PD caused by leg edema, so I 'm not doing it anymore". She is on oral hypoglycemic sulfanylurea, which was decreased after last admission. She had glucose levels in 30s at [facility] in [place], given 8 amps of D50 with no improvement in BG so transferred to [facility]. Lost IV access, refusing more peripheral sticks. History is questionable as she is still hypoglycemic, but she gave accurate discharge date from [facility]. Home Medications Medication Instructions Recorded Confirmed Type Amlodipine Besylate 10 mg PO BEDTIME 08/03/15 03/14/17 History Labetalol HCl 200 mg PO BID 08/03/15 03/14/17 History Cyanocobalamin Inj [Vitamin B12 1,000 mcg IM Q30D 09/19/15 03/14/17 History Inj] Calcitriol 0.5 mcg PO BID 01/31/17 03/14/17 History Cinacalcet HCl [Sensipar] 180 mg PO DAILY W/LUNCH 01/31/17 03/14/17 History Gabapentin 100 mg PO BEDTIME 01/31/17 03/14/17 History Sodium Bicarb Tab 1,300 mg PO BID 01/31/17 03/14/17 History Carvedilol [Coreg] 6.25 mg PO BID W/MEALS #60 tablet 02/12/17 03/14/17 Rx Levofloxacin Tab [Levaquin Tab] 500 mg PO Q48H #5 tablet 02/27/17 03/14/17 Rx glipiZIDE [Glucotrol] 5 mg PO BIDAC #60 tablet 02/27/17 03/14/17 Rx sitaGLIPtin [Januvia] 25 mg PO DAILY #30 tablet 02/27/17 03/14/17 Rx Aspirin Chew Tab 81 mg PO DAILY tablet 03/03/17 03/14/17 Rx Allergies Allergy/AdvReac Type Severity Reaction Status Date / Time iron dextran complex Allergy Intermediate Chest Pain Verified 02/23/17 17:28 [From Infed] Penicillins Allergy Intermediate Rash/Vomiti Verified 02/23/17 17:28 ng nitroglycerin AdvReac Blood Verified 02/23/17 17:28 Pressure Drops too Low/Headache/Vomiting Shrimp AdvReac Nausea/Vomi Verified 02/23/17 17:28 ting Medical,Surgical,& Family Hx - Medical History Cardio: History of: Hypertension Neurology: No history of: Seizures HEENT: History of: Eye Problem (Glasses), HEENT Problems (sinus) No history of: Ear Problem Endocrine: History of: Diabetes Mellitus (NIDDM) No history of: Diabetes Mellitus (IDDM) Respiratory: No history of: Pneumonia (Pneum Vac 2012), Respiratory Problems (Flu Vac Current [id number]) Renal: History of: Dialysis (PD), Renal Failure, Renal Problems Gastrointestinal: History of: GERD No history of: Polyps Musculoskeletal: History of: Musculoskeletal Problems (Difficulty ambulating. leg pain) No history of: Amputation Hematology: History of: Anemia, Bleeding Problems (Hx Transfusions) No history of: Blood Transfusion Reaction Other: No history of: Anesthesia Reactions, Anaphylaxis, Cancer - Surgical History Cardiac Surgeries: Sugical HX of: Vascular Access Devices (previous AV fistula 2016) Abdominal Surgeries: Surgical HX of: Abdominal Surgery (Periotineal catheter since 2016), Cholecystectomy, Colonoscopy, EGD Reproductive Surgeries: Surgical HX of;: Gynecologic Surgery, Hysterectomy ( Partial) - Family History Family History: Reports;: Family Diabetes (mother), Family Hypertension (mother) , Family Stroke Denies;: Family Anesthesia Reaction, Family Cancer, Family Heart Disease, Family Psychiatric Problems - Social History Smoking Status: Never smoker Frequency of Alcohol Use: None Type of Drug Use: None Exam - Vital Signs Vital signs: Period Temp Pulse Resp BP Sys/Moura Pulse Ox Last 24 Hr 97 F-100.2 F 80-109 16-24 144-196/68-99 97-100 - General Appearance General appearance: well-developed, obese EENT: ATNC, PERRL, mucous membranes moist, hearing intact Neck: no JVD, no thyromegaly Respiratory: no kyphosis, clear Cardiology: no murmurs, no rub, edema (1+, c/o tenderness to very light palpation to BLE) Gastrointestinal: normoactive bowel sounds, no tenderness Integumentary: no rash, warm and dry Neurologic: no focal deficit, no asterixis Musculoskeletal: no deformities, no erythema, no cyanosis Psychiatric: agitated, cooperative (Not cooperative with exam), pressured speech Results - Labs CBC & BMP: 03/13/17 21:47 03/14/17 09:17 Assessment and Plan (1) Hypoglycemia Problem details: Agree with IR placement of IV access. Status: Acute Assessment and plan: Sulfanylureas relatively contraindicated due to long half life in ESRD. Recommend conversion to insulin therapy. She is at high risk of complications including due to noncompliance. Current Visit: No (2) Diabetes Status: Chronic Assessment and plan: Recommend stopping oral hypoglycemics and initiation of insulin therapy. Current Visit: No Qualifiers: Diabetes mellitus type: type 2 Diabetes mellitus complication status: with kidney complications Diabetes mellitus complication detail: with chronic kidney disease Chronic kidney disease stage: on chronic dialysis (3) ESRD on peritoneal dialysis Problem details: Initiate manual PD exchanges 2.5% dianeal for 3 exchanges daily , one exchange daily beginning with the first exchange now using 4.25% dianeal which may help with hypoglycemia pending IV access. Status: Chronic Assessment and plan: Noncompliant with PD prescription. Counseled regarding increased risk of . Pt is not amenable to logical reasoning at this point, unsure if this is related to hypoglycemia since it has been ongoing since d/c from [facility] . Current Visit: No (4) Hypertension Status: Chronic Current Visit: No Qualifiers: Hypertension type: essential hypertension Qualified Code(s): I10 - Essential (primary) hypertension (5) Obesity Status: Chronic Current Visit: No Qualifiers: Obesity type: due to excess calories (6) Anemia Problem details: Goal Hgb 10-12. Status: Chronic Assessment and plan: Check iron stores, FeSat goal >20%. Replace with IV iron sucrose 100mg slow IVP daily if low. Start epogen 8k units sub cutaneously TIW, first dose now. Current Visit: No Qualifiers: Anemia type: due to chronic kidney disease Chronic kidney disease stage: on chronic dialysis Qualified Code(s): N18.6 - End stage renal disease; D63.1 - Anemia in chronic kidney disease; Z99.2 - Dependence on renal dialysis (7) Noncompliance Status: Acute Assessment and plan: May require transition to hemodialysis. Will defer to primary disaster recovery specialist, Dr Bazzi. Current Visit: Yes
--- NOTE | 2017-03-14 14:35 | Post Interventional Procedure ---
Pre-op diagnosis: DKA, no PIV access, ESRD Post-op diagnosis: same Procedure: Right IJ central line Flouroscopy: 0.1 min Radiologist: Soham Sutherland Anesthesia: local Specimens: none sent Estimated blood loss: none Complications: none Condition: stable Assessment and Plan - Time spent with patient Time spent with patient: Less than 30 minutes
[2017-03-14 15:09] LABS: % Iron Saturation 50.9 % (18-50)
--- NOTE | 2017-03-14 16:05 | Interventional Radiology Rpt ---
IR fluoro guide cv cath, US guide vascular access, IR cvc insert nt >5 Indication: Diabetic ketoacidosis. No peripheral IV access. End-stage renal failure on dialysis. CENTRAL LINE Description: A formal timeout was performed. Maximum sterile barrier technique was used. Sonographic evaluation of the right neck demonstrates patent and compressible internal jugular vein. The neck was prepped and draped in sterile fashion. 3 cc 1% lidocaine was administered subcutaneously. Under sonographic guidance, a micropuncture needle was advanced into the vein. A captured sonographic image documents the position of the needle. Needle was exchanged over a wire for a vascular dilator. A triple lumen central line was advanced until the tip was at the RA-SVC junction. The catheter depth was noted to be 14 cm. The position of the catheter was confirmed with fluoroscopic guidance and an image stored in PACS. The wire was removed. All 3 ports of the central line were aspirated and flushed with heparinized saline. The device was secured with suture, and a sterile dressing applied. Fluoroscopy: 0.1 minute, one captured image. Impression: Central ready for immediate use. Routine catheter care. PROCEDURE INTERPRETED AT [facility] DEPARTMENT OF RADIOLOGY Final Report Signed by: Sohma Sutherland M.D.
[2017-03-14] MEDS: LABETALOL 20 MG/4 ML SYRINGE IV PRN (18:20)
[2017-03-14] MEDS ORDERED: amLODIPine 10 MG TABLET PO SCH (21:00)
[2017-03-14] MEDS ORDERED: GABAPENTIN 100 MG CAPSULE PO SCH (21:00)
[2017-03-15] MEDS: LABETALOL 20 MG/4 ML SYRINGE IV PRN ×2 (01:14→09:15)
[2017-03-15 04:48] LABS: Basophils % 0.2 % (0.0-0.8); Eosinophils # 0.3 10*3/uL (0.0-0.87); Eosinophils % 4.1 % (0.00-10.9); Hematocrit 23.7 VOL% (35.7-47.0); Hemoglobin 7.5 GM/DL (12.0-16.0); Immature Granulocytes % 0.6 %; Immature Granulocytes Absolute 0.05 #; Lymphocytes # 1.6 10*3/uL (1.4-4.0); Lymphocytes % 20.3 % (21.3-54.2); Mean Corpuscular HGB Conc 31.6 GM/DL (32-36); Mean Corpuscular Hemoglobin 28 PG (27-34); Mean Corpuscular Volume 89.8 FL (87-102); Mean Platelet Volume 8.8 FL (9.6-12.0); Monocytes # 0.5 10*3/uL (0.11-0.8); Monocytes % 6.6 % (1.7-12.7); Neutrophils # 5.5 10*3/uL (1.4-7.4); Neutrophils % 68.2 % (38.7-73.9); Platelet Count 244 T/CUMM (130-400); Red Blood Count 2.64 MC/CUMM (3.8-5.5); Red Cell Distribution Width 14.6 % (9.3-17.3); White Blood Count 8.1 T/CUMM (4-12)
[2017-03-15 05:23] LABS: Calcium 8.2 MG/DL (8.5-10.1); Osmolality,Calculated 293.4 MOS/KG (273-304); Potassium 5.2 MMOL/L (3.5-5.1)
[2017-03-15] MEDS: HEPARIN 5,000 UNIT/1 ML VIAL SUBCUT SCH ×2 (06:07→14:00)
[2017-03-15] MEDS: CARVEDILOL 6.25 MG TABLET PO SCH ×2 (08:45→18:15)
[2017-03-15] MEDS: SODIUM BICARBONATE 650 MG TABLET PO SCH (08:45)
[2017-03-15] MEDS: CALCITRIOL 0.25 MCG CAPSULE PO SCH (08:45)
[2017-03-15] MEDS: PANTOPRAZOLE 40 MG VIAL IV SCH (08:45)
[2017-03-15] MEDS: ASPIRIN CHEW 81 MG TABLET PO SCH (08:45)
--- NOTE | 2017-03-15 09:29 | Hospitalist Progress Note ---
Assessment and Plan - Time spent with patient Time spent with patient: Greater than 30 minutes (1) DM2 (diabetes mellitus, type 2) Status: Acute Assessment and plan: The patient was recently hospitalized secondary to hypoglycemia. Her Januvia and glipizide doses were reduced. She was noncompliant with her medication change and return to taking the same doses as previously prescribed. This is led to further periods and episodes of hypoglycemia and resulted in this admission to the hospital. The patient appears to have little understanding regarding her disease process and its outpatient management. I have stressed the importance of complying with medication therapy that was prescribed after hospital discharge. We spoke of the correlation between her medication dose and her hypoglycemia. Her nurse was at the bedside for this conversation. Current Visit: Yes Qualifiers: Diabetes mellitus complication status: with kidney complications Diabetes mellitus complication detail: with chronic kidney disease Chronic kidney disease stage: on chronic dialysis (2) Anemia Status: Chronic Current Visit: Yes Qualifiers: Other causes of anemia: chronic disease, other (3) ESRD on peritoneal dialysis Problem details: Initiate manual PD exchanges 2.5% dianeal for 3 exchanges daily , one exchange daily beginning with the first exchange now using 4.25% dianeal which may help with hypoglycemia pending IV access. Status: Chronic Current Visit: Yes (4) Hypoglycemia Problem details: Agree with IR placement of IV access. Status: Acute Assessment and plan: I will stop her D10 today and allow her to eat. Continue frequent Accu-Cheks to ensure no further drop in her blood sugars. Current Visit: Yes (5) Hyponatremia Status: Acute Current Visit: Yes (6) Noncompliance Status: Acute Current Visit: Yes (7) Obesity Status: Chronic Current Visit: Yes Qualifiers: Obesity type: due to excess calories Exam - Constitutional Vitals: Period Temp Pulse Resp BP Sys/Moura Pulse Ox Last 24 Hr 97 F-98.8 F 67-93 14-25 139-179/10-120 94-100 Results - Labs CBC & BMP: 03/15/17 04:00 03/15/17 04:00 Quality Measures - Stroke Symptom Onset Unknown: No
--- NOTE | 2017-03-15 10:19 | Nephrology Progress Note ---
Nephrology - PN: Subj Interval history: She is awake and alert. She denies shortness of breath. Blood pressure normal Exam (PN)-Nephrology - Vital Signs Vital signs: Period Temp Pulse Resp BP Sys/Moura Pulse Ox Last 24 Hr 97 F-98.8 F 67-93 14-25 139-179/10-120 94-100 Exam: Gen.: Alert and oriented x3. ENT: Pupils equal round reactive to light. EOMs intact. Mucous membranes moist. Neck: Supple. No JVD or bruit. Cardiovascular: Regular rate and rhythm. No murmur rub or gallop Lungs: Clear Abdomen: Soft. Nontender. PD catheter exit site without signs of infection Extremities: No edema - Lab 03/15/17 04:00 03/15/17 04:00 Most recent lab results Calcium 8.2 MG/DL (8.5-10.1) L 03/15/17 04:00 Magnesium 1.9 MG/DL (1.8-2.4) 03/13/17 21:47 Assessment and Plan (1) ESRD on peritoneal dialysis Status: Chronic Assessment and plan: 41-year-old woman with: * ESRD. Noncompliance with peritoneal dialysis at home. Continue current exchanges * Hypoglycemia. Improved * Hypertension. Controlled Current Visit: Yes (2) DM2 (diabetes mellitus, type 2) Status: Acute Current Visit: Yes Qualifiers: Diabetes mellitus complication status: with kidney complications Diabetes mellitus complication detail: with chronic kidney disease Chronic kidney disease stage: on chronic dialysis (3) Hypoglycemia Problem details: Agree with IR placement of IV access. Status: Acute Current Visit: Yes (4) Noncompliance Status: Acute Current Visit: Yes
--- NOTE | 2017-03-15 12:58 | Discharge Summary ---
Hospital Course - Hospital Course Hospital Course: Ms. Quinn is a 41 year old female with a PMH significant for ESRD on PD, HTN, DM (hba1c: 6.2, 02/23), chronic anemia, b12 deficiency, and unspecified sleep apnea. She was transferred from [facility] for hypoglycemia. Patient was seen today by [facility] and sugar was 33. She was taken to the ER, and her sugar was 53. It was reported that when her sugars are near 30, her speech is slurred and she becomes confused. While at [facility], she was given at least 8 amps of d50 and sugar remained low. She was started on D10 infusion and was transferred to [facility]. Patient states that last night, her sugar was 304. She takes januvia 25mg in the am and glipizide 5mg, two tablets at night. She states that she took both of her diabetic medications last night. Currently, she has no complaints. She denies any CP/SOB/cough/n,v/abdominal pain/diarrhea/fevers/chills/decreased oral intake. Current sugar is 82. She has end stage renal disease and undergoes peritoneal dialysis. She was recently hospitalized here from 02/23-02/28 for hypoglycemia and RLL pneumonia. She was transferred to rehab where she was discharged on 03/04. According to the notes, she did not participate with PT. She was also seen by nephrology and according to the notes, she is to undergo 4 PD exchanges. She states that she has been undergoing daily PD exchanges since discharged from rehab. Patient is a 41 yo female with DM and ESRD on PD admitted for hypoglycemia. Active Issues: 1. Hypoglycemia: likely 2nd to adverse and prolonged effects of januvia and glipizide in the setting of poor renal excretion and ineffective peritoneal exchanges. She is non compliant with her exchanges. Continue dextrose infusion and serial glucose checks. 2. Recent pneumonia: asymptomatic; f/u chest x-ray 3. h/o ESRD on PD: will consult nephrology; continue current renal medications 4. h/o HTN: continue home medications 5. Chronic anemia: HCT at baseline of 26-28. Monitor 6. h/o DM: Hba1c of 6.2 on 02/25. Hold oral hypoglycemic regimen for now. Plan: As noted above. Medications reconciled. Basic labs. DVT prophylaxis. CODE: FULL She was admitted to the intensive care unit on D10 infusion. Her blood sugars have improved and she has restarted her peritoneal dialysis. She reports that she was on Januvia and glipizide prior to this hospitalization and prior to her last hospitalization. Her doses were reduced, glipizide from 10 to 5 mg daily and Januvia from 100 to 25 mg daily. She was not compliant with filling her new prescriptions and resumed her previous doses and stopped doing peritoneal dialysis. This of course led to hypoglycemia and admission to the hospital. She has been educated and reeducated regarding this. She is requesting to be discharged home from the intensive care unit as her blood sugars have improved. - Time spent with patient Time with patient DS: Greater than 30 minutes (Total discharge time for this patient, including [id number] time, clinical documentation, medication reconciliation, and discharge planning was 42 minutes.) Diagnosis - Discharge Diagnosis (1) DM2 (diabetes mellitus, type 2) Status: Chronic (2) Anemia Status: Chronic (3) ESRD on peritoneal dialysis Status: Chronic (4) Hypoglycemia Status: Resolved (5) Hyponatremia Status: Acute (6) Noncompliance Status: Chronic (7) Obesity Status: Chronic Discharge Plan - Discharge Data Disposition: Disch To Home/Self Care Condition at Discharge: Stable Discharge Diet: advance to your usual diet Activity: resume usual activities as tolerated Hygiene: no restrictions Weight Bearing at Discharge: full weight bearing Driving: no restrictions Contact your physician if you experience:: fever over 101 - Discharge Medications Continue Amlodipine Besylate 10 mg PO BEDTIME Labetalol HCl 200 mg PO BID Cyanocobalamin Inj [Vitamin B12 Inj] 1,000 mcg IM Q30D Sodium Bicarb Tab 1,300 mg PO BID Cinacalcet HCl [Sensipar] 180 mg PO DAILY W/LUNCH Calcitriol 0.5 mcg PO BID Carvedilol [Coreg] 6.25 mg PO BID W/MEALS #60 tablet glipiZIDE [Glucotrol] 5 mg PO BIDAC #60 tablet sitaGLIPtin [Januvia] 25 mg PO DAILY #30 tablet Gabapentin 100 mg PO BEDTIME Aspirin Chew Tab 81 mg PO DAILY tablet Discontinued Levofloxacin Tab [Levaquin Tab] 500 mg PO Q48H #5 tablet - Follow Up or Referral - Forms/Instructions Additional Discharge Instructions: Take newly prescribed doses of Januvia and glipizide. Perform your peritoneal dialysis as prescribed by her plumbing designer. Follow-up with your primary care physician next week. Exam - Constitutional Vitals: Period Temp Pulse Resp BP Sys/Moura Pulse Ox Last 24 Hr 97.4 F-98.8 F 67-94 14-25 139-179/10-120 94-100 Discharge Results Labs on day of discharge: Labs from last 24 hours 03/15/17 03/15/17 03/15/17 12:00 11:49 08:00 WBC RBC Hgb Hct MCV MCH MCHC RDW Plt Count MPV Neut % (Auto) Lymph % (Auto) Sampson % (Auto) Eos % (Auto) Baso % (Auto) Neut # (Auto) Lymph # (Auto) Sampson # (Auto) Eos # (Auto) Baso # (Auto) Immature Gran % Nucleated RBC % Immature Gran # Nucleated RBCs # Immature Plt Fraction Sodium Potassium Chloride Carbon Dioxide Anion Gap BUN Creatinine GFR Calculation BUN/Creatinine Ratio Glucose POC Glucose 214 H 236 H 146 H Calculated Osmolality Calcium Iron TIBC % Saturation 03/15/17 03/15/17 03/15/17 06:58 06:10 05:12 WBC RBC Hgb Hct MCV MCH MCHC RDW Plt Count MPV Neut % (Auto) Lymph % (Auto) Sampson % (Auto) Eos % (Auto) Baso % (Auto) Neut # (Auto) Lymph # (Auto) Sampson # (Auto) Eos # (Auto) Baso # (Auto) Immature Gran % Nucleated RBC % Immature Gran # Nucleated RBCs # Immature Plt Fraction Sodium Potassium Chloride Carbon Dioxide Anion Gap BUN Creatinine GFR Calculation BUN/Creatinine Ratio Glucose POC Glucose 149 H 154 H 113 H Calculated Osmolality Calcium Iron TIBC % Saturation 03/15/17 03/15/17 03/15/17 04:03 04:00 04:00 WBC 8.1 RBC 2.64 L Hgb 7.5 L Hct 23.7 L MCV 89.8 MCH 28 MCHC 31.6 L RDW 14.6 Plt Count 244 D MPV 8.8 L Neut % (Auto) 68.2 Lymph % (Auto) 20.3 L Sampson % (Auto) 6.6 Eos % (Auto) 4.1 Baso % (Auto) 0.2 Neut # (Auto) 5.5 Lymph # (Auto) 1.6 Sampson # (Auto) 0.5 Eos # (Auto) 0.3 Baso # (Auto) 0.0 Immature Gran % 0.6 Nucleated RBC % 0.0 Immature Gran # 0.05 Nucleated RBCs # 0.00 Immature Plt Fraction 0.0 Sodium 133 L Potassium 5.2 H Chloride 98 Carbon Dioxide 19 L Anion Gap 21.2 H BUN 93 H Creatinine 14.00 H GFR Calculation 4 BUN/Creatinine Ratio 6.00 Glucose 77 POC Glucose 96 Calculated Osmolality 293.4 Calcium 8.2 L Iron TIBC % Saturation 03/15/17 03/15/17 03/15/17 03:17 02:16 01:08 WBC RBC Hgb Hct MCV MCH MCHC RDW Plt Count MPV Neut % (Auto) Lymph % (Auto) Sampson % (Auto) Eos % (Auto) Baso % (Auto) Neut # (Auto) Lymph # (Auto) Sampson # (Auto) Eos # (Auto) Baso # (Auto) Immature Gran % Nucleated RBC % Immature Gran # Nucleated RBCs # Immature Plt Fraction Sodium Potassium Chloride Carbon Dioxide Anion Gap BUN Creatinine GFR Calculation BUN/Creatinine Ratio Glucose POC Glucose 110 H 118 H 118 H Calculated Osmolality Calcium Iron TIBC % Saturation 03/15/17 03/14/17 03/14/17 00:11 23:01 22:07 WBC RBC Hgb Hct MCV MCH MCHC RDW Plt Count MPV Neut % (Auto) Lymph % (Auto) Sampson % (Auto) Eos % (Auto) Baso % (Auto) Neut # (Auto) Lymph # (Auto) Sampson # (Auto) Eos # (Auto) Baso # (Auto) Immature Gran % Nucleated RBC % Immature Gran # Nucleated RBCs # Immature Plt Fraction Sodium Potassium Chloride Carbon Dioxide Anion Gap BUN Creatinine GFR Calculation BUN/Creatinine Ratio Glucose POC Glucose 145 H 122 H 153 H Calculated Osmolality Calcium Iron TIBC % Saturation 03/14/17 03/14/17 03/14/17 21:06 20:11 19:00 WBC RBC Hgb Hct MCV MCH MCHC RDW Plt Count MPV Neut % (Auto) Lymph % (Auto) Sampson % (Auto) Eos % (Auto) Baso % (Auto) Neut # (Auto) Lymph # (Auto) Sampson # (Auto) Eos # (Auto) Baso # (Auto) Immature Gran % Nucleated RBC % Immature Gran # Nucleated RBCs # Immature Plt Fraction Sodium Potassium Chloride Carbon Dioxide Anion Gap BUN Creatinine GFR Calculation BUN/Creatinine Ratio Glucose POC Glucose 155 H 120 H 124 H Calculated Osmolality Calcium Iron TIBC % Saturation 03/14/17 03/14/17 03/14/17 18:02 17:00 16:15 WBC RBC Hgb Hct MCV MCH MCHC RDW Plt Count MPV Neut % (Auto) Lymph % (Auto) Sampson % (Auto) Eos % (Auto) Baso % (Auto) Neut # (Auto) Lymph # (Auto) Sampson # (Auto) Eos # (Auto) Baso # (Auto) Immature Gran % Nucleated RBC % Immature Gran # Nucleated RBCs # Immature Plt Fraction Sodium Potassium Chloride Carbon Dioxide Anion Gap BUN Creatinine GFR Calculation BUN/Creatinine Ratio Glucose POC Glucose 125 H 112 H 114 H Calculated Osmolality Calcium Iron TIBC % Saturation 03/14/17 03/14/17 03/14/17 14:54 13:09 09:13 WBC RBC Hgb Hct MCV MCH MCHC RDW Plt Count MPV Neut % (Auto) Lymph % (Auto) Sampson % (Auto) Eos % (Auto) Baso % (Auto) Neut # (Auto) Lymph # (Auto) Sampson # (Auto) Eos # (Auto) Baso # (Auto) Immature Gran % Nucleated RBC % Immature Gran # Nucleated RBCs # Immature Plt Fraction Sodium Potassium Chloride Carbon Dioxide Anion Gap BUN Creatinine GFR Calculation BUN/Creatinine Ratio Glucose POC Glucose 67 L 93 Calculated Osmolality Calcium Iron 83 TIBC 163 L % Saturation 50.9 H DS: Provider Date of admission: 03/13/17 20:47 Primary care physician: . No PCP Attending physician on admission: Isai Santos MD Consults: 03/13/17 21:18 Consult to Physician [CONS] Routine Comment: chronic renal failure on PD Consulting Provider: Jason Bazzi Jr. Consulting Provider Notified: Yes When should Consulting Provider be notified: In am Consult to Specialist Group: Nephrology Person Notified: JAMI Date Notified: 03/14/17 Time Notified: 08:40 03/13/17 23:42 Consult to [facility], Educator [CONS] Routine Reason for Solutions Architect: Re-education Discharging clinician: Ana Luisa Angulo MD Expected date of discharge: 03/15/17
[2017-03-15 16:38] VITALS: BP 151/74
[2017-03-17] MEDS ORDERED: EPOETIN ALFA 10,000 UNIT/1 ML VIAL SUBCUT SCH (15:00)
== END 2017-03-15 19:20 | disposition home or self-care (01) | DRG 638 ==
LOC: N.ICU 20:47 → SUATTDRO 20:47
PROVIDERS: ADMIT Internal Medicine; ATTEND Family Medicine

== ENCOUNTER 2017-05-18 19:49 | Inpatient (IN) ==
[2017-05-18] MEDS ORDERED: HYDROmorphone 2 MG/1 ML VIAL IV STA (20:31)
[2017-05-18] MEDS ORDERED: ONDANSETRON 4 MG/2 ML VIAL IV STA (20:31)
[2017-05-18 21:36] LABS: Lactic Acid 0.7 MMOL/L (0.4-2.0)
[2017-05-18] MEDS ORDERED: ONDANSETRON 4 MG/2 ML VIAL ONE (21:44)
[2017-05-18] MEDS ORDERED: HYDROmorphone 2 MG/1 ML VIAL ONE (21:45)
[2017-05-18] MEDS ORDERED: HYDROmorphone 2 MG/1 ML VIAL IM STA (21:56)
[2017-05-18] MEDS ORDERED: ONDANSETRON 4 MG/2 ML VIAL IM STA (21:56)
[2017-05-18 22:51] LABS: Basophils % 0.2 % (0.0-0.8); Eosinophils # 0.1 10*3/uL (0.0-0.87); Eosinophils % 0.6 % (0.00-10.9); Hematocrit 25.5 VOL% (35.7-47.0); Hemoglobin 8.2 GM/DL (12.0-16.0); Immature Granulocytes Absolute 0.15 #; Lymphocytes # 0.8 10*3/uL (1.4-4.0); Lymphocytes % 5.6 % (21.3-54.2); Mean Corpuscular HGB Conc 32.2 GM/DL (32-36); Mean Corpuscular Hemoglobin 28 PG (27-34); Mean Corpuscular Volume 87.6 FL (87-102); Mean Platelet Volume 10.1 FL (9.6-12.0); Monocytes # 0.8 10*3/uL (0.11-0.8); Monocytes % 5.2 % (1.7-12.7); Neutrophils # 12.7 10*3/uL (1.4-7.4); Neutrophils % 87.4 % (38.7-73.9); Platelet Count 290 T/CUMM (130-400); Red Blood Count 2.91 MC/CUMM (3.8-5.5); Red Cell Distribution Width 14.6 % (9.3-17.3); White Blood Count 14.5 T/CUMM (4-12)
[2017-05-18 23:12] LABS: Alanine Aminotransferase < 6 U/L (13-56); Albumin 2.8 G/DL (3.4-5.0); Alkaline Phosphatase 85 U/L (45-117); Aspartate Amino Transferase 7 U/L (0-37); Bilirubin,Total < 0.39 MG/DL (0.2-1.0); Blood Urea Nitrogen 165 MG/DL (7-18); Glucose 95 MG/DL (74-106); Osmolality,Calculated 323.1 MOS/KG (273-304); Potassium 4.7 MMOL/L (3.5-5.1); Sodium 135 MMOL/L (136-145); Total Protein 6.3 G/DL (6.4-8.3)
[2017-05-19 00:11] LABS: Apearance,Urine CLOUDY (Clear); Bacteria,Urine Few /HPF (Few); Bilirubin,Urine Negative (Negative); Blood, Urine Small mg/dL (Negative); Glucose,Urine (UA) 50 mg/dL (Negative); Ketones,Urine 5 mg/dL (Negative); Nitrite,Urine Negative (Negative); Protein,Urine >=500 MG/DL; RBC,Urine 1 /HPF (0-4); Squamous Epithelial Cell,Urine Few /HPF (0-10); Transitional Epi Cells,Urine Occasional /HPF (<1); Urine Color Yellow (Yellow); Urine Specific Gravity 1.013 (1.001-1.035); Urine Urobilinogen < 2.0 EU/DL (0.2-1.0)
[2017-05-19] MEDS ORDERED: CIPROFLOXACIN INJ 400 MG in PREMIX 1 EACH IV STA (00:57)
[2017-05-19] MEDS ORDERED: CIPROFLOXACIN 400 MG/200 ML PREMIX IV ONE (01:23)
[2017-05-19] MEDS ORDERED: AZTREONAM 1,000 MG in SYRINGE 1 EACH IV STA (02:50)
[2017-05-19] MEDS ORDERED: AZTREONAM 1,000 MG VIAL ONE (03:19)
[2017-05-19] MEDS ORDERED: GLUCAGON 1 MG VIAL IM PRN (04:36)
[2017-05-19] MEDS ORDERED: AZTREONAM 250 MG in SYRINGE 1 EACH IV ONE (05:00)
[2017-05-19] MEDS: metroNIDAZOLE 500 MG TABLET PO SCH ×3 (06:27→16:11)
[2017-05-19] MEDS: LINEZOLID INJ 600 MG in PREMIX 1 EACH IV SCH ×2 (06:27→18:04)
[2017-05-19] MEDS ORDERED: METOCLOPRAMIDE 10 MG TABLET PO PRN (10:50)
[2017-05-19] MEDS: ENOXAPARIN 30 MG/0.3 ML SYRINGE SUBCUT SCH (11:24)
[2017-05-19] MEDS: AZTREONAM IV SCH ×2 (11:27→18:10)
[2017-05-19] MEDS: LABETALOL 200 MG TABLET PO SCH ×4 (14:52→22:35)
[2017-05-19] MEDS: HYDROmorphone 2 MG/1 ML VIAL IV PRN (14:53)
[2017-05-19] MEDS: ONDANSETRON 4 MG/2 ML VIAL IV PRN ×2 (14:53→21:21)
[2017-05-19] MEDS: FUROSEMIDE 80 MG TABLET PO SCH ×2 (15:00→16:13)
[2017-05-19] MEDS: FUROSEMIDE 40 MG/4 ML VIAL IV SCH (18:00)
[2017-05-19] MEDS: metroNIDAZOLE INJ 500 MG in PREMIX 1 EACH IV SCH (21:27)
[2017-05-19] MEDS: SODIUM BICARBONATE 650 MG TABLET PO SCH (22:35)
[2017-05-19] MEDS: CALCITRIOL 0.5 MCG CAPSULE PO SCH (22:35)
[2017-05-20] MEDS: HYDROmorphone 2 MG/1 ML VIAL IV PRN ×2 (01:11→09:32)
[2017-05-20] MEDS: ONDANSETRON 4 MG/2 ML VIAL IV PRN ×5 (01:12→18:25)
[2017-05-20] MEDS: AZTREONAM IV SCH ×3 (03:35→18:24)
[2017-05-20] MEDS: metroNIDAZOLE INJ 500 MG in PREMIX 1 EACH IV SCH ×3 (05:17→22:12)
[2017-05-20 07:49] LABS: Magnesium 1.5 MG/DL (1.8-2.4); Osmolality,Calculated 313.1 MOS/KG (273-304); Potassium 3.1 MMOL/L (3.5-5.1)
[2017-05-20 07:58] LABS: Calcium 5.5 MG/DL (8.5-10.1)
[2017-05-20 08:15] LABS: Basophils % 0.3 % (0.0-0.8); Eosinophils # 0.2 10*3/uL (0.0-0.87); Eosinophils % 1.6 % (0.00-10.9); Hematocrit 24.4 VOL% (35.7-47.0); Immature Granulocytes % 1.1 %; Immature Granulocytes Absolute 0.13 #; Lymphocytes % 8.8 % (21.3-54.2); Mean Corpuscular HGB Conc 32.8 GM/DL (32-36); Mean Corpuscular Hemoglobin 27 PG (27-34); Mean Corpuscular Volume 83.6 FL (87-102); Mean Platelet Volume 9.9 FL (9.6-12.0); Monocytes # 0.8 10*3/uL (0.11-0.8); Monocytes % 6.6 % (1.7-12.7); Neutrophils # 9.4 10*3/uL (1.4-7.4); Neutrophils % 81.6 % (38.7-73.9); Platelet Count 246 T/CUMM (130-400); Red Blood Count 2.92 MC/CUMM (3.8-5.5); Red Cell Distribution Width 14.5 % (9.3-17.3); White Blood Count 11.5 T/CUMM (4-12)
[2017-05-20] MEDS ORDERED: EPOETIN ALFA 10,000 UNIT/1 ML VIAL SUBCUT ONE (08:39)
[2017-05-20] MEDS: CALCITRIOL 0.5 MCG CAPSULE PO SCH ×3 (09:32→21:48)
[2017-05-20] MEDS: LABETALOL 200 MG TABLET PO SCH ×3 (09:32→21:48)
[2017-05-20] MEDS: SODIUM BICARBONATE 650 MG TABLET PO SCH ×3 (09:32→21:48)
[2017-05-20] MEDS: amLODIPine 5 MG TABLET PO SCH (09:32)
[2017-05-20] MEDS: ENOXAPARIN 30 MG/0.3 ML SYRINGE SUBCUT SCH (09:32)
[2017-05-20] MEDS: LINEZOLID INJ 600 MG in PREMIX 1 EACH IV SCH ×2 (09:33→20:00)
[2017-05-20] MEDS: FUROSEMIDE 40 MG/4 ML VIAL IV SCH ×2 (10:33→15:31)
[2017-05-20] MEDS: INSULIN LISPRO 100 UNIT/ML SUBCUT SCH (21:42)
[2017-05-20] MEDS: CALCIUM CARBONATE CHEW 500 MG TABLET PO SCH (21:48)
[2017-05-21] MEDS: AZTREONAM IV SCH ×3 (03:57→18:23)
[2017-05-21] MEDS: metroNIDAZOLE INJ 500 MG in PREMIX 1 EACH IV SCH ×3 (05:22→22:09)
[2017-05-21] MEDS: ONDANSETRON 4 MG/2 ML VIAL IV PRN (05:22)
[2017-05-21 06:31] LABS: Basophils % 0.2 % (0.0-0.8); Eosinophils # 0.1 10*3/uL (0.0-0.87); Eosinophils % 0.8 % (0.00-10.9); Hematocrit 21.8 VOL% (35.7-47.0); Hemoglobin 7.3 GM/DL (12.0-16.0); Immature Granulocytes % 0.7 %; Immature Granulocytes Absolute 0.08 #; Lymphocytes # 0.8 10*3/uL (1.4-4.0); Lymphocytes % 7.2 % (21.3-54.2); Mean Corpuscular HGB Conc 33.5 GM/DL (32-36); Mean Corpuscular Hemoglobin 28 PG (27-34); Mean Corpuscular Volume 82.3 FL (87-102); Mean Platelet Volume 10.7 FL (9.6-12.0); Monocytes # 0.7 10*3/uL (0.11-0.8); Monocytes % 6.6 % (1.7-12.7); Neutrophils # 9.2 10*3/uL (1.4-7.4); Neutrophils % 84.5 % (38.7-73.9); Platelet Count 235 T/CUMM (130-400); Red Blood Count 2.65 MC/CUMM (3.8-5.5); Red Cell Distribution Width 14.2 % (9.3-17.3); White Blood Count 10.9 T/CUMM (4-12)
[2017-05-21 06:59] LABS: Magnesium 1.3 MG/DL (1.8-2.4); Osmolality,Calculated 303.2 MOS/KG (273-304); Potassium 2.8 MMOL/L (3.5-5.1)
[2017-05-21 07:03] LABS: Calcium 5.2 MG/DL (8.5-10.1)
[2017-05-21] MEDS: INSULIN LISPRO 100 UNIT/ML SUBCUT SCH ×4 (07:49→23:24)
[2017-05-21] MEDS ORDERED: DOXERCALCIFEROL 4 MCG/2 ML VIAL IV ONE (07:57)
[2017-05-21] MEDS: amLODIPine 5 MG TABLET PO SCH (08:56)
[2017-05-21] MEDS: CALCIUM CARBONATE CHEW 500 MG TABLET PO SCH ×3 (08:56→23:25)
[2017-05-21] MEDS: SODIUM BICARBONATE 650 MG TABLET PO SCH ×2 (08:57→23:25)
[2017-05-21] MEDS: LABETALOL 200 MG TABLET PO SCH ×2 (08:57→23:25)
[2017-05-21] MEDS: ENOXAPARIN 30 MG/0.3 ML SYRINGE SUBCUT SCH (08:57)
[2017-05-21] MEDS: LINEZOLID INJ 600 MG in PREMIX 1 EACH IV SCH ×2 (08:57→20:08)
[2017-05-21] MEDS: CALCITRIOL 0.5 MCG CAPSULE PO SCH ×2 (08:59→23:25)
[2017-05-22] MEDS: ONDANSETRON 4 MG/2 ML VIAL IV PRN ×2 (00:29→04:50)
[2017-05-22] MEDS: AZTREONAM IV SCH ×3 (03:41→18:43)
[2017-05-22] MEDS: metroNIDAZOLE INJ 500 MG in PREMIX 1 EACH IV SCH (04:44)
[2017-05-22 06:36] LABS: Basophils % 0.3 % (0.0-0.8); Eosinophils # 0.1 10*3/uL (0.0-0.87); Eosinophils % 0.8 % (0.00-10.9); Hematocrit 22.6 VOL% (35.7-47.0); Hemoglobin 7.5 GM/DL (12.0-16.0); Immature Granulocytes % 0.9 %; Immature Granulocytes Absolute 0.11 #; Lymphocytes # 1.1 10*3/uL (1.4-4.0); Lymphocytes % 9.2 % (21.3-54.2); Mean Corpuscular HGB Conc 33.2 GM/DL (32-36); Mean Corpuscular Hemoglobin 27 PG (27-34); Mean Corpuscular Volume 82.2 FL (87-102); Mean Platelet Volume 11.1 FL (9.6-12.0); Monocytes # 0.8 10*3/uL (0.11-0.8); Neutrophils # 9.6 10*3/uL (1.4-7.4); Neutrophils % 81.8 % (38.7-73.9); Platelet Count 227 T/CUMM (130-400); Red Blood Count 2.75 MC/CUMM (3.8-5.5); Red Cell Distribution Width 14.3 % (9.3-17.3); White Blood Count 11.7 T/CUMM (4-12)
[2017-05-22 07:30] LABS: Blood Urea Nitrogen 106 MG/DL (7-18); Glucose 121 MG/DL (74-106); Magnesium 1.3 MG/DL (1.8-2.4); Osmolality,Calculated 299.4 MOS/KG (273-304); Potassium 2.9 MMOL/L (3.5-5.1); Sodium 133 MMOL/L (136-145)
[2017-05-22 07:34] LABS: Calcium < 5.0 MG/DL (8.5-10.1)
[2017-05-22] MEDS: INSULIN LISPRO 100 UNIT/ML SUBCUT SCH ×4 (07:51→22:01)
[2017-05-22] MEDS: LINEZOLID INJ 600 MG in PREMIX 1 EACH IV SCH ×2 (08:09→22:09)
[2017-05-22] MEDS: amLODIPine 5 MG TABLET PO SCH (08:21)
[2017-05-22] MEDS: ENOXAPARIN 30 MG/0.3 ML SYRINGE SUBCUT SCH (08:21)
[2017-05-22] MEDS: LABETALOL 200 MG TABLET PO SCH ×2 (08:22→22:03)
[2017-05-22] MEDS: CALCIUM CARBONATE CHEW 500 MG TABLET PO SCH ×3 (08:22→22:03)
[2017-05-22] MEDS: SODIUM BICARBONATE 650 MG TABLET PO SCH ×2 (08:22→22:01)
[2017-05-22] MEDS: CALCITRIOL 0.5 MCG CAPSULE PO SCH ×2 (08:22→22:01)
[2017-05-22] MEDS ORDERED: DOXERCALCIFEROL 4 MCG/2 ML VIAL IV ONE (08:32)
[2017-05-22] MEDS ORDERED: POTASSIUM CHLORIDE RIDER 20 MEQ in PREMIX 1 EACH IV PRN (08:43)
[2017-05-22] MEDS ORDERED: MAGNESIUM SULF RIDER 2 GM in PREMIX 1 EACH IV ONE (08:44)
[2017-05-22] MEDS ORDERED: CALCIUM GLUCONATE 2,000 MG in SODIUM CHLORIDE 0.9% 50 ML IV ONE (08:45)
[2017-05-23] MEDS ORDERED: FOSPHENYTOIN 1,000 MG.PE in SODIUM CHLORIDE 0.9% 250 ML IV ONE (02:47)
[2017-05-23] MEDS: AZTREONAM IV SCH (03:13)
[2017-05-23] MEDS: SODIUM CHLORIDE 0.9% 1,000 ML IV SCH (03:23)
[2017-05-23] MEDS ORDERED: LORazepam 2 MG/1 ML VIAL ONE (03:35)
[2017-05-23] MEDS ORDERED: LORazepam 2 MG/1 ML VIAL IV ONE (03:36)
[2017-05-23] MEDS ORDERED: LORazepam 2 MG/1 ML VIAL IV PRN (03:51)
[2017-05-23 04:12] LABS: Basophils % 0.2 % (0.0-0.8); Eosinophils # 0.1 10*3/uL (0.0-0.87); Eosinophils % 0.5 % (0.00-10.9); Hematocrit 24.7 VOL% (35.7-47.0); Hemoglobin 8.2 GM/DL (12.0-16.0); Immature Granulocytes % 1.3 %; Lymphocytes # 0.6 10*3/uL (1.4-4.0); Lymphocytes % 3.9 % (21.3-54.2); Mean Corpuscular HGB Conc 33.2 GM/DL (32-36); Mean Corpuscular Hemoglobin 28 PG (27-34); Mean Corpuscular Volume 83.7 FL (87-102); Mean Platelet Volume 10.7 FL (9.6-12.0); Monocytes # 0.8 10*3/uL (0.11-0.8); Monocytes % 5.4 % (1.7-12.7); Neutrophils # 13.6 10*3/uL (1.4-7.4); Neutrophils % 88.7 % (38.7-73.9); Platelet Count 255 T/CUMM (130-400); Red Blood Count 2.95 MC/CUMM (3.8-5.5); Red Cell Distribution Width 14.1 % (9.3-17.3); White Blood Count 15.3 T/CUMM (4-12)
[2017-05-23 04:20] LABS: INR 1.3; PT Patient Result 13.1 SECS; Partial Thromboplastin Time 30.7 SECS (0-40)
[2017-05-23] MEDS ORDERED: CALCIUM GLUCONATE 2,000 MG in SODIUM CHLORIDE 0.9% 100 ML IV ONE (04:34)
[2017-05-23 04:35] LABS: Alanine Aminotransferase < 6 U/L (13-56); Alkaline Phosphatase 91 U/L (45-117); Aspartate Amino Transferase 6 U/L (0-37); Bilirubin,Total < 0.39 MG/DL (0.2-1.0); Blood Urea Nitrogen 92 MG/DL (7-18); Glucose 263 MG/DL (74-106); Osmolality,Calculated 298.7 MOS/KG (273-304); Sodium 131 MMOL/L (136-145); Total Protein 4.8 G/DL (6.4-8.3)
[2017-05-23 04:40] LABS: Calcium < 5.0 MG/DL (8.5-10.1)
[2017-05-23 04:41] LABS: Potassium 2.5 MMOL/L (3.5-5.1)
[2017-05-23 05:08] LABS: Lymphocytes 2 % (20-55); Total Cells Counted 100
[2017-05-23 05:09] LABS: Anisocytosis 1+; Macrocytosis 1+; Platelet Estimate Normal; Segmented Neutrophils 93 % (50-85)
[2017-05-23] MEDS ORDERED: POTASSIUM CHLORIDE 20 MEQ/15 ML UDCUP PER TUBE PRN (06:19)
[2017-05-23] MEDS ORDERED: MAGNESIUM SULF RIDER 4 GM in PREMIX 1 EACH IV ONE (07:58)
[2017-05-23] MEDS: INSULIN LISPRO 100 UNIT/ML SUBCUT SCH ×4 (08:31→21:20)
[2017-05-23] MEDS: LINEZOLID INJ 600 MG in PREMIX 1 EACH IV SCH ×2 (09:27→21:15)
[2017-05-23] MEDS ORDERED: CALCIUM CHLORIDE IV SCH (09:30)
[2017-05-23] MEDS ORDERED: SODIUM CHLORIDE 0.9% IV SCH (09:30)
[2017-05-23] MEDS ORDERED: POTASSIUM CHLORIDE IV SCH (09:30)
[2017-05-23] MEDS: LABETALOL 200 MG TABLET PO SCH ×2 (10:05→21:21)
[2017-05-23] MEDS: SODIUM BICARBONATE 650 MG TABLET PO SCH ×2 (10:05→21:21)
[2017-05-23] MEDS: CALCIUM CARBONATE CHEW 500 MG TABLET PO SCH ×3 (10:05→21:21)
[2017-05-23] MEDS: CALCITRIOL 0.5 MCG CAPSULE PO SCH ×2 (10:11→21:21)
[2017-05-23] MEDS: amLODIPine 5 MG TABLET PO SCH (10:11)
[2017-05-23] MEDS: ENOXAPARIN 30 MG/0.3 ML SYRINGE SUBCUT SCH (13:17)
[2017-05-23] MEDS ORDERED: hydrALAZINE 20 MG/1 ML VIAL IV PRN (21:37)
[2017-05-23] MEDS: HYDROmorphone 2 MG/1 ML VIAL IV PRN (22:20)
[2017-05-24 05:20] LABS: Calcium 6.1 MG/DL (8.5-10.1)
[2017-05-24 05:29] LABS: Potassium 2.4 MMOL/L (3.5-5.1)
[2017-05-24] MEDS: DEXTROSE 50% 25 GM/50 ML VIAL IV PRN ×2 (05:37→05:57)
[2017-05-24] MEDS: POTASSIUM CHLORIDE RIDER 20 MEQ in PREMIX 1 EACH IV PRN ×6 (06:15→20:58)
[2017-05-24] MEDS: INSULIN LISPRO 100 UNIT/ML SUBCUT SCH ×4 (08:34→20:55)
[2017-05-24] MEDS: LINEZOLID INJ 600 MG in PREMIX 1 EACH IV SCH ×2 (08:34→20:52)
[2017-05-24] MEDS: SODIUM CHLORIDE 0.9% 1,000 ML IV SCH (08:35)
[2017-05-24] MEDS: CALCIUM CARBONATE CHEW 500 MG TABLET PO SCH ×3 (08:35→21:24)
[2017-05-24] MEDS: CALCITRIOL 0.5 MCG CAPSULE PO SCH ×2 (08:36→21:23)
[2017-05-24] MEDS: amLODIPine 5 MG TABLET PO SCH (08:36)
[2017-05-24] MEDS: SODIUM BICARBONATE 650 MG TABLET PO SCH ×2 (08:36→21:24)
[2017-05-24] MEDS: ENOXAPARIN 30 MG/0.3 ML SYRINGE SUBCUT SCH (08:36)
[2017-05-24] MEDS: LABETALOL 200 MG TABLET PO SCH ×2 (08:36→21:24)
[2017-05-24] MEDS: CALCIUM GLUCONATE 2,000 MG in SODIUM CHLORIDE 0.9% 100 ML IV SCH ×2 (12:26→20:54)
[2017-05-24] MEDS: DEXTROSE 5% KCL 20 MEQ 20 MEQ/1,000 ML BAG IV SCH (13:38)
[2017-05-25 03:09] LABS: Calcium 6.3 MG/DL (8.5-10.1); Osmolality,Calculated 285.5 MOS/KG (273-304); Potassium 3.1 MMOL/L (3.5-5.1)
[2017-05-25] MEDS: POTASSIUM CHLORIDE RIDER 20 MEQ in PREMIX 1 EACH IV PRN ×3 (03:41→11:01)
[2017-05-25] MEDS: INSULIN LISPRO 100 UNIT/ML SUBCUT SCH ×4 (07:29→22:34)
[2017-05-25] MEDS: LINEZOLID INJ 600 MG in PREMIX 1 EACH IV SCH ×2 (08:59→22:29)
[2017-05-25] MEDS: CALCIUM GLUCONATE 2,000 MG in SODIUM CHLORIDE 0.9% 100 ML IV SCH ×2 (09:03→23:39)
[2017-05-25] MEDS: SODIUM BICARBONATE 650 MG TABLET PO SCH ×2 (09:10→22:33)
[2017-05-25] MEDS: CALCIUM CARBONATE CHEW 500 MG TABLET PO SCH ×3 (09:10→22:33)
[2017-05-25] MEDS: amLODIPine 5 MG TABLET PO SCH (09:10)
[2017-05-25] MEDS: ENOXAPARIN 30 MG/0.3 ML SYRINGE SUBCUT SCH (09:10)
[2017-05-25] MEDS: LABETALOL 200 MG TABLET PO SCH ×2 (09:10→22:33)
[2017-05-25] MEDS: CALCITRIOL 0.5 MCG CAPSULE PO SCH ×2 (09:10→22:33)
[2017-05-25] MEDS: DEXTROSE 5% KCL 20 MEQ 20 MEQ/1,000 ML BAG IV SCH (09:39)
[2017-05-25] MEDS: ONDANSETRON 4 MG/2 ML VIAL IV PRN ×3 (15:07→22:26)
[2017-05-25] MEDS: ZINC OXIDE PASTE 113 GM TUBE TOP SCH (20:30)
[2017-05-26] MEDS ORDERED: PANTOPRAZOLE 40 MG VIAL IV ONE (03:58)
[2017-05-26] MEDS: HYDROmorphone 2 MG/1 ML VIAL IV PRN (04:35)
[2017-05-26] MEDS: ONDANSETRON 4 MG/2 ML VIAL IV PRN (04:38)
[2017-05-26 06:25] LABS: Calcium 6.9 MG/DL (8.5-10.1); Osmolality,Calculated 278.9 MOS/KG (273-304); Potassium 3.5 MMOL/L (3.5-5.1)
[2017-05-26] MEDS ORDERED: DOXERCALCIFEROL 4 MCG/2 ML VIAL IV ONE (08:32)
[2017-05-26] MEDS: DEXTROSE 5% KCL 20 MEQ 20 MEQ/1,000 ML BAG IV SCH ×2 (08:49→23:49)
[2017-05-26] MEDS: INSULIN LISPRO 100 UNIT/ML SUBCUT SCH ×4 (08:49→21:05)
[2017-05-26] MEDS: SODIUM BICARBONATE 650 MG TABLET PO SCH ×3 (08:50→21:52)
[2017-05-26] MEDS: ENOXAPARIN 30 MG/0.3 ML SYRINGE SUBCUT SCH (08:50)
[2017-05-26] MEDS: LABETALOL 200 MG TABLET PO SCH ×2 (08:50→21:11)
[2017-05-26] MEDS: ZINC OXIDE PASTE 113 GM TUBE TOP SCH ×2 (08:50→21:12)
[2017-05-26] MEDS: CALCITRIOL 0.5 MCG CAPSULE PO SCH ×3 (08:50→21:46)
[2017-05-26] MEDS: amLODIPine 5 MG TABLET PO SCH (08:50)
[2017-05-26] MEDS: CALCIUM CARBONATE CHEW 500 MG TABLET PO SCH ×4 (08:51→21:45)
[2017-05-26] MEDS: CALCIUM GLUCONATE 2,000 MG in SODIUM CHLORIDE 0.9% 100 ML IV SCH ×2 (09:09→21:12)
[2017-05-26] MEDS: LINEZOLID INJ 600 MG in PREMIX 1 EACH IV SCH (09:21)
[2017-05-26] MEDS: levETIRAcetam 500 MG TABLET PO SCH ×2 (21:10→21:45)
[2017-05-27] MEDS: levETIRAcetam INJ 500 MG in SODIUM CHLORIDE 0.9% 50 ML IV SCH ×2 (02:35→15:36)
[2017-05-27] MEDS: HYDROmorphone 2 MG/1 ML VIAL IV PRN ×3 (06:25→23:19)
[2017-05-27] MEDS: DEXTROSE 5% KCL 20 MEQ 20 MEQ/1,000 ML BAG IV SCH (06:26)
[2017-05-27 07:02] LABS: Calcium 6.8 MG/DL (8.5-10.1); Magnesium 1.7 MG/DL (1.8-2.4); Osmolality,Calculated 275.1 MOS/KG (273-304); Potassium 3.7 MMOL/L (3.5-5.1)
[2017-05-27] MEDS: INSULIN LISPRO 100 UNIT/ML SUBCUT SCH ×4 (08:53→21:30)
[2017-05-27] MEDS: LABETALOL 200 MG TABLET PO SCH ×2 (08:54→21:29)
[2017-05-27] MEDS: CALCITRIOL 0.5 MCG CAPSULE PO SCH ×2 (08:56→21:29)
[2017-05-27] MEDS: SODIUM BICARBONATE 650 MG TABLET PO SCH ×2 (08:56→21:29)
[2017-05-27] MEDS: CALCIUM CARBONATE CHEW 500 MG TABLET PO SCH ×4 (08:56→21:26)
[2017-05-27] MEDS: PANTOPRAZOLE 40 MG VIAL IV SCH (08:56)
[2017-05-27] MEDS: CALCIUM GLUCONATE 2,000 MG in SODIUM CHLORIDE 0.9% 100 ML IV SCH ×2 (08:58→21:26)
[2017-05-27] MEDS: ENOXAPARIN 30 MG/0.3 ML SYRINGE SUBCUT SCH (08:59)
[2017-05-27] MEDS: ZINC OXIDE PASTE 113 GM TUBE TOP SCH ×2 (09:00→21:29)
[2017-05-27] MEDS: amLODIPine 5 MG TABLET PO SCH ×2 (09:02→13:06)
[2017-05-27] MEDS: ONDANSETRON 4 MG/2 ML VIAL IV PRN (13:06)
[2017-05-27] MEDS: POTASSIUM CHLORIDE RIDER 20 MEQ in PREMIX 1 EACH IV PRN (13:10)
[2017-05-27] MEDS: DEXTROSE 50% 25 GM/50 ML VIAL IV PRN (22:25)
[2017-05-27] MEDS: ALUMINUM/MAGNES/SIMETH MAX STR 30 ML UDCUP PO PRN (22:47)
[2017-05-28] MEDS: DEXTROSE 5% KCL 20 MEQ 20 MEQ/1,000 ML BAG IV SCH ×2 (02:57→17:12)
[2017-05-28] MEDS: levETIRAcetam INJ 500 MG in SODIUM CHLORIDE 0.9% 50 ML IV SCH ×2 (02:58→15:38)
[2017-05-28] MEDS: HYDROmorphone 2 MG/1 ML VIAL IV PRN ×3 (04:01→18:02)
[2017-05-28 06:20] LABS: Hematocrit 25.6 VOL% (35.7-47.0)
[2017-05-28] MEDS: SODIUM BICARBONATE 650 MG TABLET PO SCH ×2 (08:09→23:11)
[2017-05-28] MEDS: CALCIUM CARBONATE CHEW 500 MG TABLET PO SCH ×3 (08:11→23:12)
[2017-05-28] MEDS: CALCITRIOL 0.5 MCG CAPSULE PO SCH ×2 (08:11→23:11)
[2017-05-28] MEDS: PANTOPRAZOLE 40 MG VIAL IV SCH (08:11)
[2017-05-28] MEDS: ENOXAPARIN 30 MG/0.3 ML SYRINGE SUBCUT SCH (08:12)
[2017-05-28] MEDS: LABETALOL 200 MG TABLET PO SCH ×2 (10:22→23:12)
[2017-05-28] MEDS: amLODIPine 5 MG TABLET PO SCH (10:22)
[2017-05-28] MEDS: ZINC OXIDE PASTE 113 GM TUBE TOP SCH ×2 (10:23→23:14)
[2017-05-28 11:59] LABS: Calcium 7.1 MG/DL (8.5-10.1); Magnesium 1.5 MG/DL (1.8-2.4); Osmolality,Calculated 272.2 MOS/KG (273-304); Potassium 3.4 MMOL/L (3.5-5.1)
[2017-05-28] MEDS: INSULIN LISPRO 100 UNIT/ML SUBCUT SCH ×3 (13:10→17:12)
[2017-05-28] MEDS: ONDANSETRON 4 MG/2 ML VIAL IV PRN (15:05)
[2017-05-28] MEDS: POTASSIUM CHLORIDE 20 MEQ TABLET PO SCH (23:11)
[2017-05-28] MEDS: MAGNESIUM CHLORIDE 64 MG TABLET PO SCH (23:13)
[2017-05-29] MEDS: HYDROmorphone 2 MG/1 ML VIAL IV PRN ×5 (00:07→23:33)
[2017-05-29] MEDS: ONDANSETRON 4 MG/2 ML VIAL IV PRN ×4 (00:10→23:36)
[2017-05-29] MEDS: INSULIN LISPRO 100 UNIT/ML SUBCUT SCH ×5 (01:56→21:06)
[2017-05-29] MEDS: levETIRAcetam INJ 500 MG in SODIUM CHLORIDE 0.9% 50 ML IV SCH ×2 (06:29→16:55)
[2017-05-29 06:40] LABS: Basophils % 0.1 % (0.0-0.8); Eosinophils # 0.3 10*3/uL (0.0-0.87); Eosinophils % 1.8 % (0.00-10.9); Hematocrit 23.6 VOL% (35.7-47.0); Hemoglobin 7.5 GM/DL (12.0-16.0); Immature Granulocytes % 1.2 %; Immature Granulocytes Absolute 0.17 #; Mean Corpuscular HGB Conc 31.8 GM/DL (32-36); Mean Corpuscular Hemoglobin 28 PG (27-34); Mean Corpuscular Volume 86.8 FL (87-102); Mean Platelet Volume 10.8 FL (9.6-12.0); Monocytes % 6.9 % (1.7-12.7); Neutrophils # 11.5 10*3/uL (1.4-7.4); Platelet Count 149 T/CUMM (130-400); Red Blood Count 2.72 MC/CUMM (3.8-5.5); Red Cell Distribution Width 13.8 % (9.3-17.3); White Blood Count 13.9 T/CUMM (4-12)
[2017-05-29] MEDS: CALCIUM CARBONATE CHEW 500 MG TABLET PO SCH ×4 (06:46→22:23)
[2017-05-29 07:21] LABS: Calcium 6.8 MG/DL (8.5-10.1); Magnesium 1.4 MG/DL (1.8-2.4); Osmolality,Calculated 267.2 MOS/KG (273-304); Potassium 3.5 MMOL/L (3.5-5.1)
[2017-05-29] MEDS ORDERED: SODIUM CHLORIDE 0.9% 1,000 ML IV PRN (08:15)
[2017-05-29] MEDS ORDERED: MAGNESIUM SULF RIDER 2 GM in PREMIX 1 EACH IV ONE (10:18)
[2017-05-29] MEDS: ZINC OXIDE PASTE 113 GM TUBE TOP SCH ×2 (10:34→21:06)
[2017-05-29] MEDS: amLODIPine 5 MG TABLET PO SCH (10:35)
[2017-05-29] MEDS: LABETALOL 200 MG TABLET PO SCH ×2 (10:36→22:24)
[2017-05-29] MEDS: SODIUM BICARBONATE 650 MG TABLET PO SCH ×2 (10:36→22:23)
[2017-05-29] MEDS: MAGNESIUM CHLORIDE 64 MG TABLET PO SCH ×2 (10:37→22:23)
[2017-05-29] MEDS: CALCITRIOL 0.5 MCG CAPSULE PO SCH ×2 (10:37→22:23)
[2017-05-29] MEDS: PANTOPRAZOLE 40 MG VIAL IV SCH (10:41)
[2017-05-29] MEDS: POTASSIUM CHLORIDE 20 MEQ TABLET PO SCH ×2 (10:42→22:27)
[2017-05-29] MEDS: DEXTROSE 5% KCL 20 MEQ 20 MEQ/1,000 ML BAG IV SCH (13:32)
[2017-05-30] MEDS: levETIRAcetam INJ 500 MG in SODIUM CHLORIDE 0.9% 50 ML IV SCH ×2 (03:22→16:01)
[2017-05-30 03:45] LABS: Basophils % 0.2 % (0.0-0.8); Eosinophils # 0.2 10*3/uL (0.0-0.87); Eosinophils % 1.8 % (0.00-10.9); Hematocrit 26.7 VOL% (35.7-47.0); Hemoglobin 8.9 GM/DL (12.0-16.0); Immature Granulocytes % 2.5 %; Immature Granulocytes Absolute 0.31 #; Lymphocytes # 0.9 10*3/uL (1.4-4.0); Lymphocytes % 6.8 % (21.3-54.2); Mean Corpuscular HGB Conc 33.3 GM/DL (32-36); Mean Corpuscular Hemoglobin 28 PG (27-34); Mean Corpuscular Volume 82.9 FL (87-102); Mean Platelet Volume 10.2 FL (9.6-12.0); Monocytes # 0.8 10*3/uL (0.11-0.8); Monocytes % 6.7 % (1.7-12.7); Neutrophils # 10.3 10*3/uL (1.4-7.4); Platelet Count 110 T/CUMM (130-400); Red Blood Count 3.22 MC/CUMM (3.8-5.5); Red Cell Distribution Width 13.8 % (9.3-17.3); White Blood Count 12.6 T/CUMM (4-12)
[2017-05-30] MEDS: HYDROmorphone 2 MG/1 ML VIAL IV PRN (04:08)
[2017-05-30] MEDS: ONDANSETRON 4 MG/2 ML VIAL IV PRN (04:11)
[2017-05-30 04:31] LABS: Magnesium 1.9 MG/DL (1.8-2.4); Osmolality,Calculated 267.4 MOS/KG (273-304); Potassium 3.7 MMOL/L (3.5-5.1)
[2017-05-30] MEDS: ALUMINUM/MAGNES/SIMETH MAX STR 30 ML UDCUP PO PRN (07:02)
[2017-05-30] MEDS: POTASSIUM CHLORIDE 20 MEQ TABLET PO SCH ×2 (09:27→20:57)
[2017-05-30] MEDS: DEXTROSE 5% KCL 20 MEQ 20 MEQ/1,000 ML BAG IV SCH (09:27)
[2017-05-30] MEDS: ZINC OXIDE PASTE 113 GM TUBE TOP SCH ×2 (09:27→21:03)
[2017-05-30] MEDS: INSULIN LISPRO 100 UNIT/ML SUBCUT SCH ×4 (09:27→21:02)
[2017-05-30] MEDS: amLODIPine 5 MG TABLET PO SCH (09:27)
[2017-05-30] MEDS: LABETALOL 200 MG TABLET PO SCH ×2 (09:28→21:02)
[2017-05-30] MEDS: SODIUM BICARBONATE 650 MG TABLET PO SCH ×2 (09:28→21:02)
[2017-05-30] MEDS: CALCIUM CARBONATE CHEW 500 MG TABLET PO SCH ×3 (09:28→21:01)
[2017-05-30] MEDS: PANTOPRAZOLE 40 MG VIAL IV SCH (09:28)
[2017-05-30] MEDS: MAGNESIUM CHLORIDE 64 MG TABLET PO SCH ×2 (09:28→20:56)
[2017-05-30] MEDS: CALCITRIOL 0.5 MCG CAPSULE PO SCH ×2 (09:28→21:02)
[2017-05-30] MEDS ORDERED: LIDOCAINE 2% 5 ML VIAL ONE (10:10)
[2017-05-30] MEDS ORDERED: PROPOFOL 200 MG/20 ML VIAL IV ONE (10:10)
[2017-05-30 12:36] LABS: Troponin I Only 0.095 NG/ML (0.00-0.045)
[2017-05-31] MEDS: levETIRAcetam INJ 500 MG in SODIUM CHLORIDE 0.9% 50 ML IV SCH ×2 (02:54→16:12)
[2017-05-31] MEDS: DEXTROSE 5% KCL 20 MEQ 20 MEQ/1,000 ML BAG IV SCH ×2 (02:54→21:54)
[2017-05-31] MEDS: ALUMINUM/MAGNES/SIMETH MAX STR 30 ML UDCUP PO PRN (02:59)
[2017-05-31 05:55] LABS: Basophils % 0.1 % (0.0-0.8); Eosinophils # 0.2 10*3/uL (0.0-0.87); Hematocrit 23.9 VOL% (35.7-47.0); Hemoglobin 7.8 GM/DL (12.0-16.0); Immature Granulocytes % 2.1 %; Immature Granulocytes Absolute 0.21 #; Lymphocytes # 0.7 10*3/uL (1.4-4.0); Lymphocytes % 6.7 % (21.3-54.2); Mean Corpuscular HGB Conc 32.6 GM/DL (32-36); Mean Corpuscular Hemoglobin 27 PG (27-34); Mean Corpuscular Volume 83.9 FL (87-102); Mean Platelet Volume 11.1 FL (9.6-12.0); Monocytes # 0.8 10*3/uL (0.11-0.8); Monocytes % 8.5 % (1.7-12.7); Neutrophils # 7.9 10*3/uL (1.4-7.4); Neutrophils % 80.6 % (38.7-73.9); Platelet Count 124 T/CUMM (130-400); Red Blood Count 2.85 MC/CUMM (3.8-5.5); Red Cell Distribution Width 13.8 % (9.3-17.3); White Blood Count 9.8 T/CUMM (4-12)
[2017-05-31 06:42] LABS: Calcium 7.1 MG/DL (8.5-10.1); Magnesium 1.8 MG/DL (1.8-2.4); Osmolality,Calculated 264.4 MOS/KG (273-304); Potassium 3.7 MMOL/L (3.5-5.1)
[2017-05-31] MEDS: INSULIN LISPRO 100 UNIT/ML SUBCUT SCH ×4 (07:49→21:51)
[2017-05-31] MEDS: PANTOPRAZOLE 40 MG VIAL IV SCH (08:23)
[2017-05-31] MEDS ORDERED: SODIUM CHLORIDE 0.9% 1,000 ML IV PRN (09:28)
[2017-05-31] MEDS: CALCITRIOL 0.5 MCG CAPSULE PO SCH ×2 (10:03→21:52)
[2017-05-31] MEDS: LABETALOL 200 MG TABLET PO SCH ×2 (10:03→21:52)
[2017-05-31] MEDS: amLODIPine 5 MG TABLET PO SCH (10:03)
[2017-05-31] MEDS: POTASSIUM CHLORIDE 20 MEQ TABLET PO SCH ×2 (10:03→21:52)
[2017-05-31] MEDS: SODIUM BICARBONATE 650 MG TABLET PO SCH ×2 (10:03→21:52)
[2017-05-31] MEDS: CALCIUM CARBONATE CHEW 500 MG TABLET PO SCH ×3 (10:03→21:50)
[2017-05-31] MEDS: MAGNESIUM CHLORIDE 64 MG TABLET PO SCH ×2 (10:03→21:52)
[2017-05-31] MEDS: ZINC OXIDE PASTE 113 GM TUBE TOP SCH ×2 (10:05→21:51)
[2017-05-31] MEDS ORDERED: EPOETIN ALFA 10,000 UNIT/1 ML VIAL SUBCUT ONE (16:28)
[2017-06-01] MEDS: DEXTROSE 5% KCL 20 MEQ 20 MEQ/1,000 ML BAG IV SCH ×2 (00:33→23:27)
[2017-06-01] MEDS: levETIRAcetam INJ 500 MG in SODIUM CHLORIDE 0.9% 50 ML IV SCH ×2 (03:07→16:02)
[2017-06-01 05:10] LABS: Basophils % 0.2 % (0.0-0.8); Eosinophils # 0.2 10*3/uL (0.0-0.87); Eosinophils % 2.1 % (0.00-10.9); Hematocrit 23.6 VOL% (35.7-47.0); Hemoglobin 7.7 GM/DL (12.0-16.0); Immature Granulocytes % 3.6 %; Immature Granulocytes Absolute 0.31 #; Lymphocytes # 0.9 10*3/uL (1.4-4.0); Lymphocytes % 10.4 % (21.3-54.2); Mean Corpuscular HGB Conc 32.6 GM/DL (32-36); Mean Corpuscular Hemoglobin 27 PG (27-34); Mean Corpuscular Volume 82.8 FL (87-102); Mean Platelet Volume 11.2 FL (9.6-12.0); Monocytes # 1.1 10*3/uL (0.11-0.8); Monocytes % 13.1 % (1.7-12.7); Neutrophils % 70.6 % (38.7-73.9); Platelet Count 138 T/CUMM (130-400); Red Blood Count 2.85 MC/CUMM (3.8-5.5); White Blood Count 8.5 T/CUMM (4-12)
[2017-06-01 05:25] LABS: Calcium 6.9 MG/DL (8.5-10.1); Magnesium 1.6 MG/DL (1.8-2.4); Osmolality,Calculated 265.4 MOS/KG (273-304); Potassium 3.7 MMOL/L (3.5-5.1)
[2017-06-01 06:34] LABS: Platelet Estimate Adequate
[2017-06-01] MEDS: INSULIN LISPRO 100 UNIT/ML SUBCUT SCH ×4 (08:16→23:35)
[2017-06-01] MEDS: LABETALOL 200 MG TABLET PO SCH ×2 (08:17→23:36)
[2017-06-01] MEDS: CALCITRIOL 0.5 MCG CAPSULE PO SCH ×2 (08:17→23:40)
[2017-06-01] MEDS: amLODIPine 5 MG TABLET PO SCH (08:17)
[2017-06-01] MEDS: ZINC OXIDE PASTE 113 GM TUBE TOP SCH ×2 (08:17→23:27)
[2017-06-01] MEDS: CALCIUM CARBONATE CHEW 500 MG TABLET PO SCH ×3 (08:17→23:27)
[2017-06-01] MEDS: MAGNESIUM CHLORIDE 64 MG TABLET PO SCH ×2 (08:17→23:36)
[2017-06-01] MEDS: POTASSIUM CHLORIDE 20 MEQ TABLET PO SCH ×2 (08:17→23:35)
[2017-06-01] MEDS: SODIUM BICARBONATE 650 MG TABLET PO SCH ×2 (08:17→23:34)
[2017-06-01] MEDS ORDERED: MAGNESIUM SULF RIDER 1 GM in PREMIX 1 EACH IV ONE (09:18)
[2017-06-01] MEDS: PANTOPRAZOLE 40 MG VIAL IV SCH (12:15)
[2017-06-02] MEDS: levETIRAcetam INJ 500 MG in SODIUM CHLORIDE 0.9% 50 ML IV SCH ×2 (03:16→15:21)
[2017-06-02 07:42] LABS: Basophils % 0.4 % (0.0-0.8); Eosinophils # 0.2 10*3/uL (0.0-0.87); Eosinophils % 3.6 % (0.00-10.9); Hematocrit 22.3 VOL% (35.7-47.0); Hemoglobin 7.1 GM/DL (12.0-16.0); Immature Granulocytes % 2.1 %; Lymphocytes # 0.9 10*3/uL (1.4-4.0); Lymphocytes % 18.4 % (21.3-54.2); Mean Corpuscular HGB Conc 31.8 GM/DL (32-36); Mean Corpuscular Hemoglobin 27 PG (27-34); Mean Corpuscular Volume 85.4 FL (87-102); Mean Platelet Volume 11.2 FL (9.6-12.0); Monocytes # 0.7 10*3/uL (0.11-0.8); Monocytes % 14.6 % (1.7-12.7); Neutrophils # 2.9 10*3/uL (1.4-7.4); Neutrophils % 60.9 % (38.7-73.9); Platelet Count 140 T/CUMM (130-400); Red Blood Count 2.61 MC/CUMM (3.8-5.5); Red Cell Distribution Width 13.8 % (9.3-17.3); White Blood Count 4.7 T/CUMM (4-12)
[2017-06-02 08:13] LABS: Calcium 6.9 MG/DL (8.5-10.1); Magnesium 1.9 MG/DL (1.8-2.4); Osmolality,Calculated 261.5 MOS/KG (273-304); Potassium 3.9 MMOL/L (3.5-5.1)
[2017-06-02] MEDS: PANTOPRAZOLE 40 MG VIAL IV SCH (09:55)
[2017-06-02] MEDS: SODIUM BICARBONATE 650 MG TABLET PO SCH ×2 (09:56→22:18)
[2017-06-02] MEDS: MAGNESIUM CHLORIDE 64 MG TABLET PO SCH ×2 (09:57→22:16)
[2017-06-02] MEDS: amLODIPine 5 MG TABLET PO SCH (09:57)
[2017-06-02] MEDS: CALCITRIOL 0.5 MCG CAPSULE PO SCH ×2 (09:57→22:16)
[2017-06-02] MEDS: POTASSIUM CHLORIDE 20 MEQ TABLET PO SCH ×2 (09:58→22:16)
[2017-06-02] MEDS: LABETALOL 200 MG TABLET PO SCH ×2 (09:58→22:16)
[2017-06-02] MEDS: CALCIUM CARBONATE CHEW 500 MG TABLET PO SCH ×3 (09:59→22:16)
[2017-06-02] MEDS: ZINC OXIDE PASTE 113 GM TUBE TOP SCH ×2 (10:58→22:17)
[2017-06-02] MEDS: INSULIN LISPRO 100 UNIT/ML SUBCUT SCH ×4 (10:59→22:16)
[2017-06-02] MEDS: DEXTROSE 5% KCL 20 MEQ 20 MEQ/1,000 ML BAG IV SCH ×2 (19:21→22:28)
[2017-06-03] MEDS: levETIRAcetam INJ 500 MG in SODIUM CHLORIDE 0.9% 50 ML IV SCH ×2 (04:02→15:59)
[2017-06-03] MEDS: INSULIN LISPRO 100 UNIT/ML SUBCUT SCH ×3 (07:44→17:37)
[2017-06-03] MEDS: SODIUM BICARBONATE 650 MG TABLET PO SCH (11:13)
[2017-06-03] MEDS: POTASSIUM CHLORIDE 20 MEQ TABLET PO SCH (11:13)
[2017-06-03] MEDS: CALCITRIOL 0.5 MCG CAPSULE PO SCH (11:13)
[2017-06-03] MEDS: amLODIPine 5 MG TABLET PO SCH (11:14)
[2017-06-03] MEDS: CALCIUM CARBONATE CHEW 500 MG TABLET PO SCH ×2 (11:14→15:59)
[2017-06-03] MEDS: PANTOPRAZOLE 40 MG VIAL IV SCH (11:14)
[2017-06-03] MEDS: LABETALOL 200 MG TABLET PO SCH (11:14)
[2017-06-03] MEDS: MAGNESIUM CHLORIDE 64 MG TABLET PO SCH (11:14)
[2017-06-03] MEDS: ZINC OXIDE PASTE 113 GM TUBE TOP SCH (11:15)
[2017-06-03] MEDS ORDERED: EPOETIN ALFA 10,000 UNIT/1 ML VIAL SUBCUT ONE (11:17)
[2017-06-03] MEDS: DEXTROSE 5% KCL 20 MEQ 20 MEQ/1,000 ML BAG IV SCH (15:58)
[2017-06-03 17:41] VITALS: BP 110/74
== END 2017-06-03 21:15 | disposition home health service (06) | DRG 871 ==
LOC: N.ED 19:49 → N.EDINP 05-19 02:31 → SUATTDRO 05-19 02:31 → SUPCPDRO 05-19 02:31 → N.5E 05-19 03:46 → N.CC 05-23 04:20 → N.5E 05-25 12:16
PROVIDERS: ADMIT Internal Medicine; ATTEND Internal Medicine Infectious Disease

== ENCOUNTER 2017-06-20 18:38 | Inpatient (IN) ==
[2017-06-20] MEDS ORDERED: ONDANSETRON 4 MG/2 ML VIAL IV STA (19:04)
[2017-06-20] MEDS ORDERED: PANTOPRAZOLE 40 MG VIAL IV STA (19:04)
[2017-06-20] MEDS ORDERED: METOCLOPRAMIDE 10 MG/2 ML VIAL IV STA (19:04)
[2017-06-20] MEDS ORDERED: METOCLOPRAMIDE 10 MG/2 ML VIAL ONE (19:42)
[2017-06-20] MEDS ORDERED: ONDANSETRON 4 MG/2 ML VIAL ONE (19:42)
[2017-06-20] MEDS ORDERED: PANTOPRAZOLE 40 MG VIAL IV ONE (19:42)
[2017-06-20 22:50] LABS: Basophils % 0.2 % (0.0-0.8); Eosinophils # 0.1 10*3/uL (0.0-0.87); Eosinophils % 0.6 % (0.00-10.9); Hematocrit 23.2 VOL% (35.7-47.0); Hemoglobin 7.2 GM/DL (12.0-16.0); Immature Granulocytes % 0.7 %; Immature Granulocytes Absolute 0.11 #; Lymphocytes # 2.2 10*3/uL (1.4-4.0); Lymphocytes % 13.6 % (21.3-54.2); Mean Corpuscular Hemoglobin 27 PG (27-34); Mean Corpuscular Volume 85.3 FL (87-102); Mean Platelet Volume 11.1 FL (9.6-12.0); Monocytes # 1.1 10*3/uL (0.11-0.8); Monocytes % 6.6 % (1.7-12.7); Neutrophils # 12.4 10*3/uL (1.4-7.4); Neutrophils % 78.3 % (38.7-73.9); Platelet Count 352 T/CUMM (130-400); Red Blood Count 2.72 MC/CUMM (3.8-5.5); Red Cell Distribution Width 15.4 % (9.3-17.3); White Blood Count 15.8 T/CUMM (4-12)
[2017-06-20 22:57] LABS: INR 1.1; PT Patient Result 11.2 SECS; Partial Thromboplastin Time 28.2 SECS (0-40)
[2017-06-20 23:11] LABS: Alanine Aminotransferase < 9 U/L (13-56); Albumin 1.4 G/DL (3.4-5.0); Alkaline Phosphatase 121 U/L (45-117); Amylase 75 U/L (25-115); Aspartate Amino Transferase 28 U/L (0-37); Blood Urea Nitrogen 111 MG/DL (7-18); Calcium 7.1 MG/DL (8.5-10.1); Glucose 72 MG/DL (74-106); Osmolality,Calculated 295.7 MOS/KG (273-304); Potassium 4.4 MMOL/L (3.5-5.1); Sodium 131 MMOL/L (136-145); Total Protein 4.7 G/DL (6.4-8.3)
[2017-06-20 23:15] LABS: Troponin I Only 0.127 NG/ML (0.00-0.045)
[2017-06-21] MEDS ORDERED: KETOROLAC 30 MG/1 ML VIAL IV STA (00:44)
[2017-06-21] MEDS ORDERED: KETOROLAC 30 MG/1 ML VIAL ONE (00:48)
[2017-06-21] MEDS ORDERED: LEVOFLOXACIN INJ 750 MG in PREMIX 1 EACH IV STA (01:38)
[2017-06-21] MEDS ORDERED: LEVOFLOXACIN INJ 150 ML IV ONE (02:04)
[2017-06-21] MEDS ORDERED: GLUCAGON 1 MG VIAL IM PRN (03:41)
[2017-06-21] MEDS ORDERED: CALCIUM GLUCONATE 2,000 MG in SODIUM CHLORIDE 0.9% 100 ML IV ONE (03:41)
[2017-06-21] MEDS: INSULIN REGULAR 100 UNIT/ML SUBCUT SCH ×5 (03:57→21:53)
[2017-06-21] MEDS: DEXTROSE 50% 25 GM/50 ML VIAL IV PRN (04:00)
[2017-06-21] MEDS: HYDROmorphone 2 MG/1 ML VIAL IV PRN ×2 (04:02→08:50)
[2017-06-21] MEDS: ONDANSETRON 4 MG/2 ML VIAL IV PRN ×2 (04:07→08:51)
[2017-06-21] MEDS: CEFTAROLINE 200 MG in SODIUM CHLORIDE 0.9% 100 ML IV SCH ×2 (05:09→16:31)
[2017-06-21] MEDS: LABETALOL 200 MG TABLET PO SCH ×3 (08:38→22:12)
[2017-06-21] MEDS: PANTOPRAZOLE 40 MG VIAL IV SCH (08:51)
[2017-06-21] MEDS: ENOXAPARIN 30 MG/0.3 ML SYRINGE SUBCUT SCH (08:51)
[2017-06-21] MEDS: DOCUSATE SODIUM 100 MG CAPSULE PO SCH ×3 (08:52→22:10)
[2017-06-21] MEDS: levETIRAcetam 500 MG TABLET PO SCH ×3 (08:52→22:12)
[2017-06-21] MEDS: SODIUM BICARBONATE 650 MG TABLET PO SCH ×2 (08:52→21:55)
[2017-06-21 08:57] LABS: % Iron Saturation 91.3 % (18-50)
[2017-06-21] MEDS ORDERED: CALCIUM CARBONATE CHEW 500 MG TABLET PO SCH (09:00)
[2017-06-21] MEDS: SEVELAMER CARBONATE 800 MG TABLET PO SCH ×2 (13:14→16:30)
[2017-06-21 15:30] LABS: Calcium 7.1 MG/DL (8.5-10.1); Osmolality,Calculated 292.9 MOS/KG (273-304); Potassium 4.9 MMOL/L (3.5-5.1)
[2017-06-21] MEDS: amLODIPine 10 MG TABLET PO SCH ×2 (21:55→22:11)
[2017-06-22] MEDS: INSULIN REGULAR 100 UNIT/ML SUBCUT SCH ×6 (05:00→21:20)
[2017-06-22] MEDS: CEFTAROLINE 200 MG in SODIUM CHLORIDE 0.9% 100 ML IV SCH ×2 (05:00→16:10)
[2017-06-22] MEDS: SEVELAMER CARBONATE 800 MG TABLET PO SCH ×3 (09:09→16:10)
[2017-06-22] MEDS: ONDANSETRON 4 MG/2 ML VIAL IV PRN ×2 (09:09→21:15)
[2017-06-22] MEDS: levETIRAcetam 500 MG TABLET PO SCH ×2 (09:09→21:24)
[2017-06-22] MEDS: PANTOPRAZOLE 40 MG VIAL IV SCH (09:09)
[2017-06-22] MEDS: DOCUSATE SODIUM 100 MG CAPSULE PO SCH ×2 (09:09→21:24)
[2017-06-22] MEDS: SODIUM BICARBONATE 650 MG TABLET PO SCH ×2 (09:09→21:24)
[2017-06-22] MEDS: LABETALOL 200 MG TABLET PO SCH ×2 (09:09→21:24)
[2017-06-22] MEDS: ENOXAPARIN 30 MG/0.3 ML SYRINGE SUBCUT SCH (09:09)
[2017-06-22] MEDS: HYDROmorphone 2 MG/1 ML VIAL IV PRN ×2 (11:22→21:20)
[2017-06-22] MEDS ORDERED: SODIUM THIOSULFATE 12.5 GM/50 ML VIAL IV SCH (17:30)
[2017-06-22] MEDS: SODIUM THIOSULFATE 25 GM in SODIUM CHLORIDE 0.9% 100 ML IV SCH (18:53)
[2017-06-22] MEDS: amLODIPine 10 MG TABLET PO SCH (21:24)
[2017-06-23] MEDS: INSULIN REGULAR 100 UNIT/ML SUBCUT SCH ×6 (00:10→21:29)
[2017-06-23] MEDS: CEFTAROLINE 200 MG in SODIUM CHLORIDE 0.9% 100 ML IV SCH ×2 (04:14→17:29)
[2017-06-23 08:16] LABS: Osmolality,Calculated 291.4 MOS/KG (273-304); Potassium 4.3 MMOL/L (3.5-5.1)
[2017-06-23] MEDS: SODIUM BICARBONATE 650 MG TABLET PO SCH ×2 (10:02→21:39)
[2017-06-23] MEDS: LABETALOL 200 MG TABLET PO SCH ×2 (10:03→21:40)
[2017-06-23] MEDS: levETIRAcetam 500 MG TABLET PO SCH (10:03)
[2017-06-23] MEDS: DOCUSATE SODIUM 100 MG CAPSULE PO SCH ×2 (10:05→21:40)
[2017-06-23] MEDS: ENOXAPARIN 30 MG/0.3 ML SYRINGE SUBCUT SCH (10:05)
[2017-06-23] MEDS: PANTOPRAZOLE 40 MG VIAL IV SCH (10:05)
[2017-06-23] MEDS: SEVELAMER CARBONATE 800 MG TABLET PO SCH ×3 (10:05→17:30)
[2017-06-23] MEDS: HYDROmorphone 2 MG/1 ML VIAL IV PRN ×2 (10:10→17:48)
[2017-06-23 12:45] LABS: Basophils % 0.3 % (0.0-0.8); Eosinophils # 0.2 10*3/uL (0.0-0.87); Eosinophils % 1.8 % (0.00-10.9); Hemoglobin 8.5 GM/DL (12.0-16.0); Immature Granulocytes % 0.6 %; Immature Granulocytes Absolute 0.07 #; Lymphocytes # 1.6 10*3/uL (1.4-4.0); Lymphocytes % 14.6 % (21.3-54.2); Mean Corpuscular HGB Conc 31.5 GM/DL (32-36); Mean Corpuscular Hemoglobin 27 PG (27-34); Mean Corpuscular Volume 84.4 FL (87-102); Mean Platelet Volume 11.2 FL (9.6-12.0); Monocytes # 0.6 10*3/uL (0.11-0.8); Monocytes % 5.6 % (1.7-12.7); Neutrophils # 8.4 10*3/uL (1.4-7.4); Neutrophils % 77.1 % (38.7-73.9); Platelet Count 331 T/CUMM (130-400); Red Cell Distribution Width 15.3 % (9.3-17.3); White Blood Count 10.9 T/CUMM (4-12)
[2017-06-23] MEDS: amLODIPine 10 MG TABLET PO SCH (21:39)
[2017-06-23] MEDS: ZINC OXIDE PASTE 113 GM TUBE TOP SCH (21:42)
[2017-06-24] MEDS: INSULIN REGULAR 100 UNIT/ML SUBCUT SCH ×6 (01:07→20:48)
[2017-06-24] MEDS: CEFTAROLINE 200 MG in SODIUM CHLORIDE 0.9% 100 ML IV SCH ×2 (05:33→20:48)
[2017-06-24] MEDS: ONDANSETRON 4 MG/2 ML VIAL IV PRN ×2 (07:44→20:50)
[2017-06-24 08:52] LABS: Basophils % 0.2 % (0.0-0.8); Eosinophils # 0.2 10*3/uL (0.0-0.87); Eosinophils % 2.6 % (0.00-10.9); Hematocrit 23.3 VOL% (35.7-47.0); Immature Granulocytes % 0.8 %; Immature Granulocytes Absolute 0.07 #; Lymphocytes # 1.7 10*3/uL (1.4-4.0); Lymphocytes % 18.1 % (21.3-54.2); Mean Corpuscular HGB Conc 32.2 GM/DL (32-36); Mean Corpuscular Hemoglobin 27 PG (27-34); Mean Corpuscular Volume 83.5 FL (87-102); Mean Platelet Volume 10.8 FL (9.6-12.0); Monocytes # 0.5 10*3/uL (0.11-0.8); Monocytes % 5.6 % (1.7-12.7); Neutrophils # 6.8 10*3/uL (1.4-7.4); Neutrophils % 72.7 % (38.7-73.9); Platelet Count 360 T/CUMM (130-400); Red Blood Count 2.79 MC/CUMM (3.8-5.5); Red Cell Distribution Width 15.5 % (9.3-17.3); White Blood Count 9.3 T/CUMM (4-12)
[2017-06-24 08:53] LABS: Hemoglobin 7.5 GM/DL (12.0-16.0)
[2017-06-24 09:11] LABS: Alanine Aminotransferase 10 U/L (13-56); Albumin 1.2 G/DL (3.4-5.0); Alkaline Phosphatase 111 U/L (45-117); Aspartate Amino Transferase 13 U/L (0-37); Bilirubin,Total < 0.39 MG/DL (0.2-1.0); Blood Urea Nitrogen 79 MG/DL (7-18); Glucose 125 MG/DL (74-106); Osmolality,Calculated 288.5 MOS/KG (273-304); Potassium 3.9 MMOL/L (3.5-5.1); Sodium 132 MMOL/L (136-145); Total Protein 4.7 G/DL (6.4-8.3)
[2017-06-24 09:13] LABS: Calcium 5.8 MG/DL (8.5-10.1)
[2017-06-24] MEDS: ZINC OXIDE PASTE 113 GM TUBE TOP SCH ×2 (09:22→23:18)
[2017-06-24] MEDS: PANTOPRAZOLE 40 MG VIAL IV SCH (10:17)
[2017-06-24] MEDS: ENOXAPARIN 30 MG/0.3 ML SYRINGE SUBCUT SCH (10:17)
[2017-06-24] MEDS: SEVELAMER CARBONATE 800 MG TABLET PO SCH ×3 (10:17→17:08)
[2017-06-24] MEDS: DOCUSATE SODIUM 100 MG CAPSULE PO SCH ×2 (10:17→23:18)
[2017-06-24] MEDS: LABETALOL 200 MG TABLET PO SCH ×2 (10:18→20:49)
[2017-06-24] MEDS: SODIUM BICARBONATE 650 MG TABLET PO SCH ×2 (10:18→20:49)
[2017-06-24] MEDS: SODIUM THIOSULFATE 25 GM in SODIUM CHLORIDE 0.9% 100 ML IV SCH (17:43)
[2017-06-24] MEDS: amLODIPine 10 MG TABLET PO SCH (20:49)
[2017-06-25] MEDS: INSULIN REGULAR 100 UNIT/ML SUBCUT SCH ×7 (01:47→23:03)
[2017-06-25] MEDS ORDERED: CLINDAMYCIN INJ 900 MG in PREMIX 1 EACH IV ONE (08:00)
[2017-06-25] MEDS ORDERED: BUPIVACAINE 0.25% 50 ML VIAL ONE (10:13)
[2017-06-25] MEDS ORDERED: LIDOCAINE 2%/EPI 20 ML VIAL ONE (10:13)
[2017-06-25] MEDS ORDERED: HEPARIN 5,000 UNIT/1 ML VIAL ONE (10:14)
[2017-06-25] MEDS: SODIUM CHLORIDE 0.9% 250 ML IV SCH ×2 (10:29→23:02)
[2017-06-25] MEDS ORDERED: PROPOFOL 200 MG/20 ML VIAL IV ONE (12:01)
[2017-06-25] MEDS ORDERED: ONDANSETRON 4 MG/2 ML VIAL ONE (12:01)
[2017-06-25] MEDS ORDERED: MIDAZOLAM 2 MG/2 ML VIAL ONE (12:01)
[2017-06-25] MEDS ORDERED: fentaNYL 100 MCG/2 ML VIAL ONE (12:01)
[2017-06-25] MEDS: SODIUM BICARBONATE 650 MG TABLET PO SCH ×2 (13:18→20:42)
[2017-06-25] MEDS: SEVELAMER CARBONATE 800 MG TABLET PO SCH ×3 (13:18→19:21)
[2017-06-25] MEDS: ENOXAPARIN 30 MG/0.3 ML SYRINGE SUBCUT SCH (13:19)
[2017-06-25] MEDS: DOCUSATE SODIUM 100 MG CAPSULE PO SCH ×2 (13:19→20:42)
[2017-06-25] MEDS: ZINC OXIDE PASTE 113 GM TUBE TOP SCH ×2 (13:20→22:02)
[2017-06-25] MEDS: LABETALOL 200 MG TABLET PO SCH ×2 (13:21→20:42)
[2017-06-25] MEDS: PANTOPRAZOLE 40 MG VIAL IV SCH (13:29)
[2017-06-25 18:50] LABS: Hepatitis A Ab IgM Quant 0.06 Index; Hepatitis A Ab IgM Result Negative (Negative); Hepatitis B Core IgM Quant 0.06 Index; Hepatitis B Core IgM Result Negative (Negative); Hepatitis B Surface Ag Quant < 0.10 Index; Hepatitis B Surface Ag Result Negative (Negative); Hepatitis C Virus Ab Quant 0.13 Index; Hepatitis C Virus Ab Result Negative (Negative)
[2017-06-25] MEDS: CEFTAROLINE 200 MG in SODIUM CHLORIDE 0.9% 100 ML IV SCH ×2 (19:21→23:24)
[2017-06-25] MEDS: DEXTROSE 50% 25 GM/50 ML VIAL IV PRN (19:58)
[2017-06-25] MEDS: ONDANSETRON 4 MG/2 ML VIAL IV PRN (20:44)
[2017-06-25] MEDS: HYDROmorphone 2 MG/1 ML VIAL IV PRN (20:56)
[2017-06-25] MEDS: amLODIPine 10 MG TABLET PO SCH (22:03)
[2017-06-26] MEDS: INSULIN REGULAR 100 UNIT/ML SUBCUT SCH ×6 (04:39→23:26)
[2017-06-26 08:24] LABS: Osmolality,Calculated 290.3 MOS/KG (273-304); Potassium 3.4 MMOL/L (3.5-5.1)
[2017-06-26 08:25] LABS: Basophils % 0.1 % (0.0-0.8); Eosinophils # 0.1 10*3/uL (0.0-0.87); Eosinophils % 1.2 % (0.00-10.9); Hematocrit 20.5 VOL% (35.7-47.0); Immature Granulocytes % 0.9 %; Immature Granulocytes Absolute 0.06 #; Lymphocytes # 1.3 10*3/uL (1.4-4.0); Lymphocytes % 18.7 % (21.3-54.2); Mean Corpuscular HGB Conc 29.8 GM/DL (32-36); Mean Corpuscular Hemoglobin 26 PG (27-34); Mean Platelet Volume 10.1 FL (9.6-12.0); Monocytes # 0.5 10*3/uL (0.11-0.8); Monocytes % 7.9 % (1.7-12.7); Neutrophils # 4.8 10*3/uL (1.4-7.4); Neutrophils % 71.2 % (38.7-73.9); Platelet Count 220 T/CUMM (130-400); Red Blood Count 2.33 MC/CUMM (3.8-5.5); Red Cell Distribution Width 15.7 % (9.3-17.3); White Blood Count 6.7 T/CUMM (4-12)
[2017-06-26 08:30] LABS: Hemoglobin 6.1 GM/DL (12.0-16.0)
[2017-06-26] MEDS: ENOXAPARIN 30 MG/0.3 ML SYRINGE SUBCUT SCH ×2 (08:46→09:11)
[2017-06-26] MEDS: SEVELAMER CARBONATE 800 MG TABLET PO SCH ×3 (08:46→20:07)
[2017-06-26] MEDS ORDERED: SODIUM CHLORIDE 0.9% 1,000 ML IV PRN ×2 (08:47→08:50)
[2017-06-26] MEDS: SODIUM BICARBONATE 650 MG TABLET PO SCH ×2 (08:47→21:44)
[2017-06-26] MEDS: DOCUSATE SODIUM 100 MG CAPSULE PO SCH ×2 (08:47→21:44)
[2017-06-26] MEDS: ZINC OXIDE PASTE 113 GM TUBE TOP SCH ×2 (08:47→21:44)
[2017-06-26] MEDS: CEFTAROLINE 200 MG in SODIUM CHLORIDE 0.9% 100 ML IV SCH ×2 (08:55→21:44)
[2017-06-26] MEDS: LABETALOL 200 MG TABLET PO SCH ×2 (09:00→21:44)
[2017-06-26] MEDS: PANTOPRAZOLE 40 MG VIAL IV SCH (09:03)
[2017-06-26] MEDS: SODIUM CHLORIDE 0.9% 250 ML IV SCH ×2 (16:55→23:25)
[2017-06-26 21:21] LABS: Basophils % 0.1 % (0.0-0.8); Eosinophils # 0.1 10*3/uL (0.0-0.87); Eosinophils % 1.7 % (0.00-10.9); Hematocrit 22.3 VOL% (35.7-47.0); Hemoglobin 7.1 GM/DL (12.0-16.0); Immature Granulocytes % 0.6 %; Immature Granulocytes Absolute 0.04 #; Lymphocytes # 1.2 10*3/uL (1.4-4.0); Lymphocytes % 16.8 % (21.3-54.2); Mean Corpuscular HGB Conc 31.8 GM/DL (32-36); Mean Corpuscular Hemoglobin 27 PG (27-34); Mean Corpuscular Volume 84.5 FL (87-102); Mean Platelet Volume 10.3 FL (9.6-12.0); Monocytes # 0.6 10*3/uL (0.11-0.8); Monocytes % 8.5 % (1.7-12.7); Neutrophils # 5.1 10*3/uL (1.4-7.4); Neutrophils % 72.3 % (38.7-73.9); Platelet Count 211 T/CUMM (130-400); Red Blood Count 2.64 MC/CUMM (3.8-5.5); Red Cell Distribution Width 16.5 % (9.3-17.3); White Blood Count 7.1 T/CUMM (4-12)
[2017-06-26] MEDS: amLODIPine 10 MG TABLET PO SCH (21:43)
[2017-06-27] MEDS: INSULIN REGULAR 100 UNIT/ML SUBCUT SCH ×5 (05:21→18:54)
[2017-06-27] MEDS: SODIUM BICARBONATE 650 MG TABLET PO SCH ×2 (09:35→20:38)
[2017-06-27] MEDS: LABETALOL 200 MG TABLET PO SCH ×2 (09:36→20:38)
[2017-06-27] MEDS: DOCUSATE SODIUM 100 MG CAPSULE PO SCH ×2 (09:36→20:39)
[2017-06-27] MEDS: SEVELAMER CARBONATE 800 MG TABLET PO SCH ×3 (09:36→17:24)
[2017-06-27] MEDS: PANTOPRAZOLE 40 MG VIAL IV SCH (09:36)
[2017-06-27] MEDS: CEFTAROLINE 200 MG in SODIUM CHLORIDE 0.9% 100 ML IV SCH ×2 (09:36→20:39)
[2017-06-27] MEDS: ENOXAPARIN 30 MG/0.3 ML SYRINGE SUBCUT SCH (09:36)
[2017-06-27] MEDS: ZINC OXIDE PASTE 113 GM TUBE TOP SCH ×2 (09:36→20:39)
[2017-06-27] MEDS ORDERED: HEPARIN 10,000 UNIT/10 ML VIAL IV PRN (13:48)
[2017-06-27] MEDS ORDERED: SODIUM THIOSULFATE 25 GM in SODIUM CHLORIDE 0.9% 100 ML IV SCH (16:00)
[2017-06-27] MEDS: SODIUM CHLORIDE 0.9% 250 ML IV SCH (16:23)
[2017-06-27] MEDS: levETIRAcetam 500 MG TABLET PO SCH (20:37)
[2017-06-27] MEDS: amLODIPine 10 MG TABLET PO SCH (20:38)
[2017-06-28] MEDS: INSULIN REGULAR 100 UNIT/ML SUBCUT SCH ×5 (00:46→16:35)
[2017-06-28] MEDS: levETIRAcetam 500 MG TABLET PO SCH (08:56)
[2017-06-28] MEDS: LABETALOL 200 MG TABLET PO SCH (08:57)
[2017-06-28] MEDS: DOCUSATE SODIUM 100 MG CAPSULE PO SCH (08:57)
[2017-06-28] MEDS: PANTOPRAZOLE 40 MG VIAL IV SCH (08:57)
[2017-06-28] MEDS: CEFTAROLINE 200 MG in SODIUM CHLORIDE 0.9% 100 ML IV SCH (08:57)
[2017-06-28] MEDS: SEVELAMER CARBONATE 800 MG TABLET PO SCH ×3 (08:57→16:35)
[2017-06-28] MEDS: ZINC OXIDE PASTE 113 GM TUBE TOP SCH (08:57)
[2017-06-28] MEDS: SODIUM BICARBONATE 650 MG TABLET PO SCH (09:02)
[2017-06-28 16:27] VITALS: BP 130/42
== END 2017-06-28 17:38 | DRG 579 ==
LOC: EDBD → EDUNIT# → N.ED 18:38 → N.EDINP 06-21 02:33 → SUATTDRO 06-21 02:33 → N.5E 06-21 02:54
PROVIDERS: ADMIT Hospitalist; ATTEND Internal Medicine Infectious Disease

== ENCOUNTER 2019-06-07 17:00 | Observation (INO) ==
[2019-06-07 18:03] LABS: Basophils % 0.3 % (0.0-0.8); Eosinophils # 0.1 10*3/uL (0.0-0.87); Eosinophils % 1.8 % (0.00-10.9); Hematocrit 24.9 VOL% (35.7-47.0); Hemoglobin 7.7 GM/DL (12.0-16.0); Immature Granulocytes % 0.5 %; Immature Granulocytes Absolute 0.04 #; Lymphocytes # 1.1 10*3/uL (1.4-4.0); Lymphocytes % 14.7 % (21.3-54.2); Mean Corpuscular HGB Conc 30.9 GM/DL (32-36); Mean Corpuscular Volume 90.9 FL (87-102); Mean Platelet Volume 10.8 FL (9.6-12.0); Monocytes % 4.1 % (1.7-12.7); Neutrophils % 78.6 % (38.7-73.9); Platelet Count 134 T/CUMM (130-400); Red Blood Count 2.74 MC/CUMM (3.8-5.5); Red Cell Distribution Width 15.7 % (9.3-17.3); White Blood Count 7.8 T/CUMM (4-12)
[2019-06-07 18:19] LABS: Albumin 3.4 G/DL (3.4-5.0); Bilirubin,Total 0.4 MG/DL (0.2-1.0); Osmolality,Calculated 282.8 MOS/KG (273-304); Total Protein 6.9 G/DL (6.4-8.3)
[2019-06-07] MEDS ORDERED: ONDANSETRON 4 MG/2 ML VIAL IV PRN (18:41)
[2019-06-07] MEDS ORDERED: DOCUSATE SODIUM 100 MG CAPSULE PO PRN (18:41)
[2019-06-07] MEDS ORDERED: hydrALAZINE 20 MG/1 ML VIAL IM STA (18:44)
[2019-06-07] MEDS ORDERED: hydrALAZINE 20 MG/1 ML VIAL IM PRN (18:57)
[2019-06-07 19:02] LABS: Hypochromasia 3+; Poikilocytosis 1+; Tear Drop Cells Slight
[2019-06-07 19:03] LABS: Anisocytosis 1+
[2019-06-07] MEDS ORDERED: tiZANidine 4 MG TABLET PO PRN (19:12)
[2019-06-07] MEDS ORDERED: GABAPENTIN 300 MG CAPSULE PO PRN (19:12)
[2019-06-07] MEDS ORDERED: DEXTROSE 50% 25 GM/50 ML VIAL IV PRN (19:18)
[2019-06-07] MEDS ORDERED: GLUCAGON 1 MG VIAL IM PRN (19:18)
[2019-06-07] MEDS ORDERED: cloNIDine 0.3 MG/24 HR PATCH TRANSDERM SCH (21:00)
[2019-06-07] MEDS ORDERED: CLORAZEPATE 7.5 MG TABLET PO ONE (21:07)
[2019-06-07] MEDS: amLODIPine 10 MG TABLET PO SCH (21:49)
[2019-06-07] MEDS: INSULIN REGULAR 100 UNIT/ML SUBCUT SCH (21:49)
[2019-06-08 04:58] LABS: Basophils % 0.2 % (0.0-0.8); Eosinophils # 0.2 10*3/uL (0.0-0.87); Eosinophils % 2.1 % (0.00-10.9); Hemoglobin 7.6 GM/DL (12.0-16.0); Immature Granulocytes % 0.4 %; Immature Granulocytes Absolute 0.03 #; Lymphocytes % 12.6 % (21.3-54.2); Mean Corpuscular HGB Conc 31.7 GM/DL (32-36); Mean Corpuscular Volume 90.9 FL (87-102); Mean Platelet Volume 9.6 FL (9.6-12.0); Monocytes % 4.5 % (1.7-12.7); Neutrophils % 80.2 % (38.7-73.9); Platelet Count 280 T/CUMM (130-400); Red Blood Count 2.64 MC/CUMM (3.8-5.5); White Blood Count 8.3 T/CUMM (4-12)
[2019-06-08 05:17] LABS: Calcium 9.1 MG/DL (8.5-10.1); Osmolality,Calculated 281.7 MOS/KG (273-304)
[2019-06-08] MEDS: LEVOTHYROXINE 25 MCG TABLET PO SCH (05:50)
[2019-06-08] MEDS ORDERED: ALUM/MAG/SIMETH/LIDO VISC 1:1 30 ML BOTTLE PO ONE (08:58)
[2019-06-08] MEDS ORDERED: ACETAMINOPHEN 325 MG TABLET PO PRN (09:33)
[2019-06-08 09:43] LABS: Risk Ratio 3.87; VLDL CHOLESTEROL 24.2 MG/DL
[2019-06-08] MEDS: INSULIN REGULAR 100 UNIT/ML SUBCUT SCH ×4 (10:10→20:17)
[2019-06-08] MEDS: MAGNESIUM OXIDE 400 MG TABLET PO SCH (10:14)
[2019-06-08] MEDS: METOPROLOL SUCCINATE XL 50 MG TABLET PO SCH (10:14)
[2019-06-08] MEDS: PANTOPRAZOLE 40 MG TABLET PO SCH (10:14)
[2019-06-08] MEDS ORDERED: LIDOCAINE/PRILOCAINE CREAM 5 GM TUBE TOP SCH (19:12)
[2019-06-08] MEDS: amLODIPine 10 MG TABLET PO SCH (20:17)
[2019-06-09] MEDS: LEVOTHYROXINE 25 MCG TABLET PO SCH (06:20)
[2019-06-09 07:11] LABS: Basophils % 0.6 % (0.0-0.8); Eosinophils # 0.2 10*3/uL (0.0-0.87); Eosinophils % 2.3 % (0.00-10.9); Hematocrit 23.1 VOL% (35.7-47.0); Immature Granulocytes % 0.6 %; Immature Granulocytes Absolute 0.04 #; Lymphocytes # 1.2 10*3/uL (1.4-4.0); Lymphocytes % 17.6 % (21.3-54.2); Mean Corpuscular HGB Conc 30.3 GM/DL (32-36); Mean Corpuscular Volume 92.8 FL (87-102); Mean Platelet Volume 10.5 FL (9.6-12.0); Monocytes % 5.4 % (1.7-12.7); Neutrophils % 73.5 % (38.7-73.9); Platelet Count 207 T/CUMM (130-400); Red Blood Count 2.49 MC/CUMM (3.8-5.5); Red Cell Distribution Width 16.5 % (9.3-17.3); White Blood Count 6.8 T/CUMM (4-12)
[2019-06-09 07:26] LABS: Calcium 9.1 MG/DL (8.5-10.1); Osmolality,Calculated 279.2 MOS/KG (273-304)
[2019-06-09 07:55] LABS: Platelet Estimate Normal
[2019-06-09 07:56] LABS: Anisocytosis 2+; Polychromasia Slight
[2019-06-09] MEDS ORDERED: SODIUM CHLORIDE 0.9% 1,000 ML IV PRN (08:24)
[2019-06-09] MEDS: METOPROLOL SUCCINATE XL 50 MG TABLET PO SCH (08:28)
[2019-06-09] MEDS: MAGNESIUM OXIDE 400 MG TABLET PO SCH (08:28)
[2019-06-09] MEDS: PANTOPRAZOLE 40 MG TABLET PO SCH (08:28)
[2019-06-09] MEDS: INSULIN REGULAR 100 UNIT/ML SUBCUT SCH ×2 (08:35→11:12)
[2019-06-09] MEDS ORDERED: DULoxetine 30 MG CAPSULE PO SCH (09:00)
[2019-06-09 13:43] VITALS: BP 151/93
== END 2019-06-09 17:19 | disposition home or self-care (01) ==
LOC: EDBD → EDUNIT# → N.EDINP 17:00 → N.ED 17:00 → N.2W 20:04
PROVIDERS: ADMIT Internal Medicine; ATTEND Internal Medicine

== ENCOUNTER 2019-09-07 12:51 | Inpatient (IN) ==
[2019-09-07] MEDS ORDERED: ACETAMINOPHEN 500 MG TABLET PO STA (13:23)
[2019-09-07] MEDS ORDERED: cloNIDine 0.1 MG TABLET PO STA (13:27)
[2019-09-07] MEDS ORDERED: ONDANSETRON 4 MG/2 ML VIAL IV PRN (14:03)
[2019-09-07] MEDS ORDERED: BISACODYL 5 MG TABLET PO PRN (14:03)
[2019-09-07] MEDS ORDERED: DEXTROSE 10% 250 ML BAG IV PRN (14:03)
[2019-09-07] MEDS ORDERED: GLUCAGON 1 MG VIAL IM PRN (14:03)
[2019-09-07] MEDS ORDERED: AZITHROMYCIN 250 MG TABLET PO STA (14:11)
[2019-09-07] MEDS ORDERED: VANCOMYCIN INJ 1,250 MG in SODIUM CHLORIDE 0.9% 250 ML IV STA (14:14)
[2019-09-07] MEDS ORDERED: AZITHROMYCIN INJ 500 MG in SODIUM CHLORIDE 0.9% 250 ML IV STA (14:38)
[2019-09-07 14:40] LABS: Alanine Aminotransferase 58 U/L (13-56); Albumin 3.6 G/DL (3.4-5.0); Alkaline Phosphatase 541 U/L (45-117); Aspartate Amino Transferase 39 U/L (0-37); Blood Urea Nitrogen 22 MG/DL (7-18); Calcium 9.1 MG/DL (8.5-10.1); Estimated Glom Filtration Rate 9 ML/MIN; Glucose 129 MG/DL (74-106); Total Protein 7.3 G/DL (6.4-8.3)
[2019-09-07 14:48] LABS: Basophils % 0.3 % (0.0-0.8); Eosinophils % 0.5 % (0.00-10.9); Hematocrit 30.5 VOL% (35.7-47.0); Hemoglobin 9.4 GM/DL (12.0-16.0); Immature Granulocytes % 0.5 %; Immature Granulocytes Absolute 0.02 #; Lymphocytes # 0.7 10*3/uL (1.4-4.0); Lymphocytes % 20.3 % (21.3-54.2); Mean Corpuscular HGB Conc 30.8 GM/DL (32-36); Mean Platelet Volume 11.2 FL (9.6-12.0); Neutrophils % 70.4 % (38.7-73.9); Platelet Count 88 T/CUMM (130-400); Red Blood Count 3.39 MC/CUMM (3.8-5.5); Red Cell Distribution Width 22.6 % (9.3-17.3); White Blood Count 3.6 T/CUMM (4-12)
[2019-09-07] MEDS ORDERED: VANCOMYCIN 1,000 MG VIAL ONE (14:48)
[2019-09-07] MEDS ORDERED: METOPROLOL TARTRATE 5 MG/5 ML VIAL IV STA (14:53)
[2019-09-07 14:56] LABS: INR 1.1; PT Patient Result 12.2 SECS (9.8-11.9)
[2019-09-07 15:38] LABS: Band Neutrophils 1 % (0-10); Lymphocytes 20 % (20-55); Platelet Estimate Decreased; Polychromasia Slight; Segmented Neutrophils 72 % (50-85); Total Cells Counted 100
[2019-09-07 15:39] LABS: Hypochromasia Slight
[2019-09-07] MEDS ORDERED: niCARdipine INJ 25 MG in SODIUM CHLORIDE 0.9% 240 ML IV PRN (15:46)
[2019-09-07] MEDS ORDERED: VECURONIUM 10 MG VIAL IV ONE ×2 (16:56→17:51)
[2019-09-07] MEDS: hydrALAZINE 20 MG/1 ML VIAL IV SCH ×2 (17:32→21:10)
[2019-09-07] MEDS: MEROPENEM 500 MG in SODIUM CHLORIDE 0.9% 100 ML IV SCH (17:49)
[2019-09-07] MEDS: INSULIN REGULAR 100 UNIT/ML SUBCUT SCH ×2 (17:49→21:06)
[2019-09-07] MEDS ORDERED: propofoL 200 MG/20 ML VIAL IV ONE (17:51)
[2019-09-07 17:53] LABS: ABG Base Excess 12.2 MMOL/L (-2.5-2.5); ABG PCO2 31.7 MM HG (35-48); ABG TCO2 30.4 MMOL/L (23-27)
[2019-09-07 17:54] LABS: ABG PH 7.637 (7.35-7.45)
[2019-09-07] MEDS: ZINC SULFATE 220 MG CAPSULE PO SCH (20:26)
[2019-09-07] MEDS: HYDROXYCHLOROQUINE 200 MG TABLET PO SCH (20:26)
[2019-09-07 20:31] LABS: Allen Test Positive; Pt O2 Delivery Device Ventilator
[2019-09-07 20:32] LABS: ABG HCO3 36.8 MMOL/L (20-26); ABG PCO2 30.7 MM HG (35-48); ABG TCO2 31.2 MMOL/L (23-27)
[2019-09-07 20:36] LABS: ABG PH 7.658 (7.35-7.45)
[2019-09-07] MEDS: MIDAZOLAM 100 MG in SODIUM CHLORIDE 0.9% 80 ML IV PRN (20:53)
[2019-09-08] MEDS ORDERED: NOREPINEPHRINE 8 MG in SODIUM CHLORIDE 0.9% 242 ML IV PRN (02:37)
[2019-09-08] MEDS ORDERED: DEXAMETHASONE INJ 8 MG in SODIUM CHLORIDE 0.9% 50 ML IV ONE (05:15)
[2019-09-08] MEDS: hydrALAZINE 20 MG/1 ML VIAL IV SCH ×2 (06:48→08:50)
[2019-09-08 06:50] LABS: Osmolality,Calculated 270.4 MOS/KG (273-304); Risk Ratio 3.52; Thyroid Stimulating Hormone 1.29 uIU/ml (0.358-3.74); VLDL CHOLESTEROL 27.6 MG/DL
[2019-09-08] MEDS: LEVOTHYROXINE 25 MCG TABLET PO SCH (07:30)
[2019-09-08] MEDS: HYDROXYCHLOROQUINE 200 MG TABLET PO SCH ×2 (08:00→21:50)
[2019-09-08] MEDS: AZITHROMYCIN 250 MG TABLET PO SCH (08:00)
[2019-09-08] MEDS: INSULIN REGULAR 100 UNIT/ML SUBCUT SCH ×4 (08:31→21:50)
[2019-09-08] MEDS: PANTOPRAZOLE 40 MG VIAL IV SCH (12:00)
[2019-09-08] MEDS: METOPROLOL TARTRATE 50 MG TABLET PO SCH (12:00)
[2019-09-08] MEDS: ENOXAPARIN 30 MG/0.3 ML SYRINGE SUBCUT SCH (12:00)
[2019-09-08] MEDS: amLODIPine 5 MG TABLET PO SCH ×2 (12:00→22:17)
[2019-09-08] MEDS ORDERED: hydrALAZINE 20 MG/1 ML VIAL IV PRN (13:17)
[2019-09-08] MEDS ORDERED: ALBUMIN 25% 25 GM in PREMIX 1 EACH IV PRN (15:09)
[2019-09-08] MEDS: MEROPENEM 500 MG in SODIUM CHLORIDE 0.9% 100 ML IV SCH (21:50)
[2019-09-09 04:27] LABS: ABG Base Excess 6.5 MMOL/L (-2.5-2.5); ABG HCO3 30.3 MMOL/L (20-26); ABG Oxygen Saturation 99.4 % (95-100); ABG PCO2 47.7 MM HG (35-48); ABG PH 7.432 (7.35-7.45); ABG TCO2 28.6 MMOL/L (23-27); Allen Test Positive; Pt O2 Delivery Device Ventilator
[2019-09-09] MEDS: LEVOTHYROXINE 25 MCG TABLET PO SCH (06:31)
[2019-09-09] MEDS: INSULIN REGULAR 100 UNIT/ML SUBCUT SCH ×3 (06:31→18:48)
[2019-09-09] MEDS: PANTOPRAZOLE 40 MG VIAL IV SCH (09:00)
[2019-09-09] MEDS: HYDROXYCHLOROQUINE 200 MG TABLET PO SCH ×2 (09:00→20:58)
[2019-09-09] MEDS: AZITHROMYCIN 250 MG TABLET PO SCH (09:00)
[2019-09-09] MEDS: ZINC SULFATE 220 MG CAPSULE PO SCH (09:00)
[2019-09-09] MEDS: METOPROLOL TARTRATE 50 MG TABLET PO SCH (09:00)
[2019-09-09 09:34] LABS: Basophils % 0.3 % (0.0-0.8); Hematocrit 34.7 VOL% (35.7-47.0); Hemoglobin 10.6 GM/DL (12.0-16.0); Immature Granulocytes % 0.3 %; Immature Granulocytes Absolute 0.01 #; Lymphocytes # 0.5 10*3/uL (1.4-4.0); Lymphocytes % 16.6 % (21.3-54.2); Mean Corpuscular HGB Conc 30.5 GM/DL (32-36); Mean Corpuscular Volume 91.8 FL (87-102); Mean Platelet Volume 11.1 FL (9.6-12.0); Monocytes % 5.4 % (1.7-12.7); Neutrophils % 77.4 % (38.7-73.9); Red Blood Count 3.78 MC/CUMM (3.8-5.5)
[2019-09-09 09:35] LABS: Platelet Count 98 T/CUMM (130-400)
[2019-09-09 09:53] LABS: Anisocytosis 1+; Hypochromasia 1+; Microcytosis 1+
[2019-09-09 09:54] LABS: Ovalocytes Slight; Polychromasia Slight
[2019-09-09 09:55] LABS: Platelet Estimate Decreased
[2019-09-09 10:00] LABS: Calcium 7.2 MG/DL (8.5-10.1); Osmolality,Calculated 272.1 MOS/KG (273-304)
[2019-09-09 10:14] LABS: Prealbumin 8.9 MG/DL (20-40)
[2019-09-09] MEDS: ENOXAPARIN 30 MG/0.3 ML SYRINGE SUBCUT SCH (11:30)
[2019-09-09] MEDS: DESITIN 4OZ/NYSTATIN 15 GRAM MIXTURE PASTE TOP SCH ×2 (14:36→20:58)
[2019-09-09] MEDS: MEROPENEM 500 MG in SODIUM CHLORIDE 0.9% 100 ML IV SCH (20:57)
[2019-09-09] MEDS: amLODIPine 5 MG TABLET PO SCH (20:58)
[2019-09-09] MEDS: ACETAMINOPHEN 325 MG TABLET PO PRN (21:05)
[2019-09-10] MEDS: INSULIN REGULAR 100 UNIT/ML SUBCUT SCH ×5 (00:26→23:00)
[2019-09-10 04:51] LABS: ABG Base Excess 5.9 MMOL/L (-2.5-2.5); ABG HCO3 29.8 MMOL/L (20-26); ABG Oxygen Saturation 98.8 % (95-100); ABG PCO2 45.6 MM HG (35-48); ABG PH 7.438 (7.35-7.45); ABG TCO2 28.1 MMOL/L (23-27); Allen Test Positive; Pt O2 Delivery Device Ventilator
[2019-09-10] MEDS: LEVOTHYROXINE 25 MCG TABLET PO SCH (05:57)
[2019-09-10] MEDS: MIDAZOLAM 100 MG in SODIUM CHLORIDE 0.9% 80 ML IV PRN (07:23)
[2019-09-10] MEDS: METOPROLOL TARTRATE 50 MG TABLET PO SCH (08:31)
[2019-09-10] MEDS: PANTOPRAZOLE 40 MG VIAL IV SCH (08:31)
[2019-09-10] MEDS: HYDROXYCHLOROQUINE 200 MG TABLET PO SCH ×2 (08:31→21:04)
[2019-09-10] MEDS: DESITIN 4OZ/NYSTATIN 15 GRAM MIXTURE PASTE TOP SCH ×2 (08:32→21:04)
[2019-09-10] MEDS: AZITHROMYCIN 250 MG TABLET PO SCH (08:32)
[2019-09-10] MEDS: ENOXAPARIN 30 MG/0.3 ML SYRINGE SUBCUT SCH (10:54)
[2019-09-10 12:08] LABS: Basophils % 0.2 % (0.0-0.8); Hematocrit 30.1 VOL% (35.7-47.0); Immature Granulocytes Absolute 0.04 #; Lymphocytes # 0.5 10*3/uL (1.4-4.0); Mean Corpuscular HGB Conc 29.9 GM/DL (32-36); Mean Corpuscular Volume 91.5 FL (87-102); Mean Platelet Volume 11.6 FL (9.6-12.0); Monocytes % 3.6 % (1.7-12.7); Neutrophils % 83.2 % (38.7-73.9); Platelet Count 115 T/CUMM (130-400); Red Blood Count 3.29 MC/CUMM (3.8-5.5); Red Cell Distribution Width 21.9 % (9.3-17.3); White Blood Count 4.2 T/CUMM (4-12)
[2019-09-10 12:26] LABS: Calcium 7.9 MG/DL (8.5-10.1); Osmolality,Calculated 272.5 MOS/KG (273-304)
[2019-09-10] MEDS: MEROPENEM 500 MG in SODIUM CHLORIDE 0.9% 100 ML IV SCH (21:03)
[2019-09-10] MEDS: amLODIPine 5 MG TABLET PO SCH (21:04)
[2019-09-11 04:19] LABS: ABG Base Excess 5.2 MMOL/L (-2.5-2.5); ABG HCO3 29.3 MMOL/L (20-26); ABG Oxygen Saturation 97.5 % (95-100); ABG PH 7.472 (7.35-7.45); ABG PO2 101.7 MM HG (80-95); ABG TCO2 30.6 MMOL/L (23-27); Allen Test Positive; Pt O2 Delivery Device Ventilator
[2019-09-11 05:58] LABS: Eosinophils % 0.9 % (0.00-10.9); Hematocrit 29.7 VOL% (35.7-47.0); Hemoglobin 8.9 GM/DL (12.0-16.0); Immature Granulocytes % 0.9 %; Immature Granulocytes Absolute 0.02 #; Lymphocytes # 0.6 10*3/uL (1.4-4.0); Mean Corpuscular Volume 90.5 FL (87-102); Mean Platelet Volume 10.4 FL (9.6-12.0); Monocytes % 6.5 % (1.7-12.7); Neutrophils % 62.7 % (38.7-73.9); Platelet Count 104 T/CUMM (130-400); Red Blood Count 3.28 MC/CUMM (3.8-5.5); Red Cell Distribution Width 21.7 % (9.3-17.3); White Blood Count 2.1 T/CUMM (4-12)
[2019-09-11 06:21] LABS: Calcium 8.2 MG/DL (8.5-10.1); Osmolality,Calculated 271.4 MOS/KG (273-304)
[2019-09-11] MEDS: LEVOTHYROXINE 25 MCG TABLET PO SCH (06:27)
[2019-09-11] MEDS: INSULIN REGULAR 100 UNIT/ML SUBCUT SCH ×3 (06:27→17:27)
[2019-09-11 06:45] LABS: Hypochromasia 1+; Microcytosis Slight; Ovalocytes Slight; Platelet Estimate Decreased
[2019-09-11] MEDS: ZINC SULFATE 220 MG CAPSULE PO SCH (08:05)
[2019-09-11] MEDS: PANTOPRAZOLE 40 MG VIAL IV SCH (08:05)
[2019-09-11] MEDS: HYDROXYCHLOROQUINE 200 MG TABLET PO SCH ×2 (08:06→20:54)
[2019-09-11] MEDS: AZITHROMYCIN 250 MG TABLET PO SCH (08:06)
[2019-09-11] MEDS: DESITIN 4OZ/NYSTATIN 15 GRAM MIXTURE PASTE TOP SCH ×2 (08:06→20:54)
[2019-09-11] MEDS: METOPROLOL TARTRATE 50 MG TABLET PO SCH (08:06)
[2019-09-11] MEDS: ENOXAPARIN 30 MG/0.3 ML SYRINGE SUBCUT SCH (10:00)
[2019-09-11] MEDS: fentaNYL INJ 1,250 MCG in SODIUM CHLORIDE 0.9% 225 ML IV PRN (11:50)
[2019-09-11] MEDS: amLODIPine 5 MG TABLET PO SCH (20:30)
[2019-09-11] MEDS: MEROPENEM 500 MG in SODIUM CHLORIDE 0.9% 100 ML IV SCH (20:54)
[2019-09-12] MEDS: INSULIN REGULAR 100 UNIT/ML SUBCUT SCH ×4 (02:42→18:14)
[2019-09-12 05:08] LABS: ABG Base Excess 3.3 MMOL/L (-2.5-2.5); ABG HCO3 27.4 MMOL/L (20-26); ABG Oxygen Saturation 97.7 % (95-100); ABG PH 7.454 (7.35-7.45); ABG PO2 93.9 MM HG (80-95); Allen Test Positive; Pt O2 Delivery Device Ventilator
[2019-09-12] MEDS: LEVOTHYROXINE 25 MCG TABLET PO SCH (06:26)
[2019-09-12] MEDS: PANTOPRAZOLE 40 MG VIAL IV SCH (08:06)
[2019-09-12] MEDS: HYDROXYCHLOROQUINE 200 MG TABLET PO SCH (08:07)
[2019-09-12] MEDS: METOPROLOL TARTRATE 50 MG TABLET PO SCH (08:07)
[2019-09-12] MEDS: DESITIN 4OZ/NYSTATIN 15 GRAM MIXTURE PASTE TOP SCH ×2 (08:07→20:32)
[2019-09-12] MEDS: ENOXAPARIN 30 MG/0.3 ML SYRINGE SUBCUT SCH (10:08)
[2019-09-12 10:11] LABS: PT Patient Result 10.8 SECS (9.8-11.9); Partial Thromboplastin Time 36.1 SECS (23.9-33.8)
[2019-09-12 10:14] LABS: Basophils % 0.3 % (0.0-0.8); Eosinophils # 0.1 10*3/uL (0.0-0.87); Hemoglobin 11.2 GM/DL (12.0-16.0); Immature Granulocytes % 0.7 %; Immature Granulocytes Absolute 0.02 #; Lymphocytes # 0.7 10*3/uL (1.4-4.0); Lymphocytes % 22.7 % (21.3-54.2); Mean Corpuscular HGB Conc 30.3 GM/DL (32-36); Mean Platelet Volume 10.7 FL (9.6-12.0); Neutrophils % 68.3 % (38.7-73.9); Platelet Count 127 T/CUMM (130-400); Red Blood Count 4.11 MC/CUMM (3.8-5.5); Red Cell Distribution Width 21.8 % (9.3-17.3)
[2019-09-12] MEDS: MEROPENEM 500 MG in SODIUM CHLORIDE 0.9% 100 ML IV SCH (20:31)
[2019-09-12] MEDS: amLODIPine 5 MG TABLET PO SCH (20:32)
[2019-09-13] MEDS: INSULIN REGULAR 100 UNIT/ML SUBCUT SCH ×4 (02:25→17:51)
[2019-09-13 03:59] LABS: ABG Base Excess 0.5 MMOL/L (-2.5-2.5); ABG HCO3 25.1 MMOL/L (20-26); ABG PCO2 40.4 MM HG (35-48); ABG PH 7.412 (7.35-7.45); ABG PO2 89.9 MM HG (80-95); ABG TCO2 26.4 MMOL/L (23-27)
[2019-09-13] MEDS: LEVOTHYROXINE 25 MCG TABLET PO SCH (04:32)
[2019-09-13 05:00] LABS: Basophils % 0.3 % (0.0-0.8); Eosinophils # 0.1 10*3/uL (0.0-0.87); Hematocrit 30.4 VOL% (35.7-47.0); Hemoglobin 9.4 GM/DL (12.0-16.0); Immature Granulocytes % 0.7 %; Immature Granulocytes Absolute 0.02 #; Lymphocytes # 0.5 10*3/uL (1.4-4.0); Lymphocytes % 16.9 % (21.3-54.2); Mean Corpuscular HGB Conc 30.9 GM/DL (32-36); Mean Corpuscular Volume 88.9 FL (87-102); Monocytes % 3.7 % (1.7-12.7); Neutrophils % 76.4 % (38.7-73.9); Platelet Count 163 T/CUMM (130-400); Red Blood Count 3.42 MC/CUMM (3.8-5.5); Red Cell Distribution Width 21.3 % (9.3-17.3)
[2019-09-13 05:15] LABS: Calcium 8.1 MG/DL (8.5-10.1); Osmolality,Calculated 274.8 MOS/KG (273-304)
[2019-09-13 05:18] LABS: PT Patient Result 10.8 SECS (9.8-11.9); Partial Thromboplastin Time 38.9 SECS (23.9-33.8)
[2019-09-13 05:23] LABS: Prealbumin 10.7 MG/DL (20-40)
[2019-09-13 05:46] LABS: Albumin 2.4 G/DL (3.4-5.0); Bilirubin,Direct 0.22 MG/DL (0.0-0.20); Bilirubin,Indirect 0.3 MG/DL (0.0-1.0); Bilirubin,Total 0.5 MG/DL (0.2-1.0); Ferritin 1828.8 ng/ml (8-252); Total Protein 5.4 G/DL (6.4-8.3)
[2019-09-13] MEDS: METOPROLOL TARTRATE 50 MG TABLET PO SCH (08:08)
[2019-09-13] MEDS: PANTOPRAZOLE 40 MG VIAL IV SCH (08:08)
[2019-09-13] MEDS: DESITIN 4OZ/NYSTATIN 15 GRAM MIXTURE PASTE TOP SCH ×2 (08:08→21:04)
[2019-09-13] MEDS: ENOXAPARIN 30 MG/0.3 ML SYRINGE SUBCUT SCH (11:47)
[2019-09-13] MEDS: fentaNYL INJ 1,250 MCG in SODIUM CHLORIDE 0.9% 225 ML IV PRN (19:00)
[2019-09-13] MEDS: MEROPENEM 500 MG in SODIUM CHLORIDE 0.9% 100 ML IV SCH (20:51)
[2019-09-13] MEDS: amLODIPine 5 MG TABLET PO SCH (21:04)
[2019-09-14] MEDS: INSULIN REGULAR 100 UNIT/ML SUBCUT SCH ×4 (01:25→18:14)
[2019-09-14 04:13] LABS: ABG Base Excess 0.3 MMOL/L (-2.5-2.5); ABG HCO3 24.5 MMOL/L (20-26); ABG Oxygen Saturation 96.9 % (95-100); ABG PCO2 37.8 MM HG (35-48); ABG PH 7.429 (7.35-7.45); ABG PO2 97.2 MM HG (80-95); ABG TCO2 25.6 MMOL/L (23-27); Allen Test Positive; Pt O2 Delivery Device Ventilator
[2019-09-14] MEDS: LEVOTHYROXINE 25 MCG TABLET PO SCH (06:45)
[2019-09-14 07:10] LABS: Calcium 8.2 MG/DL (8.5-10.1); Osmolality,Calculated 271.5 MOS/KG (273-304)
[2019-09-14] MEDS: PANTOPRAZOLE 40 MG VIAL IV SCH (08:04)
[2019-09-14] MEDS: METOPROLOL TARTRATE 50 MG TABLET PO SCH (08:04)
[2019-09-14] MEDS: DESITIN 4OZ/NYSTATIN 15 GRAM MIXTURE PASTE TOP SCH ×2 (08:05→22:55)
[2019-09-14] MEDS: METOCLOPRAMIDE 10 MG/10 ML UDCUP PEG SCH ×3 (10:21→20:32)
[2019-09-14] MEDS: ENOXAPARIN 30 MG/0.3 ML SYRINGE SUBCUT SCH (11:34)
[2019-09-14] MEDS: MEROPENEM 500 MG in SODIUM CHLORIDE 0.9% 100 ML IV SCH (20:33)
[2019-09-14] MEDS: amLODIPine 5 MG TABLET PO SCH (20:33)
[2019-09-15] MEDS: INSULIN REGULAR 100 UNIT/ML SUBCUT SCH ×4 (02:04→17:33)
[2019-09-15] MEDS: METOCLOPRAMIDE 10 MG/10 ML UDCUP PEG SCH ×4 (03:07→20:48)
[2019-09-15 03:46] LABS: Allen Test Positive; Pt O2 Delivery Device Ventilator
[2019-09-15 03:51] LABS: ABG Base Excess -1.9 MMOL/L (-2.5-2.5); ABG HCO3 23.2 MMOL/L (20-26); ABG Oxygen Saturation 96.6 % (95-100); ABG PCO2 40.7 MM HG (35-48); ABG PH 7.373 (7.35-7.45); ABG PO2 96.9 MM HG (80-95); ABG TCO2 24.4 MMOL/L (23-27)
[2019-09-15] MEDS: LEVOTHYROXINE 25 MCG TABLET PO SCH (06:46)
[2019-09-15] MEDS: PANTOPRAZOLE 40 MG VIAL IV SCH (08:14)
[2019-09-15] MEDS: DESITIN 4OZ/NYSTATIN 15 GRAM MIXTURE PASTE TOP SCH ×2 (08:15→20:47)
[2019-09-15] MEDS: METOPROLOL TARTRATE 50 MG TABLET PO SCH (08:15)
[2019-09-15 10:21] LABS: Basophils % 0.4 % (0.0-0.8); Eosinophils # 0.1 10*3/uL (0.0-0.87); Eosinophils % 1.7 % (0.00-10.9); Hematocrit 32.3 VOL% (35.7-47.0); Hemoglobin 9.7 GM/DL (12.0-16.0); Immature Granulocytes % 0.8 %; Immature Granulocytes Absolute 0.04 #; Lymphocytes # 0.5 10*3/uL (1.4-4.0); Lymphocytes % 10.3 % (21.3-54.2); Mean Corpuscular Volume 91.2 FL (87-102); Mean Platelet Volume 10.2 FL (9.6-12.0); Monocytes % 3.7 % (1.7-12.7); Neutrophils % 83.1 % (38.7-73.9); Platelet Count 196 T/CUMM (130-400); Red Blood Count 3.54 MC/CUMM (3.8-5.5); Red Cell Distribution Width 20.6 % (9.3-17.3); White Blood Count 5.2 T/CUMM (4-12)
[2019-09-15] MEDS: ENOXAPARIN 30 MG/0.3 ML SYRINGE SUBCUT SCH (10:28)
[2019-09-15] MEDS ORDERED: MORPHINE 4 MG/1 ML VIAL IV PRN (10:52)
[2019-09-15 10:55] LABS: Calcium 8.4 MG/DL (8.5-10.1); Osmolality,Calculated 273.8 MOS/KG (273-304)
[2019-09-15] MEDS: ACETAMINOPHEN 325 MG TABLET PO PRN (20:40)
[2019-09-15] MEDS: amLODIPine 5 MG TABLET PO SCH (20:47)
[2019-09-16] MEDS: INSULIN REGULAR 100 UNIT/ML SUBCUT SCH ×4 (00:22→18:35)
[2019-09-16 04:29] LABS: ABG Base Excess -0.8 MMOL/L (-2.5-2.5); ABG HCO3 23.9 MMOL/L (20-26); ABG Oxygen Saturation 97.1 % (95-100); ABG PCO2 39.4 MM HG (35-48); ABG TCO2 25.1 MMOL/L (23-27); Allen Test Positive; Pt O2 Delivery Device Ventilator
[2019-09-16] MEDS: METOCLOPRAMIDE 10 MG/10 ML UDCUP PEG SCH ×4 (04:40→21:43)
[2019-09-16 05:59] LABS: Basophils % 0.4 % (0.0-0.8); Eosinophils # 0.1 10*3/uL (0.0-0.87); Eosinophils % 1.4 % (0.00-10.9); Hematocrit 27.8 VOL% (35.7-47.0); Hemoglobin 8.8 GM/DL (12.0-16.0); Immature Granulocytes % 1.6 %; Immature Granulocytes Absolute 0.08 #; Lymphocytes # 0.6 10*3/uL (1.4-4.0); Lymphocytes % 11.8 % (21.3-54.2); Mean Corpuscular HGB Conc 31.7 GM/DL (32-36); Mean Platelet Volume 11.5 FL (9.6-12.0); Monocytes % 4.1 % (1.7-12.7); Neutrophils % 80.7 % (38.7-73.9); Platelet Count 205 T/CUMM (130-400); Red Blood Count 3.16 MC/CUMM (3.8-5.5); Red Cell Distribution Width 20.4 % (9.3-17.3); White Blood Count 4.9 T/CUMM (4-12)
[2019-09-16 06:05] LABS: Calcium 8.8 MG/DL (8.5-10.1); Osmolality,Calculated 271.8 MOS/KG (273-304)
[2019-09-16 06:12] LABS: Albumin 2.3 G/DL (3.4-5.0); Bilirubin,Direct 0.29 MG/DL (0.0-0.20); Bilirubin,Indirect 0.4 MG/DL (0.0-1.0); Bilirubin,Total 0.7 MG/DL (0.2-1.0); Total Protein 5.5 G/DL (6.4-8.3)
[2019-09-16] MEDS: LEVOTHYROXINE 25 MCG TABLET PO SCH (06:19)
[2019-09-16 06:34] LABS: Prealbumin 8.7 MG/DL (20-40)
[2019-09-16] MEDS: METOPROLOL TARTRATE 50 MG TABLET PO SCH (08:26)
[2019-09-16] MEDS: PANTOPRAZOLE 40 MG VIAL IV SCH (08:26)
[2019-09-16] MEDS: DESITIN 4OZ/NYSTATIN 15 GRAM MIXTURE PASTE TOP SCH ×2 (08:27→21:43)
[2019-09-16] MEDS ORDERED: NOREPINEPHRINE 8 MG in SODIUM CHLORIDE 0.9% 242 ML IV PRN (09:11)
[2019-09-16] MEDS ORDERED: NOREPINEPHRINE 4 MG/4 ML VIAL IV ONE (09:13)
[2019-09-16] MEDS ORDERED: EPOETIN ALFA 2,000 UNIT/1 ML VIAL IV PRN (10:56)
[2019-09-16] MEDS: ENOXAPARIN 30 MG/0.3 ML SYRINGE SUBCUT SCH (11:37)
[2019-09-17] MEDS: INSULIN REGULAR 100 UNIT/ML SUBCUT SCH ×4 (01:55→18:37)
[2019-09-17] MEDS: METOCLOPRAMIDE 10 MG/10 ML UDCUP PEG SCH ×4 (04:49→21:23)
[2019-09-17] MEDS: LEVOTHYROXINE 25 MCG TABLET PO SCH (06:13)
[2019-09-17] MEDS: PANTOPRAZOLE 40 MG VIAL IV SCH (09:06)
[2019-09-17 09:07] LABS: ABG Base Excess -2.8 MMOL/L (-2.5-2.5); ABG HCO3 22.1 MMOL/L (20-26); ABG Oxygen Saturation 99.3 % (95-100); ABG PCO2 41.1 MM HG (35-48); ABG PH 7.349 (7.35-7.45); ABG TCO2 21.1 MMOL/L (23-27)
[2019-09-17] MEDS: DESITIN 4OZ/NYSTATIN 15 GRAM MIXTURE PASTE TOP SCH ×2 (09:07→21:23)
[2019-09-17 11:41] LABS: Basophils % 0.4 % (0.0-0.8); Eosinophils # 0.1 10*3/uL (0.0-0.87); Eosinophils % 2.5 % (0.00-10.9); Hematocrit 27.6 VOL% (35.7-47.0); Hemoglobin 8.5 GM/DL (12.0-16.0); Immature Granulocytes % 1.7 %; Immature Granulocytes Absolute 0.08 #; Lymphocytes # 0.6 10*3/uL (1.4-4.0); Lymphocytes % 12.7 % (21.3-54.2); Mean Corpuscular HGB Conc 30.8 GM/DL (32-36); Mean Corpuscular Volume 89.3 FL (87-102); Mean Platelet Volume 10.4 FL (9.6-12.0); Monocytes % 5.6 % (1.7-12.7); Neutrophils % 77.1 % (38.7-73.9); Platelet Count 226 T/CUMM (130-400); Red Blood Count 3.09 MC/CUMM (3.8-5.5); Red Cell Distribution Width 20.2 % (9.3-17.3); White Blood Count 4.8 T/CUMM (4-12)
[2019-09-17 12:08] LABS: Calcium 8.4 MG/DL (8.5-10.1); Osmolality,Calculated 273.9 MOS/KG (273-304)
[2019-09-17] MEDS: ENOXAPARIN 30 MG/0.3 ML SYRINGE SUBCUT SCH (13:19)
[2019-09-18] MEDS: INSULIN REGULAR 100 UNIT/ML SUBCUT SCH ×4 (00:51→19:05)
[2019-09-18] MEDS: METOCLOPRAMIDE 10 MG/10 ML UDCUP PEG SCH ×2 (03:45→09:45)
[2019-09-18 04:06] LABS: Basophils % 0.5 % (0.0-0.8); Eosinophils # 0.1 10*3/uL (0.0-0.87); Hematocrit 28.2 VOL% (35.7-47.0); Hemoglobin 8.6 GM/DL (12.0-16.0); Immature Granulocytes % 1.4 %; Immature Granulocytes Absolute 0.06 #; Lymphocytes # 0.5 10*3/uL (1.4-4.0); Lymphocytes % 12.1 % (21.3-54.2); Mean Corpuscular HGB Conc 30.5 GM/DL (32-36); Mean Platelet Volume 10.1 FL (9.6-12.0); Monocytes % 5.8 % (1.7-12.7); Neutrophils % 77.2 % (38.7-73.9); Platelet Count 223 T/CUMM (130-400); Red Blood Count 3.17 MC/CUMM (3.8-5.5); White Blood Count 4.3 T/CUMM (4-12)
[2019-09-18 04:16] LABS: Calcium 8.5 MG/DL (8.5-10.1); Osmolality,Calculated 270.7 MOS/KG (273-304)
[2019-09-18 04:49] LABS: ABG Base Excess -0.9 MMOL/L (-2.5-2.5); ABG HCO3 23.7 MMOL/L (20-26); ABG Oxygen Saturation 98.6 % (95-100); ABG PCO2 42.9 MM HG (35-48); ABG PH 7.364 (7.35-7.45); ABG TCO2 22.6 MMOL/L (23-27); Allen Test Positive; Pt O2 Delivery Device Ventilator
[2019-09-18] MEDS: LEVOTHYROXINE 25 MCG TABLET PO SCH (05:31)
[2019-09-18] MEDS: MULTIVITAMIN LIQUID (CENTRUM) 60 ML BOTTLE PO SCH (09:44)
[2019-09-18] MEDS: PANTOPRAZOLE 40 MG VIAL IV SCH (09:44)
[2019-09-18] MEDS: DESITIN 4OZ/NYSTATIN 15 GRAM MIXTURE PASTE TOP SCH ×2 (09:45→20:32)
[2019-09-18] MEDS: ENOXAPARIN 30 MG/0.3 ML SYRINGE SUBCUT SCH (14:10)
[2019-09-18] MEDS: DEXTROSE 5% NACL 0.9% 1,000 ML IV SCH (16:06)
[2019-09-18] MEDS: LACTULOSE 20 GM/30 ML UDCUP PO SCH (18:00)
[2019-09-18] MEDS: METOCLOPRAMIDE 10 MG/2 ML VIAL IV SCH (18:00)
[2019-09-19] MEDS: LACTULOSE 20 GM/30 ML UDCUP PO SCH ×5 (00:06→23:50)
[2019-09-19] MEDS: METOCLOPRAMIDE 10 MG/2 ML VIAL IV SCH ×5 (00:06→23:51)
[2019-09-19] MEDS: INSULIN REGULAR 100 UNIT/ML SUBCUT SCH ×4 (00:06→17:55)
[2019-09-19 05:12] LABS: ABG Base Excess -3.7 MMOL/L (-2.5-2.5); ABG HCO3 21.4 MMOL/L (20-26); ABG Oxygen Saturation 98.3 % (95-100); ABG PCO2 42.4 MM HG (35-48); ABG PH 7.327 (7.35-7.45); ABG TCO2 19.9 MMOL/L (23-27); Allen Test Positive; Pt O2 Delivery Device Ventilator
[2019-09-19] MEDS: LEVOTHYROXINE 25 MCG TABLET PO SCH (05:44)
[2019-09-19 06:44] LABS: Basophils % 0.5 % (0.0-0.8); Eosinophils # 0.2 10*3/uL (0.0-0.87); Eosinophils % 2.7 % (0.00-10.9); Hematocrit 28.6 VOL% (35.7-47.0); Hemoglobin 9.1 GM/DL (12.0-16.0); Immature Granulocytes % 1.1 %; Immature Granulocytes Absolute 0.06 #; Lymphocytes # 0.5 10*3/uL (1.4-4.0); Lymphocytes % 8.9 % (21.3-54.2); Mean Corpuscular HGB Conc 31.8 GM/DL (32-36); Mean Corpuscular Volume 87.5 FL (87-102); Mean Platelet Volume 10.4 FL (9.6-12.0); Monocytes % 6.7 % (1.7-12.7); Neutrophils % 80.1 % (38.7-73.9); Platelet Count 263 T/CUMM (130-400); Red Blood Count 3.27 MC/CUMM (3.8-5.5); Red Cell Distribution Width 19.9 % (9.3-17.3); White Blood Count 5.6 T/CUMM (4-12)
[2019-09-19 06:55] LABS: Calcium 8.8 MG/DL (8.5-10.1); Osmolality,Calculated 270.8 MOS/KG (273-304)
[2019-09-19] MEDS: PANTOPRAZOLE 40 MG VIAL IV SCH (09:39)
[2019-09-19] MEDS: DESITIN 4OZ/NYSTATIN 15 GRAM MIXTURE PASTE TOP SCH ×2 (09:40→20:51)
[2019-09-19] MEDS: MULTIVITAMIN LIQUID (CENTRUM) 60 ML BOTTLE PO SCH (09:40)
[2019-09-19] MEDS: ENOXAPARIN 30 MG/0.3 ML SYRINGE SUBCUT SCH ×2 (09:44→10:51)
[2019-09-19] MEDS: DEXTROSE 5% NACL 0.9% 1,000 ML IV SCH (12:00)
[2019-09-20] MEDS: ACETAMINOPHEN 325 MG TABLET PO PRN (00:32)
[2019-09-20] MEDS: INSULIN REGULAR 100 UNIT/ML SUBCUT SCH ×4 (01:20→18:44)
[2019-09-20 04:22] LABS: ABG Base Excess -5.3 MMOL/L (-2.5-2.5); ABG Oxygen Saturation 98.3 % (95-100); ABG PH 7.295 (7.35-7.45); ABG TCO2 19.5 MMOL/L (23-27); Allen Test Positive; Pt O2 Delivery Device Ventilator
[2019-09-20] MEDS: METOCLOPRAMIDE 10 MG/2 ML VIAL IV SCH ×3 (05:30→17:09)
[2019-09-20] MEDS: LACTULOSE 20 GM/30 ML UDCUP PO SCH ×3 (05:35→17:09)
[2019-09-20] MEDS: LEVOTHYROXINE 25 MCG TABLET PO SCH (05:35)
[2019-09-20 05:41] LABS: Basophils % 0.3 % (0.0-0.8); Eosinophils # 0.1 10*3/uL (0.0-0.87); Eosinophils % 2.1 % (0.00-10.9); Hematocrit 27.4 VOL% (35.7-47.0); Hemoglobin 8.3 GM/DL (12.0-16.0); Immature Granulocytes % 1.2 %; Immature Granulocytes Absolute 0.07 #; Lymphocytes # 0.6 10*3/uL (1.4-4.0); Lymphocytes % 10.6 % (21.3-54.2); Mean Corpuscular HGB Conc 30.3 GM/DL (32-36); Mean Corpuscular Volume 89.3 FL (87-102); Mean Platelet Volume 10.1 FL (9.6-12.0); Neutrophils % 77.8 % (38.7-73.9); Platelet Count 238 T/CUMM (130-400); Red Blood Count 3.07 MC/CUMM (3.8-5.5); Red Cell Distribution Width 19.9 % (9.3-17.3); White Blood Count 5.8 T/CUMM (4-12)
[2019-09-20 06:04] LABS: Calcium 8.6 MG/DL (8.5-10.1); Osmolality,Calculated 280.5 MOS/KG (273-304)
[2019-09-20] MEDS: PANTOPRAZOLE 40 MG VIAL IV SCH (09:04)
[2019-09-20] MEDS: MULTIVITAMIN LIQUID (CENTRUM) 60 ML BOTTLE PO SCH (09:07)
[2019-09-20] MEDS: DEXTROSE 5% NACL 0.9% 1,000 ML IV SCH (09:09)
[2019-09-20] MEDS: DESITIN 4OZ/NYSTATIN 15 GRAM MIXTURE PASTE TOP SCH ×2 (09:11→21:32)
[2019-09-20 10:14] LABS: ABG Base Excess -5.5 MMOL/L (-2.5-2.5); ABG HCO3 19.6 MMOL/L (20-26); ABG Oxygen Saturation 74.4 % (95-100); ABG PCO2 45.6 MM HG (35-48); ABG PH 7.276 (7.35-7.45); ABG PO2 47.8 MM HG (80-95); ABG TCO2 19.9 MMOL/L (23-27)
[2019-09-20] MEDS: ENOXAPARIN 30 MG/0.3 ML SYRINGE SUBCUT SCH (15:03)
[2019-09-20] MEDS ORDERED: RACEPINEPHRINE 0.5 ML NEB RESP TX ONE (18:16)
[2019-09-20] MEDS: HEPARIN 5,000 UNIT/1 ML VIAL SUBCUT SCH (21:44)
[2019-09-21] MEDS: LACTULOSE 20 GM/30 ML UDCUP PO SCH ×2 (00:44→06:09)
[2019-09-21] MEDS: INSULIN REGULAR 100 UNIT/ML SUBCUT SCH ×4 (00:44→17:56)
[2019-09-21] MEDS: METOCLOPRAMIDE 10 MG/2 ML VIAL IV SCH ×5 (00:45→23:53)
[2019-09-21] MEDS: DEXTROSE 5% NACL 0.9% 1,000 ML IV SCH (04:38)
[2019-09-21 04:59] LABS: ABG Base Excess -4.1 MMOL/L (-2.5-2.5); ABG Oxygen Saturation 98.5 % (95-100); ABG PCO2 41.6 MM HG (35-48); ABG PH 7.325 (7.35-7.45); ABG TCO2 20.1 MMOL/L (23-27)
[2019-09-21 06:07] LABS: Basophils % 0.5 % (0.0-0.8); Eosinophils # 0.1 10*3/uL (0.0-0.87); Eosinophils % 2.2 % (0.00-10.9); Hematocrit 28.3 VOL% (35.7-47.0); Hemoglobin 8.5 GM/DL (12.0-16.0); Immature Granulocytes % 1.9 %; Immature Granulocytes Absolute 0.11 #; Lymphocytes # 0.6 10*3/uL (1.4-4.0); Lymphocytes % 10.8 % (21.3-54.2); Mean Corpuscular Volume 90.4 FL (87-102); Mean Platelet Volume 9.6 FL (9.6-12.0); Monocytes % 8.7 % (1.7-12.7); Neutrophils % 75.9 % (38.7-73.9); Platelet Count 261 T/CUMM (130-400); Red Blood Count 3.13 MC/CUMM (3.8-5.5); White Blood Count 5.9 T/CUMM (4-12)
[2019-09-21] MEDS: LEVOTHYROXINE 25 MCG TABLET PO SCH (06:08)
[2019-09-21] MEDS: HEPARIN 5,000 UNIT/1 ML VIAL SUBCUT SCH ×2 (09:05→20:37)
[2019-09-21] MEDS: MULTIVITAMIN LIQUID (CENTRUM) 60 ML BOTTLE PO SCH (09:06)
[2019-09-21] MEDS: DESITIN 4OZ/NYSTATIN 15 GRAM MIXTURE PASTE TOP SCH ×2 (09:06→20:37)
[2019-09-21] MEDS: PANTOPRAZOLE 40 MG VIAL IV SCH (09:06)
[2019-09-21] MEDS ORDERED: LACTULOSE 20 GM/30 ML UDCUP PO PRN (09:23)
[2019-09-21] MEDS: methylPREDNISolone SOD SUC 40 MG/1 ML VIAL IV SCH ×2 (12:07→20:37)
[2019-09-22] MEDS: INSULIN REGULAR 100 UNIT/ML SUBCUT SCH ×4 (00:14→17:28)
[2019-09-22 04:34] LABS: ABG Base Excess -5.7 MMOL/L (-2.5-2.5); ABG HCO3 19.7 MMOL/L (20-26); ABG Oxygen Saturation 99.4 % (95-100); ABG PCO2 35.1 MM HG (35-48); ABG PH 7.348 (7.35-7.45); ABG TCO2 17.6 MMOL/L (23-27); Allen Test Positive; Pt O2 Delivery Device Ventilator
[2019-09-22] MEDS: methylPREDNISolone SOD SUC 40 MG/1 ML VIAL IV SCH ×3 (04:50→20:47)
[2019-09-22] MEDS: METOCLOPRAMIDE 10 MG/2 ML VIAL IV SCH ×3 (05:20→17:10)
[2019-09-22 05:24] LABS: Basophils % 0.2 % (0.0-0.8); Eosinophils % 0.1 % (0.00-10.9); Hematocrit 28.2 VOL% (35.7-47.0); Hemoglobin 8.6 GM/DL (12.0-16.0); Immature Granulocytes % 1.5 %; Immature Granulocytes Absolute 0.15 #; Lymphocytes # 0.5 10*3/uL (1.4-4.0); Lymphocytes % 5.4 % (21.3-54.2); Mean Corpuscular HGB Conc 30.5 GM/DL (32-36); Mean Corpuscular Volume 89.8 FL (87-102); Monocytes % 7.4 % (1.7-12.7); Neutrophils % 85.4 % (38.7-73.9); Platelet Count 291 T/CUMM (130-400); Red Blood Count 3.14 MC/CUMM (3.8-5.5); Red Cell Distribution Width 20.1 % (9.3-17.3)
[2019-09-22 05:35] LABS: Calcium 9.3 MG/DL (8.5-10.1)
[2019-09-22] MEDS: LEVOTHYROXINE 25 MCG TABLET PO SCH (05:59)
[2019-09-22] MEDS: PANTOPRAZOLE 40 MG VIAL IV SCH (09:15)
[2019-09-22] MEDS: MULTIVITAMIN LIQUID (CENTRUM) 60 ML BOTTLE PO SCH (09:15)
[2019-09-22] MEDS: DESITIN 4OZ/NYSTATIN 15 GRAM MIXTURE PASTE TOP SCH ×2 (09:25→20:48)
[2019-09-22] MEDS: HEPARIN 5,000 UNIT/1 ML VIAL SUBCUT SCH ×2 (10:48→20:48)
[2019-09-23] MEDS: METOCLOPRAMIDE 10 MG/2 ML VIAL IV SCH ×5 (00:15→23:58)
[2019-09-23] MEDS: INSULIN REGULAR 100 UNIT/ML SUBCUT SCH ×5 (00:15→23:58)
[2019-09-23] MEDS: ACETAMINOPHEN 325 MG TABLET PO PRN (00:45)
[2019-09-23] MEDS: methylPREDNISolone SOD SUC 40 MG/1 ML VIAL IV SCH ×3 (04:30→20:55)
[2019-09-23 05:13] LABS: Basophils % 0.2 % (0.0-0.8); Hematocrit 27.1 VOL% (35.7-47.0); Hemoglobin 8.2 GM/DL (12.0-16.0); Immature Granulocytes % 1.1 %; Immature Granulocytes Absolute 0.11 #; Lymphocytes # 0.6 10*3/uL (1.4-4.0); Lymphocytes % 6.3 % (21.3-54.2); Mean Corpuscular HGB Conc 30.3 GM/DL (32-36); Mean Corpuscular Volume 91.6 FL (87-102); Mean Platelet Volume 9.6 FL (9.6-12.0); Monocytes % 9.2 % (1.7-12.7); Neutrophils % 83.2 % (38.7-73.9); Platelet Count 282 T/CUMM (130-400); Red Blood Count 2.96 MC/CUMM (3.8-5.5); Red Cell Distribution Width 20.3 % (9.3-17.3); White Blood Count 10.2 T/CUMM (4-12)
[2019-09-23 05:18] LABS: ABG Base Excess -0.8 MMOL/L (-2.5-2.5); ABG HCO3 23.7 MMOL/L (20-26); ABG Oxygen Saturation 99.4 % (95-100); ABG PCO2 33.3 MM HG (35-48); ABG PH 7.443 (7.35-7.45); ABG TCO2 21.1 MMOL/L (23-27)
[2019-09-23 05:20] LABS: Calcium 8.7 MG/DL (8.5-10.1); Osmolality,Calculated 282.1 MOS/KG (273-304)
[2019-09-23] MEDS: LEVOTHYROXINE 25 MCG TABLET PO SCH (06:39)
[2019-09-23] MEDS: HEPARIN 5,000 UNIT/1 ML VIAL SUBCUT SCH ×2 (10:20→21:39)
[2019-09-23] MEDS: PANTOPRAZOLE 40 MG VIAL IV SCH (10:20)
[2019-09-23] MEDS: MULTIVITAMIN LIQUID (CENTRUM) 60 ML BOTTLE PO SCH (10:25)
[2019-09-23] MEDS: DESITIN 4OZ/NYSTATIN 15 GRAM MIXTURE PASTE TOP SCH ×2 (10:27→21:39)
[2019-09-23] MEDS ORDERED: POTASSIUM CHLORIDE 20 MEQ/15 ML UDCUP PER TUBE PRN (20:09)
[2019-09-23] MEDS: POTASSIUM CHLORIDE RIDER 10 MEQ in PREMIX 1 EACH IV PRN ×2 (22:39→23:27)
[2019-09-24] MEDS: POTASSIUM CHLORIDE RIDER 10 MEQ in PREMIX 1 EACH IV PRN (00:27)
[2019-09-24] MEDS: methylPREDNISolone SOD SUC 40 MG/1 ML VIAL IV SCH ×3 (04:24→20:37)
[2019-09-24 05:03] LABS: Basophils % 0.1 % (0.0-0.8); Hematocrit 25.2 VOL% (35.7-47.0); Hemoglobin 7.6 GM/DL (12.0-16.0); Immature Granulocytes % 0.9 %; Immature Granulocytes Absolute 0.07 #; Lymphocytes # 0.6 10*3/uL (1.4-4.0); Lymphocytes % 8.1 % (21.3-54.2); Mean Corpuscular HGB Conc 30.2 GM/DL (32-36); Mean Platelet Volume 9.9 FL (9.6-12.0); Monocytes % 6.6 % (1.7-12.7); Neutrophils % 84.3 % (38.7-73.9); Platelet Count 247 T/CUMM (130-400); Red Blood Count 2.77 MC/CUMM (3.8-5.5); Red Cell Distribution Width 20.1 % (9.3-17.3); White Blood Count 7.7 T/CUMM (4-12)
[2019-09-24 05:13] LABS: ABG Base Excess -4.4 MMOL/L (-2.5-2.5); ABG HCO3 20.8 MMOL/L (20-26); ABG PCO2 35.1 MM HG (35-48); ABG PH 7.369 (7.35-7.45); ABG TCO2 18.4 MMOL/L (23-27); Allen Test Positive; Pt O2 Delivery Device Ventilator
[2019-09-24 05:26] LABS: Calcium 8.9 MG/DL (8.5-10.1); Osmolality,Calculated 292.1 MOS/KG (273-304)
[2019-09-24] MEDS: METOCLOPRAMIDE 10 MG/2 ML VIAL IV SCH ×3 (06:31→17:31)
[2019-09-24] MEDS: INSULIN REGULAR 100 UNIT/ML SUBCUT SCH ×3 (06:31→17:51)
[2019-09-24] MEDS: LEVOTHYROXINE 25 MCG TABLET PO SCH (06:31)
[2019-09-24] MEDS: PANTOPRAZOLE 40 MG VIAL IV SCH (08:54)
[2019-09-24] MEDS: HEPARIN 5,000 UNIT/1 ML VIAL SUBCUT SCH ×2 (08:54→20:37)
[2019-09-24] MEDS: MULTIVITAMIN LIQUID (CENTRUM) 60 ML BOTTLE PO SCH (08:56)
[2019-09-24] MEDS: DESITIN 4OZ/NYSTATIN 15 GRAM MIXTURE PASTE TOP SCH ×2 (09:00→20:37)
[2019-09-25] MEDS: INSULIN REGULAR 100 UNIT/ML SUBCUT SCH ×4 (00:31→18:18)
[2019-09-25] MEDS: METOCLOPRAMIDE 10 MG/2 ML VIAL IV SCH ×4 (00:32→18:18)
[2019-09-25 04:24] LABS: ABG Base Excess -1.1 MMOL/L (-2.5-2.5); ABG HCO3 23.5 MMOL/L (20-26); ABG Oxygen Saturation 96.8 % (95-100); ABG PH 7.382 (7.35-7.45); ABG PO2 83.3 MM HG (80-95); ABG TCO2 22.6 MMOL/L (23-27)
[2019-09-25] MEDS: methylPREDNISolone SOD SUC 40 MG/1 ML VIAL IV SCH ×3 (04:30→20:40)
[2019-09-25 05:21] LABS: Basophils % 0.2 % (0.0-0.8); Eosinophils % 0.1 % (0.00-10.9); Hematocrit 26.1 VOL% (35.7-47.0); Hemoglobin 8.1 GM/DL (12.0-16.0); Immature Granulocytes % 0.8 %; Immature Granulocytes Absolute 0.07 #; Lymphocytes # 0.7 10*3/uL (1.4-4.0); Lymphocytes % 8.4 % (21.3-54.2); Mean Corpuscular Volume 88.8 FL (87-102); Mean Platelet Volume 10.6 FL (9.6-12.0); Monocytes % 7.8 % (1.7-12.7); Neutrophils % 82.7 % (38.7-73.9); Platelet Count 302 T/CUMM (130-400); Red Blood Count 2.94 MC/CUMM (3.8-5.5); Red Cell Distribution Width 20.1 % (9.3-17.3); White Blood Count 8.8 T/CUMM (4-12)
[2019-09-25 05:33] LABS: Calcium 9.2 MG/DL (8.5-10.1)
[2019-09-25] MEDS: LEVOTHYROXINE 25 MCG TABLET PO SCH (05:50)
[2019-09-25] MEDS: PANTOPRAZOLE 40 MG VIAL IV SCH (08:26)
[2019-09-25] MEDS: HEPARIN 5,000 UNIT/1 ML VIAL SUBCUT SCH ×2 (08:27→20:40)
[2019-09-25] MEDS: DESITIN 4OZ/NYSTATIN 15 GRAM MIXTURE PASTE TOP SCH ×2 (08:29→20:41)
[2019-09-25] MEDS: MULTIVITAMIN LIQUID (CENTRUM) 60 ML BOTTLE PO SCH (09:23)
[2019-09-25] MEDS: amLODIPine 5 MG TABLET PER TUBE SCH (11:25)
[2019-09-25] MEDS: ACETAMINOPHEN 325 MG TABLET PO PRN (21:05)
[2019-09-26] MEDS: INSULIN REGULAR 100 UNIT/ML SUBCUT SCH ×4 (00:10→17:53)
[2019-09-26] MEDS: METOCLOPRAMIDE 10 MG/2 ML VIAL IV SCH ×4 (00:10→17:54)
[2019-09-26] MEDS: MORPHINE 4 MG/1 ML VIAL IV PRN ×2 (00:11→22:10)
[2019-09-26] MEDS: methylPREDNISolone SOD SUC 40 MG/1 ML VIAL IV SCH ×3 (04:12→21:19)
[2019-09-26 05:15] LABS: Calcium 9.5 MG/DL (8.5-10.1)
[2019-09-26 05:23] LABS: Basophils % 0.2 % (0.0-0.8); Hematocrit 26.3 VOL% (35.7-47.0); Hemoglobin 7.9 GM/DL (12.0-16.0); Immature Granulocytes % 0.8 %; Immature Granulocytes Absolute 0.08 #; Lymphocytes # 0.7 10*3/uL (1.4-4.0); Lymphocytes % 7.4 % (21.3-54.2); Mean Corpuscular Volume 93.3 FL (87-102); Mean Platelet Volume 10.5 FL (9.6-12.0); Monocytes % 7.2 % (1.7-12.7); Neutrophils % 84.4 % (38.7-73.9); Platelet Count 348 T/CUMM (130-400); Red Blood Count 2.82 MC/CUMM (3.8-5.5); Red Cell Distribution Width 19.9 % (9.3-17.3); White Blood Count 9.5 T/CUMM (4-12)
[2019-09-26] MEDS: LEVOTHYROXINE 25 MCG TABLET PO SCH (05:43)
[2019-09-26] MEDS: amLODIPine 5 MG TABLET PER TUBE SCH (08:27)
[2019-09-26] MEDS: PANTOPRAZOLE 40 MG VIAL IV SCH (08:27)
[2019-09-26] MEDS: HEPARIN 5,000 UNIT/1 ML VIAL SUBCUT SCH ×2 (08:27→21:18)
[2019-09-26] MEDS: MULTIVITAMIN LIQUID (CENTRUM) 60 ML BOTTLE PO SCH (08:28)
[2019-09-26] MEDS: DESITIN 4OZ/NYSTATIN 15 GRAM MIXTURE PASTE TOP SCH ×2 (08:28→21:19)
[2019-09-26] MEDS: ACETAMINOPHEN 325 MG TABLET PO PRN (20:05)
[2019-09-27] MEDS: METOCLOPRAMIDE 10 MG/2 ML VIAL IV SCH ×2 (00:05→06:10)
[2019-09-27] MEDS: INSULIN REGULAR 100 UNIT/ML SUBCUT SCH ×4 (00:05→17:04)
[2019-09-27] MEDS: hydrALAZINE 20 MG/1 ML VIAL IV PRN (04:30)
[2019-09-27 04:52] LABS: Basophils % 0.3 % (0.0-0.8); Hematocrit 24.2 VOL% (35.7-47.0); Hemoglobin 7.4 GM/DL (12.0-16.0); Immature Granulocytes % 1.3 %; Lymphocytes # 0.7 10*3/uL (1.4-4.0); Lymphocytes % 9.7 % (21.3-54.2); Mean Corpuscular HGB Conc 30.6 GM/DL (32-36); Mean Platelet Volume 10.7 FL (9.6-12.0); Neutrophils % 81.7 % (38.7-73.9); Platelet Count 296 T/CUMM (130-400); Red Blood Count 2.66 MC/CUMM (3.8-5.5); Red Cell Distribution Width 19.4 % (9.3-17.3); White Blood Count 7.5 T/CUMM (4-12)
[2019-09-27 05:13] LABS: Calcium 9.7 MG/DL (8.5-10.1); Osmolality,Calculated 309.1 MOS/KG (273-304)
[2019-09-27] MEDS: LEVOTHYROXINE 25 MCG TABLET PO SCH (06:10)
[2019-09-27] MEDS: PANTOPRAZOLE 40 MG VIAL IV SCH (08:16)
[2019-09-27] MEDS: HEPARIN 5,000 UNIT/1 ML VIAL SUBCUT SCH ×2 (08:16→21:08)
[2019-09-27] MEDS: amLODIPine 5 MG TABLET PER TUBE SCH (08:17)
[2019-09-27] MEDS: MULTIVITAMIN LIQUID (CENTRUM) 60 ML BOTTLE PO SCH (08:17)
[2019-09-27] MEDS: predniSONE 20 MG TABLET PER TUBE SCH (08:17)
[2019-09-27] MEDS: DESITIN 4OZ/NYSTATIN 15 GRAM MIXTURE PASTE TOP SCH ×2 (08:20→21:08)
[2019-09-28] MEDS: ACETAMINOPHEN 325 MG TABLET PO PRN (00:45)
[2019-09-28] MEDS: INSULIN REGULAR 100 UNIT/ML SUBCUT SCH ×4 (00:46→17:47)
[2019-09-28] MEDS: LEVOTHYROXINE 25 MCG TABLET PO SCH (05:44)
[2019-09-28] MEDS: amLODIPine 5 MG TABLET PER TUBE SCH (08:56)
[2019-09-28] MEDS: DESITIN 4OZ/NYSTATIN 15 GRAM MIXTURE PASTE TOP SCH ×2 (08:56→20:32)
[2019-09-28] MEDS: HEPARIN 5,000 UNIT/1 ML VIAL SUBCUT SCH ×2 (08:56→20:32)
[2019-09-28] MEDS: predniSONE 20 MG TABLET PER TUBE SCH (08:56)
[2019-09-28] MEDS: MULTIVITAMIN LIQUID (CENTRUM) 60 ML BOTTLE PO SCH (13:59)
[2019-09-28 14:25] LABS: Basophils % 0.2 % (0.0-0.8); Eosinophils # 0.3 10*3/uL (0.0-0.87); Eosinophils % 3.4 % (0.00-10.9); Hematocrit 26.1 VOL% (35.7-47.0); Immature Granulocytes % 0.8 %; Immature Granulocytes Absolute 0.08 #; Lymphocytes # 1.1 10*3/uL (1.4-4.0); Lymphocytes % 11.1 % (21.3-54.2); Mean Corpuscular HGB Conc 30.7 GM/DL (32-36); Mean Corpuscular Volume 91.6 FL (87-102); Mean Platelet Volume 10.1 FL (9.6-12.0); Monocytes % 9.9 % (1.7-12.7); Neutrophils % 74.6 % (38.7-73.9); Platelet Count 302 T/CUMM (130-400); Red Blood Count 2.85 MC/CUMM (3.8-5.5); Red Cell Distribution Width 19.9 % (9.3-17.3); White Blood Count 9.5 T/CUMM (4-12)
[2019-09-28 14:45] LABS: Calcium 9.5 MG/DL (8.5-10.1); Osmolality,Calculated 293.8 MOS/KG (273-304)
[2019-09-29] MEDS: INSULIN REGULAR 100 UNIT/ML SUBCUT SCH ×4 (00:13→19:26)
[2019-09-29] MEDS: LEVOTHYROXINE 25 MCG TABLET PO SCH (06:12)
[2019-09-29] MEDS: ACETAMINOPHEN 325 MG TABLET PO PRN (06:12)
[2019-09-29] MEDS: DESITIN 4OZ/NYSTATIN 15 GRAM MIXTURE PASTE TOP SCH ×2 (08:41→22:44)
[2019-09-29] MEDS ORDERED: TUBERCULIN SKIN TEST 0.1 ML SYRINGE INTRADERM ONE (09:40)
[2019-09-29] MEDS: HEPARIN 5,000 UNIT/1 ML VIAL SUBCUT SCH ×2 (10:23→22:44)
[2019-09-29] MEDS: MULTIVITAMIN LIQUID (CENTRUM) 60 ML BOTTLE PO SCH (10:23)
[2019-09-29] MEDS: amLODIPine 5 MG TABLET PER TUBE SCH (10:23)
[2019-09-29] MEDS: predniSONE 20 MG TABLET PER TUBE SCH (10:23)
[2019-09-29 11:36] LABS: Basophils % 0.4 % (0.0-0.8); Eosinophils # 0.3 10*3/uL (0.0-0.87); Eosinophils % 3.6 % (0.00-10.9); Hemoglobin 7.8 GM/DL (12.0-16.0); Immature Granulocytes % 0.8 %; Immature Granulocytes Absolute 0.06 #; Lymphocytes % 12.7 % (21.3-54.2); Mean Corpuscular HGB Conc 31.2 GM/DL (32-36); Mean Corpuscular Volume 89.9 FL (87-102); Mean Platelet Volume 11.2 FL (9.6-12.0); Monocytes % 10.2 % (1.7-12.7); Neutrophils % 72.3 % (38.7-73.9); Platelet Count 258 T/CUMM (130-400); Red Blood Count 2.78 MC/CUMM (3.8-5.5); White Blood Count 7.9 T/CUMM (4-12)
[2019-09-29 11:54] LABS: Calcium 9.7 MG/DL (8.5-10.1)
[2019-09-29] MEDS ORDERED: MORPHINE 4 MG/1 ML VIAL IV ONE (16:00)
[2019-09-29] MEDS ORDERED: MORPHINE 4 MG/1 ML VIAL IV PRN (19:32)
[2019-09-30] MEDS: LEVOTHYROXINE 25 MCG TABLET PO SCH (06:39)
[2019-09-30] MEDS: INSULIN REGULAR 100 UNIT/ML SUBCUT SCH ×4 (06:39→18:37)
[2019-09-30 07:49] LABS: Basophils % 0.3 % (0.0-0.8); Eosinophils # 0.1 10*3/uL (0.0-0.87); Hematocrit 25.1 VOL% (35.7-47.0); Hemoglobin 7.5 GM/DL (12.0-16.0); Immature Granulocytes % 0.6 %; Immature Granulocytes Absolute 0.04 #; Lymphocytes # 0.6 10*3/uL (1.4-4.0); Lymphocytes % 7.8 % (21.3-54.2); Mean Corpuscular HGB Conc 29.9 GM/DL (32-36); Mean Corpuscular Volume 92.6 FL (87-102); Mean Platelet Volume 10.8 FL (9.6-12.0); Monocytes % 7.8 % (1.7-12.7); Neutrophils % 81.5 % (38.7-73.9); Platelet Count 228 T/CUMM (130-400); Red Blood Count 2.71 MC/CUMM (3.8-5.5); Red Cell Distribution Width 19.9 % (9.3-17.3); White Blood Count 7.1 T/CUMM (4-12)
[2019-09-30 08:19] LABS: Calcium 9.7 MG/DL (8.5-10.1)
[2019-09-30] MEDS: amLODIPine 5 MG TABLET PER TUBE SCH (09:16)
[2019-09-30] MEDS: predniSONE 20 MG TABLET PER TUBE SCH (09:16)
[2019-09-30] MEDS: DESITIN 4OZ/NYSTATIN 15 GRAM MIXTURE PASTE TOP SCH ×2 (09:16→21:20)
[2019-09-30] MEDS: MULTIVITAMIN LIQUID (CENTRUM) 60 ML BOTTLE PO SCH (09:16)
[2019-09-30] MEDS: HEPARIN 5,000 UNIT/1 ML VIAL SUBCUT SCH ×2 (09:16→21:20)
[2019-09-30] MEDS: ACETAMINOPHEN 325 MG TABLET PO PRN (10:02)
[2019-09-30] MEDS ORDERED: LORazepam 2 MG/1 ML VIAL IV ONE (12:00)
[2019-09-30] MEDS: QUEtiapine 25 MG TABLET PO SCH ×2 (12:23→21:20)
[2019-10-01] MEDS: INSULIN REGULAR 100 UNIT/ML SUBCUT SCH ×4 (01:40→17:20)
[2019-10-01] MEDS: LEVOTHYROXINE 25 MCG TABLET PO SCH (06:09)
[2019-10-01] MEDS: MULTIVITAMIN LIQUID (CENTRUM) 60 ML BOTTLE PO SCH (09:03)
[2019-10-01] MEDS: predniSONE 20 MG TABLET PER TUBE SCH (09:04)
[2019-10-01] MEDS: amLODIPine 5 MG TABLET PER TUBE SCH (09:04)
[2019-10-01] MEDS: QUEtiapine 25 MG TABLET PO SCH ×2 (09:04→21:05)
[2019-10-01] MEDS: DESITIN 4OZ/NYSTATIN 15 GRAM MIXTURE PASTE TOP SCH ×2 (09:04→21:05)
[2019-10-01] MEDS: HEPARIN 5,000 UNIT/1 ML VIAL SUBCUT SCH ×2 (09:08→21:05)
[2019-10-01 09:30] LABS: Basophils % 0.2 % (0.0-0.8); Eosinophils # 0.2 10*3/uL (0.0-0.87); Eosinophils % 2.3 % (0.00-10.9); Hematocrit 24.4 VOL% (35.7-47.0); Hemoglobin 7.6 GM/DL (12.0-16.0); Immature Granulocytes % 0.6 %; Immature Granulocytes Absolute 0.04 #; Lymphocytes % 15.8 % (21.3-54.2); Mean Corpuscular HGB Conc 31.1 GM/DL (32-36); Mean Corpuscular Volume 88.7 FL (87-102); Mean Platelet Volume 10.6 FL (9.6-12.0); Monocytes % 13.5 % (1.7-12.7); Neutrophils % 67.6 % (38.7-73.9); Platelet Count 209 T/CUMM (130-400); Red Blood Count 2.75 MC/CUMM (3.8-5.5); Red Cell Distribution Width 19.9 % (9.3-17.3); White Blood Count 6.5 T/CUMM (4-12)
[2019-10-01 09:46] LABS: Calcium 9.4 MG/DL (8.5-10.1); Osmolality,Calculated 294.2 MOS/KG (273-304)
[2019-10-01] MEDS: LORazepam 2 MG/1 ML VIAL IV PRN ×2 (12:19→21:05)
[2019-10-02] MEDS: LORazepam 2 MG/1 ML VIAL IV PRN ×4 (03:05→20:10)
[2019-10-02] MEDS: INSULIN REGULAR 100 UNIT/ML SUBCUT SCH ×5 (03:05→23:39)
[2019-10-02 03:21] LABS: Basophils % 0.3 % (0.0-0.8); Eosinophils # 0.1 10*3/uL (0.0-0.87); Eosinophils % 1.2 % (0.00-10.9); Hematocrit 25.5 VOL% (35.7-47.0); Hemoglobin 8.1 GM/DL (12.0-16.0); Immature Granulocytes % 0.5 %; Immature Granulocytes Absolute 0.03 #; Lymphocytes % 14.4 % (21.3-54.2); Mean Corpuscular HGB Conc 31.8 GM/DL (32-36); Mean Corpuscular Volume 88.9 FL (87-102); Mean Platelet Volume 10.9 FL (9.6-12.0); Monocytes % 14.4 % (1.7-12.7); Neutrophils % 69.2 % (38.7-73.9); Platelet Count 209 T/CUMM (130-400); Red Blood Count 2.87 MC/CUMM (3.8-5.5); Red Cell Distribution Width 20.1 % (9.3-17.3); White Blood Count 6.6 T/CUMM (4-12)
[2019-10-02 03:41] LABS: Calcium 9.4 MG/DL (8.5-10.1); Osmolality,Calculated 290.2 MOS/KG (273-304)
[2019-10-02] MEDS: LEVOTHYROXINE 25 MCG TABLET PO SCH (06:15)
[2019-10-02] MEDS: amLODIPine 5 MG TABLET PER TUBE SCH (08:50)
[2019-10-02] MEDS: MULTIVITAMIN LIQUID (CENTRUM) 60 ML BOTTLE PO SCH (08:50)
[2019-10-02] MEDS: DESITIN 4OZ/NYSTATIN 15 GRAM MIXTURE PASTE TOP SCH ×2 (08:50→20:10)
[2019-10-02] MEDS: predniSONE 20 MG TABLET PER TUBE SCH (08:50)
[2019-10-02] MEDS: QUEtiapine 25 MG TABLET PO SCH ×2 (08:50→20:10)
[2019-10-02] MEDS: HEPARIN 5,000 UNIT/1 ML VIAL SUBCUT SCH ×2 (08:50→20:10)
[2019-10-03] MEDS: LORazepam 2 MG/1 ML VIAL IV PRN ×4 (01:55→21:15)
[2019-10-03] MEDS: INSULIN REGULAR 100 UNIT/ML SUBCUT SCH ×3 (06:12→17:10)
[2019-10-03] MEDS: LEVOTHYROXINE 25 MCG TABLET PO SCH (06:12)
[2019-10-03] MEDS: amLODIPine 5 MG TABLET PER TUBE SCH (09:58)
[2019-10-03] MEDS: MULTIVITAMIN LIQUID (CENTRUM) 60 ML BOTTLE PO SCH (09:58)
[2019-10-03] MEDS: QUEtiapine 25 MG TABLET PO SCH ×2 (09:58→21:15)
[2019-10-03] MEDS: HEPARIN 5,000 UNIT/1 ML VIAL SUBCUT SCH ×2 (09:58→21:15)
[2019-10-03] MEDS: predniSONE 20 MG TABLET PER TUBE SCH (09:58)
[2019-10-03] MEDS: DESITIN 4OZ/NYSTATIN 15 GRAM MIXTURE PASTE TOP SCH ×2 (09:58→21:15)
[2019-10-03] MEDS ORDERED: LORazepam 2 MG/1 ML VIAL IV SCH (22:00)
[2019-10-03] MEDS ORDERED: LORazepam 2 MG/1 ML VIAL IV ONE (22:00)
[2019-10-04] MEDS: LORazepam 2 MG/1 ML VIAL IV PRN ×2 (02:15→15:30)
[2019-10-04 03:40] LABS: Basophils % 0.3 % (0.0-0.8); Eosinophils # 0.1 10*3/uL (0.0-0.87); Eosinophils % 1.2 % (0.00-10.9); Hematocrit 25.3 VOL% (35.7-47.0); Hemoglobin 7.8 GM/DL (12.0-16.0); Immature Granulocytes % 0.7 %; Immature Granulocytes Absolute 0.05 #; Lymphocytes # 1.2 10*3/uL (1.4-4.0); Lymphocytes % 15.1 % (21.3-54.2); Mean Corpuscular HGB Conc 30.8 GM/DL (32-36); Mean Corpuscular Volume 91.7 FL (87-102); Mean Platelet Volume 11.3 FL (9.6-12.0); Monocytes % 11.5 % (1.7-12.7); Neutrophils % 71.2 % (38.7-73.9); Platelet Count 224 T/CUMM (130-400); Red Blood Count 2.76 MC/CUMM (3.8-5.5); Red Cell Distribution Width 20.1 % (9.3-17.3); White Blood Count 7.7 T/CUMM (4-12)
[2019-10-04] MEDS: LEVOTHYROXINE 25 MCG TABLET PO SCH (05:55)
[2019-10-04] MEDS: INSULIN REGULAR 100 UNIT/ML SUBCUT SCH ×4 (05:55→18:46)
[2019-10-04] MEDS: MULTIVITAMIN LIQUID (CENTRUM) 60 ML BOTTLE PO SCH (09:28)
[2019-10-04] MEDS: predniSONE 10 MG TABLET PER TUBE SCH (09:28)
[2019-10-04] MEDS: QUEtiapine 25 MG TABLET PO SCH ×2 (09:28→21:36)
[2019-10-04] MEDS: hydrALAZINE 20 MG/1 ML VIAL IV PRN ×2 (09:29→12:44)
[2019-10-04] MEDS: HEPARIN 5,000 UNIT/1 ML VIAL SUBCUT SCH ×2 (09:29→21:35)
[2019-10-04] MEDS: amLODIPine 5 MG TABLET PER TUBE SCH (09:29)
[2019-10-04] MEDS: DESITIN 4OZ/NYSTATIN 15 GRAM MIXTURE PASTE TOP SCH ×2 (09:30→21:37)
[2019-10-04 11:28] LABS: Calcium 9.7 MG/DL (8.5-10.1); Osmolality,Calculated 297.2 MOS/KG (273-304)
[2019-10-04 12:01] LABS: Prealbumin 30.3 MG/DL (20-40)
[2019-10-05] MEDS: LORazepam 2 MG/1 ML VIAL IV PRN (00:25)
[2019-10-05] MEDS: INSULIN REGULAR 100 UNIT/ML SUBCUT SCH ×4 (00:29→17:50)
[2019-10-05] MEDS: LEVOTHYROXINE 25 MCG TABLET PO SCH (06:02)
[2019-10-05] MEDS: QUEtiapine 25 MG TABLET PO SCH ×2 (08:45→22:57)
[2019-10-05] MEDS: MULTIVITAMIN LIQUID (CENTRUM) 60 ML BOTTLE PO SCH (08:45)
[2019-10-05] MEDS: amLODIPine 5 MG TABLET PER TUBE SCH (08:45)
[2019-10-05] MEDS: predniSONE 10 MG TABLET PER TUBE SCH (08:45)
[2019-10-05] MEDS: HEPARIN 5,000 UNIT/1 ML VIAL SUBCUT SCH ×2 (08:45→21:55)
[2019-10-05] MEDS: DESITIN 4OZ/NYSTATIN 15 GRAM MIXTURE PASTE TOP SCH ×2 (08:46→21:55)
[2019-10-05] MEDS ORDERED: HALOPERIDOL 5 MG/ML AMP IM ONE (15:00)
[2019-10-06] MEDS: INSULIN REGULAR 100 UNIT/ML SUBCUT SCH ×5 (00:59→23:43)
[2019-10-06] MEDS: HALOPERIDOL 5 MG/ML AMP IM PRN ×2 (02:25→15:37)
[2019-10-06] MEDS: LEVOTHYROXINE 25 MCG TABLET PO SCH (09:56)
[2019-10-06] MEDS: amLODIPine 5 MG TABLET PER TUBE SCH (09:56)
[2019-10-06] MEDS: predniSONE 10 MG TABLET PER TUBE SCH (09:57)
[2019-10-06] MEDS: QUEtiapine 25 MG TABLET PO SCH ×2 (09:57→20:19)
[2019-10-06] MEDS: MULTIVITAMIN LIQUID (CENTRUM) 60 ML BOTTLE PO SCH (09:58)
[2019-10-06] MEDS: HEPARIN 5,000 UNIT/1 ML VIAL SUBCUT SCH ×2 (09:58→20:19)
[2019-10-06] MEDS: DESITIN 4OZ/NYSTATIN 15 GRAM MIXTURE PASTE TOP SCH ×2 (09:59→20:19)
[2019-10-07 05:44] LABS: Calcium 9.5 MG/DL (8.5-10.1); Osmolality,Calculated 297.5 MOS/KG (273-304)
[2019-10-07] MEDS: LEVOTHYROXINE 25 MCG TABLET PO SCH (06:08)
[2019-10-07] MEDS: INSULIN REGULAR 100 UNIT/ML SUBCUT SCH ×2 (06:08→12:51)
[2019-10-07] MEDS: QUEtiapine 25 MG TABLET PO SCH (09:10)
[2019-10-07] MEDS: HEPARIN 5,000 UNIT/1 ML VIAL SUBCUT SCH (09:10)
[2019-10-07] MEDS: DESITIN 4OZ/NYSTATIN 15 GRAM MIXTURE PASTE TOP SCH (09:10)
[2019-10-07] MEDS: predniSONE 10 MG TABLET PER TUBE SCH (09:10)
[2019-10-07] MEDS: amLODIPine 5 MG TABLET PER TUBE SCH (09:10)
[2019-10-07] MEDS: MULTIVITAMIN LIQUID (CENTRUM) 60 ML BOTTLE PO SCH (09:10)
[2019-10-07 10:43] VITALS: BP 144/69
== END 2019-10-07 12:05 | DRG 207 ==
LOC: EDBD → EDUNIT# → N.ED 12:51 → SUATTDRO 14:03 → N.EDINP 14:03 → N.ICU 16:00 → N.CC 09-14 20:11 → N.2W 09-27 14:07
PROVIDERS: ADMIT Internal Medicine; ATTEND Internal Medicine

== ENCOUNTER 2019-10-30 10:47 | Inpatient (IN) ==
[2019-10-30 12:04] LABS: Basophils % 0.3 % (0.0-0.8); Eosinophils # 0.1 10*3/uL (0.0-0.87); Eosinophils % 0.6 % (0.00-10.9); Hematocrit 19.7 VOL% (35.7-47.0); Immature Granulocytes % 0.3 %; Immature Granulocytes Absolute 0.03 #; Lymphocytes # 1.2 10*3/uL (1.4-4.0); Lymphocytes % 13.4 % (21.3-54.2); Mean Corpuscular Volume 93.8 FL (87-102); Mean Platelet Volume 9.4 FL (9.6-12.0); Neutrophils % 78.4 % (38.7-73.9); Platelet Count 200 T/CUMM (130-400); Red Cell Distribution Width 17.1 % (9.3-17.3)
[2019-10-30 12:14] LABS: Hemoglobin 6.1 GM/DL (12.0-16.0); Osmolality,Calculated 265.9 MOS/KG (273-304)
[2019-10-30 13:02] LABS: Hypochromasia 1+; Ovalocytes Few; Platelet Estimate Adequate
[2019-10-30] MEDS ORDERED: levETIRAcetam 500 MG/5 ML VIAL IV ONE (15:02)
[2019-10-30] MEDS ORDERED: hydrALAZINE 20 MG/1 ML VIAL IV PRN (15:36)
[2019-10-30] MEDS ORDERED: ONDANSETRON 4 MG/2 ML VIAL IV PRN (15:36)
[2019-10-30] MEDS ORDERED: ACETAMINOPHEN 325 MG TABLET PO PRN (15:36)
[2019-10-30] MEDS ORDERED: DOCUSATE SODIUM 100 MG CAPSULE PO PRN (15:36)
[2019-10-30] MEDS ORDERED: GLUCAGON 1 MG VIAL IM PRN (15:36)
[2019-10-30] MEDS ORDERED: DEXTROSE 10% 250 ML BAG IV PRN (15:36)
[2019-10-30] MEDS ORDERED: SODIUM CHLORIDE 0.9% 1,000 ML IV PRN (15:45)
[2019-10-30] MEDS ORDERED: SODIUM POLYSTYRENE SULFATE 15 GM/60 ML BOTTLE PO ONE (15:53)
[2019-10-30 16:25] LABS: Thyroid Stimulating Hormone 1.73 uIU/ml (0.358-3.74)
[2019-10-30] MEDS: INSULIN REGULAR 100 UNIT/ML SUBCUT SCH ×2 (18:17→21:01)
[2019-10-30 18:42] LABS: Basophils % 0.2 % (0.0-0.8); Eosinophils # 0.1 10*3/uL (0.0-0.87); Eosinophils % 1.2 % (0.00-10.9); Hematocrit 19.6 VOL% (35.7-47.0); Immature Granulocytes % 0.1 %; Immature Granulocytes Absolute 0.01 #; Lymphocytes # 1.5 10*3/uL (1.4-4.0); Lymphocytes % 18.1 % (21.3-54.2); Mean Corpuscular HGB Conc 30.1 GM/DL (32-36); Mean Platelet Volume 9.1 FL (9.6-12.0); Monocytes % 7.1 % (1.7-12.7); Neutrophils % 73.3 % (38.7-73.9); Platelet Count 219 T/CUMM (130-400)
[2019-10-30 18:46] LABS: Hemoglobin 5.9 GM/DL (12.0-16.0)
[2019-10-30 19:14] LABS: Folate 15.1 NG/ML (5.4-24.0); Vitamin B12 557 PG/ML (211-911)
[2019-10-30 19:48] LABS: Sedimentation Rate-Westergren 106 MM/HR (0-20)
[2019-10-30] MEDS: QUEtiapine 25 MG TABLET PO SCH (21:11)
[2019-10-31] MEDS: LEVOTHYROXINE 25 MCG TABLET PO SCH (06:48)
[2019-10-31 07:11] LABS: Basophils % 0.3 % (0.0-0.8); Eosinophils # 0.1 10*3/uL (0.0-0.87); Eosinophils % 1.5 % (0.00-10.9); Hematocrit 20.4 VOL% (35.7-47.0); Immature Granulocytes % 0.3 %; Immature Granulocytes Absolute 0.02 #; Lymphocytes # 1.6 10*3/uL (1.4-4.0); Lymphocytes % 26.5 % (21.3-54.2); Mean Corpuscular HGB Conc 29.9 GM/DL (32-36); Mean Platelet Volume 9.6 FL (9.6-12.0); Monocytes % 8.5 % (1.7-12.7); Neutrophils % 62.9 % (38.7-73.9); Platelet Count 196 T/CUMM (130-400); Red Blood Count 2.04 MC/CUMM (3.8-5.5); Red Cell Distribution Width 16.8 % (9.3-17.3); White Blood Count 6.2 T/CUMM (4-12)
[2019-10-31 07:12] LABS: Calcium 8.6 MG/DL (8.5-10.1); Osmolality,Calculated 269.7 MOS/KG (273-304); Risk Ratio 3.91; VLDL CHOLESTEROL 21.4 MG/DL
[2019-10-31 07:29] LABS: Hemoglobin 6.1 GM/DL (12.0-16.0)
[2019-10-31] MEDS: INSULIN REGULAR 100 UNIT/ML SUBCUT SCH ×4 (08:06→21:32)
[2019-10-31] MEDS: QUEtiapine 25 MG TABLET PO SCH ×2 (09:45→21:33)
[2019-10-31] MEDS: amLODIPine 5 MG TABLET PER TUBE SCH (09:46)
[2019-10-31] MEDS: PANTOPRAZOLE 40 MG TABLET PO SCH (09:46)
[2019-10-31] MEDS ORDERED: LACTULOSE 20 GM/30 ML UDCUP PO PRN (10:44)
[2019-10-31 16:40] LABS: Hematocrit 30.7 VOL% (35.7-47.0); Hemoglobin 9.6 GM/DL (12.0-16.0)
[2019-10-31] MEDS: FUROSEMIDE 20 MG TABLET PO SCH (21:32)
[2019-10-31] MEDS: levETIRAcetam 500 MG TABLET PO SCH (21:32)
[2019-11-01] MEDS: LEVOTHYROXINE 25 MCG TABLET PO SCH (06:11)
[2019-11-01 08:32] LABS: Basophils % 0.4 % (0.0-0.8); Eosinophils # 0.1 10*3/uL (0.0-0.87); Eosinophils % 1.6 % (0.00-10.9); Hematocrit 26.8 VOL% (35.7-47.0); Hemoglobin 8.6 GM/DL (12.0-16.0); Immature Granulocytes % 0.4 %; Immature Granulocytes Absolute 0.02 #; Lymphocytes # 1.3 10*3/uL (1.4-4.0); Lymphocytes % 22.5 % (21.3-54.2); Mean Corpuscular HGB Conc 32.1 GM/DL (32-36); Mean Corpuscular Volume 89.6 FL (87-102); Mean Platelet Volume 9.2 FL (9.6-12.0); Monocytes % 9.3 % (1.7-12.7); Neutrophils % 65.8 % (38.7-73.9); Platelet Count 201 T/CUMM (130-400); Red Blood Count 2.99 MC/CUMM (3.8-5.5); Red Cell Distribution Width 18.2 % (9.3-17.3); White Blood Count 5.6 T/CUMM (4-12)
[2019-11-01] MEDS ORDERED: amLODIPine 5 MG TABLET PO SCH (09:00)
[2019-11-01 09:10] LABS: Calcium 9.2 MG/DL (8.5-10.1); Osmolality,Calculated 266.5 MOS/KG (273-304)
[2019-11-01 09:14] LABS: % Iron Saturation 35.2 % (18-50)
[2019-11-01 09:14] LABS: Albumin 2.8 G/DL (3.4-5.0); Bilirubin,Total 0.8 MG/DL (0.2-1.0); Calcium 9.1 MG/DL (8.5-10.1); Osmolality,Calculated 267.5 MOS/KG (273-304); Total Protein 6.1 G/DL (6.4-8.3)
[2019-11-01] MEDS: INSULIN REGULAR 100 UNIT/ML SUBCUT SCH ×4 (09:18→20:42)
[2019-11-01] MEDS: FUROSEMIDE 20 MG TABLET PO SCH ×2 (09:19→20:42)
[2019-11-01] MEDS: levETIRAcetam 500 MG TABLET PO SCH ×2 (09:19→20:42)
[2019-11-01] MEDS: MULTIVITAMIN (CENTRUM) TABLET PO SCH (09:19)
[2019-11-01] MEDS: amLODIPine 5 MG TABLET PER TUBE SCH (09:19)
[2019-11-01] MEDS: PANTOPRAZOLE 40 MG TABLET PO SCH (09:19)
[2019-11-01] MEDS: QUEtiapine 25 MG TABLET PO SCH ×2 (09:20→20:43)
[2019-11-01] MEDS ORDERED: amLODIPine 5 MG TABLET PER TUBE SCH (13:21)
[2019-11-01] MEDS: amLODIPine 10 MG TABLET PO SCH (14:47)
[2019-11-02] MEDS: LEVOTHYROXINE 25 MCG TABLET PO SCH (05:31)
[2019-11-02 06:45] LABS: Basophils % 0.3 % (0.0-0.8); Eosinophils # 0.1 10*3/uL (0.0-0.87); Eosinophils % 1.3 % (0.00-10.9); Hematocrit 27.8 VOL% (35.7-47.0); Hemoglobin 8.9 GM/DL (12.0-16.0); Immature Granulocytes % 0.5 %; Immature Granulocytes Absolute 0.03 #; Lymphocytes # 1.5 10*3/uL (1.4-4.0); Mean Corpuscular Volume 89.4 FL (87-102); Mean Platelet Volume 9.3 FL (9.6-12.0); Monocytes % 9.6 % (1.7-12.7); Neutrophils % 63.3 % (38.7-73.9); Platelet Count 207 T/CUMM (130-400); Red Blood Count 3.11 MC/CUMM (3.8-5.5); Red Cell Distribution Width 17.8 % (9.3-17.3)
[2019-11-02 07:02] LABS: Calcium 9.1 MG/DL (8.5-10.1); Osmolality,Calculated 268.7 MOS/KG (273-304)
[2019-11-02] MEDS: INSULIN REGULAR 100 UNIT/ML SUBCUT SCH ×4 (08:34→20:19)
[2019-11-02 09:18] LABS: Hemoglobin A1 (Alkaline) 98.2 % (96.5-98.5); Hemoglobin A2 (Alkaline) 1.8 % (1.5-3.5)
[2019-11-02] MEDS: amLODIPine 10 MG TABLET PO SCH (10:18)
[2019-11-02] MEDS: MULTIVITAMIN (CENTRUM) TABLET PO SCH (10:18)
[2019-11-02] MEDS: levETIRAcetam 500 MG TABLET PO SCH ×2 (10:18→20:12)
[2019-11-02] MEDS: QUEtiapine 25 MG TABLET PO SCH ×2 (10:19→20:11)
[2019-11-02] MEDS: FUROSEMIDE 20 MG TABLET PO SCH ×2 (10:19→20:11)
[2019-11-02] MEDS: PANTOPRAZOLE 40 MG TABLET PO SCH (10:19)
[2019-11-02 20:32] VITALS: BP 162/92
== END 2019-11-02 20:20 | disposition home health service (06) | DRG 100 ==
LOC: EDBD → EDUNIT# → N.ED 10:47 → N.EDINP 15:36 → SUATTDRO 15:36 → N.EDINP 17:15 → N.3E 17:58
PROVIDERS: ADMIT Family Medicine; ATTEND Family Medicine

== ENCOUNTER 2021-11-25 08:59 | Inpatient (IN) ==
[2021-11-25] MEDS ORDERED: SODIUM CHLORIDE 0.9% 1,000 ML IV STA ×2 (09:46→12:20)
[2021-11-25 10:06] LABS: Basophils % 0.3 % (0.0-0.8); Eosinophils # 0.1 10*3/uL (0.0-0.87); Eosinophils % 1.1 % (0.00-10.9); Immature Granulocytes % 0.5 %; Immature Granulocytes Absolute 0.03 #; Lymphocytes # 1.2 10*3/uL (1.4-4.0); Lymphocytes % 19.6 % (21.3-54.2); Mean Corpuscular HGB Conc 28.9 GM/DL (32-36); Mean Platelet Volume 10.3 FL (9.6-12.0); Monocytes # 0.4 10*3/uL (0.11-0.8); Monocytes % 7.1 % (1.7-12.7); Neutrophils % 71.4 % (38.7-73.9); Platelet Count 199 T/CUMM (130-400); Red Blood Count 1.92 MC/CUMM (3.8-5.5); Red Cell Distribution Width 15.6 % (9.3-17.3); White Blood Count 6.2 T/CUMM (4-12)
[2021-11-25 10:24] LABS: Hemoglobin 5.5 GM/DL (12.0-16.0)
[2021-11-25 10:38] LABS: Alanine Aminotransferase < 6 U/L (13-56); Albumin 2.1 G/DL (3.4-5.0); Alkaline Phosphatase 1126 U/L (45-117); Aspartate Amino Transferase 17 U/L (0-37); Blood Urea Nitrogen 16 MG/DL (7-18); Calcium 8.8 MG/DL (8.5-10.1); Carbon Dioxide 29 MMOL/L (21-32); Chloride 100 MMOL/L (98-107); Glucose 103 MG/DL (74-106); Potassium 3.4 MMOL/L (3.5-5.1); Sodium 136 MMOL/L (136-145); Total Protein 7.6 G/DL (6.4-8.2)
[2021-11-25] MEDS ORDERED: ONDANSETRON 4 MG/2 ML VIAL IV PRN (13:22)
[2021-11-25] MEDS ORDERED: GLUCAGON 1 MG VIAL IM PRN (13:22)
[2021-11-25] MEDS ORDERED: DEXTROSE 10% 250 ML BAG IV PRN (13:22)
[2021-11-25] MEDS ORDERED: SODIUM CHLORIDE 0.9% 1,000 ML IV PRN (13:29)
[2021-11-25 13:56] LABS: Arterial Base Excess iSTAT 3 MMOL/L (-2.5-2.5); Arterial Bicarbonate iSTAT 27.8 MMOL/L (20-26); Arterial O2 Saturation iSTAT 92 % (95-100); Arterial PCO2 iSTAT 42 MM HG (35-48); Arterial PO2 iSTAT 63 MM HG (80-95); Arterial Total CO2 iSTAT 29 MMO/L (23-27); Arterial pH iSTAT 7.432 (7.35-7.45)
[2021-11-25] MEDS ORDERED: VANCOMYCIN INJ 1,500 MG in SODIUM CHLORIDE 0.9% 500 ML IV ONE (15:00)
[2021-11-25] MEDS: PANTOPRAZOLE 40 MG VIAL IV SCH ×2 (16:14→21:34)
[2021-11-25] MEDS: CEFEPIME 1,000 MG in SODIUM CHLORIDE 0.9% 100 ML IV SCH (16:49)
[2021-11-25] MEDS: INSULIN LISPRO 100 UNIT/ML SUBCUT SCH ×2 (16:57→21:41)
[2021-11-25 17:16] LABS: Hemoglobin 5.1 GM/DL (12.0-16.0)
[2021-11-25 17:17] LABS: Hematocrit 17.1 VOL% (35.7-47.0)
[2021-11-25 17:50] LABS: % Iron Saturation 52.8 % (18-50); Ferritin 10328.8 ng/mL (8-252)
[2021-11-25 19:00] LABS: Folate 3.37 NG/ML (5.38-24.0)
[2021-11-25 22:21] LABS: Hematocrit 16.5 VOL% (35.7-47.0); Hemoglobin 4.8 GM/DL (12.0-16.0)
[2021-11-26 02:26] LABS: Basophils % 0.2 % (0.0-0.8); Eosinophils # 0.1 10*3/uL (0.0-0.87); Eosinophils % 1.2 % (0.00-10.9); Immature Granulocytes % 0.7 %; Immature Granulocytes Absolute 0.04 #; Lymphocytes # 0.9 10*3/uL (1.4-4.0); Lymphocytes % 15.6 % (21.3-54.2); Mean Corpuscular HGB Conc 28.8 GM/DL (32-36); Mean Platelet Volume 10.1 FL (9.6-12.0); Monocytes # 0.4 10*3/uL (0.11-0.8); Monocytes % 6.9 % (1.7-12.7); Neutrophils % 75.4 % (38.7-73.9); Platelet Count 172 T/CUMM (130-400); Red Blood Count 1.68 MC/CUMM (3.8-5.5); Red Cell Distribution Width 15.4 % (9.3-17.3)
[2021-11-26 02:28] LABS: Hematocrit 16.3 VOL% (35.7-47.0); Hemoglobin 4.7 GM/DL (12.0-16.0)
[2021-11-26 05:38] LABS: Alanine Aminotransferase < 6 U/L (13-56); Albumin 1.7 G/DL (3.4-5.0); Alkaline Phosphatase 955 U/L (45-117); Aspartate Amino Transferase 14 U/L (0-37); Blood Urea Nitrogen 19 MG/DL (7-18); Calcium 8.1 MG/DL (8.5-10.1); Carbon Dioxide 26 MMOL/L (21-32); Chloride 105 MMOL/L (98-107); Cholesterol 94 MG/DL (50-200); Glucose 88 MG/DL (74-106); HDL Cholesterol 19 MG/DL (40-60); Osmolality,Calculated 279.4 MOS/KG (273-304); Potassium 3.6 MMOL/L (3.5-5.1); Risk Ratio 4.95; Sodium 140 MMOL/L (136-145); Total Protein 6.5 G/DL (6.4-8.2); Triglycerides 165 MG/DL (2-150)
[2021-11-26] MEDS: INSULIN LISPRO 100 UNIT/ML SUBCUT SCH ×4 (08:02→20:58)
[2021-11-26] MEDS ORDERED: EPOETIN ALFA-EPBX 10,000 UNIT/ML VIAL IV PRN (09:00)
[2021-11-26] MEDS: PANTOPRAZOLE 40 MG VIAL IV SCH ×2 (09:22→20:57)
[2021-11-26] MEDS: MENTHOL/ZINC OXIDE OINT 71 GM JAR TOP SCH ×2 (15:13→20:58)
[2021-11-26] MEDS: CEFEPIME 1,000 MG in SODIUM CHLORIDE 0.9% 100 ML IV SCH (15:35)
[2021-11-26] MEDS: FOLIC ACID INJ 1 MG in SYRINGE 1 EACH IV SCH (16:43)
[2021-11-26] MEDS ORDERED: VANCOMYCIN INJ 500 MG in SODIUM CHLORIDE 0.9% 100 ML IV PRN (17:00)
[2021-11-26 22:20] LABS: Hemoglobin 6.7 GM/DL (12.0-16.0)
[2021-11-26] MEDS ORDERED: ACETAMINOPHEN 650 MG SUPP RECTAL PRN (23:07)
[2021-11-27] MEDS ORDERED: SODIUM CHLORIDE 0.9% 1,000 ML IV PRN (07:57)
[2021-11-27] MEDS: INSULIN LISPRO 100 UNIT/ML SUBCUT SCH ×4 (08:47→21:14)
[2021-11-27] MEDS: PANTOPRAZOLE 40 MG VIAL IV SCH ×2 (08:50→21:15)
[2021-11-27] MEDS: MENTHOL/ZINC OXIDE OINT 71 GM JAR TOP SCH ×2 (08:52→22:06)
[2021-11-27] MEDS: amLODIPine 10 MG TABLET PO SCH (08:52)
[2021-11-27] MEDS: FOLIC ACID INJ 1 MG in SYRINGE 1 EACH IV SCH (08:55)
[2021-11-27] MEDS ORDERED: HEPARIN 10,000 UNIT/10 ML VIAL IV PRN (10:15)
[2021-11-27] MEDS: SEVELAMER CARBONATE 800 MG TABLET PO SCH ×2 (11:25→17:00)
[2021-11-27] MEDS: CEFEPIME 1,000 MG in SODIUM CHLORIDE 0.9% 100 ML IV SCH (15:29)
[2021-11-27] MEDS: ACETAMINOPHEN 325 MG/10.15 ML UDCUP PO PRN (21:15)
[2021-11-28] MEDS: INSULIN LISPRO 100 UNIT/ML SUBCUT SCH ×4 (08:04→22:07)
[2021-11-28] MEDS: PANTOPRAZOLE 40 MG VIAL IV SCH ×2 (08:38→21:19)
[2021-11-28] MEDS: amLODIPine 10 MG TABLET PO SCH (08:38)
[2021-11-28] MEDS: SEVELAMER CARBONATE 800 MG TABLET PO SCH ×3 (08:38→17:12)
[2021-11-28] MEDS: FOLIC ACID INJ 1 MG in SYRINGE 1 EACH IV SCH (10:09)
[2021-11-28] MEDS: MENTHOL/ZINC OXIDE OINT 71 GM JAR TOP SCH ×2 (10:20→21:19)
[2021-11-29 08:53] LABS: Basophils % 0.2 % (0.0-0.8); Eosinophils # 0.2 10*3/uL (0.0-0.87); Eosinophils % 3.2 % (0.00-10.9); Hematocrit 22.8 VOL% (35.7-47.0); Hemoglobin 6.9 GM/DL (12.0-16.0); Immature Granulocytes Absolute 0.05 #; Lymphocytes # 0.7 10*3/uL (1.4-4.0); Lymphocytes % 13.5 % (21.3-54.2); Mean Corpuscular HGB Conc 30.3 GM/DL (32-36); Mean Corpuscular Volume 91.6 FL (87-102); Mean Platelet Volume 10.2 FL (9.6-12.0); Monocytes # 0.4 10*3/uL (0.11-0.8); Monocytes % 7.5 % (1.7-12.7); Neutrophils % 74.6 % (38.7-73.9); Platelet Count 184 T/CUMM (130-400); Red Blood Count 2.49 MC/CUMM (3.8-5.5); White Blood Count 5.1 T/CUMM (4-12)
[2021-11-29] MEDS: MENTHOL/ZINC OXIDE OINT 71 GM JAR TOP SCH ×2 (09:30→21:00)
[2021-11-29] MEDS: PANTOPRAZOLE 40 MG VIAL IV SCH ×2 (09:46→21:00)
[2021-11-29] MEDS: FOLIC ACID INJ 1 MG in SYRINGE 1 EACH IV SCH (09:46)
[2021-11-29] MEDS: SEVELAMER CARBONATE 800 MG TABLET PO SCH ×3 (11:19→17:32)
[2021-11-29] MEDS: amLODIPine 10 MG TABLET PO SCH (11:19)
[2021-11-29] MEDS: INSULIN LISPRO 100 UNIT/ML SUBCUT SCH ×4 (11:19→21:28)
[2021-11-29] MEDS: ACETAMINOPHEN 325 MG/10.15 ML UDCUP PO PRN ×2 (11:39→21:05)
[2021-11-30] MEDS: INSULIN LISPRO 100 UNIT/ML SUBCUT SCH ×4 (07:42→21:50)
[2021-11-30] MEDS: SEVELAMER CARBONATE 800 MG TABLET PO SCH ×3 (08:34→16:54)
[2021-11-30] MEDS: amLODIPine 10 MG TABLET PO SCH (08:34)
[2021-11-30] MEDS: FOLIC ACID INJ 1 MG in SYRINGE 1 EACH IV SCH (08:37)
[2021-11-30] MEDS: PANTOPRAZOLE 40 MG VIAL IV SCH ×2 (08:42→21:49)
[2021-11-30] MEDS: MENTHOL/ZINC OXIDE OINT 71 GM JAR TOP SCH ×2 (08:43→21:49)
[2021-11-30] MEDS: levETIRAcetam LIQUID 100 MG/ML 30 ML/BOTTLE PO SCH (21:49)
[2021-12-01 03:33] LABS: Alanine Aminotransferase < 6 U/L (13-56); Albumin 1.9 G/DL (3.4-5.0); Alkaline Phosphatase 1077 U/L (45-117); Aspartate Amino Transferase 6 U/L (0-37); Bilirubin,Total < 0.39 MG/DL (0.20-1.00); Blood Urea Nitrogen 9 MG/DL (7-18); Calcium 8.2 MG/DL (8.5-10.1); Carbon Dioxide 24 MMOL/L (21-32); Chloride 103 MMOL/L (98-107); Glucose 120 MG/DL (74-106); Osmolality,Calculated 267.2 MOS/KG (273-304); Potassium 3.4 MMOL/L (3.5-5.1); Sodium 134 MMOL/L (136-145); Total Protein 6.8 G/DL (6.4-8.2)
[2021-12-01] MEDS ORDERED: POTASSIUM CHLORIDE 20 MEQ TABLET PO ONE ×2 (05:00→07:53)
[2021-12-01] MEDS ORDERED: MAGNESIUM SULF RIDER 1 GM/100 ML PREMIX IV ONE (05:00)
[2021-12-01] MEDS ORDERED: MAGNESIUM OXIDE 400 MG TABLET PO ONE (07:51)
[2021-12-01] MEDS: INSULIN LISPRO 100 UNIT/ML SUBCUT SCH ×4 (07:58→20:57)
[2021-12-01] MEDS: SEVELAMER CARBONATE 800 MG TABLET PO SCH ×3 (08:44→17:02)
[2021-12-01] MEDS: amLODIPine 10 MG TABLET PO SCH (08:44)
[2021-12-01] MEDS: levETIRAcetam LIQUID 100 MG/ML 30 ML/BOTTLE PO SCH ×3 (08:48→21:01)
[2021-12-01] MEDS: PANTOPRAZOLE 40 MG VIAL IV SCH ×2 (08:51→20:58)
[2021-12-01] MEDS: FOLIC ACID INJ 1 MG in SYRINGE 1 EACH IV SCH (08:52)
[2021-12-01] MEDS: MENTHOL/ZINC OXIDE OINT 71 GM JAR TOP SCH ×2 (08:54→20:57)
[2021-12-01] MEDS: ACETAMINOPHEN 325 MG/10.15 ML UDCUP PO PRN ×2 (15:00→20:57)
[2021-12-02 08:15] LABS: Basophils % 0.2 % (0.0-0.8); Eosinophils # 0.1 10*3/uL (0.0-0.87); Eosinophils % 1.9 % (0.00-10.9); Hematocrit 19.9 VOL% (35.7-47.0); Immature Granulocytes % 1.4 %; Immature Granulocytes Absolute 0.07 #; Mean Corpuscular HGB Conc 30.7 GM/DL (32-36); Monocytes # 0.4 10*3/uL (0.11-0.8); Monocytes % 8.9 % (1.7-12.7); Neutrophils % 66.6 % (38.7-73.9); Platelet Count 172 T/CUMM (130-400); Red Blood Count 2.14 MC/CUMM (3.8-5.5); Red Cell Distribution Width 15.7 % (9.3-17.3); White Blood Count 4.9 T/CUMM (4-12)
[2021-12-02 08:20] LABS: Hemoglobin 6.1 GM/DL (12.0-16.0)
[2021-12-02 08:29] LABS: Calcium 7.9 MG/DL (8.5-10.1); Osmolality,Calculated 273.7 MOS/KG (273-304); Potassium 3.9 MMOL/L (3.5-5.1)
[2021-12-02] MEDS: INSULIN LISPRO 100 UNIT/ML SUBCUT SCH ×4 (08:37→21:31)
[2021-12-02] MEDS: PANTOPRAZOLE 40 MG VIAL IV SCH ×2 (09:25→21:29)
[2021-12-02] MEDS: SEVELAMER CARBONATE 800 MG TABLET PO SCH ×3 (09:25→16:10)
[2021-12-02] MEDS: amLODIPine 10 MG TABLET PO SCH (09:26)
[2021-12-02] MEDS: MENTHOL/ZINC OXIDE OINT 71 GM JAR TOP SCH ×2 (09:26→21:30)
[2021-12-02] MEDS: levETIRAcetam LIQUID 100 MG/ML 30 ML/BOTTLE PO SCH ×2 (09:27→21:30)
[2021-12-02] MEDS: ACETAMINOPHEN 325 MG/10.15 ML UDCUP PO PRN (16:13)
[2021-12-03 08:36] LABS: Basophils % 0.2 % (0.0-0.8); Eosinophils # 0.1 10*3/uL (0.0-0.87); Eosinophils % 1.9 % (0.00-10.9); Hematocrit 20.9 VOL% (35.7-47.0); Hemoglobin 6.5 GM/DL (12.0-16.0); Immature Granulocytes % 1.4 %; Immature Granulocytes Absolute 0.07 #; Lymphocytes # 1.1 10*3/uL (1.4-4.0); Lymphocytes % 20.9 % (21.3-54.2); Mean Corpuscular HGB Conc 31.1 GM/DL (32-36); Mean Corpuscular Volume 92.9 FL (87-102); Mean Platelet Volume 9.9 FL (9.6-12.0); Monocytes # 0.4 10*3/uL (0.11-0.8); Monocytes % 8.3 % (1.7-12.7); Neutrophils % 67.3 % (38.7-73.9); Platelet Count 183 T/CUMM (130-400); Red Blood Count 2.25 MC/CUMM (3.8-5.5); Red Cell Distribution Width 15.7 % (9.3-17.3); White Blood Count 5.2 T/CUMM (4-12)
[2021-12-03] MEDS: INSULIN LISPRO 100 UNIT/ML SUBCUT SCH ×4 (08:47→20:11)
[2021-12-03 09:01] LABS: Calcium 8.2 MG/DL (8.5-10.1); Osmolality,Calculated 264.2 MOS/KG (273-304); Potassium 4.2 MMOL/L (3.5-5.1)
[2021-12-03] MEDS: PANTOPRAZOLE 40 MG VIAL IV SCH ×2 (09:13→20:57)
[2021-12-03] MEDS: SEVELAMER CARBONATE 800 MG TABLET PO SCH ×3 (09:14→17:10)
[2021-12-03] MEDS: amLODIPine 10 MG TABLET PO SCH (09:14)
[2021-12-03] MEDS: levETIRAcetam LIQUID 100 MG/ML 30 ML/BOTTLE PO SCH ×2 (09:30→22:05)
[2021-12-03] MEDS: MENTHOL/ZINC OXIDE OINT 71 GM JAR TOP SCH ×2 (11:23→20:55)
[2021-12-04 04:52] LABS: Basophils % 0.4 % (0.0-0.8); Eosinophils # 0.1 10*3/uL (0.0-0.87); Eosinophils % 2.4 % (0.00-10.9); Hematocrit 20.5 VOL% (35.7-47.0); Immature Granulocytes % 0.8 %; Immature Granulocytes Absolute 0.04 #; Lymphocytes # 1.3 10*3/uL (1.4-4.0); Lymphocytes % 26.9 % (21.3-54.2); Mean Corpuscular HGB Conc 30.2 GM/DL (32-36); Mean Corpuscular Volume 93.6 FL (87-102); Mean Platelet Volume 10.7 FL (9.6-12.0); Monocytes # 0.4 10*3/uL (0.11-0.8); Monocytes % 8.4 % (1.7-12.7); Neutrophils % 61.1 % (38.7-73.9); Platelet Count 169 T/CUMM (130-400); Red Blood Count 2.19 MC/CUMM (3.8-5.5); Red Cell Distribution Width 15.6 % (9.3-17.3); White Blood Count 4.9 T/CUMM (4-12)
[2021-12-04 04:54] LABS: Hemoglobin 6.2 GM/DL (12.0-16.0)
[2021-12-04 05:19] LABS: Alanine Aminotransferase < 6 U/L (13-56); Albumin 1.8 G/DL (3.4-5.0); Alkaline Phosphatase 1132 U/L (45-117); Aspartate Amino Transferase 9 U/L (0-37); Bilirubin,Total < 0.39 MG/DL (0.20-1.00); Blood Urea Nitrogen 9 MG/DL (7-18); Calcium 8.1 MG/DL (8.5-10.1); Carbon Dioxide 24 MMOL/L (21-32); Chloride 102 MMOL/L (98-107); Glucose 95 MG/DL (74-106); Osmolality,Calculated 266.2 MOS/KG (273-304); Potassium 4.6 MMOL/L (3.5-5.1); Sodium 134 MMOL/L (136-145); Total Protein 6.3 G/DL (6.4-8.2)
[2021-12-04] MEDS: INSULIN LISPRO 100 UNIT/ML SUBCUT SCH ×4 (08:01→20:36)
[2021-12-04] MEDS: PANTOPRAZOLE 40 MG VIAL IV SCH ×2 (09:00→20:33)
[2021-12-04] MEDS: amLODIPine 10 MG TABLET PO SCH (09:00)
[2021-12-04] MEDS: MENTHOL/ZINC OXIDE OINT 71 GM JAR TOP SCH ×2 (09:00→21:17)
[2021-12-04] MEDS: SEVELAMER CARBONATE 800 MG TABLET PO SCH ×3 (09:00→18:09)
[2021-12-04] MEDS ORDERED: ERGOCALCIFEROL 50,000 UNIT CAPSULE PO SCH (09:00)
[2021-12-04] MEDS: levETIRAcetam LIQUID 100 MG/ML 30 ML/BOTTLE PO SCH ×3 (09:01→21:18)
[2021-12-04] MEDS: FERRIC GLUCONATE COMPLEX 125 MG in SODIUM CHLORIDE 0.9% 100 ML IV SCH (10:51)
[2021-12-04] MEDS ORDERED: SODIUM CHLORIDE 0.9% 1,000 ML IV PRN (18:26)
[2021-12-04] MEDS: ACETAMINOPHEN 325 MG/10.15 ML UDCUP PO PRN (22:10)
[2021-12-05 06:11] LABS: Basophils % 0.2 % (0.0-0.8); Eosinophils # 0.1 10*3/uL (0.0-0.87); Hematocrit 21.2 VOL% (35.7-47.0); Immature Granulocytes % 0.9 %; Immature Granulocytes Absolute 0.04 #; Lymphocytes # 1.2 10*3/uL (1.4-4.0); Mean Corpuscular HGB Conc 30.2 GM/DL (32-36); Mean Corpuscular Volume 93.4 FL (87-102); Mean Platelet Volume 10.6 FL (9.6-12.0); Monocytes # 0.4 10*3/uL (0.11-0.8); Monocytes % 7.8 % (1.7-12.7); Neutrophils % 63.1 % (38.7-73.9); Platelet Count 174 T/CUMM (130-400); Red Blood Count 2.27 MC/CUMM (3.8-5.5); Red Cell Distribution Width 16.3 % (9.3-17.3); White Blood Count 4.5 T/CUMM (4-12)
[2021-12-05 06:14] LABS: Hemoglobin 6.4 GM/DL (12.0-16.0)
[2021-12-05 06:38] LABS: Alanine Aminotransferase < 9 U/L (13-56); Albumin 1.8 G/DL (3.4-5.0); Alkaline Phosphatase 1193 U/L (45-117); Aspartate Amino Transferase 10 U/L (0-37); Bilirubin,Total < 0.39 MG/DL (0.20-1.00); Blood Urea Nitrogen 4 MG/DL (7-18); Calcium 8.3 MG/DL (8.5-10.1); Carbon Dioxide 28 MMOL/L (21-32); Chloride 103 MMOL/L (98-107); Glucose 96 MG/DL (74-106); Osmolality,Calculated 269.8 MOS/KG (273-304); Potassium 4.1 MMOL/L (3.5-5.1); Sodium 137 MMOL/L (136-145); Total Protein 6.7 G/DL (6.4-8.2)
[2021-12-05] MEDS: INSULIN LISPRO 100 UNIT/ML SUBCUT SCH ×4 (08:14→20:54)
[2021-12-05] MEDS: SEVELAMER CARBONATE 800 MG TABLET PO SCH ×3 (08:45→17:16)
[2021-12-05] MEDS: amLODIPine 10 MG TABLET PO SCH (09:30)
[2021-12-05] MEDS: MENTHOL/ZINC OXIDE OINT 71 GM JAR TOP SCH ×2 (09:45→20:54)
[2021-12-05] MEDS ORDERED: FAMOTIDINE 20 MG/2 ML VIAL IV ONE (10:00)
[2021-12-05] MEDS: PANTOPRAZOLE 40 MG VIAL IV SCH ×2 (10:00→20:54)
[2021-12-05] MEDS ORDERED: diphenhydrAMINE 50 MG/1 ML VIAL IV ONE (10:00)
[2021-12-05] MEDS ORDERED: methylPREDNISolone SOD SUC 40 MG/1 ML VIAL IV ONE (10:00)
[2021-12-05] MEDS ORDERED: ACETAMINOPHEN 325 MG TABLET PO ONE (10:00)
[2021-12-05] MEDS: levETIRAcetam LIQUID 100 MG/ML 30 ML/BOTTLE PO SCH ×2 (10:20→21:10)
[2021-12-05] MEDS: FERRIC GLUCONATE COMPLEX 125 MG in SODIUM CHLORIDE 0.9% 100 ML IV SCH (15:30)
[2021-12-05 16:17] LABS: Hematocrit 29.6 VOL% (35.7-47.0)
[2021-12-06 06:58] LABS: Hematocrit 27.7 VOL% (35.7-47.0); Hemoglobin 8.6 GM/DL (12.0-16.0); Immature Granulocytes % 1.2 %; Immature Granulocytes Absolute 0.06 #; Lymphocytes # 0.9 10*3/uL (1.4-4.0); Lymphocytes % 17.9 % (21.3-54.2); Mean Corpuscular Volume 92.3 FL (87-102); Monocytes # 0.5 10*3/uL (0.11-0.8); Monocytes % 9.8 % (1.7-12.7); Neutrophils % 71.1 % (38.7-73.9); Platelet Count 191 T/CUMM (130-400); Red Cell Distribution Width 15.9 % (9.3-17.3); White Blood Count 4.9 T/CUMM (4-12)
[2021-12-06] MEDS: INSULIN LISPRO 100 UNIT/ML SUBCUT SCH ×2 (07:25→14:24)
[2021-12-06 07:27] LABS: Osmolality,Calculated 261.7 MOS/KG (273-304); Potassium 4.7 MMOL/L (3.5-5.1)
[2021-12-06] MEDS: amLODIPine 10 MG TABLET PO SCH (13:56)
[2021-12-06] MEDS: SEVELAMER CARBONATE 800 MG TABLET PO SCH ×2 (13:57→14:24)
[2021-12-06] MEDS: PANTOPRAZOLE 40 MG VIAL IV SCH (13:58)
[2021-12-06] MEDS: ACETAMINOPHEN 325 MG/10.15 ML UDCUP PO PRN (13:59)
[2021-12-06] MEDS: FERRIC GLUCONATE COMPLEX 125 MG in SODIUM CHLORIDE 0.9% 100 ML IV SCH (13:59)
[2021-12-06] MEDS: MENTHOL/ZINC OXIDE OINT 71 GM JAR TOP SCH (14:00)
[2021-12-06 14:16] VITALS: BP 140/86
== END 2021-12-06 15:44 | DRG 698 ==
LOC: N.ED 08:59 → N.EDINP 13:22 → SUATTDRO 13:22 → N.3E 13:40
PROVIDERS: ADMIT Internal Medicine; ATTEND Internal Medicine

== ENCOUNTER 2022-05-07 11:12 | Observation (INO) ==
[2022-05-07 12:15] LABS: Basophils % 0.2 % (0.0-0.8); Eosinophils # 0.1 10*3/uL (0.0-0.87); Eosinophils % 3.1 % (0.00-10.9); Hematocrit 33.7 VOL% (35.7-47.0); Hemoglobin 10.9 GM/DL (12.0-16.0); Immature Granulocytes % 0.2 %; Immature Granulocytes Absolute 0.01 #; Lymphocytes # 1.2 10*3/uL (1.4-4.0); Lymphocytes % 25.8 % (21.3-54.2); Mean Corpuscular HGB Conc 32.3 GM/DL (32-36); Mean Corpuscular Volume 90.1 FL (87-102); Mean Platelet Volume 9.4 FL (9.6-12.0); Monocytes # 0.3 10*3/uL (0.11-0.8); Monocytes % 7.1 % (1.7-12.7); Neutrophils % 63.6 % (38.7-73.9); Platelet Count 119 T/CUMM (130-400); Red Blood Count 3.74 MC/CUMM (3.8-5.5); Red Cell Distribution Width 17.1 % (9.3-17.3); White Blood Count 4.5 T/CUMM (4-12)
[2022-05-07 12:49] LABS: Albumin 3.4 G/DL (3.4-5.0); Bilirubin,Total 0.4 MG/DL (0.20-1.00); Calcium 9.3 MG/DL (8.5-10.1); Osmolality,Calculated 306.7 MOS/KG (273-304); Potassium 5.7 MMOL/L (3.5-5.1); Total Protein 6.8 G/DL (6.4-8.2)
[2022-05-07] MEDS ORDERED: ONDANSETRON 4 MG/2 ML VIAL IV PRN (13:46)
[2022-05-07] MEDS ORDERED: hydrALAZINE 20 MG/1 ML VIAL IV PRN (13:46)
[2022-05-07] MEDS ORDERED: SIMETHICONE CHEW 125 MG TABLET PO PRN (13:46)
[2022-05-07] MEDS ORDERED: GLUCAGON 1 MG VIAL IM PRN (13:46)
[2022-05-07] MEDS ORDERED: DEXTROSE 10% 250 ML BAG IV PRN (13:46)
[2022-05-07] MEDS ORDERED: ALBUTEROL/IPRATROPIUM 3 ML NEB RESP TX PRN (13:46)
[2022-05-07] MEDS ORDERED: LACTULOSE 20 GM/30 ML UDCUP PO PRN (13:46)
[2022-05-07] MEDS ORDERED: ACETAMINOPHEN 325 MG TABLET PO PRN (13:46)
[2022-05-07] MEDS ORDERED: DOCUSATE SODIUM 100 MG CAPSULE PO PRN (13:46)
[2022-05-07] MEDS ORDERED: DIPHENOXYLATE/ATROPINE 2.5-0.025 MG TABLET PO PRN (17:19)
[2022-05-07] MEDS: INSULIN LISPRO 100 UNIT/ML SUBCUT SCH (17:25)
[2022-05-07] MEDS ORDERED: SEVELAMER CARBONATE 800 MG TABLET PO SCH (21:00)
[2022-05-07] MEDS: QUEtiapine 25 MG TABLET PO SCH (22:18)
[2022-05-07] MEDS: DULoxetine 20 MG CAPSULE PO SCH (22:19)
[2022-05-08] MEDS: INSULIN LISPRO 100 UNIT/ML SUBCUT SCH ×5 (00:23→21:19)
[2022-05-08] MEDS: SODIUM ZIRCONIUM CYCLOSILICATE 10 GM PACK PO SCH ×2 (02:28→13:04)
[2022-05-08 05:22] LABS: Basophils % 0.2 % (0.0-0.8); Eosinophils # 0.1 10*3/uL (0.0-0.87); Eosinophils % 2.7 % (0.00-10.9); Hematocrit 30.4 VOL% (35.7-47.0); Hemoglobin 9.6 GM/DL (12.0-16.0); Immature Granulocytes % 0.2 %; Immature Granulocytes Absolute 0.01 #; Lymphocytes # 1.4 10*3/uL (1.4-4.0); Lymphocytes % 31.4 % (21.3-54.2); Mean Corpuscular HGB Conc 31.6 GM/DL (32-36); Mean Corpuscular Volume 92.4 FL (87-102); Mean Platelet Volume 9.2 FL (9.6-12.0); Monocytes # 0.4 10*3/uL (0.11-0.8); Monocytes % 8.2 % (1.7-12.7); Neutrophils % 57.3 % (38.7-73.9); Platelet Count 102 T/CUMM (130-400); Red Blood Count 3.29 MC/CUMM (3.8-5.5); Red Cell Distribution Width 17.1 % (9.3-17.3); White Blood Count 4.5 T/CUMM (4-12)
[2022-05-08 05:54] LABS: Alanine Aminotransferase < 9 U/L (13-56); Alkaline Phosphatase 1386 U/L (45-117); Aspartate Amino Transferase 5 U/L (0-37); Blood Urea Nitrogen 104 MG/DL (7-18); Calcium 8.9 MG/DL (8.5-10.1); Carbon Dioxide 23 MMOL/L (21-32); Chloride 104 MMOL/L (98-107); Cholesterol 119 MG/DL (50-200); Glucose 116 MG/DL (74-106); HDL Cholesterol 39 MG/DL (40-60); Osmolality,Calculated 306.8 MOS/KG (273-304); Potassium 5.4 MMOL/L (3.5-5.1); Risk Ratio 3.05; Sodium 137 MMOL/L (136-145); Total Protein 6.2 G/DL (6.4-8.2); Triglycerides 123 MG/DL (2-150); VLDL Cholesterol 24.6 MG/DL
[2022-05-08] MEDS ORDERED: ERGOCALCIFEROL 50,000 UNIT CAPSULE PO SCH (09:00)
[2022-05-08] MEDS ORDERED: HEPARIN 10,000 UNIT/10 ML VIAL IV PRN (09:58)
[2022-05-08] MEDS: MENTHOL/ZINC OXIDE OINT 71 GM JAR TOP SCH ×2 (12:15→13:14)
[2022-05-08] MEDS: SEVELAMER CARBONATE 800 MG TABLET PO SCH ×3 (12:15→17:37)
[2022-05-08] MEDS: DULoxetine 20 MG CAPSULE PO SCH ×2 (13:03→21:44)
[2022-05-08] MEDS: amLODIPine 10 MG TABLET PO SCH (13:03)
[2022-05-08] MEDS: QUEtiapine 25 MG TABLET PO SCH ×2 (13:03→21:44)
[2022-05-08] MEDS: MULTIVITAMIN (BEROCCA) TABLET PO SCH (13:03)
[2022-05-08] MEDS: PANTOPRAZOLE 40 MG TABLET PO SCH (13:04)
[2022-05-08] MEDS: levETIRAcetam LIQUID 100 MG/ML 30 ML/BOTTLE PO SCH ×2 (23:09)
[2022-05-09] MEDS: MENTHOL/ZINC OXIDE OINT 71 GM JAR TOP SCH ×2 (02:03→08:48)
[2022-05-09] MEDS: INSULIN LISPRO 100 UNIT/ML SUBCUT SCH (07:59)
[2022-05-09 08:29] VITALS: BP 152/80
[2022-05-09] MEDS: SODIUM ZIRCONIUM CYCLOSILICATE 10 GM PACK PO SCH (08:45)
[2022-05-09] MEDS: amLODIPine 10 MG TABLET PO SCH (08:46)
[2022-05-09] MEDS: PANTOPRAZOLE 40 MG TABLET PO SCH (08:46)
[2022-05-09] MEDS: SEVELAMER CARBONATE 800 MG TABLET PO SCH (08:46)
[2022-05-09] MEDS: DULoxetine 20 MG CAPSULE PO SCH (08:46)
[2022-05-09] MEDS: MULTIVITAMIN (BEROCCA) TABLET PO SCH (08:47)
[2022-05-09] MEDS: QUEtiapine 25 MG TABLET PO SCH (08:47)
== END 2022-05-09 11:16 ==
LOC: N.EDINP 11:12 → N.ED 11:12 → SUATTDRO 13:46 → N.TELES 16:17 → N.3E 18:26
PROVIDERS: ADMIT Internal Medicine; ATTEND Internal Medicine